=== PATIENT | male | born 1965 | race Caucasian/White ===

== ENCOUNTER 2017-02-12 10:43 | Emergency (ER) | payer OTHER ==
[2017-02-12 10:58] VITALS: BP 155/75; PULSE 86; TEMP 97.9; BMI 31.8
[2017-02-12] MEDS ORDERED: OXYCODONE/APAP 5/325MG COMBO TABLET PO ONE (11:41)
[2017-02-12] MEDS ORDERED: OXYCODONE/APAP 5/325MG COMBO TABLET ONE (11:46)
--- NOTE | 2017-02-12 11:51 | PDOC ---
History of Present Illness - General Chief Complaint: Head/Neck problem Stated Complaint: INJURY Time Seen by Provider: 02/12/17 11:15 History Source: Patient - History of Present Illness Timing/Duration: other Associated Symptoms: denies: headaches, weakness Past History - Past Medical History Allergies/Adverse Reactions: Allergies Allergy/AdvReac Type Severity Reaction Status Date / Time No Known Allergies Allergy Verified 02/12/17 10:54 Home Medications: Ambulatory Orders Hydrochlorothiazide [Hctz -] 25 mg PO DAILY 11/04/12 Ibuprofen 600 mg PO TID #21 tablet 08/04/16 Miscellaneous Medical Supply [Outpatient Order] 1 each ASDIR #1 misc Oxycodone HCl/Acetaminophen [Percocet 5-325 mg Tablet] 1 tab PO Q6H PRN #12 tablet MDD 4 tabs 08/04/16 Oxycodone HCl/Acetaminophen [Percocet 5-325 mg Tablet] 1 tab PO Q4H #15 tablet MDD 6mg 02/12/17 Anemia: No Asthma: No Cancer: Yes (Colon Cancer (s/p 6inch resection)) Cardiac Disorders: No HTN: Yes Hypercholesterolemia: Yes - Surgical History Abdominal Surgery: Yes (HERNIA REPAIR) GI Surgery: Yes (Colon CA resection) - Psycho/Social/Smoking Cessation Hx Anxiety: No Suicidal Ideation: No Smoking Status: Yes Smoking History: Current every day smoker Have you smoked in the past 12 months: Yes Number of Cigarettes Smoked Daily: 6 Information on smoking cessation initiated: No 'Breaking Loose' booklet given: 08/04/16 Hx Alcohol Use: No Drug/Substance Use Hx: No Substance Use Type: None Review of Systems - Review of Systems Constitutional: No: Chills, Fever Musculoskeletal: Yes: Neck Pain Neurological: No: Numbness, Tingling, Weakness *Physical Exam - Vital Signs Last Vital Signs Temp Pulse Resp BP Pulse Ox 97.9 F 86 19 155/75 96 02/12/17 10:55 02/12/17 10:55 02/12/17 10:55 02/12/17 10:55 02/12/17 10:55 - Physical Exam General Appearance: Yes: Appropriately Dressed. No: Apparent Distress HEENT: positive: Normal Voice Neck: positive: Supple Respiratory/Chest: negative: Respiratory Distress Integumentary: positive: Dry, Warm Neurologic: positive: Fully Oriented, Alert, Normal Mood/Affect, Motor Strength 11/21 Medical Decision Making - Medical Decision Making 02/12/17 11:47 51-year-old male history of hypertension, hyperlipidemia, colon cancer status post resection, chronic neck pain with 5 herniated disc on MRI as per patient, currently follows up with neurosurgeon and told he might need surgery in the near future, has since had to resign from his job and has since been approved for early usp as per patient, here requesting refill of his Percocet. Patient states he was getting medications from his orthopedic doctor, but that his insurance has switched to medicaid and that his orthopedist does not accept that insurance. In the process of getting another orthopedist, but currently complaining of his usual neck pain and here for pain control. No upper extremity weakness, numbness or tingling. Pt well dante and in NAD w/ unremarkable exam. I explained to pt that we will refill his meds this 1 time but that after this visit, he needs to request meds from his neurosurgeon, a new orthopedist or pain management. Pt verbalized understanding and discharged in stable condition w/ refill 02/12/17 11:52 *DC/Admit/Observation/Transfer Diagnosis at time of Disposition: Chronic neck pain - Discharge Dispostion Disposition: HOME Condition at time of disposition: Good - Prescriptions Prescriptions: Oxycodone HCl/Acetaminophen [Percocet 5-325 mg Tablet] 1 tab PO Q4H #15 tablet MDD 6mg - Patient Instructions Printed Discharge Instructions: DI for Chronic Neck Pain Additional Instructions: Take medication as prescribed and continue to follow-up with your neurosurgeon
== END 2017-02-12 11:54 | disposition home or self-care (01) ==
LOC: JERFT 10:43
DX: M54.2 Cervicalgia (principal); G89.29 Other chronic pain; Z76.0 Encounter for issue of repeat prescription; I10 Essential (primary) hypertension; E78.00 Pure hypercholesterolemia, unspecified; Z85.038 Personal history of other malignant neoplasm of large intestine
CPT/HCPCS: 99281-25

== ENCOUNTER 2017-06-29 15:32 | Inpatient (IN) | payer OTHER ==
[2017-06-29 15:37] VITALS: BMI 34.0
[2017-06-29] MEDS ORDERED: ACETAMINOPHEN 325 MG TABLET (FP) PO ONE (15:37)
--- NOTE | 2017-06-29 16:29 | PDOC ---
Rapid Medical Evaluation Chief Complaint: Cold Symptoms Time Seen by Provider: 06/29/17 16:22 Medical Evaluation: Allergies Allergy/AdvReac Type Severity Reaction Status Date / Time No Known Allergies Allergy Verified 06/29/17 15:33 Vital Signs Temp Pulse Resp BP Pulse Ox 100.5 F H 132 H 18 125/74 95 06/29/17 15:34 06/29/17 15:34 06/29/17 15:34 06/29/17 15:34 06/29/17 15:34 06/29/17 16:25 The patient presents with a chief complaint of: Sore throat 2 days, back pain. Hx of herniated discs I have performed a brief in-person evaluation of this patient; Pertinent physical exam findings Posterior pharynx erythema I have ordered the following: rapid strep The patient will proceed to the ED for further evaluation. Discharge Disposition - Discharge Dispostion Last Admission D/C Date: 04/27/06 - Referrals Referrals: Juvenal Reeder [Primary Care Provider] - - Patient Instructions - Post Discharge Activity
[2017-06-29] MEDS ORDERED: SODIUM CHLORIDE 1,000 ML IV STA ×2 (18:20→20:54)
[2017-06-29] MEDS ORDERED: ACETAMINOPHEN 1000 MG/100 ML VIAL (NON FORMULARY) IVPB ONE ×2 (18:21→20:54)
[2017-06-29] MEDS ORDERED: KETOROLAC TROMETHAMINE 30 MG/1 ML VIAL IVPUSH ONE (18:22)
--- NOTE | 2017-06-29 18:31 | PDOC ---
History of Present Illness <Jesus Mitchell - Last Filed: 06/29/17 18:31> - General History Source: Patient Exam Limitations: No Limitations - History of Present Illness Initial Comments: 06/29/17 19:03 [employer]RE [employer] The patient is a 52 year old male, with a significant past medical history of Asthma, HTN, HLD, Major Depressive Disorder who presents to the emergency department with lower back pain and fever today. Patient reports lower back pain that began yesterday, constant, sharp, 06/28 in severity, radiating down his legs. Patient was seen at [facility] ED for this similar episode with a negative workup months ago. Patient reports taking percocet yesterday with minimal relief. Patient admits to taking percocet today however denies any relief. Patient endorses diarrhea, headache and dizziness. Patient presents to the ED for further evaluation. Upon evaluation, patients vital signs are significant for 102.6 fever and 110 HR. Patient reports heavy lifting at work. Patient denied any urine/bowel incontinence. Patient denies chest pain, headache or dizziness. Patient denies abdominal pain, nausea, vomit, diarrhea or constipation. Patient denies dysuria, frequency, urgency or hematuria. Patient denies sick contacts or recent travel. Allergies: NKA Past surgical history:Hernia repair, [place] CA resection 2012 Social history: Tobacoo smoker 17 yrs, Former cocaine and EtOH use. PCP: Dr. Reeder <Delores Saucedo - Last Filed: 06/29/17 19:03> <Julissa Tsang - Last Filed: 06/29/17 19:41> <Alpa Camacho - Last Filed: 06/30/17 04:46> - General Chief Complaint: Cold Symptoms Stated Complaint: CHILLS, BACK PAIN Time Seen by Provider: 06/29/17 16:22 Past History - Past Medical History Anemia: No Asthma: No Cancer: Yes (Colon Cancer (s/p 6inch resection)) Cardiac Disorders: No CVA: Yes (mini stroke) COPD: No HTN: Yes Hypercholesterolemia: Yes Other medical history: back problems - Surgical History Abdominal Surgery: Yes (HERNIA REPAIR) GI Surgery: Yes (Colon CA resection) - Suicide/Smoking/Psychosocial Hx Smoking Status: Yes Smoking History: Current every day smoker Have you smoked in the past 12 months: Yes Number of Cigarettes Smoked Daily: 6 Information on smoking cessation initiated: Yes 'Breaking Loose' booklet given: 08/04/16 Hx Alcohol Use: No Drug/Substance Use Hx: No Substance Use Type: None <Jesus Mitchell - Last Filed: 06/29/17 18:31> <Delores Saucedo - Last Filed: 06/29/17 19:03> <TsangNelyJulissa - Last Filed: 06/29/17 19:41> <Alpa Camacho - Last Filed: 06/30/17 04:46> - Past Medical History Allergies/Adverse Reactions: Allergies Allergy/AdvReac Type Severity Reaction Status Date / Time No Known Allergies Allergy Verified 06/29/17 15:33 Home Medications: Ambulatory Orders Oxycodone HCl/Acetaminophen [Percocet 5-325 mg Tablet] 1 tab PO Q4H #15 tablet MDD 6mg 02/12/17 Aspirin [ASA -] 81 mg PO DAILY 06/29/17 Atorvastatin Ca [Lipitor] 40 mg PO HS 06/29/17 Fluoxetine HCl [Prozac] 40 mg PO DAILY 06/29/17 Review of Systems - Review of Systems Able to Perform ROS?: Yes Comments:: 06/29/17 19:04 GENERAL/CONSTITUTIONAL: + fever, chills.+Generalized weakness. HEAD, EYES, EARS, NOSE AND THROAT: No change in vision. No ear pain or discharge. No sore throat. CARDIOVASCULAR: No chest pain or shortness of breath. RESPIRATORY: No cough, wheezing, or hemoptysis. GASTROINTESTINAL: No nausea, vomiting, diarrhea or constipation. GENITOURINARY: No dysuria, frequency, or change in urination. MUSCULOSKELETAL: No joint or muscle swelling or pain. No neck pain. +Back pain. SKIN: No rash NEUROLOGIC: No headache, vertigo, loss of consciousness, or change in strength/ sensation. ENDOCRINE: No increased thirst. No abnormal weight change. HEMATOLOGIC/LYMPHATIC: No anemia, easy bleeding, or history of blood clots. ALLERGIC/IMMUNOLOGIC: No hives or skin allergy. <Delores Saucedo - Last Filed: 06/29/17 19:03> *Physical Exam - Vital Signs Last Vital Signs Temp Pulse Resp BP Pulse Ox 102.6 F H 110 H 20 111/57 97 06/29/17 18:19 06/29/17 18:19 06/29/17 18:19 06/29/17 18:19 06/29/17 18:19 <Jesus Mitchell - Last Filed: 06/29/17 18:31> - Vital Signs Last Vital Signs Temp Pulse Resp BP Pulse Ox 102.6 F H 110 H 20 111/57 97 06/29/17 18:19 06/29/17 18:19 06/29/17 18:19 06/29/17 18:19 06/29/17 18:19 - Physical Exam Comments: 06/29/17 19:04 GENERAL: Awake, alert, and fully oriented, in no acute distress HEAD: No signs of trauma EYES: PERRLA, EOMI, sclera anicteric, conjunctiva clear ENT: Auricles normal inspection, hearing grossly normal, nares patent, oropharynx clear without exudates. Moist mucosa NECK: Normal ROM, supple, no lymphadenopathy, JVD, or masses LUNGS: Breath sounds equal, clear to auscultation bilaterally. No wheezes, and no crackles HEART: Regular rate and rhythm, normal S1 and S2, no murmurs, rubs or gallops ABDOMEN: Soft, nontender, normoactive bowel sounds. No guarding, no rebound. No masses EXTREMITIES: Normal range of motion, no edema. No clubbing or cyanosis. No cords, erythema, or tenderness NEUROLOGICAL: Cranial nerves II through XII grossly intact. Normal speech, normal gait SKIN: Warm, Dry, normal turgor, no rashes or lesions noted. <Delores Saucedo - Last Filed: 06/29/17 19:03> - Vital Signs Last Vital Signs Temp Pulse Resp BP Pulse Ox 102.6 F H 110 H 20 111/57 97 06/29/17 18:19 06/29/17 18:19 06/29/17 18:19 06/29/17 18:19 06/29/17 18:19 <Julissa Tsang - Last Filed: 06/29/17 19:41> - Vital Signs Last Vital Signs Temp Pulse Resp BP Pulse Ox 102.6 F H 117 H 20 132/82 98 06/30/17 04:09 06/30/17 04:09 06/30/17 04:09 06/30/17 04:09 06/30/17 04:09 <Alpa Camacho - Last Filed: 06/30/17 04:46> Heart Score/ECG Review - ECG Intrepretation Comment:: 06/29/17 19:41 Sinus tachycardia. Otherwise normal ECG. <Nely Tsangnda - Last Filed: 06/29/17 19:41> ED Treatment Course - ADDITIONAL ORDERS Additional order review: 06/29/17 16:28 Group A Strep Rapid Antigen - Final Throat - RADIOLOGY Radiology Studies Ordered: Category Date Time Status CHEST X-RAY PORTABLE* [RAD] Stat Radiology 06/29/17 18:20 Ordered - Medications Given in the ED: ED Medications Discontinued Medications Generic Name Dose Route Start Last Admin Trade Name Freq PRN Reason Stop Dose Admin Acetaminophen 650 mg 06/29/17 15:37 06/29/17 15:38 Tylenol - PO 06/29/17 15:38 650 mg NOW ONE Administration <Jesus Mitchell - Last Filed: 06/29/17 18:31> - LABORATORY CBC & Chemistry Diagram: 06/29/17 18:55 06/29/17 18:55 - ADDITIONAL ORDERS Additional order review: 06/29/17 16:28 Group A Strep Rapid Antigen - Final Throat - Medications Given in the ED: ED Medications Discontinued Medications Generic Name Dose Route Start Last Admin Trade Name Freq PRN Reason Stop Dose Admin Acetaminophen 650 mg 06/29/17 15:37 06/29/17 15:38 Tylenol - PO 06/29/17 15:38 650 mg NOW ONE Administration <Delores Saucedo - Last Filed: 06/29/17 19:03> - LABORATORY CBC & Chemistry Diagram: 06/29/17 18:55 06/29/17 18:55 - ADDITIONAL ORDERS Additional order review: Laboratory Results 06/29/17 06/29/17 06/29/17 19:04 18:55 18:55 PT with INR 12.70 H INR 1.12 PTT (Actin FS) 35.1 H VBG pH 7.42 POC VBG pCO2 40.3 POC VBG pO2 31.4 Mixed VBG HCO3 26.2 H Urine Color Latasha Urine Appearance Slcloudy Urine pH 5.0 Ur Specific [place] 1.029 Urine Protein Negative Urine Glucose (UA) Negative Urine Ketones Trace H Urine Blood Negative Urine Nitrite Negative Urine Bilirubin Negative Urine Urobilinogen 2.0 06/29/17 18:55 Influenza Types A,B Antigen (ANN MARIE) - Preliminary Nasopharyngeal Swab - Preliminary 06/29/17 16:28 Group A Strep Rapid Antigen - Final Throat 06/29/17 18:55 RBC 5.01 MCV 87.8 MCHC 34.3 RDW 13.7 MPV 9.0 Neutrophils % 89.1 H D Lymphocytes % 6.6 L D Monocytes % 4.1 Eosinophils % 0.0 D Basophils % 0.2 - Medications Given in the ED: ED Medications Discontinued Medications Generic Name Dose Route Start Last Admin Trade Name Roz PRN Reason Stop Dose Admin Acetaminophen 650 mg 06/29/17 15:37 06/29/17 15:38 Tylenol - PO 06/29/17 15:38 650 mg NOW ONE Administration Acetaminophen 1,000 mg 06/29/17 18:21 06/29/17 19:08 Ofirmev Injection - IVPB 06/29/17 18:22 Not Given ONCE ONE Sodium Chloride 1,000 mls @ 1,000 mls/hr 06/29/17 18:20 06/29/17 19:03 Normal Saline - IV 06/29/17 19:19 1,000 mls/hr ASDIR STA Administration Ketorolac Tromethamine 30 mg 06/29/17 18:22 06/29/17 19:03 Toradol Injection - IVPUSH 06/29/17 18:23 30 mg ONCE ONE Administration <Julissa Tsang - Last Filed: 06/29/17 19:41> - LABORATORY CBC & Chemistry Diagram: 06/29/17 18:55 06/29/17 18:55 - ADDITIONAL ORDERS Additional order review: Laboratory Results 06/29/17 06/29/17 06/29/17 19:04 18:55 18:55 PT with INR INR PTT (Actin FS) VBG pH POC VBG pCO2 POC VBG pO2 Mixed VBG HCO3 Sodium Potassium Chloride Carbon Dioxide Anion Gap BUN Creatinine Creat Clearance w eGFR Random Glucose Lactic Acid 1.3 Calcium Total Bilirubin AST ALT Alkaline Phosphatase Creatine Kinase Creatine Kinase Index CK-MB (CK-2) Troponin I Total Protein Albumin Urine Color Latasha Urine Appearance Slcloudy Urine pH 5.0 Ur Specific [place] 1.029 Urine Protein Negative Urine Glucose (UA) Negative Urine Ketones Trace H Urine Blood Negative Urine Nitrite Negative Urine Bilirubin Negative Urine Urobilinogen 2.0 Ur Leukocyte Esterase Negative Blood Type O POSITIVE Antibody Screen Negative 06/29/17 06/29/17 06/29/17 18:55 18:55 18:55 PT with INR 12.70 H INR 1.12 PTT (Actin FS) 35.1 H VBG pH 7.42 POC VBG pCO2 40.3 POC VBG pO2 31.4 Mixed VBG HCO3 26.2 H Sodium 133 L Potassium 4.1 Chloride 98 Carbon Dioxide 26 Anion Gap 9 BUN 16 Creatinine 1.4 H D Creat Clearance w eGFR 52.81 Random Glucose 99 Lactic Acid Calcium 8.7 Total Bilirubin 0.5 D AST 15 ALT 36 Alkaline Phosphatase 81 Creatine Kinase 179 Creatine Kinase Index 0.5 CK-MB (CK-2) < 1.000 Troponin I < 0.02 Total Protein 7.2 Albumin 3.8 Urine Color Urine Appearance Urine pH Ur Specific [place] Urine Protein Urine Glucose (UA) Urine Ketones Urine Blood Urine Nitrite Urine Bilirubin Urine Urobilinogen Ur Leukocyte Esterase Blood Type Antibody Screen 06/29/17 18:55 Influenza Types A,B Antigen (ANN MARIE) - Final Nasopharyngeal Swab - Final 06/29/17 16:28 Group A Strep Rapid Antigen - Final Throat 06/29/17 18:55 RBC 5.01 MCV 87.8 MCHC 34.3 RDW 13.7 MPV 9.0 Neutrophils % 89.1 H D Lymphocytes % 6.6 L D Monocytes % 4.1 Eosinophils % 0.0 D Basophils % 0.2 - RADIOLOGY Radiology Studies Ordered: Category Date Time Status LUMBAR SPINE CT WITH CONTRAST [CT] Stat CT Scan 06/29/17 20:55 Taken - Medications Given in the ED: ED Medications Discontinued Medications Generic Name Dose Route Start Last Admin Trade Name Roz PRN Reason Stop Dose Admin Acetaminophen 650 mg 06/29/17 15:37 06/29/17 15:38 Tylenol - PO 06/29/17 15:38 650 mg NOW ONE Administration Acetaminophen 1,000 mg 06/29/17 18:21 06/29/17 19:08 Ofirmev Injection - IVPB 06/29/17 18:22 Not Given ONCE ONE Acetaminophen 1,000 mg 06/29/17 20:54 06/29/17 20:55 Ofirmev Injection - IVPB 06/29/17 20:55 1,000 mg ONCE ONE Administration Acetaminophen 1,000 mg 06/30/17 04:06 06/30/17 04:22 Ofirmev Injection - IVPB 06/30/17 04:07 1,000 mg ONCE ONE Administration Sodium Chloride 1,000 mls @ 1,000 mls/hr 06/29/17 18:20 06/29/17 19:03 Normal Saline - IV 06/29/17 19:19 1,000 mls/hr ASDIR STA Administration Sodium Chloride 1,000 mls @ 1,000 mls/hr 06/29/17 20:54 06/29/17 20:55 Normal Saline - IV 06/29/17 21:53 1,000 mls/hr ASDIR STA Administration Sodium Chloride 2,000 mls @ 1,000 mls/hr 06/30/17 00:15 06/30/17 00:57 Normal Saline - IV 06/30/17 02:14 1,000 mls/hr ASDIR STA Administration Ketorolac Tromethamine 30 mg 06/29/17 18:22 06/29/17 19:03 Toradol Injection - IVPUSH 06/29/17 18:23 30 mg ONCE ONE Administration <Alpa Camacho - Last Filed: 06/30/17 04:46> *DC/Admit/Observation/Transfer - Attestations Physician Attestion: 06/29/17 18:31 I, Dr. Jesus Mitchell, attest that this document has been prepared under my direction and personally reviewed by me in its entirety. I further attest, that it accurately reflects all work, treatment, procedures and medical decision -making performed by me. <Jesus Mitchell - Last Filed: 06/29/17 18:31> - Attestations Scribe Attestion: 06/29/17 19:04 Documentation prepared by Delores Saucedo, acting as medical coding manager for Jesus Mitchell DO. <Delores Saucedo - Last Filed: 06/29/17 19:03> <Julissa Tsang - Last Filed: 06/29/17 19:41> - Discharge Dispostion Admit: Yes <Alpa Camacho - Last Filed: 06/30/17 04:46> Diagnosis at time of Disposition: Fever Qualifiers: Fever type: unspecified Qualified Code(s): R50.9 - Fever, unspecified - Discharge Dispostion Condition at time of disposition: Guarded - Referrals Referrals: Juvenal Reeder [Primary Care Provider] - - Patient Instructions Printed Discharge Instructions: DI for Influenza -- Adult, DI for Fever ( Symptom) -- Adult - Post Discharge Activity
[2017-06-29] MEDS ORDERED: KETOROLAC TROMETHAMINE 30 MG/1 ML VIAL ONE (18:57)
[2017-06-29 19:05] LABS: BASOPHIL 0.2 % (0-2.0); MCH 30.1 pg (25.7-33.7); MCHC 34.3 g/dl (32.0-35.9); MEAN CELL VOLUME 87.8 fl (80-96); NEUTROPHILS 89.1 % (42.8-82.8); PLATELET COUNT 208 K/MM3 (134-434); RDW 13.7 % (11.9-15.9); WHITE BLOOD COUNT 15.2 K/mm3 (4.0-10.0)
[2017-06-29 19:06] LABS: VENOUS BLOOD GAS HCO3 26.2 meq/L (19-25); VENOUS PH 7.42 (7.32-7.42)
[2017-06-29 19:19] LABS: URINE APPEARANCE SLCLOUDY; URINE BILIRUBIN NEGATIVE (NEGATIVE); URINE BLOOD NEGATIVE (NEGATIVE); URINE COLOR AMBER; URINE GLUCOSE (UA) NEGATIVE (NEGATIVE); URINE KETONE TRACE (NEGATIVE); URINE LEUK ESTERASE NEGATIVE (NEGATIVE); URINE NITRITE NEGATIVE (NEGATIVE); URINE PROTEIN NEGATIVE (NEGATIVE)
[2017-06-29 19:23] LABS: INR 1.12 (0.82-1.09); PROTHROMBIN TIME (PATIENT) 12.7 SEC (9.98-11.88)
[2017-06-29 19:25] LABS: ACTIVATED PTT 35.1 SECONDS (26.9-34.4)
[2017-06-29 19:49] LABS: ALBUMIN 3.8 g/dl (3.4-5.0); ANION GAP 9 (8-16); BILIRUBIN,TOTAL 0.5 mg/dL (0.2-1.0); CALCIUM 8.7 mg/dL (8.5-10.1); CO2 26 mmol/L (21-32); CREATININE 1.4 mg/dL (0.7-1.3); GLUCOSE,RANDOM 99 mg/dL (74-106); SGOT/AST 15 U/L (15-37); SGPT/ALT 36 U/L (12-78); TOT PROT 7.2 g/dl (6.4-8.2)
[2017-06-29 19:51] LABS: ALK PHOS 81 U/L (45-117); CPK 179 IU/L (39-308); TROPONIN I < 0.02 ng/ml (0.00-0.05)
--- NOTE | 2017-06-29 20:18 | PDOC ---
*Physical Exam - Vital Signs Last Vital Signs Temp Pulse Resp BP Pulse Ox 102.5 F H 110 H 20 111/57 97 06/29/17 20:13 06/29/17 18:19 06/29/17 18:19 06/29/17 18:19 06/29/17 18:19 ED Treatment Course - LABORATORY CBC & Chemistry Diagram: 06/29/17 18:55 06/29/17 18:55 - ADDITIONAL ORDERS Additional order review: Laboratory Results 06/29/17 06/29/17 06/29/17 19:04 18:55 18:55 PT with INR INR PTT (Actin FS) VBG pH POC VBG pCO2 POC VBG pO2 Mixed VBG HCO3 Sodium 133 L Potassium 4.1 Chloride 98 Carbon Dioxide 26 Anion Gap 9 BUN 16 Creatinine 1.4 H D Creat Clearance w eGFR 52.81 Random Glucose 99 Lactic Acid 1.3 Calcium 8.7 Total Bilirubin 0.5 D AST 15 ALT 36 Alkaline Phosphatase 81 Creatine Kinase 179 Troponin I < 0.02 Total Protein 7.2 Albumin 3.8 Urine Color Latasha Urine Appearance Slcloudy Urine pH 5.0 Ur Specific [place] 1.029 Urine Protein Negative Urine Glucose (UA) Negative Urine Ketones Trace H Urine Blood Negative Urine Nitrite Negative Urine Bilirubin Negative Urine Urobilinogen 2.0 06/29/17 06/29/17 18:55 18:55 PT with INR 12.70 H INR 1.12 PTT (Actin FS) 35.1 H VBG pH 7.42 POC VBG pCO2 40.3 POC VBG pO2 31.4 Mixed VBG HCO3 26.2 H Sodium Potassium Chloride Carbon Dioxide Anion Gap BUN Creatinine Creat Clearance w eGFR Random Glucose Lactic Acid Calcium Total Bilirubin AST ALT Alkaline Phosphatase Creatine Kinase Troponin I Total Protein Albumin Urine Color Urine Appearance Urine pH Ur Specific [place] Urine Protein Urine Glucose (UA) Urine Ketones Urine Blood Urine Nitrite Urine Bilirubin Urine Urobilinogen 06/29/17 18:55 Influenza Types A,B Antigen (ANN MARIE) - Final Nasopharyngeal Swab - Final 06/29/17 16:28 Group A Strep Rapid Antigen - Final Throat 06/29/17 18:55 RBC 5.01 MCV 87.8 MCHC 34.3 RDW 13.7 MPV 9.0 Neutrophils % 89.1 H D Lymphocytes % 6.6 L D Monocytes % 4.1 Eosinophils % 0.0 D Basophils % 0.2 - Medications Given in the ED: ED Medications Discontinued Medications Generic Name Dose Route Start Last Admin Trade Name Roz PRN Reason Stop Dose Admin Acetaminophen 650 mg 06/29/17 15:37 06/29/17 15:38 Tylenol - PO 06/29/17 15:38 650 mg NOW ONE Administration Acetaminophen 1,000 mg 06/29/17 18:21 06/29/17 19:08 Ofirmev Injection - IVPB 06/29/17 18:22 Not Given ONCE ONE Sodium Chloride 1,000 mls @ 1,000 mls/hr 06/29/17 18:20 06/29/17 19:03 Normal Saline - IV 06/29/17 19:19 1,000 mls/hr ASDIR STA Administration Ketorolac Tromethamine 30 mg 06/29/17 18:22 06/29/17 19:03 Toradol Injection - IVPUSH 06/29/17 18:23 30 mg ONCE ONE Administration Medical Decision Making - Medical Decision Making 06/30/17 00:13 CT L-spine negative for abscess. No overlying skin changes. He has had similar back pain in the past, this is likely related. Source of fever is likely flu, as he has body aches. 06/30/17 04:33 Pt continues to be tachycardic despite 4 liters of IV fluids and fever control. Will admit to hospitalist service. *DC/Admit/Observation/Transfer Diagnosis at time of Disposition: Fever Qualifiers: Fever type: unspecified Qualified Code(s): R50.9 - Fever, unspecified - Discharge Dispostion Condition at time of disposition: Guarded Admit: Yes - Referrals Referrals: Juvenal Reeder [Primary Care Provider] - - Patient Instructions Printed Discharge Instructions: DI for Influenza -- Adult, DI for Fever ( Symptom) -- Adult - Post Discharge Activity
[2017-06-29] MEDS ORDERED: ACETAMINOPHEN INJECTION 100 ML IVPB ONE (20:50)
[2017-06-29 21:11] LABS: URINE LEUK ESTERASE NEGATIVE (NEGATIVE)
[2017-06-30] MEDS ORDERED: SODIUM CHLORIDE 2,000 ML IV STA (00:15)
[2017-06-30] MEDS ORDERED: ACETAMINOPHEN 1000 MG/100 ML VIAL (NON FORMULARY) IVPB ONE (04:06)
[2017-06-30] MEDS ORDERED: ACETAMINOPHEN INJECTION 100 ML IVPB ONE (04:12)
[2017-06-30] MEDS ORDERED: SODIUM CHLORIDE 1,000 ML IV SCH (05:00)
--- NOTE | 2017-06-30 05:02 | HP ---
CHIEF COMPLAINT: Fever/chills, low back pain PCP: Dr. Reeder HISTORY OF PRESENT ILLNESS: 52yo M with history of asthma, HTN, anxiety, HLD who presents to the ER with fever/chills and worsening back pain. Pt states his symptoms started 2 days ago when he noticed increasing back pain alongside fever/chills. He reports having chronic lower back pain with radiation down his legs, however it increased in intensity. Pt was at [facility] ED for his back pain, however the work-up was negative. HE reports having multiple episodes of watery diarrhea of normal colour since yesterday without any blood or mucous noted. He denies any sinus pressure, sore throat, ear pain, nausea/vomiting, SOB, CP/discomfort, abdominal pain recent trauma, recent instrument digitation of his spine, saddle anesthesia , motor difficulties, urinary difficulties including dysuria, polyuria, incontinence, and any unusual weight changes. Pt denies any sick contacts or eating anything unusual for him these past few days. Pt denies any antibiotic use prior to this hospital visit. ER course was notable for: (1) Fever max of 102.6 with minimal response to almost 4g of Tylenol in a 24hr period (2) Lumbar CT of the spine - No abscess or acute pathology (3) CXR - no acute findings noted (4) 4L of NS administered Recent Travel: Denies PAST MEDICAL HISTORY: Asthma Colon cancer (s/p resection) HLD HTN Anxiety PAST SURGICAL HISTORY: Colon resection (2012) Hernia Repair Social History: Smokin year smoker Alcohol: None Drugs: Previous cocaine and alcohol abuse; none currently Family History: Allergies No Known Allergies Allergy (Verified 06/29/17 15:33) HOME MEDICATIONS: Home Medications Medication Instructions Recorded Oxycodone HCl/Acetaminophen 1 tab PO Q4H #15 tablet MDD 6mg 02/12/17 [Percocet 5-325 mg Tablet] Aspirin [ASA -] 81 mg PO DAILY 06/29/17 Atorvastatin Ca [Lipitor] 40 mg PO HS 06/29/17 Fluoxetine HCl [Prozac] 40 mg PO DAILY 06/29/17 REVIEW OF SYSTEMS CONSTITUTIONAL: Present: fever, chills, malaise Absent: diaphoresis, generalized weakness, loss of appetite, weight change HEENT: Absent: rhinorrhea, nasal congestion, throat pain, throat swelling, difficulty swallowing, mouth swelling, ear pain, eye pain, visual changes CARDIOVASCULAR: Absent: chest pain, syncope, palpitations, irregular heart rate, lightheadedness , peripheral edema RESPIRATORY: Absent: cough, shortness of breath, dyspnea with exertion, orthopnea, wheezing, stridor, hemoptysis GASTROINTESTINAL: Present: Diarrhea Absent: abdominal pain, abdominal distension, nausea, vomiting, constipation, melena, hematochezia GENITOURINARY: Absent: dysuria, frequency, urgency, hesitancy, hematuria, flank pain, genital pain MUSCULOSKELETAL: Present: Body aches Absent: joint swelling, back pain, neck pain ENDOCRINE: Absent: unexplained weight gain, unexplained weight loss NEUROLOGIC: Absent: headache, focal weakness or paresthesias, dizziness, unsteady gait, seizure, bladder or bowel incontinence PSYCHIATRIC: Present: Anxiety Absent: depression PHYSICAL EXAMINATION Vital Signs - 24 hr 06/29/17 06/29/17 06/29/17 15:34 18:19 20:13 Temperature 100.5 F H 102.6 F H 102.5 F H Pulse Rate 132 H Pulse Rate [ 110 H Right Radial] Respiratory 18 20 Rate Blood Pressure 125/74 Blood Pressure 111/57 [Left Arm] O2 Sat by Pulse 95 97 Oximetry (%) 06/30/17 06/30/17 00:10 04:09 Temperature 100.5 F H 102.6 F H Pulse Rate Pulse Rate [ 120 H 117 H Right Radial] Respiratory 18 20 Rate Blood Pressure Blood Pressure 132/91 132/82 [Left Arm] O2 Sat by Pulse 97 98 Oximetry (%) GENERAL: NAD, lying in bed, awake, alert HEENT: AT/NC, No JVD present, No erythema or plaques in posterior oropharynx with normal structures of mouth, no scleral icterus LUNGS: CTA bilaterally. No wheezes, rhonchi, rales. No accessory muscle use. HEART: Tachycardic, normal S1 and S2 without murmur appreciated ABDOMEN: Soft, obese, nontender, nondistended, normoactive bowel sounds, no guarding, no rebound, no masses. No hepatomegaly. MUSCULOSKELETAL: No CVA tenderness, no tenderness on spinous processes EXTREMITIES: 2+ DP pulses, warm, no peripheral edema. NEUROLOGICAL: Nonfocal. Normal speech. Gait not observed. Strength 5/5 in lower extremities. PSYCHIATRIC: Cooperative. Good eye contact. Appropriate mood and affect. SKIN: Warm, dry, no rashes or lesions noted Laboratory Results - last 24 hr 06/29/17 06/29/17 06/29/17 18:55 18:55 18:55 WBC 15.2 H D RBC 5.01 Hgb 15.1 Hct 44.0 MCV 87.8 MCH 30.1 MCHC 34.3 RDW 13.7 Plt Count 208 MPV 9.0 Neutrophils % 89.1 H D Lymphocytes % 6.6 L D Monocytes % 4.1 Eosinophils % 0.0 D Basophils % 0.2 PT with INR 12.70 H INR 1.12 PTT (Actin FS) 35.1 H VBG pH 7.42 POC VBG pCO2 40.3 POC VBG pO2 31.4 Mixed VBG HCO3 26.2 H Sodium Potassium Chloride Carbon Dioxide Anion Gap BUN Creatinine Creat Clearance w eGFR Random Glucose Lactic Acid Calcium Total Bilirubin AST ALT Alkaline Phosphatase Creatine Kinase Creatine Kinase Index CK-MB (CK-2) Troponin I Total Protein Albumin Urine Color Urine Appearance Urine pH Ur Specific [place] Urine Protein Urine Glucose (UA) Urine Ketones Urine Blood Urine Nitrite Urine Bilirubin Urine Urobilinogen Ur Leukocyte Esterase Blood Type Antibody Screen 06/29/17 06/29/17 06/29/17 18:55 18:55 18:55 WBC RBC Hgb Hct MCV MCH MCHC RDW Plt Count MPV Neutrophils % Lymphocytes % Monocytes % Eosinophils % Basophils % PT with INR INR PTT (Actin FS) VBG pH POC VBG pCO2 POC VBG pO2 Mixed VBG HCO3 Sodium 133 L Potassium 4.1 Chloride 98 Carbon Dioxide 26 Anion Gap 9 BUN 16 Creatinine 1.4 H D Creat Clearance w eGFR 52.81 Random Glucose 99 Lactic Acid 1.3 Calcium 8.7 Total Bilirubin 0.5 D AST 15 ALT 36 Alkaline Phosphatase 81 Creatine Kinase 179 Creatine Kinase Index 0.5 CK-MB (CK-2) < 1.000 Troponin I < 0.02 Total Protein 7.2 Albumin 3.8 Urine Color Urine Appearance Urine pH Ur Specific [place] Urine Protein Urine Glucose (UA) Urine Ketones Urine Blood Urine Nitrite Urine Bilirubin Urine Urobilinogen Ur Leukocyte Esterase Blood Type O POSITIVE Antibody Screen Negative 06/29/17 19:04 WBC RBC Hgb Hct MCV MCH MCHC RDW Plt Count MPV Neutrophils % Lymphocytes % Monocytes % Eosinophils % Basophils % PT with INR INR PTT (Actin FS) VBG pH POC VBG pCO2 POC VBG pO2 Mixed VBG HCO3 Sodium Potassium Chloride Carbon Dioxide Anion Gap BUN Creatinine Creat Clearance w eGFR Random Glucose Lactic Acid Calcium Total Bilirubin AST ALT Alkaline Phosphatase Creatine Kinase Creatine Kinase Index CK-MB (CK-2) Troponin I Total Protein Albumin Urine Color Latasha Urine Appearance Slcloudy Urine pH 5.0 Ur Specific [place] 1.029 Urine Protein Negative Urine Glucose (UA) Negative Urine Ketones Trace H Urine Blood Negative Urine Nitrite Negative Urine Bilirubin Negative Urine Urobilinogen 2.0 Ur Leukocyte Esterase Negative Blood Type Antibody Screen ASSESSMENT/PLAN: 52yo M with history of asthma, HTN, anxiety, HLD who presents to the ER with fever/chills and worsening back pain found to meet SIRS 3/4 and minimally responsive fever. 1) Sepsis --Most likely 2/2 to flu not detected with rapid flu swab --Ruled out spinal abscess, UTI, PNA currently --Fever minimally responsive to tylenol; at max dose in 24h period currently --Recommend cooling blanket or ice packs if necessary --can NOT alternate with motrin due to kidney function --Can resume tylenol after 24h has passed --Lumbar CT negative for abscess --Stool cultures --Ova and parasites --C diff Ag/Toxin --Pt received 4L NS in ER --Will continue IVF with NS@125cc/hr --Tamiflu 30mg PO BID --Renally dosed due to increase in Cr 2) MARLON --Cr. 1.4 (baseline 0.9) --Avoid nephrotoxic medications --Hydration with IVF --Trend BMP --Urine electrolytes 3) Hyperlipidemia --Lipitor 40mg PO qdaily continued 4) Anxiety/Depression --Continue Prozac 40mg PO qdaily --Pt reports he's on Depakote, however unknown dosage --Will need to med rec this AM 5) HTN --Currently controlled at 132/82 --Monitor BP --Pt takes two medications daily, however unknown dose and name --Will need to med rec this AM FEN: Fluids: NS@125cc/hr Electrolyte abnormalities: Mild hyponatremia; trend, will increase with NS fluid Nutrition: Cholesterol-controlled diet PPX: DVT - Heparin 5000U SQ TID GI - Not indicated currently Dispo: Admit M/S Case discussed with Dr. Dania Bonilla, DO - IM PGY-1 Visit type - Emergency Visit Emergency Visit: Yes Care time: The patient presented to the Emergency Department on the above date and was hospitalized for further evaluation of their emergent condition. - New Patient This patient is new to me today: Yes Date on this admission: 06/30/17 - Critical Care Critical Care patient: No
--- NOTE | 2017-06-30 05:10 | PN ---
Teaching Attending Note Name of Resident: Vivek Arita ATTENDING PHYSICIAN STATEMENT I saw and evaluated the patient. I reviewed the resident's note and discussed the case with the resident. I agree with the resident's findings and plan as documented. SUBJECTIVE: 52 M with pmhx of Asthma, HTN, HLD, Asthma,Major Depressive Disorder, colon ca s/p colectomy, who presents in ED with low back pain. Also notes he was wheezing earlier. Also with associated fever and large voluminous diarrhea X1 day (non-bloody). States pain is radiating down right leg. Denies any cough, chest pain or pressure. No Nausea or vomiting. Did NOT recieve flu shot this year. OBJECTIVE: Physical: VS: Vital Signs Period Temp Pulse Resp BP Sys/Randhawa Pulse Ox Last 24 Hr 100.5 F-102.6 F 110-132 18-20 111-132/57-91 95-98 GEN: NAD, Resting in bed, AA0X3 CARD: Uriel Meraz S1, S2 RESP: CTAB ABD: BSx4, NTD to palpation , midline abdominal scar EXT: - C/C/E CBCD WBC 15.2 K/mm3 (4.0-10.0) H D 06/29/17 18:55 RBC 5.01 M/mm3 (4.00-5.60) 06/29/17 18:55 Hgb 15.1 GM/dL (11.7-16.9) 06/29/17 18:55 Hct 44.0 % (35.4-49) 06/29/17 18:55 MCV 87.8 fl (80-96) 06/29/17 18:55 MCHC 34.3 g/dl (32.0-35.9) 06/29/17 18:55 RDW 13.7 % (11.9-15.9) 06/29/17 18:55 Plt Count 208 K/MM3 (134-434) 06/29/17 18:55 MPV 9.0 fl (7.5-11.1) 06/29/17 18:55 CMP Sodium 133 mmol/L (136-145) L 06/29/17 18:55 Potassium 4.1 mmol/L (3.5-5.1) 06/29/17 18:55 Chloride 98 mmol/L (98-107) 06/29/17 18:55 Carbon Dioxide 26 mmol/L (21-32) 06/29/17 18:55 Anion Gap 9 (8-16) 06/29/17 18:55 BUN 16 mg/dL (7-18) 06/29/17 18:55 Creatinine 1.4 mg/dL (0.7-1.3) H D 06/29/17 18:55 Creat Clearance w eGFR 52.81 (>60) 06/29/17 18:55 Random Glucose 99 mg/dL (74-106) 06/29/17 18:55 Calcium 8.7 mg/dL (8.5-10.1) 06/29/17 18:55 Total Bilirubin 0.5 mg/dL (0.2-1.0) D 06/29/17 18:55 AST 15 U/L (15-37) 06/29/17 18:55 ALT 36 U/L (12-78) 06/29/17 18:55 Alkaline Phosphatase 81 U/L (45-117) 06/29/17 18:55 Total Protein 7.2 g/dl (6.4-8.2) 06/29/17 18:55 Albumin 3.8 g/dl (3.4-5.0) 06/29/17 18:55 CARDIAC ENZYMES Creatine Kinase 179 IU/L (39-308) 06/29/17 18:55 Troponin I < 0.02 ng/ml (0.00-0.05) 06/29/17 18:55 Urine Test Results Urine Color Latasha 06/29/17 19:04 Urine Appearance Slcloudy 06/29/17 19:04 Urine pH 5.0 (5.0-8.0) 06/29/17 19:04 Ur Specific [place] 1.029 (1.001-1.035) 06/29/17 19:04 Urine Protein Negative (NEGATIVE) 06/29/17 19:04 Urine Glucose (UA) Negative (NEGATIVE) 06/29/17 19:04 Urine Ketones Trace (NEGATIVE) H 06/29/17 19:04 Urine Blood Negative (NEGATIVE) 06/29/17 19:04 Urine Nitrite Negative (NEGATIVE) 06/29/17 19:04 Urine Bilirubin Negative (NEGATIVE) 06/29/17 19:04 Ur Leukocyte Esterase Negative (NEGATIVE) 12/11/17 19:04 Home Medications Medication Instructions Recorded Oxycodone HCl/Acetaminophen 1 tab PO Q4H #15 tablet MDD 6mg 02/12/17 [Percocet 5-325 mg Tablet] Aspirin [ASA -] 81 mg PO DAILY 06/29/17 Atorvastatin Ca [Lipitor] 40 mg PO HS 06/29/17 Fluoxetine HCl [Prozac] 40 mg PO DAILY 06/29/17 CXR- NO acute process FLU Rapid A/B: Negative EKG: STach CT L Spine: Reviewed Pending final read ASSESSMENT AND PLAN: 52 M with pmhx of Asthma, HTN, HLD, Asthma,Major Depressive Disorder, colon ca s/p colectomy, who presents in ED with low back pain and fever, found to be septic 1.) SIRS-Fever/Tachy - With diarrhea ro abd. colitis VS. Flu - CT Abd - C. Diff - Empiric Flagyl - Would treat for flu empirically - Abdullahi Cx - Repeat LA - IVF 2.) Asthma - Currently not in Exacerbation - Nebs prn 3.) Low Back/Leg pain - CT reviewed no acute process - Pain control 4.) HLD - C/W Statin 5.) HTN - Monitor/Controlled - Not on any home meds 6.) Major Depressive Do - C/W Prozac 7.) MARLON - U lytes - Most likely Pre-renal - IVF - Avoid Nephrotoxins 8.) DVt Ppx - Heparin [address] in Obs
[2017-06-30] MEDS: metroNIDAZOLE 250 MG TABLET PO SCH ×3 (06:51→21:53)
--- NOTE | 2017-06-30 08:03 | MSN ---
Progress Note (short form) - Note Progress Note: SUBJECTIVE CC: fever/chills, low back pain HPI: 62 y/o M with PMHx of asthma, HTN, HLD, colon ca s/p resection who was admitted to ED with fever, chills, tachycardia, leukocytosis, and worsening back pain. Pt was administered Tylenol 2650 mg total overnight to bring down his body temperature with mild relief. Pt was given another 1 g of Tylenol at 9: 00 AM. Pt was seen and examined today. Pt reports he feels "cold" and having chills. His back pain is mildly improved with 6/10 pain and he reports history of herniated discs in cervical region. He has intermittent diffuse abdominal pain described as "crampy with a squeezing feeling" and states he had cold sweats yesterday. He has had diarrhea x 10 episodes since admission to the ER. He describes his stool as "watery brown" and denies blood in stool. He states he is nauseous and has had decreased appetite for the last two days. He also reports intermittent coughing with no sputum production. He denies myalgias, trauma, SOB, exposure to sick contacts, history of similar abdominal/back pain, weight changes, dietary changes, changes in urination or emesis. OBJECTIVE Last Vital Signs Temp Pulse Resp BP Pulse Ox 99.0 F 104 H 18 134/78 96 06/30/17 06:47 06/30/17 06:47 06/30/17 06:47 06/30/17 06:47 06/30/17 06:47 General: Pt appears stated age, tremulous, lying in position on bed covered with his jacket. Head: Atraumatic. Eyes: PERRLA. EOMI. No scleroicterus noted. Throat: Moist mucous membranes. Tongue appears mildly dessicated. Neck: No cervical lymphadenopathy noted upon palpation. Chest: Tachycardic, regular rhythm, heart sounds are diminished secondary to increased breath sounds. Lungs: Inspiratory and expiratory wheezing; mild crackles noted at B/L lung bases. Abdomen: Distended, hyperactive bowel sounds. Nontender to light palpation, tender to deep palpation in all four quadrants. Tympanic to percussion in all four quadrants. Negative rebound tenderness. Extremities: 2+ radial pulse B/L. No cyanosis or edema noted. CBC, BMP 06/30/17 08:30 12/12/17 08:30 Abnormal Lab Results 06/29/17 06/29/17 06/29/17 18:55 18:55 18:55 WBC 15.2 H D Neutrophils % 89.1 H D Lymphocytes % 6.6 L D PT with INR 12.70 H PTT (Actin FS) 35.1 H Mixed VBG HCO3 26.2 H Sodium Anion Gap Creatinine Calcium Magnesium AST Total Protein Albumin Urine Ketones 06/29/17 06/29/17 06/30/17 18:55 19:04 08:30 WBC Neutrophils % 87.2 H Lymphocytes % 7.9 L PT with INR PTT (Actin FS) Mixed VBG HCO3 Sodium 133 L Anion Gap Creatinine 1.4 H D Calcium Magnesium AST Total Protein Albumin Urine Ketones Trace H 06/30/17 08:30 WBC Neutrophils % Lymphocytes % PT with INR PTT (Actin FS) Mixed VBG HCO3 Sodium Anion Gap 6 L Creatinine Calcium 7.7 L Magnesium 1.6 L AST 14 L Total Protein 6.0 L Albumin 3.0 L D Urine Ketones Active Medications Generic Name Dose Route Start Last Admin Trade Name Freq PRN Reason Stop Dose Admin Acetaminophen 650 mg 06/30/17 08:52 Tylenol - PO Q6H PRN FEVER OR PAIN Aspirin 81 mg 06/30/17 10:00 06/30/17 09:22 Asa - PO 81 mg DAILY JOSE Administration Atorvastatin Calcium 40 mg 06/30/17 22:00 Lipitor - PO HS JOSE Fluoxetine HCl 40 mg 06/30/17 10:00 06/30/17 09:22 Prozac - PO 40 mg DAILY JOSE Administration Sodium Chloride 1,000 mls @ 125 mls/hr 06/30/17 05:00 06/30/17 05:30 Normal Saline - IV 125 mls/hr ASDIR JOSE Administration Metronidazole 500 mg 06/30/17 06:00 06/30/17 06:51 Flagyl - PO 500 mg TID JOSE Administration Oseltamivir Phosphate 30 mg 06/30/17 10:00 06/30/17 09:23 Tamiflu - PO 07/05/17 09:59 30 mg BID JOSE Administration Home Medications Medication Instructions Recorded Aspirin [ASA -] 81 mg PO DAILY 06/29/17 Atorvastatin Ca [Lipitor] 40 mg PO HS 06/29/17 Fluoxetine HCl [Prozac] 40 mg PO DAILY 06/29/17 Albuterol Sulfate Inhaler - 1 puff PRN PRN 06/30/17 [Ventolin HFA Inhaler -] Amlodipine Besylate 10 mg PO DAILY 06/30/17 Divalproex Sodium [Depakote] 500 mg PO HS 06/30/17 Enalapril Maleate 2.5 mg PO DAILY 06/30/17 Gabapentin 300 mg PO TID 06/30/17 Oxycodone HCl/Acetaminophen 5 - 325 mg PO BID 06/30/17 [Percocet 5-325 mg Tablet] Risperidone 0.5 mg PO HS 06/30/17 Imaging: CXR 06/29 18:20: No acute changes. No effusion or infiltrates. CT/Abd Pelvis CT w/o contrast: Minimal R pleural effusion. Colitis involving ascending and transverse, possibly proximal portion of desc. colon. Diverticulosis coli w/o acute diverticulitis. Recommended follow up CT abdomen w / oral and IV contrast to assess for complete clearing of colitis. ASSESSMENT 62 y/o M with PMHx of asthma, HTN, HLD, colon ca s/p resection who was admitted to ED with fever, chills, tachycardia, leukocytosis, and worsening back pain. Symptoms are likely 2/2 sepsis from colitis. PLAN 1. Sepsis - likely 2/2 acute colitis - fever minimally responsive to tylenol; max dose 4 g in 1 day. - kidney fxn is improving; will add motrin PRN fever - cooling blankets, ice packs if necessary - f/u stool cultures, O&P, C diff Ag/toxin - started on Tamiflu 30mg PO BID in ER; D/C tamiflu since flu swab negative 2. Acute Back Pain - likely 2/2 referred back pain from colitis - start on home med Percocet - start on home med Gabapentin - PT - OOB; encourage ambulation 3. MARLON - likely 2/2 prerenal azotemia - Pt has severe diarrhea and poor PO intake - Cr trending down; kidney function improving with fluids - continue hydration with IVF NS @125 cc/hr - f/u urine sodium, urine Cr 4. HLD - continue home Lipitor 40 mg PO daily 5. Anxiety/Depression - continue home Prozac, Depakote - med rec done 6. HTN - monitor BP closely due to risk of septic shock - hold HTN meds since sepsis pts at risk of hypotension 7. FEN - fluids: NS@125 cc/hr; kidney fxn improving, continue fluids - electrolyte abnormalities: likely 2/2 pre-renal azotemia and hypovolemic hyponatremia from diarrhea and poor PO intake - Nutrition - NPO for bowel rest 8. PPX - DVT: Hep 5000 U SQ TID - GI PPX: Not currently indicated since pt is not in ICU or history of acid reflux 9. Dispo - Med/Surg Jazmyn Burgess, OMS-3
[2017-06-30 08:39] LABS: BASOPHIL 0.2 % (0-2.0); MCHC 33.9 g/dl (32.0-35.9); MEAN CELL VOLUME 88.4 fl (80-96); MEAN PLT VOLUME 8.5 fl (7.5-11.1); NEUTROPHILS 87.2 % (42.8-82.8); PLATELET COUNT 159 K/MM3 (134-434); RDW 14.2 % (11.9-15.9); WHITE BLOOD COUNT 9.1 K/mm3 (4.0-10.0)
[2017-06-30] MEDS ORDERED: ACETAMINOPHEN 500 MG TABLET (FP) PO ONE (08:45)
[2017-06-30] MEDS ORDERED: ACETAMINOPHEN 325 MG TABLET (FP) PO PRN (08:52)
[2017-06-30 09:04] LABS: ALK PHOS 62 U/L (45-117); ANION GAP 6 (8-16); BILIRUBIN,TOTAL 0.4 mg/dL (0.2-1.0); CALCIUM 7.7 mg/dL (8.5-10.1); CO2 25 mmol/L (21-32); CREATININE 1.1 mg/dL (0.7-1.3); GLUCOSE,RANDOM 103 mg/dL (74-106); MAGNESIUM 1.6 mg/dL (1.8-2.4); SGOT/AST 14 U/L (15-37); SGPT/ALT 28 U/L (12-78)
[2017-06-30] MEDS: ASPIRIN 81 MG CHEWABLE TABLETS PO SCH (09:22)
[2017-06-30] MEDS ORDERED: OSELTAMIVIR PHOSPHATE 30 MG CAPSULE PO SCH (10:00)
[2017-06-30] MEDS ORDERED: OSELTAMIVIR PHOSPHATE 75 MG CAPSULE PO SCH (10:00)
[2017-06-30] MEDS ORDERED: FLUoxetine HCL 20 MG CAPSULE (FP) PO SCH (10:00)
--- NOTE | 2017-06-30 14:44 | EKG ---
Test Reason : Blood Pressure : / mmHG Vent. Rate : 117 BPM Atrial Rate : 117 BPM P-R Int : 146 ms QRS Dur : 074 ms QT Int : 316 ms P-R-T Axes : 066 036 051 degrees QTc Int : 440 ms POOR DATA QUALITY, INTERPRETATION MAY BE ADVERSELY AFFECTED SINUS TACHYCARDIA OTHERWISE NORMAL ECG WHEN COMPARED WITH ECG OF 04-AUG-2016 08:26, NO SIGNIFICANT CHANGE WAS FOUND Confirmed by SUMAN SANDOVAL, NILSA ([id number]) on 06/30/2017 2:43:47 PM Referred By: Confirmed By:NILSA WILL MD
--- NOTE | 2017-06-30 15:49 | PN ---
Physical Exam: SUBJECTIVE: 52 year old male with a hx of asthma, anxiety, HLD, colon CA s/p resection presented to the ED with fevers, chills, back pain, and severe diarrhea (>10x this morning). He states that his fever lasted 3 days with back pain and diarrhea that was non-bloody in quality. In the ED, patient had a leukocytosis, fever, and tachycardia. Initially the thought was that patient might have the flu, but CT abdomen/pelvis revealed a picture of colitis. In the ED, patient has been controlling fever with tylenol. Denies chest pain, shortness of breath. Patient is nauseous but denies vomiting. OBJECTIVE: Vital Signs Period Temp Pulse Resp BP Sys/Randhawa Pulse Ox Last 24 Hr 97.6 F-102.6 F 104-120 16-20 111-138/57-91 96-98 GENERAL: The patient is awake, alert, and fully oriented, in mild distress HEAD: Normal with no signs of trauma. LUNGS: Breath sounds equal, clear to auscultation bilaterally, no wheezes, no crackles, no accessory muscle use. HEART: Regular rate and rhythm, S1, S2 without murmur, rub or gallop. ABDOMEN: obese, mildly tender to palpation, nondistended, hyperactive bowel sounds, no guarding, no rebound, no hepatosplenomegaly, no masses. NEUROLOGICAL: Cranial nerves II through XII grossly intact. Normal speech, gait not observed. Laboratory Results - last 24 hr 06/29/17 06/29/17 06/29/17 18:55 18:55 18:55 WBC 15.2 H D RBC 5.01 Hgb 15.1 Hct 44.0 MCV 87.8 MCH 30.1 MCHC 34.3 RDW 13.7 Plt Count 208 MPV 9.0 Neutrophils % 89.1 H D Lymphocytes % 6.6 L D Monocytes % 4.1 Eosinophils % 0.0 D Basophils % 0.2 PT with INR 12.70 H INR 1.12 PTT (Actin FS) 35.1 H VBG pH 7.42 POC VBG pCO2 40.3 POC VBG pO2 31.4 Mixed VBG HCO3 26.2 H Sodium Potassium Chloride Carbon Dioxide Anion Gap BUN Creatinine Creat Clearance w eGFR Random Glucose Lactic Acid Calcium Magnesium Total Bilirubin AST ALT Alkaline Phosphatase Creatine Kinase Creatine Kinase Index CK-MB (CK-2) Troponin I Total Protein Albumin Urine Color Urine Appearance Urine pH Ur Specific [place] Urine Protein Urine Glucose (UA) Urine Ketones Urine Blood Urine Nitrite Urine Bilirubin Urine Urobilinogen Ur Leukocyte Esterase Blood Type Antibody Screen 06/29/17 06/29/17 06/29/17 18:55 18:55 18:55 WBC RBC Hgb Hct MCV MCH MCHC RDW Plt Count MPV Neutrophils % Lymphocytes % Monocytes % Eosinophils % Basophils % PT with INR INR PTT (Actin FS) VBG pH POC VBG pCO2 POC VBG pO2 Mixed VBG HCO3 Sodium 133 L Potassium 4.1 Chloride 98 Carbon Dioxide 26 Anion Gap 9 BUN 16 Creatinine 1.4 H D Creat Clearance w eGFR 52.81 Random Glucose 99 Lactic Acid 1.3 Calcium 8.7 Magnesium Total Bilirubin 0.5 D AST 15 ALT 36 Alkaline Phosphatase 81 Creatine Kinase 179 Creatine Kinase Index 0.5 CK-MB (CK-2) < 1.000 Troponin I < 0.02 Total Protein 7.2 Albumin 3.8 Urine Color Urine Appearance Urine pH Ur Specific [place] Urine Protein Urine Glucose (UA) Urine Ketones Urine Blood Urine Nitrite Urine Bilirubin Urine Urobilinogen Ur Leukocyte Esterase Blood Type O POSITIVE Antibody Screen Negative 06/29/17 06/30/17 06/30/17 19:04 04:20 08:30 WBC 9.1 D RBC 4.38 Hgb 13.1 D Hct 38.7 MCV 88.4 MCH 30.0 MCHC 33.9 RDW 14.2 Plt Count 159 D MPV 8.5 Neutrophils % 87.2 H Lymphocytes % 7.9 L Monocytes % 4.7 Eosinophils % 0.0 Basophils % 0.2 PT with INR INR PTT (Actin FS) VBG pH POC VBG pCO2 POC VBG pO2 Mixed VBG HCO3 Sodium Potassium Chloride Carbon Dioxide Anion Gap BUN Creatinine Creat Clearance w eGFR Random Glucose Lactic Acid 1.1 Calcium Magnesium Total Bilirubin AST ALT Alkaline Phosphatase Creatine Kinase Creatine Kinase Index CK-MB (CK-2) Troponin I Total Protein Albumin Urine Color Latasha Urine Appearance Slcloudy Urine pH 5.0 Ur Specific [place] 1.029 Urine Protein Negative Urine Glucose (UA) Negative Urine Ketones Trace H Urine Blood Negative Urine Nitrite Negative Urine Bilirubin Negative Urine Urobilinogen 2.0 Ur Leukocyte Esterase Negative Blood Type Antibody Screen 06/30/17 08:30 WBC RBC Hgb Hct MCV MCH MCHC RDW Plt Count MPV Neutrophils % Lymphocytes % Monocytes % Eosinophils % Basophils % PT with INR INR PTT (Actin FS) VBG pH POC VBG pCO2 POC VBG pO2 Mixed VBG HCO3 Sodium 137 Potassium 3.9 Chloride 106 Carbon Dioxide 25 Anion Gap 6 L BUN 14 Creatinine 1.1 D Creat Clearance w eGFR > 60 Random Glucose 103 Lactic Acid Calcium 7.7 L Magnesium 1.6 L Total Bilirubin 0.4 AST 14 L ALT 28 D Alkaline Phosphatase 62 D Creatine Kinase Creatine Kinase Index CK-MB (CK-2) Troponin I Total Protein 6.0 L Albumin 3.0 L D Urine Color Urine Appearance Urine pH Ur Specific [place] Urine Protein Urine Glucose (UA) Urine Ketones Urine Blood Urine Nitrite Urine Bilirubin Urine Urobilinogen Ur Leukocyte Esterase Blood Type Antibody Screen Active Medications Generic Name Dose Route Start Last Admin Trade Name Joseq PRN Reason Stop Dose Admin Acetaminophen 650 mg 06/30/17 08:52 Tylenol - PO Q6H PRN FEVER OR PAIN Aspirin 81 mg 06/30/17 10:00 06/30/17 09:22 Asa - PO 81 mg DAILY JOSE Administration Atorvastatin Calcium 40 mg 06/30/17 22:00 Lipitor - PO HS JOSE Fluoxetine HCl 40 mg 06/30/17 10:00 06/30/17 09:22 Prozac - PO 40 mg DAILY JOSE Administration Sodium Chloride 1,000 mls @ 125 mls/hr 06/30/17 05:00 06/30/17 05:30 Normal Saline - IV 125 mls/hr ASDIR JOSE Administration Metronidazole 500 mg 06/30/17 06:00 06/30/17 14:20 Flagyl - PO 500 mg TID JOSE Administration ASSESSMENT/PLAN: 52 year old male with a past medical history of asthma, HTN, anxiety, HLD is admitted to the hospital for the treatment of sepsis likely 2/2 colitis. #Sepsis: likely 2/2 colitis vs influenza infection -CT Abd/pelvis showed colitis of ascending and transverse colon -patient had -Start metronidazole 500 PO TID -Start levofloxacin -Spinal abscess ruled out from CT lumbar spine -Creatinine normalized, can give motrin for fever -f/u stool cultures, ova/parasites -DC tamiflu -continue NS IV @125 for resuscitation #MARLON: resolved, likely 2/2 prerenal azotemia due to dehydration -Creatinine 1.1 #Hyperlipidemia -Continue Lipitor 40mg PO #Anxiety/Depression -Continue Prozac 40mg PO qdaily -Continue depakote #HTN: controlled -Currently controlled at 134/78 -held BP meds due to sepsis-like picture -likely restart in AM FEN: NS@125cc/hr Hyponatremia resolved Cholesterol-controlled diet Prophylaxis Heparin 5000U SQ TID Disposition Continue to monitor on med surg Visit type - Emergency Visit Emergency Visit: No - New Patient This patient is new to me today: Yes Date on this admission: 06/30/17 - Critical Care Critical Care patient: No
[2017-06-30] MEDS ORDERED: MAGNESIUM SULF 50% (8.12 MEQ/2 ML-1 GM VIAL) IVPB ONE (17:02)
--- NOTE | 2017-06-30 17:07 | PN ---
Teaching Attending Note Name of Resident: Cameron Toribio ATTENDING PHYSICIAN STATEMENT I saw and evaluated the patient. I reviewed the resident's note and discussed the case with the resident. I agree with the resident's findings and plan as documented. SUBJECTIVE:c/o chills and abdominal pain. no BM since arrival. denies CP, SOB, cough, BRBPR, melena, N/V. has need seen Gi doctor since colon cancer resection in 2012. never had colostomy bag. no Rtx or chemo OBJECTIVE: Last Vital Signs Temp Pulse Resp BP Pulse Ox 97.6 F 113 H 16 138/82 98 06/30/17 11:53 06/30/17 11:53 06/30/17 11:53 06/30/17 11:53 06/30/17 11:53 General mild distress CV S1 S2 tachy Lungs CTA B/L no wheezing/rales/rhonchi Abdomen diffuse tenderness soft ND. normoactive BS ASSESSMENT AND PLAN: 52 yo M with PMH ashtma, HTN, dyslipidemia, colon ca s/p resection presented to the Er wtih low back pain and diarrhea 1. Sepsis due to ascending and transverse colitis- Tm 102.6. will start NPO, IVF. add Levaquin 500mg daily to Flagyl 500mg Q8H. obtain stool studies. will d/ c tamiflu as influenza is negative and low suspicion for flu. Gi consult as pt has not seen GI since 2012 for his colon ca. will need colonoscopy once infection has cleared. influenza and strep negative 2. Hypomagesemia- Mg 1g 3. Renée- likley due to sepsis and dehydration. resolved. cont IVF. avoid nephrotoxic agetns 4. HTN- currently normotensive. in setting of acute sepsis will hold oral antihypertensives at this time. slowly re-start as needed 5. asthma- no signs of acute exacerbation. cont inhaler prn 6. Anxiety- resume anxylotics at this time 7. low back pain- likely exacerbating in acute setting of colitis with referred pain. CT lumbar spine negatrive for abscess or acute pathology. PT assessment. re-start pain medications 8. dyslipidemia- statin 9. DVT ppx- start lovenox
[2017-06-30] MEDS ORDERED: MAGNESIUM SULF 50% (8.12 MEQ/2 ML-1 GM VIAL) ONE (17:41)
[2017-06-30] MEDS ORDERED: LEVOFLOXACIN 500 MG IVPB 500 MG/100 ML BAG IVPB ONE (17:42)
[2017-06-30] MEDS ORDERED: IBUPROFEN 800 MG/8 ML IJ IVPB ONE (17:42)
[2017-06-30] MEDS ORDERED: ENOXAPARIN NA (PORCINE) 40 MG/0.4 ML DISP.SYRIN SQ ONE (17:42)
[2017-06-30] MEDS: LEVOFLOXACIN 500 MG IVPB 500 MG/100 ML BAG IVPB SCH (18:02)
[2017-06-30] MEDS: ENOXAPARIN NA (PORCINE) 40 MG/0.4 ML DISP.SYRIN SQ SCH (18:03)
[2017-06-30] MEDS: IBUPROFEN 800 MG/8 ML IJ IVPB PRN (18:03)
[2017-06-30] MEDS: SODIUM CHLORIDE 1,000 ML IV SCH (18:03)
[2017-06-30] MEDS ORDERED: DIVALPROEX SODIUM 500 MG TABLET E.C. PO SCH (22:00)
[2017-06-30] MEDS ORDERED: ATORVASTATIN CA 40 MG TABLET (FP) PO SCH (22:00)
[2017-06-30] MEDS ORDERED: risperiDONE 0.5 MG TABLET (FP) PO SCH (22:00)
[2017-07-01] MEDS: SODIUM CHLORIDE 1,000 ML IV SCH (03:00)
[2017-07-01] MEDS: metroNIDAZOLE 250 MG TABLET PO SCH ×3 (05:39→21:27)
[2017-07-01] MEDS: ONDANSETRON 4 MG/2 ML VIAL IVPUSH PRN ×3 (06:09→21:30)
--- NOTE | 2017-07-01 07:23 | MSN ---
Progress Note (short form) - Note Progress Note: SUBJECTIVE CC: fever/chills, low back pain HPI: Pt was seen and examined today. He reports 10 bouts of light green diarrhea this AM, nausea, intermittent dry heaving with no emesis, diffuse 6/10 abdominal pain, intermittent coughing with no sputum production, 2 bouts of chills that last for a few minutes this AM, and back pain that is improved from yesterday. He denies worsening or relieving factors for his back pain. He also denies diaphoresis, SOB, myalgias, and weight changes. OBJECTIVE Last Vital Signs Temp Pulse Resp BP Pulse Ox 99.6 F 115 H 20 139/87 98 07/01/17 06:00 07/01/17 06:00 07/01/17 06:00 07/01/17 06:00 06/30/17 21:00 General: Pt appears stated age, comfortable, lying in bed, non-diaphoretic. Head: Atraumatic. Eyes: PERRLA. EOMI. No scleroicterus noted. No APD. Throat: Moist mucus membranes. Mildly dessicated tongue. Neck: No cervical lymphadenopathy noted upon palpation. Chest: Tachycardic, irregularly irregular, diminished heart sounds. Lungs: Mild expiratory wheezing all throughout. Abdomen: Nondistended, nontender to light palpation, nontender to deep palpation in all four quadrants. Tympanic to percussion in all four quadrants. Negative rebound tenderness. Extremities: 2+ radial pulse B/L; 2+ dorsalis pedis pulse B/L. No cyanosis, clubbing, edema noted. CBC, BMP 07/01/17 08:10 07/01/17 08:10 Abnormal Lab Results 07/01/17 08:10 Random Glucose 121 H Calcium 8.0 L Laboratory Results - last 24 hr 06/30/17 06/30/17 07/01/17 16:43 16:43 06:40 WBC RBC Hgb Hct MCV MCH MCHC RDW Plt Count MPV Sodium Potassium Chloride Carbon Dioxide Anion Gap BUN Creatinine Random Glucose Calcium Ur Random Sodium 72 48 Ur Random Potassium 34.7 Ur Random Chloride 140 Urine Creatinine 132.0 07/01/17 07/01/17 08:10 08:10 WBC 4.7 D RBC 4.35 Hgb 13.0 Hct 38.6 MCV 88.8 MCH 29.9 MCHC 33.7 RDW 14.4 Plt Count 148 MPV 8.7 Sodium 138 Potassium 3.7 Chloride 105 Carbon Dioxide 24 Anion Gap 9 BUN 13 Creatinine 1.0 Random Glucose 121 H Calcium 8.0 L Ur Random Sodium Ur Random Potassium Ur Random Chloride Urine Creatinine Active Medications Generic Name Dose Route Start Last Admin Trade Name Freq PRN Reason Stop Dose Admin Acetaminophen 650 mg 06/30/17 08:52 Tylenol - PO Q6H PRN FEVER OR PAIN Aspirin 81 mg 06/30/17 10:00 06/30/17 09:22 Asa - PO 81 mg DAILY JOSE Administration Atorvastatin Calcium 40 mg 06/30/17 22:00 06/30/17 21:53 Lipitor - PO 40 mg HS JOSE Administration Divalproex Sodium 500 mg 06/30/17 22:00 06/30/17 21:53 Depakote - PO 500 mg HS JOSE Administration Enoxaparin Sodium 40 mg 06/30/17 17:15 06/30/17 18:03 Lovenox - SQ Not Given DAILY JOSE Fluoxetine HCl 40 mg 06/30/17 10:00 06/30/17 09:22 Prozac - PO 40 mg DAILY JOSE Administration Levofloxacin 500 mg in 100 mls @ 100 mls/hr 06/30/17 16:00 06/30/17 18:02 Levaquin 500 Mg Premixed Ivpb - IVPB 100 mls/hr DAILY JOSE Administration Sodium Chloride 1,000 mls @ 125 mls/hr 06/30/17 17:30 07/01/17 03:00 Normal Saline - IV 125 mls/hr ASDIR JOSE Administration Ibuprofen 600 mg 06/30/17 17:29 06/30/17 18:03 Caldolor Injection - IVPB 600 mg Q6H PRN Administration FEVER Metronidazole 500 mg 06/30/17 06:00 07/01/17 05:39 Flagyl - PO 500 mg TID JOSE Administration Ondansetron HCl 4 mg 07/01/17 05:49 07/01/17 06:09 Zofran Injection IVPUSH 4 mg Q6H PRN Administration NAUSEA AND/OR VOMITING Risperidone 0.5 mg 06/30/17 22:00 06/30/17 21:56 Risperdal - PO 0.5 mg HS JOSE Administration ASSESSMENT 62 y/o M with PMHx of asthma, HTN, HLD, colon ca s/p resection who was admitted to ED with fever, chills, tachycardia, leukocytosis, and worsening back pain. Symptoms are likely 2/2 sepsis from colitis. PLAN 1. Sepsis - likely 2/2 acute colitis - hypomagnesemia, hypocalcemia likely 2/2 diarrhea; corrected calcium is normal. Will replete Mg. - diarrhea unimproved, sodium now wnl. routine BMP ordered for tomorrow to ensure electrolytes are wnl. - continue levaquin and flagyl - f/u stool cultures, O&P, C diff Ag/toxin 2. Acute Back Pain - likely 2/2 referred back pain from colitis - Oxycodone - home dose; home med Gabapentin - PT - OOB; encourage ambulation 3. MARLON - likely 2/2 prerenal azotemia given FeNa <1%, diarrhea and poor PO intake - Cr trending down; kidney function improving with fluids - continue hydration with IVF NS @125 cc/hr 4. HLD -Pt currently taking home Lipitor 40 mg PO daily; will hold Lipitor to decrease amount of medications and bowel rest. 5. Anxiety/Depression - Pt wants to D/C home Prozac, Depakote, Risperdone. Will taper Depakote -- 250 mg today, D/C tomorrow. - Will monitor during daily rounds for signs of anxiety/depression/rj. 6. HTN - monitor BP closely due to risk of septic shock - continue to hold HTN meds since sepsis pts at risk of hypotension 7. FEN - fluids: NS@125 cc/hr; kidney fxn improving, continue fluids - electrolyte abnormalities: likely 2/2 pre-renal azotemia and hypovolemic hyponatremia from diarrhea and poor PO intake - Nutrition - NPO for bowel rest 8. PPX - DVT: Lovenox 40 mg SQ daily - GI PPX: Not currently indicated 9. Dispo - Med/Surg Jazmyn Burgess, OMS-3
[2017-07-01] MEDS ORDERED: ALBUTEROL SO4 18 GM HFA INHALER IH PRN (07:34)
[2017-07-01 08:41] LABS: MCH 29.9 pg (25.7-33.7); MCHC 33.7 g/dl (32.0-35.9); MEAN CELL VOLUME 88.8 fl (80-96); MEAN PLT VOLUME 8.7 fl (7.5-11.1); PLATELET COUNT 148 K/MM3 (134-434); RDW 14.4 % (11.9-15.9); WHITE BLOOD COUNT 4.7 K/mm3 (4.0-10.0)
[2017-07-01] MEDS: IBUPROFEN 800 MG/8 ML IJ IVPB PRN (08:51)
[2017-07-01 09:04] LABS: ANION GAP 9 (8-16); CO2 24 mmol/L (21-32); GLUCOSE,RANDOM 121 mg/dL (74-106)
--- NOTE | 2017-07-01 09:56 | CON.GI ---
Consult - History of Present Illness History of Present Illness: Chart reviewed. A 52 yom with history of "malignant polyp" resection in 2012 presents with 3 days of generalized abdominal pain, nausea, chills, diarrhea and loss of appetite. The patient reports multiple episodes of watery, green, variable volume diarrhea without any blood or mucous noted. Pt denies any sick contacts eating out, new medications, changed in diet. No history of the same. Denies dysphagia , odynophagia, dyspepsia, chronic GERD, jaundice, weight loss. No history of IBD , chronic colitis. - History Source History Provided By: Patient, Medical Record Limitations to Obtaining History: No Limitations - Alcohol/Substance Use Hx Alcohol Use: No - Smoking History Smoking history: Current every day smoker Have you smoked in the past 12 months: Yes Aproximately how many cigarettes per day: 6 Home Medications - Allergies Allergies/Adverse Reactions: Allergies Allergy/AdvReac Type Severity Reaction Status Date / Time No Known Allergies Allergy Verified 06/29/17 15:33 - Home Medications Home Medications: Ambulatory Orders Oxycodone HCl/Acetaminophen [Percocet 5-325 mg Tablet] 1 tab PO Q4H #15 tablet MDD 6mg 02/12/17 Aspirin [ASA -] 81 mg PO DAILY 06/29/17 Atorvastatin Ca [Lipitor] 40 mg PO HS 06/29/17 Fluoxetine HCl [Prozac] 40 mg PO DAILY 06/29/17 Albuterol Sulfate Inhaler - [Ventolin HFA Inhaler -] 1 puff PRN PRN 06/30/17 Amlodipine Besylate 10 mg PO DAILY 06/30/17 Divalproex Sodium [Depakote] 500 mg PO HS 06/30/17 Enalapril Maleate 2.5 mg PO DAILY 06/30/17 Gabapentin 300 mg PO TID 06/30/17 Oxycodone HCl/Acetaminophen [Percocet 5-325 mg Tablet] 5 - 325 mg PO BID Risperidone 0.5 mg PO HS 06/30/17 Family Disease History - Family Disease History Family History: Unremarkable Review of Systems Findings/Remarks: as per H&P, HPI Physical Exam-GI Vital Signs: Vital Signs Temperature 99.6 F 07/01/17 06:00 Pulse Rate 115 H 07/01/17 06:00 Respiratory Rate 20 07/01/17 06:00 Blood Pressure 139/87 07/01/17 06:00 O2 Sat by Pulse Oximetry (%) 98 06/30/17 21:00 Constitutional: Yes: Well Nourished, No Distress, Calm Eyes: Yes: Conjunctiva Clear HENT: Yes: Atraumatic Neck: Yes: Supple Cardiovascular: Yes: Regular Rate and Rhythm Respiratory: Yes: Regular Gastrointestinal Inspection: No: Ascites, Distention ...Palpate: Yes: Guarding, Soft, Tenderness. No: Firm/Rigid, Tenderness, Rebound Neurological: Yes: Alert, Oriented Labs: CBC, BMP 07/01/17 08:10 07/01/17 08:10 INR, PTT INR 1.12 (0.82-1.09) 06/29/17 18:55 Laboratory Results - last 24 hr 06/30/17 06/30/17 07/01/17 16:43 16:43 06:40 WBC RBC Hgb Hct MCV MCH MCHC RDW Plt Count MPV Sodium Potassium Chloride Carbon Dioxide Anion Gap BUN Creatinine Random Glucose Calcium Ur Random Sodium 72 48 Ur Random Potassium 34.7 Ur Random Chloride 140 Urine Creatinine 132.0 07/01/17 07/01/17 08:10 08:10 WBC 4.7 D RBC 4.35 Hgb 13.0 Hct 38.6 MCV 88.8 MCH 29.9 MCHC 33.7 RDW 14.4 Plt Count 148 MPV 8.7 Sodium 138 Potassium 3.7 Chloride 105 Carbon Dioxide 24 Anion Gap 9 BUN 13 Creatinine 1.0 Random Glucose 121 H Calcium 8.0 L Ur Random Sodium Ur Random Potassium Ur Random Chloride Urine Creatinine Imaging - Results Cat Scan: Report Reviewed (inflammation of transverse, descending, sigmoid) Problem List - Problems (1) Colitis Code(s): K52.9 - NONINFECTIVE GASTROENTERITIS AND COLITIS, UNSPECIFIED Assessment/Plan Suspect infectious colitis. Ischemic colitis, IBD are less likely. Sent stool for C. diff toxin Follow cx Agree with Abx PO/IV hydration Clear liquid diet Avoid NSAIDs colonoscopy in 4-6 weeks
[2017-07-01] MEDS ORDERED: amLODIPine BESYLATE 10 MG TABLET (FP) PO SCH (10:00)
[2017-07-01] MEDS: ENOXAPARIN NA (PORCINE) 40 MG/0.4 ML DISP.SYRIN SQ SCH (10:00)
[2017-07-01] MEDS ORDERED: ENALAPRIL MALEATE 2.5 MG TABLET (FP) PO SCH (10:00)
[2017-07-01] MEDS ORDERED: DIVALPROEX SODIUM 250 MG TABLET E.C. (FP) PO SCH (10:00)
[2017-07-01] MEDS ORDERED: ACETAMINOPHEN 325 MG TABLET (FP) PO PRN (10:03)
[2017-07-01] MEDS ORDERED: oxyCODONE HCL 5 MG TABLET PO PRN (10:03)
[2017-07-01] MEDS: LEVOFLOXACIN 500 MG IVPB 500 MG/100 ML BAG IVPB SCH (11:00)
[2017-07-01] MEDS: DEXTROSE 5%-NORMAL SALINE 1,000 ML IV SCH ×4 (13:03→21:37)
--- NOTE | 2017-07-01 13:41 | PN ---
Physical Exam: SUBJECTIVE: Patient seen and examined at bedside. Patient states that he had multiple bowel movements (>10) that were watery and green. States that he still has abdominal pain and nausea but not vomiting. Denies chest pain, SOB. OBJECTIVE: Vital Signs Period Temp Pulse Resp BP Sys/Randhawa Pulse Ox Last 24 Hr 99.2 F-101 F 103-126 18-20 139-142/74-87 98-98 GENERAL: The patient is awake, alert, and fully oriented, in mild distress HEAD: Normal with no signs of trauma. LUNGS: Breath sounds equal, clear to auscultation bilaterally, no wheezes, no crackles, no accessory muscle use. HEART: Regular rate and rhythm, S1, S2 without murmur, rub or gallop. ABDOMEN: obese, mildly tender to palpation, nondistended, hyperactive bowel sounds, no guarding, no rebound, no hepatosplenomegaly, no masses. NEUROLOGICAL: Cranial nerves II through XII grossly intact. Normal speech, gait not observed. Laboratory Results - last 24 hr 06/30/17 06/30/17 07/01/17 16:43 16:43 06:40 WBC RBC Hgb Hct MCV MCH MCHC RDW Plt Count MPV Sodium Potassium Chloride Carbon Dioxide Anion Gap BUN Creatinine Random Glucose Calcium Magnesium Ur Random Sodium 72 48 Ur Random Potassium 34.7 Ur Random Chloride 140 Urine Creatinine 132.0 07/01/17 07/01/17 08:10 08:10 WBC 4.7 D RBC 4.35 Hgb 13.0 Hct 38.6 MCV 88.8 MCH 29.9 MCHC 33.7 RDW 14.4 Plt Count 148 MPV 8.7 Sodium 138 Potassium 3.7 Chloride 105 Carbon Dioxide 24 Anion Gap 9 BUN 13 Creatinine 1.0 Random Glucose 121 H Calcium 8.0 L Magnesium 2.0 D Ur Random Sodium Ur Random Potassium Ur Random Chloride Urine Creatinine Active Medications Generic Name Dose Route Start Last Admin Trade Name Freq PRN Reason Stop Dose Admin Acetaminophen 650 mg 06/30/17 08:52 Tylenol - PO Q6H PRN FEVER OR PAIN Acetaminophen 325 mg 07/01/17 10:03 Tylenol - PO Q12H PRN PAIN Albuterol Sulfate 1 puff 07/01/17 07:34 Ventolin Hfa Inhaler - IH PRN PRN ASTHMA Amlodipine Besylate 10 mg 07/01/17 10:00 Norvasc - PO DAILY [facility] Aspirin 81 mg 06/30/17 10:00 06/30/17 09:22 Asa - PO 81 mg DAILY JOSE Administration Atorvastatin Calcium 40 mg 06/30/17 22:00 06/30/17 21:53 Lipitor - PO 40 mg HS JOSE Administration Divalproex Sodium 250 mg 07/01/17 10:00 Depakote - PO DAILY [facility] Enalapril Maleate 2.5 mg 07/01/17 10:00 Vasotec - PO DAILY [facility] Enoxaparin Sodium 40 mg 06/30/17 17:15 06/30/17 18:03 Lovenox - SQ Not Given DAILY [facility] Gabapentin 300 mg 07/01/17 07:45 Neurontin - PO TID [facility] Levofloxacin 500 mg in 100 mls @ 100 mls/hr 06/30/17 16:00 06/30/17 18:02 Levaquin 500 Mg Premixed Ivpb - IVPB 100 mls/hr DAILY JOSE Administration Dextrose/Sodium Chloride 1,000 mls @ 1,000 mls/hr 07/01/17 08:53 07/01/17 13: 03 D5-Ns - IV 1,000 mls/hr ASDIR JOSE Administration Dextrose/Sodium Chloride 1,000 mls @ 125 mls/hr 07/01/17 13:45 D5-Ns - IV ASDIR JOSE Ibuprofen 600 mg 06/30/17 17:29 07/01/17 08:51 Caldolor Injection - IVPB 600 mg Q6H PRN Administration FEVER Metronidazole 500 mg 06/30/17 06:00 07/01/17 05:39 Flagyl - PO 500 mg TID JOSE Administration Ondansetron HCl 4 mg 07/01/17 05:49 07/01/17 13:07 Zofran Injection IVPUSH 4 mg Q6H PRN Administration NAUSEA AND/OR VOMITING Oxycodone HCl 5 mg 07/01/17 10:03 Roxicodone - PO Q12H PRN PAIN Risperidone 0.5 mg 06/30/17 22:00 06/30/17 21:56 Risperdal - PO 0.5 mg HS JOSE Administration IMAGING: -CT Abd/pelvis showed colitis of ascending and transverse colon -CT lumbar spine: no spinal abscess ASSESSMENT/PLAN: 52 year old male with a past medical history of asthma, HTN, anxiety, HLD is admitted to the hospital for the treatment of sepsis likely 2/2 colitis. #Sepsis 2/2 Colitis: likely 2/2 colitis vs influenza infection, -patient had >10 bowel movements since yesterday -continue metronidazole 500 PO TID day 2 -continue levofloxacin day 2 -motrin PO for fever -f/u stool cultures, ova/parasites -continue D5NS IV @125 for resuscitation, bolus first 1L -hold statin -trial of CLD -appreciate GI recommendations, Dr. Sanabria #MARLON: resolved, likely 2/2 prerenal azotemia due to dehydration -Creatinine 1.1 #Hyperlipidemia -Continue Lipitor 40mg PO #Anxiety/Depression -Continue Prozac 40mg PO qdaily -depakote 250 #HTN: controlled -held BP meds due to sepsis-like picture -monitor BP, restart if hypertensive FEN: D5NS@125cc/hr Hyponatremia resolved Can start CLD and monitor Prophylaxis Heparin 5000U SQ TID Disposition Continue to monitor on med surg Visit type - Emergency Visit Emergency Visit: No - New Patient This patient is new to me today: No - Critical Care Critical Care patient: No
[2017-07-01] MEDS ORDERED: IBUPROFEN 600 MG TABLET (FP) PO PRN (13:47)
--- NOTE | 2017-07-01 13:51 | PN ---
Teaching Attending Note Name of Resident: Cameron Toribio ATTENDING PHYSICIAN STATEMENT I saw and evaluated the patient. I reviewed the resident's note and discussed the case with the resident. I agree with the resident's findings and plan as documented. SUBJECTIVE:continuest ohave 10 episodes of loose stool since yesterday assoc with abdominal pain but improved since yesterday. back pain mostly resolved. no more episodes of chills. denies CP, SOB, N/V/C/D OBJECTIVE: Last Vital Signs Temp Pulse Resp BP Pulse Ox 99.6 F 115 H 20 139/87 98 07/01/17 06:00 07/01/17 06:00 07/01/17 06:00 07/01/17 06:00 06/30/17 21:00 General NAD CV S1 S2 tachy Lungs CTA B/L no wheezing/rales/rhonchi Abdomen epigastric tenderness, soft ND. normoactive BS ASSESSMENT AND PLAN: 52 yo M with PMH ashtma, HTN, dyslipidemia, colon ca s/p resection presented to the Er wtih low back pain and diarrhea 1. Sepsis due to ascending and transverse colitis- Tm 101. overall improved. will cont NPO, IVF, Levaquin and Flasyl day 2. cdiff negative. stool cx pending. GI consulted. if continues to improve will consider advance to clear liquid diet. will need colonoscopy once infection has cleared. influenza and strep negative 2. Hypomagesemia- resolved 3. Renée- likley due to sepsis and dehydration. resolved. cont IVF. avoid nephrotoxic agetns 4. HTN- currently normotensive. will slowly re-start home medications as needed. hold ccb and acei 5. asthma- no signs of acute exacerbation. cont inhaler prn 6. Bipolar-states he stopped all his mediations a week ago because they were making him nauseated. did not speak with psychiatrist doing this. will cont to hold at this time as its been a week. encouraged to speak with psychiatrist as soon as discharge. 7. low back pain- likely exacerbating in acute setting of colitis with referred pain. controlled with pain medications 8. dyslipidemia- statin 9. DVT ppx- lovenox
[2017-07-01] MEDS: GABAPENTIN 300 MG CAPSULE (FP) PO SCH ×2 (14:00→21:27)
[2017-07-01] MEDS: ASPIRIN 81 MG CHEWABLE TABLETS PO SCH (17:47)
[2017-07-02] MEDS: DEXTROSE 5%-NORMAL SALINE 1,000 ML IV SCH ×2 (04:08→13:56)
[2017-07-02] MEDS: GABAPENTIN 300 MG CAPSULE (FP) PO SCH ×3 (06:21→13:57)
[2017-07-02] MEDS: metroNIDAZOLE 250 MG TABLET PO SCH ×2 (06:21→13:57)
--- NOTE | 2017-07-02 08:08 | MSN ---
Progress Note (short form) - Note Progress Note: SUBJECTIVE CC: fever/chills, low back pain HPI: Pt was seen and examined today. No overnight events. Pt cannot tolerate large amounts of clear liquid diet - states he ate 2 jellos and bowl of soup and had severe abdominal discomfort, "squeezing, stomach will blow up", and severe diffuse abdominal distension with diarrhea. Diarrhea and distension resolved by AM. He reports no changes in appetite and tolerated small bites of breakfast without abdominal discomfort. He had 2 bouts watery light green diarrhea this AM, 4/10 nausea that is improved from yesterday, mild intermittent sharp abdominal pain, intermittent back pain that radiates mostly down L leg that is tolerable and controlled with pain meds. Pt denies fever, emesis, headache, fatigue. OBJECTIVE Last Vital Signs Temp Pulse Resp BP Pulse Ox 98.7 F 100 H 18 124/77 98 07/02/17 06:26 07/02/17 06:26 07/02/17 06:26 07/02/17 06:26 07/01/17 20:10 General: Pt appears stated age, comfortable, lying in bed, non-diaphoretic. Head: Atraumatic. Eyes: PERRLA. EOMI. No scleroicterus noted. No APD. No conjunctival pallor. Throat: Moist mucus membranes. Moist tongue. Neck: No cervical lymphadenopathy noted upon palpation. Chest: Tachycardic, regular rhythm. No murmurs noted. S1/S2. Lungs: CTA B/L. No rhonchi, wheezing, rales. Abdomen: Nondistended, nontender to light palpation, mildly tender to deep palpation in all four quadrants. Tympanic to percussion in all four quadrants. Extremities: 2+ radial pulse B/L; 2+ dorsalis pedis pulse B/L. No cyanosis, clubbing, edema noted. Normal capillary refill <2s. CBC, BMP 07/02/17 07:15 07/02/17 07:15 Abnormal Lab Results 07/02/17 07:15 Random Glucose 109 H Phosphorus 1.6 L AST 56 H D Total Protein 6.3 L Albumin 2.9 L Active Medications Generic Name Dose Route Start Last Admin Trade Name Freq PRN Reason Stop Dose Admin Acetaminophen 650 mg 06/30/17 08:52 Tylenol - PO Q6H PRN FEVER OR PAIN Acetaminophen 325 mg 07/01/17 10:03 Tylenol - PO Q12H PRN PAIN Albuterol Sulfate 1 puff 07/01/17 07:34 Ventolin Hfa Inhaler - IH PRN PRN ASTHMA Amlodipine Besylate 10 mg 07/01/17 10:00 Norvasc - PO DAILY [facility] Aspirin 81 mg 06/30/17 10:00 07/01/17 17:47 Asa - PO 81 mg DAILY JOSE Administration Atorvastatin Calcium 40 mg 06/30/17 22:00 06/30/17 21:53 Lipitor - PO 40 mg HS JOSE Administration Enalapril Maleate 2.5 mg 07/01/17 10:00 Vasotec - PO DAILY JOSE Enoxaparin Sodium 40 mg 06/30/17 17:15 07/01/17 10:00 Lovenox - SQ Not Given DAILY [facility] Gabapentin 300 mg 07/01/17 07:45 07/02/17 07:40 Neurontin - PO Not Given TID JOSE Levofloxacin 500 mg in 100 mls @ 100 mls/hr 06/30/17 16:00 07/01/17 11:00 Levaquin 500 Mg Premixed Ivpb - IVPB 100 mls/hr DAILY JOSE Administration Dextrose/Sodium Chloride 1,000 mls @ 1,000 mls/hr 07/01/17 08:53 07/02/17 04: 08 D5-Ns - IV 1,000 mls/hr ASDIR JOSE Administration Dextrose/Sodium Chloride 1,000 mls @ 125 mls/hr 07/01/17 13:45 07/01/17 21:37 D5-Ns - IV 125 mls/hr ASDIR JOSE Administration Ibuprofen 600 mg 07/01/17 13:47 Motrin - PO Q6H PRN FEVER Metronidazole 500 mg 06/30/17 06:00 07/02/17 06:21 Flagyl - PO 500 mg TID JOSE Administration Ondansetron HCl 4 mg 07/01/17 05:49 07/01/17 21:30 Zofran Injection IVPUSH 4 mg Q6H PRN Administration NAUSEA AND/OR VOMITING C Diff Toxin & Ag Negative ASSESSMENT 62 y/o M with PMHx of asthma, HTN, HLD, colon ca s/p resection who was admitted to ED with fever, chills, tachycardia, leukocytosis, and worsening back pain. Symptoms are likely 2/2 sepsis from colitis. PLAN 1. Sepsis - likely 2/2 acute colitis - Electrolytes wnl; diarrhea improved. PO loperamide, lactobacillus for continued diarrhea. - Pt came in with leukocytosis; WBC now improved, wnl. - levaquin and flagyl day 3; switch all IV meds to PO. Will need to continue outpt abx for a total of 7 days. - f/u stool cultures, O&P 2. Acute Back Pain - likely 2/2 referred back pain from colitis - Oxycodone - home dose; home med Gabapentin - PT - OOB; encourage ambulation 3. MARLON - likely 2/2 prerenal azotemia given FeNa <1%, diarrhea and poor PO intake - Cr trending down; kidney function improving with fluids - continue hydration with IVF NS @125 cc/hr 4. HLD -Pt currently taking home Lipitor 40 mg PO daily 5. Anxiety/Depression 2/2 bipolar disorder - As per pt, D/C home Prozac, Depakote, Risperdone; he sees SHANT Arriola at [facility]. Pt states he has enough home meds to last him until f/u appointment. 6. HTN - BP is stable - continue to hold HTN meds; can resume as outpt with PCP. 7. FEN - fluids: D/C all fluids; kidney fxn wnl. Pt is now eating. - electrolyte abnormalities: resolved with improving diarrhea - Nutrition - Advance from clear liquids --> regular diet. Advised patient to eat slowly and small portions as tolerated. 8. PPX - DVT: Lovenox 40 mg SQ daily - GI PPX: Not currently indicated 9. Dispo - Med/Surg - D/C today if patient handles regular diet, PO abx/meds well. No need to wait for stool, O&P cultures because it will no change management consultant. Pt will need to follow up with GI - colonoscopy in 4-6 weeks, psych appointment with SHANT Yuen, PCP and continue abx tx for total 7 days. Jazmyn Burgess, OMS-3
[2017-07-02 08:20] LABS: MCH 29.7 pg (25.7-33.7); MCHC 33.2 g/dl (32.0-35.9); MEAN CELL VOLUME 89.4 fl (80-96); MEAN PLT VOLUME 8.7 fl (7.5-11.1); PLATELET COUNT 158 K/MM3 (134-434); RDW 14.3 % (11.9-15.9); WHITE BLOOD COUNT 4.4 K/mm3 (4.0-10.0)
[2017-07-02] MEDS: ASPIRIN 81 MG CHEWABLE TABLETS PO SCH (09:08)
[2017-07-02] MEDS: ENOXAPARIN NA (PORCINE) 40 MG/0.4 ML DISP.SYRIN SQ SCH (09:08)
[2017-07-02] MEDS: LEVOFLOXACIN 500 MG IVPB 500 MG/100 ML BAG IVPB SCH (09:08)
[2017-07-02 09:15] LABS: ALBUMIN 2.9 g/dl (3.4-5.0); ALK PHOS 55 U/L (45-117); ANION GAP 9 (8-16); BILIRUBIN,TOTAL 0.4 mg/dL (0.2-1.0); CALCIUM 8.5 mg/dL (8.5-10.1); CO2 27 mmol/L (21-32); GLUCOSE,RANDOM 109 mg/dL (74-106); MAGNESIUM 2.1 mg/dL (1.8-2.4); PHOSPHOROUS 1.6 mg/dL (2.5-4.9); SGOT/AST 56 U/L (15-37); SGPT/ALT 46 U/L (12-78); TOT PROT 6.3 g/dl (6.4-8.2)
--- NOTE | 2017-07-02 12:31 | PN ---
Progress Note, Physician History of Present Illness: Chart reviewed. ambulating, clinically better, states can tolerate liquids - Current Medication List Current Medications: Active Medications Acetaminophen (Tylenol -) 650 mg PO Q6H PRN PRN Reason: FEVER OR PAIN Acetaminophen (Tylenol -) 325 mg PO Q12H PRN PRN Reason: PAIN Albuterol Sulfate (Ventolin Hfa Inhaler -) 1 puff IH PRN PRN PRN Reason: ASTHMA Amlodipine Besylate (Norvasc -) 10 mg PO DAILY [facility] Aspirin (Asa -) 81 mg PO DAILY [facility] Last Admin: 07/02/17 09:08 Dose: 81 mg Atorvastatin Calcium (Lipitor -) 40 mg PO HS [facility] Last Admin: 06/30/17 21:53 Dose: 40 mg Enalapril Maleate (Vasotec -) 2.5 mg PO DAILY [facility] Enoxaparin Sodium (Lovenox -) 40 mg SQ DAILY [facility] Last Admin: 07/02/17 09:08 Dose: 40 mg Gabapentin (Neurontin -) 300 mg PO TID [facility] Last Admin: 07/02/17 07:40 Dose: Not Given Levofloxacin (Levaquin 500 Mg Premixed Ivpb -) 500 mg in 100 mls @ 100 mls/hr IVPB DAILY [facility] Last Admin: 07/02/17 09:08 Dose: 100 mls/hr Dextrose/Sodium Chloride (D5-Ns -) 1,000 mls @ 1,000 mls/hr IV ASDIR [facility] Last Admin: 07/02/17 04:08 Dose: 1,000 mls/hr Dextrose/Sodium Chloride (D5-Ns -) 1,000 mls @ 125 mls/hr IV ASDIR [facility] Last Admin: 07/01/17 21:37 Dose: 125 mls/hr Ibuprofen (Motrin -) 600 mg PO Q6H PRN PRN Reason: FEVER Metronidazole (Flagyl -) 500 mg PO TID [facility] Last Admin: 07/02/17 06:21 Dose: 500 mg Ondansetron HCl (Zofran Injection) 4 mg IVPUSH Q6H PRN PRN Reason: NAUSEA AND/OR VOMITING Last Admin: 07/01/17 21:30 Dose: 4 mg - Objective Vital Signs: Vital Signs Temperature 98.1 F 07/02/17 08:49 Pulse Rate 89 07/02/17 08:49 Respiratory Rate 18 07/02/17 09:00 Blood Pressure 117/74 07/02/17 08:49 O2 Sat by Pulse Oximetry (%) 98 07/02/17 09:00 Constitutional: Yes: No Distress, Calm Eyes: Yes: Conjunctiva Clear HENT: Yes: Atraumatic Neck: Yes: Supple Cardiovascular: Yes: Regular Rate and Rhythm Respiratory: Yes: Regular Gastrointestinal: Yes: Tenderness. No: Melena, Vomiting Neurological: Yes: Alert, Oriented Labs: CBC, BMP 07/02/17 07:15 07/02/17 07:15 INR, PTT INR 1.12 (0.82-1.09) 06/29/17 18:55 Laboratory Results - last 24 hr 07/02/17 07/02/17 07:15 07:15 WBC 4.4 RBC 4.47 Hgb 13.3 Hct 40.0 MCV 89.4 MCH 29.7 MCHC 33.2 RDW 14.3 Plt Count 158 MPV 8.7 Sodium 142 Potassium 3.8 Chloride 106 Carbon Dioxide 27 Anion Gap 9 BUN 8 D Creatinine 1.0 Creat Clearance w eGFR > 60 Random Glucose 109 H Calcium 8.5 Phosphorus 1.6 L Magnesium 2.1 Total Bilirubin 0.4 AST 56 H D ALT 46 D Alkaline Phosphatase 55 Total Protein 6.3 L Albumin 2.9 L Problem List - Problems (1) Colitis Code(s): K52.9 - NONINFECTIVE GASTROENTERITIS AND COLITIS, UNSPECIFIED Assessment/Plan Suspect infectious colitis. Ischemic colitis, IBD are less likely. Avoid NSAIDs soft, lactose-free, low fat, fiber diet Follow with GI in 2-3 weeks, or sooner if needed. colonoscopy in 4-6 weeks
[2017-07-02] MEDS ORDERED: LOPERAMIDE HCL 2 MG CAPSULE PO PRN (13:30)
[2017-07-02] MEDS ORDERED: NAPH,MB-DB/K PH,MBDB POWDER PACKET PO ONE (13:45)
[2017-07-02] MEDS ORDERED: LACTOBACILLUS ACIDOPHILUS 1 EACH TAB (FP) PO ONE (13:45)
[2017-07-02 14:03] VITALS: BP 112/54; PULSE 90; TEMP 97.7
--- NOTE | 2017-07-02 14:16 | PN ---
Teaching Attending Note Name of Resident: Cameron Toribio ATTENDING PHYSICIAN STATEMENT I saw and evaluated the patient. I reviewed the resident's note and discussed the case with the resident. I agree with the resident's findings and plan as documented. SUBJECTIVE:pain improved. tolerating liquid diet and requesting regular food. 2 loose BM since yesterday. denies CP, SOB, fever, chills, N/V/C OBJECTIVE: Last Vital Signs Temp Pulse Resp BP Pulse Ox 97.7 F 90 20 112/54 98 07/02/17 14:00 07/02/17 14:00 07/02/17 14:00 07/02/17 14:00 07/02/17 09:00 General NAD Abdomen epigastric tenderness, soft ND. normoactive BS ASSESSMENT AND PLAN: 52 yo M with PMH ashtma, HTN, dyslipidemia, colon ca s/p resection presented to the Er wtih low back pain and diarrhea 1. Sepsis due to ascending and transverse colitis- afebrile. tolerating liquid diets. advance to regular diet, low fat. cont Levaquin and Flagyl day 3. will need to complete 7 day course. start loperamide as cdiff is negative. bacid while on abx. Stool Cx with pending organism. will not management accountant. will need colonoscopy once infection has cleared. influenza and strep negative 2. Hypophosphatemia- neutraphos 3. Renée- likley due to sepsis and dehydration. resolved. d/c IVF. avoid nephrotoxic agetns 4. HTN- currently normotensive. cont to hold antihypertensives. follow up with PMD as outpatient to re-start if needed 5. asthma- no signs of acute exacerbation. cont inhaler prn 6. Bipolar-medical student spoke with psychatrist. is aware and has appt with him on thursday. encouraged to continue to hold medication and to keep appt. 7. low back pain- likely exacerbating in acute setting of colitis with referred pain. controlled with pain medications 8. dyslipidemia- statin 9. DVT ppx- lovenox 10. can d/c home if tolerates diet.
[2017-07-02] MEDS ORDERED: RANITIDINE HCL 150 MG TABLET (FP) PO ONE (15:38)
--- NOTE | 2017-07-02 17:33 | DS ---
Physical Exam: SUBJECTIVE: Patient seen and examined OBJECTIVE: Vital Signs Period Temp Pulse Resp BP Sys/Randhawa Pulse Ox Last 24 Hr 97.7 F-99.6 F 89-104 18-20 112-146/54-77 98-98 PHYSICAL EXAM GENERAL: The patient is awake, alert, and fully oriented, in no acute distress. HEAD: Normal with no signs of trauma. EYES: PERRL, extraocular movements intact, sclera anicteric, conjunctiva clear. ENT: Ears normal, nares patent, oropharynx clear without exudates, moist mucous membranes. NECK: Trachea midline, full range of motion, supple. LUNGS: Breath sounds equal, clear to auscultation bilaterally, no wheezes, no crackles, no accessory muscle use. HEART: Regular rate and rhythm, S1, S2 without murmur, rub or gallop. ABDOMEN: Soft, nontender, nondistended, normoactive bowel sounds, no guarding, no rebound, no hepatosplenomegaly, no masses. EXTREMITIES: 2+ pulses, warm, well-perfused, no edema. NEUROLOGICAL: Cranial nerves II through XII grossly intact. Normal speech, gait not observed. PSYCH: Normal mood, normal affect. SKIN: Warm, dry, normal turgor, no rashes or lesions noted. LABS Laboratory Results - last 24 hr 07/02/17 07/02/17 07:15 07:15 WBC 4.4 RBC 4.47 Hgb 13.3 Hct 40.0 MCV 89.4 MCH 29.7 MCHC 33.2 RDW 14.3 Plt Count 158 MPV 8.7 Sodium 142 Potassium 3.8 Chloride 106 Carbon Dioxide 27 Anion Gap 9 BUN 8 D Creatinine 1.0 Creat Clearance w eGFR > 60 Random Glucose 109 H Calcium 8.5 Phosphorus 1.6 L Magnesium 2.1 Total Bilirubin 0.4 AST 56 H D ALT 46 D Alkaline Phosphatase 55 Total Protein 6.3 L Albumin 2.9 L HOSPITAL COURSE: Date of Admission:06/30/17 52 year old male with a past medical history of asthma, HTN, anxiety, HLD is initially presented to the hospital for abdominal pain, fever, chills, and diarrhea and chronic low back pain. Patient had 10 episodes of non-bloody diarrhea 1 day before he came into the hospital. Patient tested negative for influenza and stool ova/parasites returned negative. Patient's stool culture was drawn. Patient was given IV fluids and given tylenol and motrin was held due to mild MARLON. Tylenol was switched to motrin when MARLON resolved after fluid resuscitation. Patient was treated with flagyl/levoquin for a total of 3 days. After 2 days, patient showed improvement in his symptoms and tolerated clear liquid diet. He was transitioned to full diet and discharged home with instructions to continue antibiotics for 4 more days for a total of 7 days and to follow with the mill beam fitter for colonoscopy within 5 weeks of discharge. Date of Discharge: 07/02/17 Minutes to complete discharge: 35 Discharge Summary Reason For Visit: FEVER Condition: Stable - Instructions Diet, Activity, Other Instructions: You were treated in the hospital for acute colitis. This means that you had an inflammatory process of your large intestine which caused you to have abdominal pain and diarrhea. There are a number of causes of this process, one of which is infection. We have treated you with 3 days of antibiotics in the hospital, you need to complete another 4 days of antibiotics at home. Medical Recommendations: -Take Metronidazole (flagyl) 500mg three times a day by mouth for 4 days at home. This is one of the antibiotics you already received in the hospital. You are prescribed 12 tablets. -Take levofloxacin (levaquin) 500mg once a day by mouth for 4 days at home. This is one of the antibiotics you already received in the hospital. You are prescribed 4 tablets. -Take Lactobacillus 1 tab at home to help prevent further infection. -Make sure to eat a soft, low fiber and low fat diet until your symptoms completely resolve. Make sure to eat slowly to give your intestines a chance to recover. For your blood pressure: -Your blood pressure medications were held in the hospital because your pressures were normal. continue to hold your blood pressure medication until you see your primary care doctor -Please follow up with your primary care physician to discuss any changes you need to make for your blood pressure For your psychiatric medications: We held your psychiatric medications in the hospital based on the recommendations of your psychiatrist. Please follow up with your psychiatrist as an outpatient to discuss management of these medications Referrals: Please follow up with Dr. Sanabria, the mill beam fitter, within 2-3 weeks of discharge for colonoscopy appointment Please make an appointment with your primary care physician within 1 week of discharge to discuss your hospital stay and further medication management Referrals: Myron Sanabria MD [Staff Physician] - Juvenal Reeder [Primary Care Provider] - Disposition: HOME - Home Medications Comprehensive Discharge Medication List: Ambulatory Orders Aspirin [ASA -] 81 mg PO DAILY 06/29/17 Atorvastatin Ca [Lipitor] 40 mg PO HS 06/29/17 Albuterol Sulfate Inhaler - [Ventolin HFA Inhaler -] 1 puff PRN PRN 06/30/17 Gabapentin 300 mg PO TID 06/30/17 Oxycodone HCl/Acetaminophen [Percocet 5-325 mg Tablet] 5 - 325 mg PO BID Lactobacillus Acidophilus [Bacid -] 1 each PO DAILY #7 capsule 07/02/17 Levofloxacin [Levaquin -] 500 mg PO DAILY #4 tablet 07/02/17 Metronidazole 500 mg PO TID #12 tablet 07/02/17 This patient is new to me today: No Emergency Visit: No Critical Care patient: No - Discharge Referral Referred to [facility] No
[2017-07-03] MEDS ORDERED: LEVOFLOXACIN 500 MG TABLET (FP) PO SCH (06:00)
== END 2017-07-02 17:14 | disposition home or self-care (01) | DRG 720 ==
LOC: JER 15:32 → JERBED 06-30 04:46 → OBSVTOIN 06-30 04:54 → UNDOADMOB 06-30 05:44 → JERBED 06-30 05:44 → J6S 06-30 20:54
PROVIDERS: ADMIT Internal Medicine; ATTEND Internal Medicine
DX: A41.89 Other specified sepsis (principal); N17.9 Acute kidney failure, unspecified; E83.39 Other disorders of phosphorus metabolism; J45.909 Unspecified asthma, uncomplicated; E83.42 Hypomagnesemia; I10 Essential (primary) hypertension; E78.5 Hyperlipidemia, unspecified; M54.5 Low back pain; R00.0 Tachycardia, unspecified; F41.8 Other specified anxiety disorders; E87.1 Hypo-osmolality and hyponatremia; D72.828 Other elevated white blood cell count; K52.89 Other specified noninfective gastroenteritis and colitis; E86.1 Hypovolemia; E86.0 Dehydration; F31.89 Other bipolar disorder; Z86.73 Personal history of transient ischemic attack (TIA), and cerebral infarction without residual deficits; Z87.891 Personal history of nicotine dependence; Z85.038 Personal history of other malignant neoplasm of large intestine
CPT/HCPCS: 36415; 71010-TC; 72132-TC; 74176-TC; 80048; 80053; 81003; 82436; 82550; 82553; 82570; 82803; 83605; 83735; 84100; 84133; 84300; 84484; 85025; 85027; 85610; 85730; 86850; 86900; 86901; 87040; 87045; 87046; 87070; 87086; 87177; 87186; 87209; 87324; 87430; 87449; 87804; 93005; 93010; 99285-25; G0378

== ENCOUNTER 2017-11-17 06:06 | Day surgery (SDC) | payer OTHER ==
[2017-11-02 10:23] VITALS: BMI 33.3
[~2017-11-17 06:06] MED LIST: BETAMET ACET/BETAMET NA PH 30 MG/5 ML VIAL IJ ONE; BUPIVACAINE HCL/PF 0.25% (2.5MG/ML) 10 ML VIAL IJ ONE; IOHEXOL 180 MG/1 ML ML IJ ONE; LIDOCAINE HCL 1%, 10 MG/ML (20ML VIAL) INF ONE
[2017-11-17] MEDS ORDERED: LIDOCAINE HCL 1%, 10 MG/ML (20ML VIAL) ONE (07:37)
[2017-11-17] MEDS ORDERED: BETAMET ACET/BETAMET NA PH 30 MG/5 ML VIAL ONE (07:38)
[2017-11-17] MEDS ORDERED: BUPIVACAINE HCL/PF 0.25% (2.5MG/ML) 10 ML VIAL ONE ×2 (07:38→07:41)
[2017-11-17] MEDS ORDERED: BUPIVACAINE HCL/PF 0.5% (5MG/ML) 10 ML VIAL ONE (07:39)
[2017-11-17] MEDS ORDERED: ePHEDrine SULFATE 50 MG/1 ML AMPULE ONE (07:39)
[2017-11-17] MEDS ORDERED: PROPOFOL 20 ML ONE ×11 (07:40→11:28)
[2017-11-17] MEDS ORDERED: SUCCINYLCHOLINE CHLORIDE 200 MG/10 ML VIAL ONE (07:40)
[2017-11-17] MEDS ORDERED: IOHEXOL 180 MG/1 ML ML IJ ONE (08:44)
[2017-11-17] MEDS ORDERED: LIDOCAINE HCL 1%, 10 MG/ML (20ML VIAL) INF ONE (08:44)
[2017-11-17] MEDS ORDERED: BETAMET ACET/BETAMET NA PH 30 MG/5 ML VIAL IJ ONE ×2 (08:45)
[2017-11-17] MEDS ORDERED: BUPIVACAINE HCL/PF 0.25% (2.5MG/ML) 10 ML VIAL IJ ONE ×3 (08:46)
[2017-11-17] MEDS ORDERED: oxyCODONE HCL 5 MG TABLET PO PRN (09:12)
[2017-11-17] MEDS ORDERED: ONDANSETRON 4 MG/2 ML VIAL IVPUSH PRN (09:12)
[2017-11-17] MEDS ORDERED: ACETAMINOPHEN 325 MG TABLET (FP) PO PRN (09:12)
[2017-11-17] MEDS ORDERED: LACTATED RINGERS SOLUTION 1,000 ML IV SCH (09:15)
[2017-11-17 09:34] VITALS: BP 147/67; PULSE 83
[2017-11-17 10:11] VITALS: TEMP 98.1
--- NOTE | 2017-11-30 10:28 | PROC ---
Procedure Note Procedure: Date of service: 11/17/2017 Preoperative Diagnosis: Low back pain and lumbar radiculopathy on Left Postoperative Diagnosis: Same Procedure Performed: Lumbar Epidural Steroid Injection (LESI) on Left L4-5 with dye under Fluoroscopy Anesthesia: Local / MAC Anesthesiologist: Procedure: I discussed with the patient in detail about the risks, benefits, and alternatives to treatment not only limited to infection, headache, numbness , weakness, and injury to nerves, blood vessels and muscles. The patient understood, agreed and signed the written consent. The patient was placed in the prone position with the head, abdomen and legs supported with the pillows. The lumbosacral area was prepped and draped with Betadine times three in a sterile fashion. Lumbar vertebrae were identified under the C-arm. At L4-5 level on the Left side, 3 ml of 1 % Lidocaine was infiltrated into the skin and subcutaneous tissue. A 3 inch, #20 gauge Tuohy needle was advanced to the epidural space with loss of resistance technique under fluoroscopic guidance. Aspiration was negative for cerebrospinal fluid and blood. 2ml of Omnipaque ( radio-opaque dye) was injected to confirm the tip of the needle into epidural space and spread of dye. There was no CSF or vascular spread. The spread of dye was noted cranially and caudally on epidurogram. Aspiration was done again which was negative. A solution of 2.5 ml of Celestone, 2.5 ml of 0.25% Marcaine and a total of 5 ml was injected slowly. While Tuohy needle was withdrawn 2.0 ml of 1 % Lidocaine was infiltrated. Bleeding was checked. Betadine was wiped off. A sterile bandage was placed. The patient tolerated the procedure well. There were no immediate complications. The patient was transferred to the recovery room. The patient was observed for some time and discharged as per ASU criteria. The patient was told to apply ice at the injection site. Follow up appointment was given and also call my office at [phone]. If there is any problem, call my office or report to Emergency Room. Michael Hollins M.D.
== END 2017-11-17 11:23 | disposition home or self-care (01) ==
LOC: JASU-SURG 06:06
PROVIDERS: ATTEND Physical Medicine & Rehabilitation
PROC: 3E0R33Z Introduction of Anti-inflammatory into Spinal Canal, Percutaneous Approach (ICD-10-PCS; 2017-11-17)
PROC: B01BYZZ Fluoroscopy of Spinal Cord using Other Contrast (ICD-10-PCS; 2017-11-17)
PROC: 3E0R3BZ Introduction of Anesthetic Agent into Spinal Canal, Percutaneous Approach (ICD-10-PCS; principal; 2017-11-17 08:00)
DX: M54.16 Radiculopathy, lumbar region (principal); M54.5 Low back pain; I10 Essential (primary) hypertension
CPT/HCPCS: 76000-TC-FY

== ENCOUNTER 2018-12-16 00:34 | Observation (INO) | payer OTHER ==
--- NOTE | 2018-12-16 01:26 | PDOC ---
Attending Attestation - Resident Resident Name: Gian Mckeon - ED Attending Attestation I have performed the following: I have examined & evaluated the patient, The case was reviewed & discussed with the resident, I agree w/resident's findings & plan - HPI HPI: 12/16/18 02:38 53-year-old male with chest pain that began while smoking a cigarette. Patient has substantial family history of early onset coronary artery disease involving early of his mother in her 40s as well as early MIs in 2 siblings in their 40s as well. Patient did have a stress test 2 years ago that was normal. He denies active chest pain at this time. - Physicial Exam PE: 12/16/18 02:43 agree with residents exam - Medical Decision Making 12/16/18 02:45 53-year-old male with significant risk factors and chest pain at rest which is non-reproducible Chest x-ray, troponin, EKG Will admit for serial enzymes and further evaluation
[2018-12-16 01:38] VITALS: BMI 32.8
[2018-12-16 02:02] LABS: BASO % 0.6 % (0-2.0); EOS % 2.6 % (0-4.5); HEMATOCRIT 39.8 % (35.4-49); HEMOGLOBIN 13.3 GM/dL (11.7-16.9); LYMPH % 22.1 % (8-40); MCH 30.1 pg (25.7-33.7); MCHC 33.5 g/dl (32.0-35.9); MEAN CELL VOLUME 89.7 fl (80-96); MEAN PLT VOLUME 8.6 fl (7.5-11.1); MONO % 10.5 % (3.8-10.2); NEUT % 64.2 % (42.8-82.8); PLATELET COUNT 221 K/MM3 (134-434); RBC 4.44 M/mm3 (4.00-5.60); RDW 14.5 % (11.9-15.9); WHITE BLOOD COUNT 8.4 K/mm3 (4.0-10.0)
[2018-12-16 02:32] LABS: ALBUMIN 3.5 g/dl (3.4-5.0); ALK PHOS 84 U/L (45-117); ANION GAP 7 MMOL/L (8-16); BILIRUBIN,TOTAL 0.2 mg/dL (0.2-1); BLOOD UREA NITROGEN 20 mg/dL (7-18); CALCIUM 9.1 mg/dL (8.5-10.1); CHLORIDE 105 mmol/L (98-107); CO2 27 mmol/L (21-32); CREATININE 0.9 mg/dL (0.55-1.3); GLUCOSE,RANDOM 105 mg/dL (74-106); POTASSIUM 3.8 mmol/L (3.5-5.1); SGOT/AST 13 U/L (15-37); SGPT/ALT 24 U/L (13-61); SODIUM 139 mmol/L (136-145); TOT PROT 6.5 g/dl (6.4-8.2)
--- NOTE | 2018-12-16 02:54 | PDOC ---
History of Present Illness - General Chief Complaint: Chest Pain Stated Complaint: CHEST PAIN,HYPERTENSION Time Seen by Provider: 12/16/18 01:23 History Source: Patient, Old Records Exam Limitations: No Limitations - History of Present Illness Initial Comments: HPI: 53 y/o male BIBEMS to [facility] ER complaining of substernal non-radiating, non- reproducible chest pain. Pain described as sharp in nature. Started while smoking a cigarette and eating a piece of cheese. Associated with sense of weakness. Lasted approx. 30 min. Resolved after receiving SL nitro by EMS. Also received 4x chewable ASA enroute. Pt reports no symptoms at this time. Endorses h/o of similar pain approx. 1 month ago. Was evaluated at [facility]. Believes everything was normal. Did not f/u with PCP or rehabilitation clerk. Reports normal cardiac echo approx. 2-3 years ago. Family Hx: - Mother from heart attack at age 42 - Brother s/p heart attack in his 30s - Brother s/p heart attack in his 40s PCP: Dr. Aguilera Social Hx: - Tobacco: Daily smoker - EtoH: Denies - Street Drugs: Denies Medical Hx: - HTN - Colon CA s/p resection (2013) by Dr. Moody Review of Systems: In addition to that documented in the HPI above, the additional ROS was obtained : Constitutional: Denies fevers or chills Head: Denies vision changes ENMT: Denies sore throat CV: Per HPI Resp: Denies SOB GI: Denies vomiting or diarrhea : Denies painful urination MSK: Denies recent trauma Skin: Denies new rashes Neuro: Denies new numbness or tingling or weakness Endocrine: Denies polyuria Heme: Denies bleeding or bruising Physical Examination: Constitutional: Well-developed, well-nourished adult male in no acute distress or obvious discomfort. Found semi-fowlers on hospital bed. Alert and oriented x4. Answered all questions appropriately and completely. Speech was non-labored , non-pressured. Head: Normocephalic. No obvious external signs of trauma. Neck: Supple, trachea is midline. Cardiovascular / Chest: Regular rate and regular rhythm. No murmur, rubs, clicks , or gallops. Peripheral pulses: radial pulses full. No pretibial edema. Respiratory: Breathing unlabored. Equal chest rise and fall. Clear to auscultation bilaterally. No stridor, no wheezing, no rhonchi. Gastrointestinal: abdomen is soft, non-tender, non-distended. Post surgical scar present in midline. Neuro: Alert and oriented. Moving all four extremities spontaneously. Skin: Warm, dry, and intact. Psych: Affect: appropriate. Mood: normal. MDM: *Reviewed vital signs, nursing notes, and prior visit documentation (if available). HEART Score for Major Cardiac Events RESULT SUMMARY: 4 points Moderate Score (4-6 points) Risk of MACE of 12-16.6%. INPUTS: History > 1 = Moderately suspicious EKG > 0 = Normal Age > 1 = 45-64 Risk factors > 2 = ?3 risk factors or history of atherosclerotic disease Initial troponin > 0 = ?normal limit 53 y/o male presenting for episode of substernal non-radiating, non- reproducible chest pain that was relieved by SL nitro. Cardiac risk factors include tobacco use, HTN, and multiple first degree relatives s/p DE earlier than age 65. Afebrile. Vitals unremarkable. Physical exam as described above. Ordered cardiac workup. Already received ASA prior to arrival. CBC unremarkable for leukocytosis or anemia. Initial EKG unremarkable for ischemic changes. No Wellens sign. Initial troponin not elevated, but this is well within the first three hours since the symptoms. Will ordered 3 hour troponin and repeat EKG. No acute cardiopulmonary findings on CXR per ED wet read. Radiology report pending. Will admit pt for observation given Heart Score of 4. In person consultation with resident Dr. Virk. Verbally appraised of the pts HPI, ED course, and current plan of management. Gian Mckeon M.D., PGY1 Emergency Medicine Resident Past History - Past Medical History Allergies/Adverse Reactions: Allergies Allergy/AdvReac Type Severity Reaction Status Date / Time No Known Allergies Allergy Verified 12/16/18 01:11 Home Medications: Ambulatory Orders Aspirin [ASA -] 81 mg PO DAILY 06/29/17 Atorvastatin Ca [Lipitor] 40 mg PO HS 06/29/17 Albuterol Sulfate Inhaler - [Ventolin HFA Inhaler -] 1 puff PRN PRN 06/30/17 Gabapentin 300 mg PO TID 06/30/17 Oxycodone HCl/Acetaminophen [Percocet 5-325 mg Tablet] 5 - 325 mg PO BID Lactobacillus Acidophilus [Bacid -] 1 each PO DAILY #7 capsule 07/02/17 Albuterol 0.083% Nebulizer Zulema [Ventolin 0.083%] 1 neb NEB QID PRN 11/02/17 Anemia: No Asthma: Yes Cancer: Yes (Colon Cancer (s/p 6inch resection)) Cardiac Disorders: No CVA: Yes (mini stroke) COPD: No CHF: No Dementia: No Diabetes: No GI Disorders: No Disorders: No HTN: Yes Hypercholesterolemia: Yes Liver Disease: No Seizures: No Thyroid Disease: No - Surgical History Abdominal Surgery: Yes (HERNIA REPAIR X2) GI Surgery: Yes (Colon CA resection) Orthopedic Surgery: Yes (JAW SURGERY) - Suicide/Smoking/Psychosocial Hx Smoking Status: Yes Smoking History: Never smoked Have you smoked in the past 12 months: No Number of Cigarettes Smoked Daily: 3 Information on smoking cessation initiated: No 'Breaking Loose' booklet given: 03/15/18 Hx Alcohol Use: No Drug/Substance Use Hx: No Substance Use Type: None Hx Substance Use Treatment: No *Physical Exam - Vital Signs Last Vital Signs Temp Pulse Resp BP Pulse Ox 97.9 F 71 12 131/79 96 12/16/18 00:34 12/16/18 01:15 12/16/18 01:15 12/16/18 01:15 12/16/18 01:15 ED Treatment Course - LABORATORY CBC & Chemistry Diagram: 12/16/18 01:39 12/16/18 01:39 - ADDITIONAL ORDERS Additional order review: Laboratory Results 12/16/18 01:39 Sodium 139 Potassium 3.8 Chloride 105 Carbon Dioxide 27 Anion Gap 7 L BUN 20 H Creatinine 0.9 Est GFR (CKD-EPI)AfAm 111.05 Est GFR (CKD-EPI)NonAf 95.81 Random Glucose 105 Calcium 9.1 Total Bilirubin 0.2 AST 13 L ALT 24 Alkaline Phosphatase 84 Creatine Kinase 125 Troponin I < 0.02 Total Protein 6.5 Albumin 3.5 12/16/18 01:39 RBC 4.44 MCV 89.7 MCHC 33.5 RDW 14.5 MPV 8.6 Neutrophils % 64.2 D Lymphocytes % 22.1 D Monocytes % 10.5 H D Eosinophils % 2.6 D Basophils % 0.6 - RADIOLOGY Radiology Studies Ordered: Category Date Time Status CHEST PA & LAT [RAD] Stat Radiology 12/16/18 01:24 Taken - Medications Given in the ED: ED Medications Discontinued Medications Generic Name Dose Route Start Last Admin Trade Name Roz PRN Reason Stop Dose Admin Oxycodone/Acetaminophen 1 combo 12/16/18 02:06 12/16/18 02:16 Percocet 5/325 - PO 12/16/18 02:07 1 combo ONCE ONE Administration *DC/Admit/Observation/Transfer Diagnosis at time of Disposition: Chest pain at rest - Discharge Dispostion Condition at time of disposition: Fair Decision to Admit order: Yes - Referrals Referrals: Sheldon Aguilera [Primary Care Provider] - - Patient Instructions - Post Discharge Activity
--- NOTE | 2018-12-16 04:03 | HP ---
CHIEF COMPLAINT: chest pain PCP: HISTORY OF PRESENT ILLNESS: Patient is a 53 y/o male with a history of HTN and colon cancer s/p resection who presents with chest pain. Patient was sitting on his couch around 11 pm when he started to feel chest pain and pressure. He states it was in the middle of his chest. It didn't start to feel better until he received the nitro paste in the EMS. Patient has had one previous episode of pain this month. he went to [facility] was told everything was normal and it was likely an anxiety attack. Patient was supposed to follow up with Cardiology, but didnt. Per patient he takes all his medications but does not know the name. He has been smoking since he was a teenager about a pack a day. His mother young of heart attack. Patients pain has resolved. He also described his heart sometimes feeling funny and he would then feel dizzy afterword. ER course was notable for: (1) (2) (3) Recent Travel: denies PAST MEDICAL HISTORY: HTN and colon cancer s/p resection PAST SURGICAL HISTORY: colon resection Social History: Smokin pack a day since he was a teenager, in the last few years he cut down to four a day Alcohol: denies Drugs: denies Family History: Allergies No Known Allergies Allergy (Verified 12/16/18 01:11) HOME MEDICATIONS: Home Medications Medication Instructions Recorded Aspirin [ASA -] 81 mg PO DAILY 06/29/17 Atorvastatin Ca [Lipitor] 40 mg PO HS 06/29/17 Albuterol Sulfate Inhaler - 1 puff PRN PRN 06/30/17 [Ventolin HFA Inhaler -] Gabapentin 300 mg PO TID 06/30/17 Oxycodone HCl/Acetaminophen 5 - 325 mg PO BID 06/30/17 [Percocet 5-325 mg Tablet] Lactobacillus Acidophilus [Bacid -] 1 each PO DAILY #7 capsule 07/02/17 Albuterol 0.083% Nebulizer Zulema 1 neb NEB QID PRN 11/02/17 [Ventolin 0.083%] REVIEW OF SYSTEMS positive: previous chest pain/ pressure, dizziness denies: nausea, vomiting, diarrhea, headache, shortness of breath, diarrhea, diaphoresis, change in vision PHYSICAL EXAMINATION Vital Signs - 24 hr 12/16/18 12/16/18 12/16/18 00:34 01:15 03:01 Temperature 97.9 F Pulse Rate 77 Pulse Rate [ 71 Apical] Respiratory 18 12 Rate Blood Pressure 142/70 Blood Pressure 131/79 [Right Arm] O2 Sat by Pulse 98 96 96 Oximetry (%) GENERAL: Awake, alert, and fully oriented, in no acute distress. obese EYES: Pupils equal, round and reactive to light, extraocular movements intact EARS, NOSE, THROAT: Moist mucous membranes. NECK: Normal range of motion, supple without lymphadenopathy, JVD, or masses. LUNGS: Breath sounds equal, clear to auscultation bilaterally. No wheezes, and no crackles. No accessory muscle use. HEART: Regular rate and rhythm, normal S1 and S2 without murmur, rub or gallop. ABDOMEN: Soft, nontender, not distended, normoactive bowel sounds, no guarding, no rebound, no masses. LOWER EXTREMITIES: 2+ pulses, warm, well-perfused. No calf tenderness. No peripheral edema. PSYCHIATRIC: Cooperative. Good eye contact. Appropriate mood and affect. SKIN: Warm, dry, normal turgor, no rashes or lesions noted, normal capillary refill. CBCD WBC 8.4 K/mm3 (4.0-10.0) 12/16/18 01:39 RBC 4.44 M/mm3 (4.00-5.60) 12/16/18 01:39 Hgb 13.3 GM/dL (11.7-16.9) 12/16/18 01:39 Hct 39.8 % (35.4-49) 12/16/18 01:39 MCV 89.7 fl (80-96) 12/16/18 01:39 MCHC 33.5 g/dl (32.0-35.9) 12/16/18 01:39 RDW 14.5 % (11.9-15.9) 12/16/18 01:39 Plt Count 221 K/MM3 (134-434) D 12/16/18 01:39 MPV 8.6 fl (7.5-11.1) 12/16/18 01:39 CMP Sodium 139 mmol/L (136-145) 12/16/18 01:39 Potassium 3.8 mmol/L (3.5-5.1) 12/16/18 01:39 Chloride 105 mmol/L (98-107) 12/16/18 01:39 Carbon Dioxide 27 mmol/L (21-32) 12/16/18 01:39 Anion Gap 7 MMOL/L (8-16) L 12/16/18 01:39 BUN 20 mg/dL (7-18) H 12/16/18 01:39 Creatinine 0.9 mg/dL (0.55-1.3) 12/16/18 01:39 Calcium 9.1 mg/dL (8.5-10.1) 12/16/18 01:39 Total Bilirubin 0.2 mg/dL (0.2-1) 12/16/18 01:39 AST 13 U/L (15-37) L 12/16/18 01:39 ALT 24 U/L (13-61) 12/16/18 01:39 Alkaline Phosphatase 84 U/L (45-117) 12/16/18 01:39 Total Protein 6.5 g/dl (6.4-8.2) 12/16/18 01:39 Albumin 3.5 g/dl (3.4-5.0) 12/16/18 01:39 ASSESSMENT/PLAN: Patient is a 53 y/o male with a history of HTN and colon cancer s/p resection who is admitted for r/o RI. #chest pain - must r/o RI, relieved with nitro paste in EMS, given 4 aspiring - first trop negative, f/u second - EKG without any changes - f/u cardiology consult - echo in am - patient with high risk for heart disease - aspirin 81 mg daily #HTN - must call and reconcile medications - BP controlled #asthma - albuterol as needed # chornic back pain - continue percocet, and neurontin #DVT ppx - early ambulation FEN - low sodium diet Dispo: monitor on tele - pharmacy not open, please reconcile medications with pharmacy Visit type - Emergency Visit Emergency Visit: Yes ED Registration Date: 12/16/18 Care time: The patient presented to the Emergency Department on the above date and was hospitalized for further evaluation of their emergent condition. - New Patient This patient is new to me today: Yes Date on this admission: 12/16/18 - Critical Care Critical Care patient: No
--- NOTE | 2018-12-16 04:41 | PN ---
Teaching Attending Note Name of Resident: Sahara Virk ATTENDING PHYSICIAN STATEMENT I saw and evaluated the patient. I reviewed the resident's note and discussed the case with the resident. I agree with the resident's findings and plan as documented. SUBJECTIVE: This is a 53 year old man with a history of HTN, hyperlipidemia, asthma, anxiety, chronic back pain, colon cancer who comes to the ED complaining of chest pain. He says he developed pressure in the middle of his chest while sitting, watching tv, and smoking. He says his heart "felt funny" and he felt dizzy. He denies SOB, diaphoresis. He has a family history of early CAD and he reports having a normal stress test about 2 years ago. He had a similar episode about 1 month ago for which he went to the ED at [facility] where he was told he had an anxiety attack. He was advised to follow up with a stitch welder but he did not. OBJECTIVE: Vital Signs Period Temp Pulse Resp BP Sys/Randhawa Pulse Ox Last 24 Hr 97.9 F 71-77 12-18 131-145/70-84 96-98 HEART: S1S2, RRR LUNGS: Clear ABDOMEN: Obese, soft, non-tender, non-distended, normal BS EXTREMITIES: No edema Laboratory Results - last 24 hr 12/16/18 12/16/18 01:39 01:39 WBC 8.4 RBC 4.44 Hgb 13.3 Hct 39.8 MCV 89.7 MCH 30.1 MCHC 33.5 RDW 14.5 Plt Count 221 D MPV 8.6 Absolute Neuts (auto) 5.4 Neutrophils % 64.2 D Lymphocytes % 22.1 D Monocytes % 10.5 H D Eosinophils % 2.6 D Basophils % 0.6 Nucleated RBC % 0 Sodium 139 Potassium 3.8 Chloride 105 Carbon Dioxide 27 Anion Gap 7 L BUN 20 H Creatinine 0.9 Est GFR (CKD-EPI)AfAm 111.05 Est GFR (CKD-EPI)NonAf 95.81 Random Glucose 105 Calcium 9.1 Total Bilirubin 0.2 AST 13 L ALT 24 Alkaline Phosphatase 84 Creatine Kinase 125 Troponin I < 0.02 Total Protein 6.5 Albumin 3.5 Home Medications Medication Instructions Recorded Aspirin [ASA -] 81 mg PO DAILY 06/29/17 Atorvastatin Ca [Lipitor] 40 mg PO HS 06/29/17 Albuterol Sulfate Inhaler - 1 puff PRN PRN 06/30/17 [Ventolin HFA Inhaler -] Gabapentin 300 mg PO TID 06/30/17 Oxycodone HCl/Acetaminophen 5 - 325 mg PO BID 06/30/17 [Percocet 5-325 mg Tablet] Lactobacillus Acidophilus [Bacid -] 1 each PO DAILY #7 capsule 07/02/17 Albuterol 0.083% Nebulizer Zulema 1 neb NEB QID PRN 11/02/17 [Ventolin 0.083%] ASSESSMENT AND PLAN: This is a 53 year old man with a history of HTN, hyperlipidemia, asthma, anxiety , chronic back pain, colon cancer who presented to the ED with mid chest pressure while watching tv and smoking. 1. Chest pain - Monitor on telemetry - Serial troponins - Echocardiogram - Continue aspirin, Lipitor - Smoking cessation 2. HTN - On no meds at home - Monitor BP and start medication as appropriate 3. Hyperlipidemia - Continue Lipitor 4. Anxiety 5. Chronic back pain - Continue Neurontin, Percocet 6. Asthma - Stable - Continue albuterol as needed 7. Obesity with BMI 32.9 8. Nicotine dependence - Counselled about smoking cessation
[2018-12-16] MEDS ORDERED: RANITIDINE HCL 150 MG TABLET (FP) PO ONE (05:16)
[2018-12-16] MEDS ORDERED: RANITIDINE HCL 150 MG TABLET (FP) ONE (05:40)
[2018-12-16 05:46] LABS: BASO % 0.7 % (0-2.0); EOS % 3.4 % (0-4.5); HEMATOCRIT 39.9 % (35.4-49); HEMOGLOBIN 13.6 GM/dL (11.7-16.9); LYMPH % 26.8 % (8-40); MCH 30.3 pg (25.7-33.7); MCHC 34.2 g/dl (32.0-35.9); MEAN CELL VOLUME 88.5 fl (80-96); MEAN PLT VOLUME 8.2 fl (7.5-11.1); MONO % 9.7 % (3.8-10.2); NEUT % 59.4 % (42.8-82.8); PLATELET COUNT 226 K/MM3 (134-434); RDW 14.5 % (11.9-15.9); WHITE BLOOD COUNT 7.3 K/mm3 (4.0-10.0)
[2018-12-16 06:18] LABS: ALBUMIN 3.6 g/dl (3.4-5.0); BILIRUBIN,TOTAL 0.2 mg/dL (0.2-1); CALCIUM 9.1 mg/dL (8.5-10.1); CREATININE 0.9 mg/dL (0.55-1.3); MAGNESIUM 2.2 mg/dL (1.8-2.4); PHOSPHOROUS 4.2 mg/dL (2.5-4.9); POTASSIUM 4.1 mmol/L (3.5-5.1); TOT PROT 6.6 g/dl (6.4-8.2)
[2018-12-16] MEDS ORDERED: ALBUTEROL SO4 0.083% IH SOL 2.5 MG/3 ML VIAL.NEB. NEB PRN (06:28)
[2018-12-16 07:44] VITALS: BP 139/93; PULSE 66; TEMP 98.2
[2018-12-16] MEDS ORDERED: ASPIRIN 81 MG CHEWABLE TABLETS ONE (09:06)
[2018-12-16] MEDS ORDERED: ASPIRIN 81 MG CHEWABLE TABLETS PO SCH (10:00)
--- NOTE | 2018-12-16 11:07 | DS ---
Physical Exam: SUBJECTIVE: Patient seen and examined. Pt. denies any chest pain currently OBJECTIVE: Vital Signs Period Temp Pulse Resp BP Sys/Randhawa Pulse Ox Last 24 Hr 97.9 F-98.2 F 66-77 12-18 131-145/70-93 96-98 PHYSICAL EXAM GENERAL: The patient is awake, alert, and fully oriented, in no acute distress. HEAD: Normal with no signs of trauma. EYES: PERRL, extraocular movements intact, sclera anicteric, conjunctiva clear. ENT: Ears normal, nares patent, oropharynx clear without exudates, moist mucous membranes. NECK: Trachea midline, full range of motion, supple. LUNGS: Breath sounds equal, clear to auscultation bilaterally, no wheezes, no crackles, no accessory muscle use. HEART: Regular rate and rhythm, S1, S2 without murmur, rub or gallop. ABDOMEN: Soft, nontender, nondistended, normoactive bowel sounds, no guarding, no rebound, no hepatosplenomegaly, no masses. EXTREMITIES: 2+ pulses, warm, well-perfused, no edema. NEUROLOGICAL: Cranial nerves II through XII grossly intact. Normal speech, gait not observed. PSYCH: Normal mood, normal affect. SKIN: Warm, dry, normal turgor, no rashes or lesions noted. LABS Laboratory Results - last 24 hr 12/16/18 12/16/18 12/16/18 01:39 01:39 04:45 WBC 8.4 RBC 4.44 Hgb 13.3 Hct 39.8 MCV 89.7 MCH 30.1 MCHC 33.5 RDW 14.5 Plt Count 221 D MPV 8.6 Absolute Neuts (auto) 5.4 Neutrophils % 64.2 D Lymphocytes % 22.1 D Monocytes % 10.5 H D Eosinophils % 2.6 D Basophils % 0.6 Nucleated RBC % 0 Sodium 139 Potassium 3.8 Chloride 105 Carbon Dioxide 27 Anion Gap 7 L BUN 20 H Creatinine 0.9 Est GFR (CKD-EPI)AfAm 111.05 Est GFR (CKD-EPI)NonAf 95.81 Random Glucose 105 Hemoglobin A1c % Calcium 9.1 Phosphorus Magnesium Total Bilirubin 0.2 AST 13 L ALT 24 Alkaline Phosphatase 84 Creatine Kinase 125 Troponin I < 0.02 < 0.02 Total Protein 6.5 Albumin 3.5 TSH 12/16/18 12/16/1819 05:35 05:35 05:35 WBC 7.3 RBC 4.50 Hgb 13.6 Hct 39.9 MCV 88.5 MCH 30.3 MCHC 34.2 RDW 14.5 Plt Count 226 MPV 8.2 Absolute Neuts (auto) 4.3 Neutrophils % 59.4 Lymphocytes % 26.8 D Monocytes % 9.7 Eosinophils % 3.4 Basophils % 0.7 Nucleated RBC % 0 Sodium 139 Potassium 4.1 Chloride 107 Carbon Dioxide 28 Anion Gap 5 L BUN 22 H Creatinine 0.9 Est GFR (CKD-EPI)AfAm 111.05 Est GFR (CKD-EPI)NonAf 95.81 Random Glucose 91 Hemoglobin A1c % 5.8 Calcium 9.1 Phosphorus 4.2 Magnesium 2.2 Total Bilirubin 0.2 AST 12 L ALT 24 Alkaline Phosphatase 89 Creatine Kinase Troponin I Total Protein 6.6 Albumin 3.6 TSH 1.25 HOSPITAL COURSE: Date of Admission:12/16/18 Date of Discharge: 12/16/18 Patient is a 53 y.o. M admitted to the hospital for chest pain. Trops and echo negative. Discussed need for stress test and to follow with cardio. Later patient told nurse he did not want to stay. Patient eloped. Minutes to complete discharge: 30 Discharge Summary Reason For Visit: CHEST PAIN AT REST Condition: Improved - Instructions Diet, Activity, Other Instructions: You came in for chest pain. We imaged your heart found nothing immediately wrong. Please STOP smoking. Please follow up with your Primary Care Physician within 1 week, if you d not have one we have provided Dr. Cook Please follow up with your Sales Account Leader within 1 week, if you do not have one we have provided Dr. Rosales. Please discuss having a stress test as soon as possible. Please resume your medications as they were prescribed Please return to the ED if you are having worsening chest pain, shortness of breath, or any concerning symptoms. Referrals: Nitin Cook MD [Staff Physician] - 1 Week Balbir Rosales MD [Staff Physician] - 1 Week Disposition: AGAINST MEDICAL ADVICE - Home Medications Comprehensive Discharge Medication List: Ambulatory Orders Aspirin [ASA -] 81 mg PO DAILY 06/29/17 Atorvastatin Ca [Lipitor] 40 mg PO HS 06/29/17 Albuterol Sulfate Inhaler - [Ventolin HFA Inhaler -] 1 puff PRN PRN 06/30/17 Gabapentin 300 mg PO TID 06/30/17 Oxycodone HCl/Acetaminophen [Percocet 5-325 mg Tablet] 5 - 325 mg PO BID Lactobacillus Acidophilus [Bacid -] 1 each PO DAILY #7 capsule 07/02/17 Albuterol 0.083% Nebulizer Zulema [Ventolin 0.083% Nebulizer Soln -] 1 neb NEB QID PRN 11/02/17 Amlodipine Besylate 2.5 mg PO DAILY 12/16/18 Lisinopril [Prinivil] 10 mg PO DAILY 12/16/18 This patient is new to me today: Yes Date on this admission: 12/16/18 Emergency Visit: Yes ED Registration Date: 12/16/18 Care time: The patient presented to the Emergency Department on the above date and was hospitalized for further evaluation of their emergent condition. Critical Care patient: No - Discharge Referral Referred to [facility] Med P.C.: No
--- NOTE | 2018-12-16 12:54 | EKG ---
Test Reason : Blood Pressure : / mmHG Vent. Rate : 075 BPM Atrial Rate : 075 BPM P-R Int : 164 ms QRS Dur : 082 ms QT Int : 372 ms P-R-T Axes : 070 031 043 degrees QTc Int : 415 ms NORMAL SINUS RHYTHM NORMAL ECG WHEN COMPARED WITH ECG OF 29-JUN-2017 19:19, VENT. RATE HAS DECREASED BY 42 BPM Confirmed by BECCA VAUGHAN MD ([id number]) on 12/16/2018 12:54:21 PM Referred By: Confirmed By:BECCA VAUGHAN MD
--- NOTE | 2018-12-16 12:54 | EKG ---
Test Reason : Blood Pressure : / mmHG Vent. Rate : 066 BPM Atrial Rate : 066 BPM P-R Int : 172 ms QRS Dur : 088 ms QT Int : 412 ms P-R-T Axes : 070 036 047 degrees QTc Int : 431 ms NORMAL SINUS RHYTHM NORMAL ECG WHEN COMPARED WITH ECG OF 16-DEC-2018 02:11, NO SIGNIFICANT CHANGE WAS FOUND Confirmed by BECCA VAUGHAN MD ([id number]) on 12/16/2018 12:54:15 PM Referred By: Confirmed By:BECCA VAUGHAN MD
--- NOTE | 2018-12-16 12:55 | EKG ---
Test Reason : Blood Pressure : / mmHG Vent. Rate : 067 BPM Atrial Rate : 067 BPM P-R Int : 170 ms QRS Dur : 084 ms QT Int : 402 ms P-R-T Axes : 069 054 058 degrees QTc Int : 424 ms NORMAL SINUS RHYTHM NORMAL ECG WHEN COMPARED WITH ECG OF 16-DEC-2018 01:24, NO SIGNIFICANT CHANGE WAS FOUND Confirmed by BECCA VAUGHAN MD ([id number]) on 12/16/2018 12:54:27 PM Referred By: Dominique WHEAT Confirmed By:BECCA VAUGHAN MD
--- NOTE | 2018-12-16 13:10 | ECHO ---
Name: PIERRE SELLERS Exam:Adult Echocardiogram Study Date: 12/16/2018 08:04 AM Age: 53 yrs Reason For Study: R/O ACS Height: 69 in Weight: 210 lb BSA: 2.1 m2 MMode/2D Measurements & Calculations IVSd: 0.79 cm Ao root diam: 3.0 cm LVIDd: 4.5 cm LA dimension: 3.5 cm LVIDs: 3.3 cm LVPWd: 0.95 cm EDV(Teich): 91.8 ml LVOT diam: 2.0 cm ESV(Teich): 43.0 ml TAPSE: 1.8 cm RV S Duke: 11.6 cm/sec Doppler Measurements & Calculations MV E max duke: 80.7 cm/sec Ao V2 max: 142.5 cm/sec MV A max duke: 89.8 cm/sec Ao max P.1 mmHg MV E/A: 0.90 MV dec time: 0.22 sec JOSI(V,D): 2.1 cm2 LV V1 max P.3 mmHg TR max duke: 262.0 cm/sec LV V1 max: 90.3 cm/sec TR max P.5 mmHg Med Peak E' Duke: 7.9 cm/sec Med E/e': 10.2 Lat Peak E' Duke: 7.9 cm/sec Lat E/e': 10.2 Procedure A complete two-dimensional transthoracic echocardiogram was performed (2D, M-mode, Doppler and color flow Doppler). Left Ventricle The left ventricular size, thickness and function are normal. The left ventricular ejection fraction is normal. Ejection Fraction = 55-60%. The left ventricular wall motion is normal. Right Ventricle The right ventricle is normal in size and function. Atria Normal left and right atrial size and function. Mitral Valve There is no mitral regurgitation noted. Tricuspid Valve There is trace tricuspid regurgitation. There was insufficient TR detected to calculate RV systolic p ressure. Aortic Valve The aortic valve is trileaflet. No hemodynamically significant valvular aortic stenosis. No aortic regurgitation is present. Pulmonic Valve There is no pulmonic valvular regurgitation. Great Vessels The aortic root is normal size. Pericardium/Pleura There is no pericardial effusion. Interpretation Summary The left ventricular size, thickness and function are normal The right ventricle is normal in size and function. There is trace tricuspid regurgitation. MD Joshua Escalona 12/16/2018 01:09 PM
[2018-12-16] MEDS ORDERED: GABAPENTIN 300 MG CAPSULE (FP) PO SCH (14:00)
--- NOTE | 2018-12-16 14:04 | PN ---
Teaching Attending Note Name of Resident: Gallo Landry ATTENDING PHYSICIAN STATEMENT I saw and evaluated the patient. I reviewed the resident's note and discussed the case with the resident. I agree with the resident's findings and plan as documented. SUBJECTIVE:asymptomatic. pain resolved after receiving NTG. had episode last month but describes that more of palpitations than pain which he had last night. had negative exercise stress test 2 years ago. states he is leaving and not waiting for further workup or cardiology eval OBJECTIVE: Last Vital Signs Temp Pulse Resp BP Pulse Ox 98.2 F 66 16 139/93 97 12/16/18 07:43 12/16/18 07:43 12/16/18 07:43 12/16/18 07:43 12/16/18 07:43 General NAD CV S1 S2 RRR no murmur/rub/gallop Lungs CTA B/L no wheezing/rales/rhonchi ASSESSMENT AND PLAN: 53yo M with PMH HTN, dyslipidemia, asthma, colon ca presented to the Er wtih CP that resolved with NTG 1. CP- cardiac enzymes neg x2. nothing seen on ekg. refuses to wear tele monitor. pt wants to go home and state he has appt with PCP on Thursday. explained concern for symptoms and multiple risk factors. verbalized understanding but does not want to be here. is able to explain and accepts risks associated with leaving. encouraged to return to Er if symptoms return or if he changes his mind. signed out AMA
== END 2018-12-16 10:19 | disposition left against medical advice (07) ==
LOC: JER 00:34 → JERBED 02:55
PROVIDERS: ADMIT Internal Medicine; ATTEND Internal Medicine
DX: R07.9 Chest pain, unspecified (principal); I10 Essential (primary) hypertension; F17.210 Nicotine dependence, cigarettes, uncomplicated; F41.9 Anxiety disorder, unspecified; J45.909 Unspecified asthma, uncomplicated; M54.9 Dorsalgia, unspecified; G89.29 Other chronic pain; E78.5 Hyperlipidemia, unspecified; E66.9 Obesity, unspecified; Z68.32 Body mass index [BMI] 32.0-32.9, adult; Z85.038 Personal history of other malignant neoplasm of large intestine; Z79.84 Long term (current) use of oral hypoglycemic drugs; Z82.49 Family history of ischemic heart disease and other diseases of the circulatory system
CPT/HCPCS: 36415; 71046-TC-FY; 80053; 82550; 83036; 83735; 84100; 84443; 84484; 85025; 93005; 93010; 93306-TC; 99285-25; G0378

== ENCOUNTER 2018-12-16 23:14 | Observation (INO) | payer OTHER ==
[2018-12-16 23:26] VITALS: BP 137/85; PULSE 74; TEMP 97.8; BMI 32.8
[2018-12-16] MEDS ORDERED: ASPIRIN 81 MG CHEWABLE TABLETS PO ONE (23:43)
--- NOTE | 2018-12-17 00:06 | PDOC ---
History of Present Illness - General Chief Complaint: Chest Pain Stated Complaint: CHEST PAIN Time Seen by Provider: 12/16/18 23:34 History Source: Patient, Old Records Exam Limitations: No Limitations - History of Present Illness Initial Comments: HPI: 53 y/o male presenting to [facility] ER complaining of substernal, nonradiating, reproducible chest pain lasting approx. 6 seconds. Endorses an associated sensation of presyncope and shortness of breath. All symptoms started and stopped spontaneously and in synchrony. Was sitting in a chair watching television. Did not take any ASA or nitro this evening. Denies burning sensation in the throat or metallic taste in mouth. Pt was evaluated at this department yesterday by this provider for similar symptoms. He was admitted for a cardiac evaluation but the pt left AMA before completing the workup. He states he is willing to stay for further evaluation this time because, I need to know what is wrong with my heart. Echo was performed this morning and was remarkable only for trace tricuspid regurgitation. Family Hx: - Mother from heart attack at age 42 - Brother s/p heart attack in his 30s - Brother s/p heart attack in his 40s PCP: Dr. Aguilera Social Hx: - Tobacco: Daily smoker - EtoH: Denies - Street Drugs: Denies Medical Hx: - HTN - Colon CA s/p resection (2013) by Dr. Moody Review of Systems: In addition to that documented in the HPI above, the additional ROS was obtained : Constitutional: Denies fevers or chills Head: Denies vision changes ENMT: Denies sore throat CV: Per HPI Resp: Denies SOB GI: Denies vomiting or diarrhea : Denies painful urination MSK: Denies recent trauma Skin: Denies new rashes Neuro: Denies new numbness or tingling or weakness Endocrine: Denies polyuria Heme: Denies bleeding or bruising Physical Examination: Constitutional: Well-developed, well-nourished adult male in no acute distress or obvious discomfort. Found semi-fowlers on hospital bed. Alert and oriented x4. Answered all questions appropriately and completely. Speech was non-labored , non-pressured. Head: Normocephalic. No obvious external signs of trauma. Neck: Supple, trachea is midline. Cardiovascular / Chest: Regular rate and regular rhythm. No murmur, rubs, clicks , or gallops. Peripheral pulses: radial pulses full. No pretibial edema. Respiratory: Breathing unlabored. Equal chest rise and fall. Clear to auscultation bilaterally. No stridor, no wheezing, no rhonchi. Gastrointestinal: abdomen is soft, non-tender, non-distended. Post surgical scar present in midline. Neuro: Alert and oriented. Moving all four extremities spontaneously. Skin: Warm, dry, and intact. Psych: Affect: appropriate. Mood: normal. MDM: *Reviewed vital signs, nursing notes, and prior visit documentation (if available). HEART Score for Major Cardiac Events RESULT SUMMARY: 4 points Moderate Score (4-6 points) Risk of MACE of 12-16.6%. INPUTS: History > 1 = Moderately suspicious EKG > 0 = Normal Age > 1 = 45-64 Risk factors > 2 = ?3 risk factors or history of atherosclerotic disease Initial troponin > 0 = ?normal limit 53 y/o male returning for second day in a row complaining of substernal, nonradiating, reproducible chest. Tonights episode was shorter in duration. Unable to identify exciting events for either episode. Afebrile. Vitals unremarkable for hypotension or tachycardia. Physical exam as described above. Low suspicion for cardiac etiology, however pts personal and family medical history are significant. Three first degree relatives are s/p RI under the age of 45. Ordered cardiac workup. Did not repeat CXR as last was performed within 24hrs and no reported trauma. Ordered ASA. No nitro as pain resolved prior to arrival. EKG unremarkable for ischemic findings. No changes when compared to previous EKG from yesterday. Troponin not elevated. Will admit to telemetry on observation for further cardiac evaluation given risk factors. In person consultation with resident Dr. Virk. Verbally appraised of the pts HPI, ED course, and current plan of management. Will admit the pt for attending Dr. Carter. Gian Mckeon M.D., PGY1 Emergency Medicine Resident Past History - Past Medical History Allergies/Adverse Reactions: Allergies Allergy/AdvReac Type Severity Reaction Status Date / Time No Known Allergies Allergy Verified 12/16/18 01:11 Home Medications: Ambulatory Orders Aspirin [ASA -] 81 mg PO DAILY 06/29/17 Atorvastatin Ca [Lipitor] 40 mg PO HS 06/29/17 Albuterol Sulfate Inhaler - [Ventolin HFA Inhaler -] 1 puff PRN PRN 06/30/17 Gabapentin 300 mg PO TID 06/30/17 Oxycodone HCl/Acetaminophen [Percocet 5-325 mg Tablet] 5 - 325 mg PO BID Lactobacillus Acidophilus [Bacid -] 1 each PO DAILY #7 capsule 07/02/17 Albuterol 0.083% Nebulizer Zulema [Ventolin 0.083% Nebulizer Soln -] 1 neb NEB QID PRN 11/02/17 Amlodipine Besylate 2.5 mg PO DAILY 12/16/18 Lisinopril [Prinivil] 10 mg PO DAILY 12/16/18 Anemia: No Asthma: Yes Cancer: Yes (Colon Cancer (s/p 6inch resection)) Cardiac Disorders: No CVA: Yes (mini stroke) COPD: No CHF: No Dementia: No Diabetes: No GI Disorders: No Disorders: No HTN: Yes Hypercholesterolemia: Yes Liver Disease: No Seizures: No Thyroid Disease: No - Surgical History Abdominal Surgery: Yes (HERNIA REPAIR X2) GI Surgery: Yes (Colon CA resection) Orthopedic Surgery: Yes (JAW SURGERY) - Suicide/Smoking/Psychosocial Hx Smoking Status: Yes Smoking History: Current every day smoker Have you smoked in the past 12 months: Yes Number of Cigarettes Smoked Daily: 20 Information on smoking cessation initiated: No 'Breaking Loose' booklet given: 03/15/18 Hx Alcohol Use: No Drug/Substance Use Hx: No Substance Use Type: None Hx Substance Use Treatment: No *Physical Exam - Vital Signs Last Vital Signs Temp Pulse Resp BP Pulse Ox 97.8 F 74 18 137/85 100 12/16/18 23:21 12/16/18 23:21 12/16/18 23:21 12/16/18 23:21 12/16/18 23:21 ED Treatment Course - LABORATORY CBC & Chemistry Diagram: 12/17/18 00:01 12/17/18 00:01 *DC/Admit/Observation/Transfer Diagnosis at time of Disposition: Chest pain at rest - Discharge Dispostion Condition at time of disposition: Stable Decision to Admit order: Yes - Referrals - Patient Instructions - Post Discharge Activity
--- NOTE | 2018-12-17 00:35 | PDOC ---
Documentation entered by Donn Rodriguez SCRIBE, acting as scribe for Azucena Thomson DO. Azucena Thomson DO: This documentation has been prepared by the Michael garcias Nirvannie, SCRIBE, under my direction and personally reviewed by me in its entirety. I confirm that the documentation accurately reflects all work, treatment, procedures, and medical decision making performed by me. Attending Attestation - Resident Resident Name: Gian Mckeon - ED Attending Attestation I have performed the following: I have examined & evaluated the patient, The case was reviewed & discussed with the resident, I agree w/resident's findings & plan - HPI HPI: 12/17/18 00:40 The patient is a 53 year old male, with a significant past medical history of HTN and colon cancer (s/p resection), who presents to the emergency department s /p 6 second episode of nonradiating, substernal chest pain with associated shortness of breath while watching TV. Patient notes similar episodes over the course of the past month and was evaluated in the ER yesterday for similar symptoms at which time he was admitted and signed out AMA prior to the remainder of his cardiac evaluation. He denies any recent fevers, chills, headache or dizziness. He denies any recent nausea, vomit, diarrhea or constipation. He denies any recent dysuria, frequency, urgency or hematuria. Allergies: NKA Past surgical history: Colon cancer resection. Social History: Smoker. Denies recreational drug use. Primary Care Physician: Dr. Aguilear - Physicial Exam PE: 12/17/18 00:40 Constitutional: Awake, alert, oriented. No acute distress. Head: Normocephalic. Atraumatic Eyes: PERRL. EOMI. Conjunctivae are not pale. ENT: Mucous membranes are moist and intact. Posterior pharynx without exudates or erythema. Uvula midline. Neck: Supple. Full ROM. No lymphadenopathy. Cardiovascular: Regular rate. Regular rhythm. S1, S2 regular. Distal pulses are 2+ and symmetric. Pulmonary/Chest: No evidence of respiratory distress. Clear to auscultation bilaterally No wheezing, rales or rhonchi. Abdominal: Soft and non-distended. There is no tenderness. No rebound, guarding or rigidity. No organomegaly. No palpable masses. Good bowel sounds. Back: No CVA tenderness. Musculoskeletal: No edema. No cyanosis. No clubbing. Full range of motion in all extremities. No calf tenderness. Radial/pedal pulses are intact and 2+ bilaterally Skin: Skin is warm and dry. No petechiae. No purpura. Neurological: Alert and oriented to person, place, and time. Cranial nerves II -XII are grossly intact. Normal speech. Strength is grossly symmetric. No sensory deficits. Psychiatric: Good eye contact. Normal interaction, affect and behavior. - Medical Decision Making 12/17/18 00:30 I, Dr. Azucena Thomson, DO, attest that this document has been prepared under my direction and personally reviewed by me in its entirety. I further attest, that it accurately reflects all work, treatment, procedures and medical decision -making performed by me. 12/17/18 00:30 a/p: 53yo male with intermittent episodes of cp -cp assoc with sob, no nausea, no radiation -pain occurs at rest and after smoking cigarettes -strong fam hx of early cardiac -will send trop, ekg -cxr obtained yesterday did not show acute findings 12/17/18 00:34 echo performed yesterday did not show acute findings ECHO Summary: The ventricular size, thickness, and function are normal. The right ventricle is normal in size and function. There is trace tricuspid regurgitation. EF: 55-60% Reported by: Dr. Joshua Escalona 12/17/18 01:14 trop neg microblog sent to [facility] for obs placement 12/17/18 01:37 resident discussed the case with [facility] who accepts pt to obs Heart Score/ECG Review - ECG Intrepretation Comment:: 12/17/18 00:34 sinus at 71, nl axis, nl interval, no acute st/t wave findings
[2018-12-17 00:40] LABS: BASO % 0.8 % (0-2.0); EOS % 3.3 % (0-4.5); HEMATOCRIT 40.9 % (35.4-49); HEMOGLOBIN 13.7 GM/dL (11.7-16.9); LYMPH % 30.7 % (8-40); MCH 30.2 pg (25.7-33.7); MCHC 33.5 g/dl (32.0-35.9); MEAN CELL VOLUME 90.2 fl (80-96); MEAN PLT VOLUME 8.8 fl (7.5-11.1); MONO % 9.9 % (3.8-10.2); NEUT % 55.3 % (42.8-82.8); PLATELET COUNT 216 K/MM3 (134-434); RBC 4.54 M/mm3 (4.00-5.60); RDW 14.7 % (11.9-15.9); WHITE BLOOD COUNT 6.7 K/mm3 (4.0-10.0)
[2018-12-17] MEDS ORDERED: ASPIRIN 81 MG CHEWABLE TABLETS ONE (00:41)
[2018-12-17 01:02] LABS: ANION GAP 5 MMOL/L (8-16); BLOOD UREA NITROGEN 17 mg/dL (7-18); CALCIUM 9.2 mg/dL (8.5-10.1); CHLORIDE 106 mmol/L (98-107); CO2 27 mmol/L (21-32); CREATININE 0.8 mg/dL (0.55-1.3); GLUCOSE,RANDOM 88 mg/dL (74-106); SODIUM 138 mmol/L (136-145)
--- NOTE | 2018-12-17 01:29 | PN ---
Teaching Attending Note Name of Resident: Sahara Virk ATTENDING PHYSICIAN STATEMENT I saw and evaluated the patient. I reviewed the resident's note and discussed the case with the resident. I agree with the resident's findings and plan as documented. SUBJECTIVE: Patient is a 53 year old man with a PMH of HTN, Asthma, Major Depressive Disorder, chronic back pain, tobacco use and colon cancer (s/p resection), who presents to the ER for the second day in a row with chest pain. Says pain developed while he was watching TV, lasted about 6 seconds, is nonradiating, substernal, and associated with shortness of breath Patient notes similar episodes over the course of the past month and was evaluated in the ER yesterday for similar symptoms at which time he was admitted and signed out AMA prior to the remainder of his cardiac evaluation. He cannot identify any aggravating or relieving factors. He went to [facility] one month ago for similar chest pain and was told he had an anxiety attack, but should followup with a fruit pitter. His EKG as well as CXR yesterday didnot show any abnormality. He had an ECHO yesterday that showed normal LV function with EF of 55-60% and mild tricuspid regurgitation. He has a strong family history of premature CAD and denies use of any illicit drugs. He denies any recent fevers, chills, headache, dizziness, nausea, vomiting, diarrhea, constipation, dysuria, frequency, urgency or hematuria. OBJECTIVE: Alert Vital Signs Period Temp Pulse Resp BP Sys/Randhawa Pulse Ox Last 24 Hr 97.8 F 74 18 137/85 100 HEENT: No Jaundice, eye redness or discharge, PERRLA, EOMI. Normocephalic, atraumatic. External ears are normal and hearing is grossly intact. No nasal discharge. Neck: Supple, nontender. No palpable adenopathy or thyromegaly. No JVD Chest: Good effort. Clear to auscultation and percussion. Heart: Regular. No S3, rub or murmur Abdomen: Not distended, soft, nontender and no HSM. No rebound or guarding. Normal bowel sounds. Ext: Peripheral pulses intact. No leg edema. Skin: Warm and dry. No petechiae, rash or ecchymosis. Neuro: Alert. Oriented x3. CN 2-12 grossly intact. Sensation grossly intact in all four extremities and DTR are symmetric. Psych: Appropriate mood and affect. Good insight. Home Medications Medication Instructions Recorded Aspirin [ASA -] 81 mg PO DAILY 06/29/17 Atorvastatin Ca [Lipitor] 40 mg PO HS 06/29/17 Albuterol Sulfate Inhaler - 1 puff PRN PRN 06/30/17 [Ventolin HFA Inhaler -] Gabapentin 300 mg PO TID 06/30/17 Oxycodone HCl/Acetaminophen 5 - 325 mg PO BID 06/30/17 [Percocet 5-325 mg Tablet] Lactobacillus Acidophilus [Bacid -] 1 each PO DAILY #7 capsule 07/02/17 Albuterol 0.083% Nebulizer Zulema 1 neb NEB QID PRN 11/02/17 [Ventolin 0.083% Nebulizer Soln -] Amlodipine Besylate 2.5 mg PO DAILY 12/16/18 Lisinopril [Prinivil] 10 mg PO DAILY 12/16/18 Abnormal Lab Results 12/17/18 00:01 Anion Gap 5 L ASSESSMENT AND PLAN: 1. Chest pain - Has risk factors for CAD though his pain is atypical. EKG is NSR with no significant ST-T wave changes and initial troponin is negative. Will admit to telemetry to rule out ACS, get urine toxicology, fasting lipids and consult cardiology. Will likely need a stress test. 2. Tobacco Use Counseled on risks associated with tobacco use. We will provide patient all the necessary assistance to facilitate smoking cessation and prescribe Nicotine patch. 3. Obesity Counseled on the risks associated with obesity. Will provide patient all the necessary assistance, counseling and positive reinforcement to facilitate weight loss. Consult superintendent power. 4. Hypertension - Restart outpatient antihypertensive drugs and revise regimen to ensure smooth [id number] good BP control. Nonpharmacologic measures to control hypertension like weight loss, salt restriction and exercise discussed. 5. DVT prophylaxis - Lovenox 40 mg SQ q 24 hours. 6. Advance directives - Full code
[2018-12-17] MEDS ORDERED: oxyCODONE HCL 5 MG TABLET PO ONE (02:09)
[2018-12-17] MEDS ORDERED: ACETAMINOPHEN 325 MG TABLET (FP) PO ONE (02:10)
[2018-12-17] MEDS ORDERED: ALBUTEROL SO4 0.083% IH SOL 2.5 MG/3 ML VIAL.NEB. NEB PRN (02:14)
--- NOTE | 2018-12-17 02:15 | HP ---
CHIEF COMPLAINT: chest pain PCP: HISTORY OF PRESENT ILLNESS: Patient is a 53 y/o male with a history of HTN and colon cancer s/p resection who presents with chest pain. Patient was recently admitted yesterday to the hospital for the same thing but left AMA after a normal echo. Patient was sitting on his couch around 11 pm when he started to feel chest pain and pressure. He states it was in the middle of his chest. It didn't start to feel better until he was in the cab on the way to the ED. Patient has had one previous episode of pain this month. he went to [facility] was told everything was normal and it was likely an anxiety attack. Per records he may have been at an outpatient [facility] clinic rather then the hospital. Patient was supposed to follow up with Cardiology, but didnt. Per patient he takes all his medications but does not know the name. He has been smoking since he was a teenager about a pack a day. His mother young of heart attack. Patients pain has resolved. He describes his heart sometimes feeling funny and he would then feel dizzy and short of breath afterword. ER course was notable for: (1) (2) (3) Recent Travel: denies PAST MEDICAL HISTORY: HTN and colon cancer s/p resection PAST SURGICAL HISTORY: colon resection Social History: Smokin pack a day since he was a teenager, in the last six months he cut down to 6 a day, today he had 3 cigarettes Alcohol: denies Drugs: denies Family History: Allergies No Known Allergies Allergy (Verified 12/16/18 01:11) HOME MEDICATIONS: Home Medications Medication Instructions Recorded Aspirin [ASA -] 81 mg PO DAILY 06/29/17 Atorvastatin Ca [Lipitor] 40 mg PO HS 06/29/17 Albuterol Sulfate Inhaler - 1 puff PRN PRN 06/30/17 [Ventolin HFA Inhaler -] Gabapentin 300 mg PO TID 06/30/17 Oxycodone HCl/Acetaminophen 5 - 325 mg PO BID 06/30/17 [Percocet 5-325 mg Tablet] Lactobacillus Acidophilus [Bacid -] 1 each PO DAILY #7 capsule 07/02/17 Albuterol 0.083% Nebulizer Zulema 1 neb NEB QID PRN 11/02/17 [Ventolin 0.083% Nebulizer Soln -] Amlodipine Besylate 2.5 mg PO DAILY 12/16/18 Lisinopril [Prinivil] 10 mg PO DAILY 12/16/18 REVIEW OF SYSTEMS positive: previous chest pain/ pressure, dizziness denies: nausea, vomiting, diarrhea, headache, shortness of breath, diarrhea, diaphoresis, change in vision PHYSICAL EXAMINATION Vital Signs - 24 hr 12/16/18 23:21 Temperature 97.8 F Pulse Rate 74 Respiratory 18 Rate Blood Pressure 137/85 O2 Sat by Pulse 100 Oximetry (%) GENERAL: Awake, alert, and fully oriented, in no acute distress. obese EYES: Pupils equal, round and reactive to light, extraocular movements intact EARS, NOSE, THROAT: Moist mucous membranes. NECK: Normal range of motion, supple without lymphadenopathy, JVD, or masses. LUNGS: Breath sounds equal, clear to auscultation bilaterally. No wheezes, and no crackles. No accessory muscle use. HEART: Regular rate and rhythm, normal S1 and S2 without murmur, rub or gallop. ABDOMEN: Soft, nontender, not distended, normoactive bowel sounds, no guarding, no rebound, no masses. LOWER EXTREMITIES: 2+ pulses, warm, well-perfused. No calf tenderness. No peripheral edema. PSYCHIATRIC: Cooperative. Good eye contact. Appropriate mood and affect. SKIN: Warm, dry, normal turgor, no rashes or lesions noted, normal capillary refill. . CBCD WBC 6.7 K/mm3 (4.0-10.0) 12/17/18 00:01 RBC 4.54 M/mm3 (4.00-5.60) 12/17/18 00:01 Hgb 13.7 GM/dL (11.7-16.9) 12/17/18 00:01 Hct 40.9 % (35.4-49) 12/17/18 00:01 MCV 90.2 fl (80-96) 12/17/18 00:01 MCHC 33.5 g/dl (32.0-35.9) 12/17/18 00:01 RDW 14.7 % (11.9-15.9) 12/17/18 00:01 Plt Count 216 K/MM3 (134-434) 12/17/18 00:01 MPV 8.8 fl (7.5-11.1) 12/17/18 00:01 CMP Sodium 138 mmol/L (136-145) 12/17/18 00:01 Potassium 4.0 mmol/L (3.5-5.1) 12/17/18 00:01 Chloride 106 mmol/L (98-107) 12/17/18 00:01 Carbon Dioxide 27 mmol/L (21-32) 12/17/18 00:01 Anion Gap 5 MMOL/L (8-16) L 12/17/18 00:01 BUN 17 mg/dL (7-18) 12/17/18 00:01 Creatinine 0.8 mg/dL (0.55-1.3) 12/17/18 00:01 Calcium 9.2 mg/dL (8.5-10.1) 12/17/18 00:01 ASSESSMENT/PLAN: Patient is a 53 y/o male with a history of HTN and colon cancer s/p resection who is admitted for r/o [place]. #chest pain - cannot r/o [place], possibly 2/2 to anxiety - first trop negative, f/u second, two trops from yesterday negative - EKG without any changes - f/u cardiology consult - echo from yesterday: normal LV fxn, normal RV fxn, trace mitral regurg - patient with high risk for heart disease - aspirin 81 mg daily - stress test ordered, pt unlikely o f/u as an outpatient #HTN - BP controlled - continue lisinopril and amlodipine - continue atorvastatin #asthma - albuterol as needed # chornic back pain - continue percocet, and neurontin #DVT ppx -Lovenox 40 sq FEN - low sodium diet Dispo: monitor on tele - pharmacy not open, please reconcile medications with pharmacy Visit type - Emergency Visit Emergency Visit: Yes ED Registration Date: 12/17/18 Care time: The patient presented to the Emergency Department on the above date and was hospitalized for further evaluation of their emergent condition. - New Patient This patient is new to me today: No - Critical Care Critical Care patient: No
[2018-12-17] MEDS ORDERED: oxyCODONE HCL 5 MG TABLET ONE (02:42)
[2018-12-17] MEDS ORDERED: ACETAMINOPHEN 325 MG TABLET (FP) ONE (02:42)
--- NOTE | 2018-12-17 04:42 | DS ---
Physical Exam: OBJECTIVE: Vital Signs Period Temp Pulse Resp BP Sys/Randhawa Pulse Ox Last 24 Hr 97.8 F 74 18 137/85 100 PHYSICAL EXAM GENERAL: Awake, alert, and fully oriented, in no acute distress. obese EYES: Pupils equal, round and reactive to light, extraocular movements intact EARS, NOSE, THROAT: Moist mucous membranes. NECK: Normal range of motion, supple without lymphadenopathy, JVD, or masses. LUNGS: Breath sounds equal, clear to auscultation bilaterally. No wheezes, and no crackles. No accessory muscle use. HEART: Regular rate and rhythm, normal S1 and S2 without murmur, rub or gallop. ABDOMEN: Soft, nontender, not distended, normoactive bowel sounds, no guarding, no rebound, no masses. LOWER EXTREMITIES: 2+ pulses, warm, well-perfused. No calf tenderness. No peripheral edema. PSYCHIATRIC: Cooperative. Good eye contact. Appropriate mood and affect. SKIN: Warm, dry, normal turgor, no rashes or lesions noted, normal capillary refill. . LABS Laboratory Results - last 24 hr 12/17/18 12/17/18 00:01 00:01 WBC 6.7 RBC 4.54 Hgb 13.7 Hct 40.9 MCV 90.2 MCH 30.2 MCHC 33.5 RDW 14.7 Plt Count 216 MPV 8.8 Absolute Neuts (auto) 3.7 Neutrophils % 55.3 Lymphocytes % 30.7 Monocytes % 9.9 Eosinophils % 3.3 Basophils % 0.8 Nucleated RBC % 0 Sodium 138 Potassium 4.0 Chloride 106 Carbon Dioxide 27 Anion Gap 5 L BUN 17 Creatinine 0.8 Est GFR (CKD-EPI)AfAm 116.56 Est GFR (CKD-EPI)NonAf 100.57 Random Glucose 88 Calcium 9.2 Creatine Kinase 141 Troponin I < 0.02 HOSPITAL COURSE: Date of Admission:12/17/18 Patient returned to the hospital for chest pain. Previous trops and echo negative from admission yesterday. Trop this admission negative. Discussed need for stress test and to follow with cardio. Later patient told nurse he did not want to stay. Patient eloped. Date of Discharge: 12/17/18 Minutes to complete discharge: 35 Discharge Summary Reason For Visit: CHEST PAIN AT REST Current Active Problems Chest pain at rest (Acute) Condition: Stable - Instructions - Home Medications Comprehensive Discharge Medication List: Ambulatory Orders Aspirin [ASA -] 81 mg PO DAILY 06/29/17 Atorvastatin Ca [Lipitor] 40 mg PO HS 06/29/17 Albuterol Sulfate Inhaler - [Ventolin HFA Inhaler -] 1 puff PRN PRN 06/30/17 Gabapentin 300 mg PO TID 06/30/17 Oxycodone HCl/Acetaminophen [Percocet 5-325 mg Tablet] 5 - 325 mg PO BID Lactobacillus Acidophilus [Bacid -] 1 each PO DAILY #7 capsule 07/02/17 Albuterol 0.083% Nebulizer Zulema [Ventolin 0.083% Nebulizer Soln -] 1 neb NEB QID PRN 11/02/17 Amlodipine Besylate 2.5 mg PO DAILY 12/16/18 Lisinopril [Prinivil] 10 mg PO DAILY 12/16/18 This patient is new to me today: No Emergency Visit: Yes ED Registration Date: 12/17/18 Care time: The patient presented to the Emergency Department on the above date and was hospitalized for further evaluation of their emergent condition. Critical Care patient: No - Discharge Referral Referred to [facility] No
[2018-12-17] MEDS ORDERED: GABAPENTIN 300 MG CAPSULE (FP) PO SCH (06:00)
[2018-12-17] MEDS ORDERED: LISINOPRIL 10 MG TABLET (FP) PO SCH (10:00)
[2018-12-17] MEDS ORDERED: amLODIPine BESYLATE 2.5 MG TABLET (FP) PO SCH (10:00)
[2018-12-17] MEDS ORDERED: LACTOBACILLUS ACIDOPHILUS 1 TABLET PO SCH (10:00)
[2018-12-17] MEDS ORDERED: ASPIRIN 81 MG CHEWABLE TABLETS PO SCH (10:00)
[2018-12-17] MEDS ORDERED: ENOXAPARIN NA (PORCINE) 40 MG/0.4 ML DISP.SYRIN SQ SCH (10:00)
--- NOTE | 2018-12-17 15:11 | EKG ---
Test Reason : Blood Pressure : / mmHG Vent. Rate : 071 BPM Atrial Rate : 071 BPM P-R Int : 162 ms QRS Dur : 080 ms QT Int : 394 ms P-R-T Axes : 066 043 047 degrees QTc Int : 428 ms NORMAL SINUS RHYTHM NORMAL ECG WHEN COMPARED WITH ECG OF 16-DEC-2018 03:52, NO SIGNIFICANT CHANGE WAS FOUND Confirmed by KARINA JACOBSON MD ([id number]) on 12/17/2018 3:10:55 PM Referred By: Confirmed By:KARINA JACOBSON MD
[2018-12-17] MEDS ORDERED: ATORVASTATIN CA 40 MG TABLET (FP) PO SCH (22:00)
== END 2018-12-17 04:07 | disposition left against medical advice (07) ==
LOC: JER 23:14 → SUPCPDRO 23:14 → JERBED 12-17 01:38
PROVIDERS: ADMIT Internal Medicine; ATTEND Internal Medicine
DX: R07.9 Chest pain, unspecified (principal); I10 Essential (primary) hypertension; F17.210 Nicotine dependence, cigarettes, uncomplicated; J45.909 Unspecified asthma, uncomplicated; F32.9 Major depressive disorder, single episode, unspecified; M54.9 Dorsalgia, unspecified; G89.29 Other chronic pain; E66.9 Obesity, unspecified; Z68.32 Body mass index [BMI] 32.0-32.9, adult; Z85.038 Personal history of other malignant neoplasm of large intestine; Z79.82 Long term (current) use of aspirin
CPT/HCPCS: 36415; 80048; 82550; 84484; 85025; 93005; 93010; 99284-25; G0378

== ENCOUNTER 2018-12-20 15:07 | Observation (INO) | payer OTHER ==
--- NOTE | 2018-12-20 15:56 | PDOC ---
History of Present Illness - General Chief Complaint: CVA/TIA Stated Complaint: NOT FEELING RIGHT Time Seen by Provider: 12/20/18 15:37 History Source: Patient - History of Present Illness Initial Comments: 12/20/18 16:02 The patient is a 53 year old male with a PMH of CVA (s/p R sided facial weakness ), Colon CA (s/p resection), OA, HTN who presents to our ED c/o 2 day h/o of focal neurological deficits. Yesterday morning, patient states his entire R side of his body "went " for 15 seconds. Post episode he felt lightheaded and off balance. Symptoms then resolved. This morning patient states he felt LLE weakness and numbness that has persisted prompting his visit to the ED. Patient also c/o palpitations alternating with slow heartbeat. No associated shortness of breath, diaphoresis, nausea. The patient denies fever, chills, vomiting, diarrhea/constipation, dysuria/ hematuria, sore throat, cough, numbness/tingling. NKDA Surgical: Colon CA resection, Hernia repair x2, Jaw surgery PMD: Dr. Ale Casillas Past History - Past Medical History Allergies/Adverse Reactions: Allergies Allergy/AdvReac Type Severity Reaction Status Date / Time No Known Allergies Allergy Verified 12/20/18 15:47 Home Medications: Ambulatory Orders Aspirin [ASA -] 81 mg PO DAILY 06/29/17 Atorvastatin Ca [Lipitor] 40 mg PO HS 06/29/17 Albuterol Sulfate Inhaler - [Ventolin HFA Inhaler -] 1 puff PRN PRN 06/30/17 Gabapentin 300 mg PO TID 06/30/17 Oxycodone HCl/Acetaminophen [Percocet 5-325 mg Tablet] 5 - 325 mg PO BID Lactobacillus Acidophilus [Bacid -] 1 each PO DAILY #7 capsule 07/02/17 Albuterol 0.083% Nebulizer Zulema [Ventolin 0.083% Nebulizer Soln -] 1 neb NEB QID PRN 11/02/17 Amlodipine Besylate 2.5 mg PO DAILY 12/16/18 Lisinopril [Prinivil] 10 mg PO DAILY 12/16/18 Anemia: No Asthma: Yes Cancer: Yes (Colon Cancer (s/p 6inch resection)) Cardiac Disorders: No CVA: Yes (mini stroke) COPD: No CHF: No Dementia: No Diabetes: No GI Disorders: No Disorders: No HTN: Yes Hypercholesterolemia: Yes Liver Disease: No Seizures: No Thyroid Disease: No - Surgical History Abdominal Surgery: Yes (HERNIA REPAIR X2) GI Surgery: Yes (Colon CA resection) Orthopedic Surgery: Yes (JAW SURGERY) - Immunization History Immunization Up to Date: No - Suicide/Smoking/Psychosocial Hx Smoking Status: Yes Smoking History: Current every day smoker Have you smoked in the past 12 months: Yes Number of Cigarettes Smoked Daily: 5 Information on smoking cessation initiated: No 'Breaking Loose' booklet given: 03/15/18 Hx Alcohol Use: No Drug/Substance Use Hx: No Substance Use Type: None Hx Substance Use Treatment: No *Physical Exam - Vital Signs Last Vital Signs Temp Pulse Resp BP Pulse Ox 98 F 80 16 136/68 97 12/20/18 15:28 12/20/18 15:28 12/20/18 15:28 12/20/18 15:28 12/20/18 15:28 Heart Score/ECG Review - ECG Impressions Comment:: 12/20/18 23:19 HR 79, normal intervals, no deviation, no GILSON/STD/TWI; non-ischemic EKG ED Treatment Course - LABORATORY CBC & Chemistry Diagram: 12/20/18 16:04 12/20/18 16:04 Medical Decision Making - Medical Decision Making 12/20/18 16:08 53 year old male w/multiple episodes of intermittent focal neurologic deficits; h/o CVA (s/p TPA with focal neurologic deficit) presents with intermittent RUE/ RLE weakness yesterday and persistent LLE weakness/numbness today. VS unremarkable NIHSS 2 (decreased sensation of LLE, possible new R sided weak nasolabial fold) Will obtain Head CT to r/o repeat CVA; patient outside of TPA window as initial symptomatic presentation yesterday Will also obtain Troponin, EKG, CXR as patient c/o palpitations, ? numbness as anginal equivalent. ASA Reassess. EKG non-ischemic as documented in EKG section of EMR 12/20/18 17:[address] negative Troponin (-) x1 Case d/w Dr. Cheng. Will admit patient for further evaluation including neurology consult (patient likely requires MRI for further evaluation) as well as cardiac evaluation including echo Clinical Impression: ? TIA *DC/Admit/Observation/Transfer Diagnosis at time of Disposition: Weakness - Discharge Dispostion Condition at time of disposition: Stable Decision to Admit order: Yes - Referrals - Patient Instructions - Post Discharge Activity
[2018-12-20] MEDS ORDERED: ASPIRIN 325 MG TABLET PO ONE (16:01)
--- NOTE | 2018-12-20 16:01 | PDOC ---
NIH Stroke Scale - Last Known Well Date/Time & Onset Date Last Known Well: 12/19/18 Time Last Known Well: 10:00 - Initial Evaluation Level of consciousness: Alert Ask patient the month and their age: Answers both correctly Ask patient to open & close eyes; make fist and let go: Obeys both correctly Best gaze (horizontal eye movement): Normal Visual field testing: No visual field loss Facial paresis (Show teeth/raise eyebrows/close eyes tight): Minor paralysis ( flattened nasolabial fold, asymmetry on smiling) Motor Function: Left Arm: Normal Motor Function: Right Arm: Normal (extends arm 90 (or 45) degrees for 10 seconds without drift Motor Function: Left Leg: Normal (extends leg 30 degrees for 5 seconds without drift) Motor Function: Right Leg: Normal (extends leg 30 degrees for 5 seconds without drift) Limb Ataxia: No ataxia Sensory(Use pinprick test arms,legs,trunk,face/side to side): Mild to moderate decrease in sensation Best language (Describe picture, name items, read sentences): No Aphasia Dysarthria (read several words): Normal articulation Extinction and Inattention: No abnormality - Total Score NIH Stroke Scale Score: 2
[2018-12-20] MEDS ORDERED: ASPIRIN 81 MG CHEWABLE TABLETS ONE (16:06)
[2018-12-20 16:19] LABS: BASO % 0.7 % (0-2.0); EOS % 2.3 % (0-4.5); HEMATOCRIT 40.8 % (35.4-49); HEMOGLOBIN 13.7 GM/dL (11.7-16.9); LYMPH % 26.8 % (8-40); MCHC 33.5 g/dl (32.0-35.9); MEAN CELL VOLUME 89.7 fl (80-96); MEAN PLT VOLUME 8.4 fl (7.5-11.1); MONO % 7.9 % (3.8-10.2); NEUT % 62.3 % (42.8-82.8); PLATELET COUNT 240 K/MM3 (134-434); RBC 4.55 M/mm3 (4.00-5.60); RDW 14.7 % (11.9-15.9); WHITE BLOOD COUNT 7.3 K/mm3 (4.0-10.0)
--- NOTE | 2018-12-20 16:31 | PDOC ---
Documentation entered by Karol Delgado SCRIBE, acting as scribe for Stuart Gomez MD. Stuart Gomez MD: This documentation has been prepared by the Sandy garcias Adrianna, SCRIBE, under my direction and personally reviewed by me in its entirety. I confirm that the documentation accurately reflects all work, treatment, procedures, and medical decision making performed by me. Attending Attestation - Resident Resident Name: Watson Perryica - ED Attending Attestation I have performed the following: I have examined & evaluated the patient, The case was reviewed & discussed with the resident, I agree w/resident's findings & plan, Exceptions are as noted - HPI HPI: The patient is a 53 year old male, with a significant past medical history of mini CVA (1 year ago), OA, HTN and colon cancer (s/p resection), who presents to the emergency department today complaining of weakness, lightheadedness, and palpitations for 2 days. Patient notes he was at the store talking to his friends yesterday when he felt his right side (both upper and lower extremities ) give out and go for approximately 15 seconds. He reports feeling lightheaded and off-balance after the episode, like he was going to pass out, so he went to the bathroom and applied some water to his face. He endorses left- sided weakness and lightheadedness upon waking up this morning, which has yet to resolve. He additionally reports feeling short of breath for 5 seconds this morning, and endorses palpitations, which he describes as transitioning from fast heartbeats to slow. Patient admits to having a mini-stroke last year, where symptoms were localized to the right-side of the face. He endorses some neck pain at this time, but notes this is secondary to OA present in the c- spine. The patient denies chest pain, headache, or changes in vision. Denies fever, chills, nausea, vomit, diarrhea and constipation. Denies dysuria, frequency, urgency and hematuria. Denies blood in stool or black stool. Allergies: NKA Past surgical history: Colon cancer resection, abdominal hernia repair x2, jaw surgery Social History: Smoker. Denies recreational drug use. PCP: Dr. Sheldon Aguilera 12/20/18 16:08 - Physicial Exam PE: 12/20/18 15:59 GENERAL: The patient is awake, alert, and fully oriented, Nontoxic - in no acute distress. HEAD: Normocephalic, atraumatic. EYES: extraocular movements intact, sclera anicteric, conjunctiva clearm, visual tariq intact and symmetric b/l ENT: Normal voice, Moist mucous membranes. NECK: Normal range of motion, supple LUNGS: Breath sounds equal, clear to auscultation bilaterally. No wheezes, no rhonchi, no rales. HEART: Regular rate and rhythm, normal S1 and S2 without murmur, rub or gallop. ABDOMEN: Soft, nontender, normoactive bowel sounds. No guarding, no rebound. . No CVA tenderness EXTREMITIES: Normal range of motion, no edema. No clubbing or cyanosis. No cords, erythema, or tenderness. NEUROLOGICAL: very slight flattening nasal labial fold on R, 5-/5 strength on LLE, 5/5 strenth elsewhere, finger to nose symmetric b/l, normal and symmetric rapid alternating mvoements, normal gait. PSYCH: Normal mood, normal affect. SKIN: Warm, Dry, normal turgor, - Medical Decision Making 12/20/18 16:03 53y M hx of ?cva sp TPA (2018), htn, colon ca (remote past) presents with intermittent palpitations, lightheadedness, feeling off balance, R sided weakness lastinga pprox 15 min yetserday and woke up today with LLE weakness. Currently pt has some weakness of his LLE and a slightly weak nasolabial fold on R will obtain ct head cva workup - labs, ekg, monitoring, r/o occult infection not TPA candidate as symptoms started yesterday 12/20/18 17:50 TYPE/EXAM: RESULT: [id number] CT/HEAD CT WITHOUT CONTRAST Cranial CT without contrast Clinical information: evaluate for CVA Impression: No CT evidence of acute intracranial pathology. Follow-up imaging as clinically indicated. Paranasal sinus disease. Reported By: Norman Esquivel MD 12/20/18 17:44 Heart Score/ECG Review - ECG Impressions Comment:: 12/20/18 16:07 Twelve-lead EKG was performed and reviewed by me. There is normal sinus rhythm with a normal rate. Rate of 74 The axis is normal. The intervals are normal. There is normal R wave progression There are no ST or T wave abnormalities. Impression: Normal twelve-lead EKG
[2018-12-20 16:51] LABS: ALBUMIN 3.6 g/dl (3.4-5.0); ALK PHOS 84 U/L (45-117); ANION GAP 4 MMOL/L (8-16); BILIRUBIN,TOTAL 0.2 mg/dL (0.2-1); BLOOD UREA NITROGEN 9 mg/dL (7-18); CALCIUM 8.9 mg/dL (8.5-10.1); CHLORIDE 105 mmol/L (98-107); CO2 29 mmol/L (21-32); CREATININE 0.9 mg/dL (0.55-1.3); GLUCOSE,RANDOM 91 mg/dL (74-106); SGOT/AST 24 U/L (15-37); SGPT/ALT 28 U/L (13-61); SODIUM 138 mmol/L (136-145)
--- NOTE | 2018-12-20 19:09 | CON.NEURO ---
Consult Consult Specialty:: Shmuel Referred by:: ER - History of Present Illness History of Present Illness: 53-year-old right-handed man with history of prior CVA presents to the hospital with a chief complaint of my old right side was for 15 seconds. Patient was evaluated in the emergency room stroke protocol was initiated patient was stabilized patient was back to his baseline CAT scan of the head was reported as negative no recent travel no chest pain or palpitation no cardiac arrhythmia. - History Source History Provided By: Patient Limitations to Obtaining History: No Limitations - Alcohol/Substance Use Hx Alcohol Use: No - Smoking History Smoking history: Current every day smoker Have you smoked in the past 12 months: Yes Aproximately how many cigarettes per day: 5 Home Medications - Allergies Allergies/Adverse Reactions: Allergies Allergy/AdvReac Type Severity Reaction Status Date / Time No Known Allergies Allergy Verified 12/20/18 15:47 - Home Medications Home Medications: Ambulatory Orders Aspirin [ASA -] 81 mg PO DAILY 06/29/17 Atorvastatin Ca [Lipitor] 40 mg PO HS 06/29/17 Albuterol Sulfate Inhaler - [Ventolin HFA Inhaler -] 1 puff PRN PRN 06/30/17 Gabapentin 300 mg PO TID 06/30/17 Oxycodone HCl/Acetaminophen [Percocet 5-325 mg Tablet] 5 - 325 mg PO BID Lactobacillus Acidophilus [Bacid -] 1 each PO DAILY #7 capsule 07/02/17 Albuterol 0.083% Nebulizer Zulema [Ventolin 0.083% Nebulizer Soln -] 1 neb NEB QID PRN 11/02/17 Amlodipine Besylate 2.5 mg PO DAILY 12/16/18 Lisinopril [Prinivil] 10 mg PO DAILY 12/16/18 Family Disease History - Family Disease History Family History: Denies (stroke) Review of Systems - Review of Systems Constitutional: reports: No Symptoms Eyes: reports: No Symptoms Neurological: reports: Headache, Incoordination Physical Exam-Neuro Vital Signs: Vital Signs Temperature 98 F 12/20/18 15:28 Pulse Rate 76 12/20/18 17:45 Respiratory Rate 18 12/20/18 17:45 Blood Pressure 137/72 12/20/18 17:45 O2 Sat by Pulse Oximetry (%) 97 12/20/18 17:45 Constitutional: Yes: Well Nourished Neck: Yes: WNL Cardiovascular: Yes: WNL Labs: CBC, BMP 12/20/18 16:04 12/20/18 16:04 - Neuro Exam Level Of Consciousness: Yes: Oriented to Person, Oriented to Place, Oriented to Time Eyes: Yes: PERRLA Dominant Hand: Right Cranial Nerves II-XII Intact: Yes Gag: Present DTR's: 1+ Left Bicep, 1+ Right Bicep, 1+ Right Tricep, 1+ Left Brachioradialis, 1+ Right Brachioradialis Babinski: Absent Response to light touch: Normal Response to pain prick: Normal Response to temperature: Normal Response to vibration: Normal Motor Strength: 3/5: Left Arm, Right Arm, Left Leg, Right Leg Gait: Deferred Imaging - Results Cat Scan: Image Reviewed Problem List - Problems (1) Transient ischemic attack Assessment/Plan: prior history of CVA in a 48-year-old man with history of prior stroke risk factors 1. Urine toxicology. 2. MRI of the brain with no contrast. 3. Physical therapy. 4. Fall precautions. 5. full aspirin. 6. Echocardiogram carotid Doppler Holter monitor. Code(s): G45.9 - TRANSIENT CEREBRAL ISCHEMIC ATTACK, UNSPECIFIED
--- NOTE | 2018-12-20 19:19 | HP ---
Admitting History and Physical - Primary Care Physician PCP: Sully Cheng - Admission History of Present Illness: 53 year old male, with a significant past medical history of mini CVA (1 year ago), OA, HTN and colon cancer (s/p resection), who presents to the emergency department today complaining of weakness, lightheadedness, and palpitations for 2 days. Patient notes he was at the store talking to his friends yesterday when he felt his right side (both upper and lower extremities) give out and go for approximately 15 seconds. He reports feeling lightheaded and off-balance after the episode, like he was going to pass out, so he went to the bathroom and applied some water to his face. He endorses left-sided weakness and lightheadedness upon waking up this morning, which has yet to resolve. He additionally reports feeling short of breath for 5 seconds this morning, and endorses palpitations, which he describes as transitioning from fast heartbeats to slow. Patient admits to having a mini-stroke last year, where symptoms were localized to the right-side of the face. He endorses some neck pain at this time , but notes this is secondary to OA present in the c-spine. - Smoking History Smoking history: Current every day smoker Have you smoked in the past 12 months: Yes Aproximately how many cigarettes per day: 5 - Alcohol/Substance Use Hx Alcohol Use: No Home Medications - Allergies Allergies/Adverse Reactions: Allergies Allergy/AdvReac Type Severity Reaction Status Date / Time No Known Allergies Allergy Verified 12/20/18 15:47 - Home Medications Home Medications: Ambulatory Orders Aspirin [ASA -] 81 mg PO DAILY 06/29/17 Atorvastatin Ca [Lipitor] 40 mg PO HS 06/29/17 Albuterol Sulfate Inhaler - [Ventolin HFA Inhaler -] 1 puff PRN PRN 06/30/17 Gabapentin 300 mg PO TID 06/30/17 Oxycodone HCl/Acetaminophen [Percocet 5-325 mg Tablet] 5 - 325 mg PO BID Lactobacillus Acidophilus [Bacid -] 1 each PO DAILY #7 capsule 07/02/17 Albuterol 0.083% Nebulizer Zulema [Ventolin 0.083% Nebulizer Soln -] 1 neb NEB QID PRN 11/02/17 Amlodipine Besylate 2.5 mg PO DAILY 12/16/18 Lisinopril [Prinivil] 10 mg PO DAILY 12/16/18 Physical Examination Vital Signs: Vital Signs Temperature 98 F 12/20/18 15:28 Pulse Rate 76 12/20/18 17:45 Respiratory Rate 18 12/20/18 17:45 Blood Pressure 137/72 12/20/18 17:45 O2 Sat by Pulse Oximetry (%) 97 12/20/18 17:45 Constitutional: Yes: No Distress HENT: Yes: Atraumatic Neck: Yes: Supple Cardiovascular: Yes: Regular Rate and Rhythm Respiratory: Yes: CTA Bilaterally Gastrointestinal: Yes: Normal Bowel Sounds Extremities: Yes: WNL Neurological: Yes: Alert, Oriented Labs: CBC, BMP 12/20/18 16:04 12/20/18 16:04 Problem List - Problems (1) Transient ischemic attack Assessment/Plan: neuro checks neuro consult stable Code(s): G45.9 - TRANSIENT CEREBRAL ISCHEMIC ATTACK, UNSPECIFIED (2) Chest pain at rest Assessment/Plan: tele monitoring fu cardiac enzymes cardiology consult Code(s): R07.9 - CHEST PAIN, UNSPECIFIED Assessment/Plan Laboratory Tests 12/20/18 12/20/18 16:04 16:04 WBC 7.3 RBC 4.55 Hgb 13.7 Hct 40.8 MCV 89.7 MCH 30.0 MCHC 33.5 RDW 14.7 Plt Count 240 MPV 8.4 Absolute Neuts (auto) 4.6 Neutrophils % 62.3 Lymphocytes % 26.8 Monocytes % 7.9 Eosinophils % 2.3 Basophils % 0.7 Nucleated RBC % 0 Sodium 138 Potassium 5.0 Chloride 105 Carbon Dioxide 29 Anion Gap 4 L BUN 9 Creatinine 0.9 Est GFR (CKD-EPI)AfAm 111.05 Est GFR (CKD-EPI)NonAf 95.81 Random Glucose 91 Calcium 8.9 Total Bilirubin 0.2 AST 24 ALT 28 Alkaline Phosphatase 84 Creatine Kinase 187 Creatine Kinase Index 0.8 CK-MB (CK-2) 1.5 Troponin I < 0.02 Total Protein 7.0 Albumin 3.6 Active Medications Generic Name Dose Route Start Last Admin Trade Name Freq PRN Reason Stop Dose Admin Aspirin 81 mg 12/21/18 10:00 Asa - PO DAILY [facility]
[2018-12-20] MEDS ORDERED: ATORVASTATIN CA 40 MG TABLET (FP) PO SCH (22:00)
--- NOTE | 2018-12-20 23:22 | PDOC ---
tPA Exclusion Checklist 0-3hr - Time Elapsed Date last known well: 12/19/18 Time last known well: 10:00 Elaspsed time: 1 Day(s) and 13 Hour(s) and 22 Minutes - Thrombolytic Therapy Candidate Is the patient eligible for Thrombolytic Therapy?: No - Ineligibility reason(s) Reasons No tPA given: Outside of window - delayed arrival
[2018-12-20] MEDS: GABAPENTIN 300 MG CAPSULE (FP) PO SCH (23:23)
[2018-12-20] MEDS: oxyCODONE HCL 5 MG TABLET PO PRN (23:23)
[2018-12-21 01:58] VITALS: BMI 31.4
[2018-12-21] MEDS: GABAPENTIN 300 MG CAPSULE (FP) PO SCH ×2 (05:27→14:59)
[2018-12-21] MEDS: oxyCODONE HCL 5 MG TABLET PO PRN (05:27)
[2018-12-21] MEDS ORDERED: ACETAMINOPHEN 325 MG TABLET (FP) PO PRN (10:00)
[2018-12-21] MEDS ORDERED: ASPIRIN 81 MG CHEWABLE TABLETS PO SCH ×2 (10:00)
[2018-12-21] MEDS ORDERED: amLODIPine BESYLATE 2.5 MG TABLET (FP) PO SCH (10:00)
[2018-12-21] MEDS ORDERED: LISINOPRIL 10 MG TABLET (FP) PO SCH (10:00)
[2018-12-21] MEDS ORDERED: oxyCODONE HCL 5 MG TABLET PO ONE (10:00)
--- NOTE | 2018-12-21 10:02 | EKG ---
Test Reason : Blood Pressure : / mmHG Vent. Rate : 074 BPM Atrial Rate : 074 BPM P-R Int : 170 ms QRS Dur : 084 ms QT Int : 386 ms P-R-T Axes : 071 052 057 degrees QTc Int : 428 ms NORMAL SINUS RHYTHM NORMAL ECG WHEN COMPARED WITH ECG OF 16-DEC-2018 23:18, NO SIGNIFICANT CHANGE WAS FOUND Confirmed by MD SERGIO, GHADA ([id number]) on 12/21/2018 10:01:48 AM Referred By: Confirmed By:GHADA HILL MD
[2018-12-21 10:39] VITALS: BP 133/74; PULSE 93; TEMP 98.2
--- NOTE | 2018-12-21 11:00 | CON.CARD ---
Consult Consult Specialty:: Cardiology Referred by:: Dr. Cheng Reason for Consultation:: Cardiac evaluation - History of Present Illness Chief Complaint: Weakness (right sided), shortness of breath, palpitations History of Present Illness: Patient is a 53 year old male with history of CVA, HTN, hypercholesterolemia and colon CA s/p resection who presented to ED with weakness, dizziness and palpitations. He complained of complete giving out of the right side of his body. He also reported dizziness and being off balance and felt like passing out. Both his ability to use right side of the body got restored but then felt numbness to the left lower extremity. He denies chest pain. He complained of brief shortness of breath and also palpitations. He denied paroxysmal nocturnal dyspnea or orthopnea. He denied fever or chills. Currently, all of the above symptoms are not present. He denies nausea, vomiting, diarrhea or abdominal pain. He denies headache at this time. 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: CVA Cardio/Vascular: Yes: HTN, Hyperlipdemia - Past Surgical History Past Surgical History: Yes: Colectomy, Hernia Repair - Alcohol/Substance Use Hx Alcohol Use: No - Smoking History Smoking history: Current every day smoker Have you smoked in the past 12 months: Yes Aproximately how many cigarettes per day: 5 Home Medications - Allergies Allergies/Adverse Reactions: Allergies Allergy/AdvReac Type Severity Reaction Status Date / Time No Known Allergies Allergy Verified 12/20/18 15:47 - Home Medications Home Medications: Ambulatory Orders Aspirin [ASA -] 81 mg PO DAILY 06/29/17 Atorvastatin Ca [Lipitor] 40 mg PO HS 06/29/17 Albuterol Sulfate Inhaler - [Ventolin HFA Inhaler -] 1 puff PRN PRN 06/30/17 Gabapentin 300 mg PO TID 06/30/17 Oxycodone HCl/Acetaminophen [Percocet 5-325 mg Tablet] 5 - 325 mg PO BID Lactobacillus Acidophilus [Bacid -] 1 each PO DAILY #7 capsule 07/02/17 Albuterol 0.083% Nebulizer Zulema [Ventolin 0.083% Nebulizer Soln -] 1 neb NEB QID PRN 11/02/17 Amlodipine Besylate 2.5 mg PO DAILY 12/16/18 Lisinopril [Prinivil] 10 mg PO DAILY 12/16/18 Review of Systems - Review of Systems Constitutional: denies: Chills, Fever Cardiovascular: reports: Palpitations, Shortness of Breath. denies: Chest Pain Respiratory: reports: SOB. denies: Cough, Hemoptysis, Orthopnea, PND, SOB on Exertion, Wheezing Gastrointestinal: denies: Abdominal Pain, Constipation, Diarrhea, Melena, Nausea , Rectal Bleeding, Vomiting Genitourinary: denies: Dysuria, Hematuria Musculoskeletal: denies: Back Pain, Joint Pain Neurological: reports: Numbness, Parasthesia, Weakness. denies: Dizziness, Headache, Seizure, Syncope Vital Signs: Vital Signs Temperature 98.2 F 12/21/18 09:00 Pulse Rate 93 H 12/21/18 09:00 Respiratory Rate 20 12/21/18 09:00 Blood Pressure 133/74 12/21/18 09:00 O2 Sat by Pulse Oximetry (%) 97 12/20/18 23:00 Eyes: Yes: PERRL HENT: Yes: Atraumatic Neck: Yes: Supple Respiratory: Yes: CTA Bilaterally Gastrointestinal: Yes: Normal Bowel Sounds, Soft. No: Tenderness Cardiovascular: Yes: Regular Rate and Rhythm JVD: No PMI: Non-Displaced Heart Sounds: Yes: S1, S2 Edema: No - Other Data Labs, Other Data: CBC, BMP 12/20/18 16:04 12/20/18 16:04 Troponin, BNP 12/20/18 12/20/18 16:04 19:55 Troponin I < 0.02 < 0.02 NSR, normal ECG Imaging - Results Chest X-ray: Report Reviewed (Unremarkable) Cat Scan: Report Reviewed (Head CT unremarkable) MRI: Report Reviewed (Brain MRI mild to moderate volume loss) EKG: Report Reviewed Problem List - Problems (1) HTN (hypertension) Code(s): I10 - ESSENTIAL (PRIMARY) HYPERTENSION (2) Hypercholesterolemia Code(s): E78.00 - PURE HYPERCHOLESTEROLEMIA, UNSPECIFIED (3) CVA (cerebral vascular accident) Code(s): I63.9 - CEREBRAL INFARCTION, UNSPECIFIED (4) Palpitations Code(s): R00.2 - PALPITATIONS (5) Transient ischemic attack Code(s): G45.9 - TRANSIENT CEREBRAL ISCHEMIC ATTACK, UNSPECIFIED (6) Weakness Code(s): R53.1 - WEAKNESS (7) Chest pain at rest Code(s): R07.9 - CHEST PAIN, UNSPECIFIED Assessment/Plan 1. CVA/TIA 2. HTN 3. Hypercholesterolemia 4. Palpitations PLAN: 1. Continue Prinivil and Amlodipine 2. ASA 3. Atorvastatin 4. Neurology input noted 5. Echocardiography to assess LV/RV and valvular function 6. Telemetry monitoring and may also need extended monitoring outpatient to rule out AF Further plans are to follow Shar Nava MD
--- NOTE | 2018-12-22 19:01 | DS ---
Physical Examination Vital Signs: Vital Signs Temperature 98.2 F 12/21/18 09:00 Pulse Rate 93 H 12/21/18 09:00 Respiratory Rate 20 12/21/18 11:26 Blood Pressure 133/74 12/21/18 09:00 O2 Sat by Pulse Oximetry (%) 97 12/21/18 11:26 Labs: CBC, BMP 12/20/18 16:04 12/20/18 16:04 Discharge Summary Reason For Visit: CHEST PAIN AT REST Condition: Stable - Instructions Disposition: AGAINST MEDICAL ADVICE - Home Medications Comprehensive Discharge Medication List: Ambulatory Orders Aspirin [ASA -] 81 mg PO DAILY 06/29/17 Atorvastatin Ca [Lipitor] 40 mg PO HS 06/29/17 Albuterol Sulfate Inhaler - [Ventolin HFA Inhaler -] 1 puff PRN PRN 06/30/17 Gabapentin 300 mg PO TID 06/30/17 Oxycodone HCl/Acetaminophen [Percocet 5-325 mg Tablet] 5 - 325 mg PO BID Lactobacillus Acidophilus [Bacid -] 1 each PO DAILY #7 capsule 07/02/17 Albuterol 0.083% Nebulizer Zulema [Ventolin 0.083% Nebulizer Soln -] 1 neb NEB QID PRN 11/02/17 Amlodipine Besylate 2.5 mg PO DAILY 12/16/18 Lisinopril [Prinivil] 10 mg PO DAILY 12/16/18 ama
== END 2018-12-21 14:08 | disposition left against medical advice (07) ==
LOC: JER 15:07 → JERBED 18:18 → J4W 22:22
PROVIDERS: ADMIT Internal Medicine; ATTEND Internal Medicine
DX: G45.9 Transient cerebral ischemic attack, unspecified (principal); R53.1 Weakness; R00.2 Palpitations; R07.9 Chest pain, unspecified; I10 Essential (primary) hypertension; E78.5 Hyperlipidemia, unspecified; M19.90 Unspecified osteoarthritis, unspecified site; I69.392 Facial weakness following cerebral infarction; Z85.038 Personal history of other malignant neoplasm of large intestine; Z90.49 Acquired absence of other specified parts of digestive tract; Z79.82 Long term (current) use of aspirin
CPT/HCPCS: 36415; 70450-TC; 70551-TC; 71045-TC-FY; 80053; 82550; 82553; 84484; 85025; 85651; 86593; 93005; 93010; 93306-TC; 97116-GP; 97161-GP; 99285-25; G0378

== ENCOUNTER 2019-06-26 11:18 | Emergency (ER) | payer OTHER ==
[2019-06-26 11:40] VITALS: TEMP 98; BMI 33.9
--- NOTE | 2019-06-26 11:42 | PDOC ---
History of Present Illness - General Chief Complaint: Chest Pain Stated Complaint: CHEST PAIN Time Seen by Provider: 06/26/19 11:42 History Source: Patient Exam Limitations: No Limitations - History of Present Illness Initial Comments: Pt is a 54 yo M, with PMH of CVA, HTN, HLD, colon CA (s/p resection) and asthma , who is presenting with palpitations ("feeling like my heart is racing"), and feeling like "I might pass out". Pt has been seen for similar presentations multiple times in the past, but has left AMA or eloped. Pt has not followed up with cardiology, but has had a recent negative Echo and stress test done. Pt states the symptoms start "usually when I take a drag of a cigarette" and is not associated with exertion. Pt denies any fevers/chills, headache, vision changes, syncope, chest pain, SOB, nausea/vomiting, abdominal pain, urinary symptoms, diarrhea/constipation, or leg swelling. Allergies: NKDA PCP: Dr. Aguilera Cards: Dr. Nava Social: Pt smokes 1/2 ppd. Pt denies any alcohol or drug use. Pt denies any recent travel or sick contacts. Surgical: s/p colon resection Family: Mother and brother with MIs in 30s-40s; brother recently of leukemia 06/26/19 13:41 Past History - Travel Traveled outside of the country in the last 30 days: No Close contact w/someone who was outside of country & ill: No - Past Medical History Allergies/Adverse Reactions: Allergies Allergy/AdvReac Type Severity Reaction Status Date / Time No Known Allergies Allergy Verified 12/20/18 15:47 Home Medications: Ambulatory Orders Aspirin [ASA -] 81 mg PO DAILY 06/29/17 Atorvastatin Ca [Lipitor] 40 mg PO HS 06/29/17 Albuterol Sulfate Inhaler - [Ventolin HFA Inhaler -] 1 puff PRN PRN 06/30/17 Gabapentin 300 mg PO TID 06/30/17 Oxycodone HCl/Acetaminophen [Percocet 5-325 mg Tablet] 5 - 325 mg PO BID Lactobacillus Acidophilus [Bacid -] 1 each PO DAILY #7 capsule 07/02/17 Albuterol 0.083% Nebulizer Zulema [Ventolin 0.083% Nebulizer Soln -] 1 neb NEB QID PRN 11/02/17 Amlodipine Besylate 2.5 mg PO DAILY 12/16/18 Lisinopril [Prinivil] 10 mg PO DAILY 12/16/18 Anemia: No Asthma: Yes Cancer: Yes (Colon Cancer (s/p 6inch resection)) Cardiac Disorders: No CVA: Yes (TIA) COPD: No CHF: No Dementia: No Diabetes: No GI Disorders: No Disorders: No HTN: Yes Hypercholesterolemia: Yes Liver Disease: No Seizures: No Thyroid Disease: No - Surgical History Abdominal Surgery: Yes (HERNIA REPAIR X2) GI Surgery: Yes (Colon CA resection) Orthopedic Surgery: Yes (JAW SURGERY) - Immunization History Immunization Up to Date: No - Psycho Social/Smoking Cessation Hx Smoking Status: Yes Smoking History: Never smoked Have you smoked in the past 12 months: Yes Number of Cigarettes Smoked Daily: 5 'Breaking Loose' booklet given: 03/15/18 Hx Alcohol Use: No Drug/Substance Use Hx: No Substance Use Type: None Hx Substance Use Treatment: No Cardiac Specific PMH - Complaint Specific PMHX Abdominal Aortic Aneurysm: No Angina: No Cardiac Arrhythmia: No Cardiac Stent: No GERD: No Myocardial Infarction: No Pacemaker: No Pulmonary Embolus: No Valvular Heart Disease: No Peripheral Vascular Disease: No Review of Systems - Review of Systems Able to Perform ROS?: Yes Is the patient limited Upper Sorbian proficient: No Constitutional: Yes: Weight Stable. No: Chills, Diaphoresis, Fever, Loss of Appetite, Malaise, Weakness HEENTM: No: Recent change in vision, Nose Congestion, Throat Pain, Throat Swelling, Difficulty Swallowing Respiratory: No: Cough, Orthopnea, Shortness of Breath Cardiac (ROS): Yes: See HPI, Irregular Heart Rate, Lightheadedness, Palpitations. No: Chest Pain, Edema, Syncope, Chest Tightness ABD/GI: No: Constipated, Diarrhea, Nausea, Poor Appetite, Poor Fluid Intake, Vomiting : No: Burning, Dysuria, Frequency, Flank Pain, Hematuria, Pain, Urgency Musculoskeletal: No: Back Pain, Joint Pain, Muscle Pain, Muscle Weakness Integumentary: No: Rash Neurological: No: Headache, Numbness, Paresthesia, Seizure, Unsteady Gait, Ataxia, Dizziness Psychiatric: No: Sleep Pattern Change, Change in Appetite Endocrine: No: Increased Urine, Change in Weight Hematologic/Lymphatic: No: Anemia, Blood Clots, Easy Bleeding, Easy Bruising All Other Systems: Reviewed and Negative *Physical Exam - Vital Signs Last Vital Signs Temp Pulse Resp BP Pulse Ox 98 F 81 18 146/80 97 06/26/19 11:31 06/26/19 11:31 06/26/19 11:31 06/26/19 11:31 06/26/19 11:31 - Physical Exam Vitals stable, pt afebrile. Pt in NAD, overweight body habitus. Pt alert and oriented x3. reservations sales agent generally intact, muscular strength and sensation intact. No midline spinal tenderness, step-offs, or crepitus. Head normocephalic, atraumatic. Eyes PERRLA, EOMI. Oropharynx without erythema or exudates, no LAD b/l. No nasal congestion. Hearing intact. Clear heart sounds, S1/S2, no JVD, b/l pedal edema, or heart murmur. Good air movement with scattered end-expiratory wheezing. No intercostal/ accessory muscle use or diminished breath sounds. No abdominal or CVA tenderness to palpation, no rebound, no guarding. Abdomen soft, non-distended, and with normoactive bowel sounds. Skin without jaundice or rash. 06/26/19 13:47 06/26/19 13:53 ED Treatment Course - LABORATORY CBC & Chemistry Diagram: 06/26/19 11:57 06/26/19 11:57 - ADDITIONAL ORDERS Additional order review: Laboratory Results 06/26/19 06/26/19 06/26/19 12:13 11:57 11:57 PT with INR 10.80 INR 0.92 PTT (Actin FS) 37.2 H Sodium 140 Potassium 4.2 Chloride 102 Carbon Dioxide 32 Anion Gap 6 L BUN 9.6 Creatinine 1.0 Est GFR (CKD-EPI)AfAm 97.08 Est GFR (CKD-EPI)NonAf 83.76 POC Glucometer 136 Random Glucose 106 Calcium 9.6 Total Bilirubin 0.2 AST 11 L ALT 28 Alkaline Phosphatase 89 Creatine Kinase 90 Troponin I < 0.02 Total Protein 7.2 Albumin 3.9 TSH 1.10 D 06/26/19 06/26/19 12:13 11:57 RBC 4.94 MCV 90.2 MCHC 34.1 RDW 14.3 MPV 8.3 Neutrophils % 72.2 Lymphocytes % 18.8 D Monocytes % 6.9 Eosinophils % 1.4 Basophils % 0.7 POC Glucometer 136 - RADIOLOGY Radiology Studies Ordered: Category Date Time Status CHEST PA & LAT [RAD] Stat Radiology 06/26/19 11:43 Taken - Medications Given in the ED: ED Medications Discontinued Medications Generic Name Dose Route Start Last Admin Trade Name Freq PRN Reason Stop Dose Admin Oxycodone/Acetaminophen 2 combo 06/26/19 12:30 06/26/19 12:57 Percocet 5/325 - PO 06/26/19 12:31 2 combo ONCE ONE Administration Medical Decision Making - Medical Decision Making Pt was seen at bedside, also will be seen by attending Dr. Mcintyre. Pt presenting with complaints of pre-syncope and palpitations, consistent with previous visits. Considering ACS, arrhythmia, electrolyte abnormalities, anemia , infection, thyroid dysfunction. Bedside BGM 130s Provided home dose percocet and food for improvement of pain and light- headedness. Will continue to reassess pt and monitor for symptomatic improvement. ECG: NSR, intervals WNL (HR 78, MI 164, QRS 80, QTc 410). No TWIs or significant ST segment changes. No significant changes from prior ECG. 06/26/19 13:54 CBC, CMP, trop, TSH all WNL Pt states he is feeling better after eating. Pt ambulatory on his own without assistance or instability. Pt safe for d/c to home with Cardiology and PCP f/u. Strict return precautions provided with pt understanding. 06/26/19 13:56 Discharge - Discharge Information Problems reviewed: Yes Clinical Impression/Diagnosis: Palpitations with regular cardiac rhythm, Pre-syncope Condition: Improved Disposition: HOME - Admission No - Follow up/Referral Referrals: Sheldon Aguilera [Primary Care Provider] - Shar Nava MD [Staff Physician] - - Patient Discharge Instructions Patient Printed Discharge Instructions: DI for Palpitations Additional Instructions: You were seen in the ER today for palpitations and feeling like you may pass out , which you have been seen for in the past. The results of your labs and imaging today were normal. Please follow-up with your primary care doctor and Cardiology (Dr Nava) within 1-2 days to discuss your visit and make sure your symptoms have improved. Please return to the ER if you have any worsening pain, loss of consciousness, development of fevers or chills, loss of consciousness, inability to tolerate food or fluids, or any other concerns. - Post Discharge Activity
--- NOTE | 2019-06-26 11:47 | PDOC ---
Attending Attestation - Resident Resident Name: Pearl Reid - HPI HPI: 06/26/19 16:37 pt presents to the ED complaining of palpitations and chest discomfort that began two days ago and worsened today. Denies shortness of breath. Multiple visits to the ED for the same complaint. Currently asymptomatic. Symptoms are non exertional and not accompanied by shortness of breath. Also complains of mild lightheadness. Denie diaphoresis or syncope. - Physicial Exam PE: 06/26/19 16:59 Agree with resident exam. Patient is alert and oriented x 3 and in no acute distress. CV: rrr no m/r/g Pulm: CTA b/l abdomen: soft, non tender, non distended without guarding or rebound. - Medical Decision Making 06/26/19 17:00 pt presents to the ED complaining of palpitations and chest discomfort that have now resolved. EKG and troponin are within normal limits. PAtient has had recent negative work up including xray and stress test. Will discharge home with instructions to follow up with cardiology.
[2019-06-26 12:09] LABS: BASO % 0.7 % (0-2.0); EOS % 1.4 % (0-4.5); HEMATOCRIT 44.5 % (35.4-49); HEMOGLOBIN 15.2 GM/dL (11.7-16.9); LYMPH % 18.8 % (8-40); MCH 30.7 pg (25.7-33.7); MCHC 34.1 g/dl (32.0-35.9); MEAN CELL VOLUME 90.2 fl (80-96); MEAN PLT VOLUME 8.3 fl (7.5-11.1); MONO % 6.9 % (3.8-10.2); NEUT % 72.2 % (42.8-82.8); PLATELET COUNT 251 K/MM3 (134-434); RBC 4.94 M/mm3 (4.00-5.60); RDW 14.3 % (11.9-15.9); WHITE BLOOD COUNT 7.8 K/mm3 (4.0-10.0)
[2019-06-26 12:25] LABS: INR 0.92 (0.83-1.09); PROTHROMBIN TIME (PATIENT) 10.8 SEC (9.7-13.0)
[2019-06-26 12:27] LABS: ACTIVATED PTT 37.2 SECONDS (25.2-36.5)
[2019-06-26 12:48] LABS: ALBUMIN 3.9 g/dl (3.4-5.0); ALK PHOS 89 U/L (45-117); ANION GAP 6 MMOL/L (8-16); BILIRUBIN,TOTAL 0.2 mg/dL (0.2-1); BLOOD UREA NITROGEN 9.6 mg/dL (7-18); CALCIUM 9.6 mg/dL (8.5-10.1); CHLORIDE 102 mmol/L (98-107); CO2 32 mmol/L (21-32); GLUCOSE,RANDOM 106 mg/dL (74-106); POTASSIUM 4.2 mmol/L (3.5-5.1); SGOT/AST 11 U/L (15-37); SGPT/ALT 28 U/L (13-61); SODIUM 140 mmol/L (136-145); TOT PROT 7.2 g/dl (6.4-8.2)
[2019-06-26 14:07] VITALS: BP 113/71; PULSE 78
--- NOTE | 2019-06-27 00:54 | EKG ---
Test Reason : Blood Pressure : / mmHG Vent. Rate : 078 BPM Atrial Rate : 078 BPM P-R Int : 164 ms QRS Dur : 080 ms QT Int : 360 ms P-R-T Axes : 072 056 057 degrees QTc Int : 410 ms NORMAL SINUS RHYTHM NORMAL ECG WHEN COMPARED WITH ECG OF 20-DEC-2018 15:54, NO SIGNIFICANT CHANGE WAS FOUND Confirmed by KRANTHI GREENE MD ([id number]) on 06/27/2019 12:53:24 AM Referred By: Confirmed By:KRANTHI GREENE MD
== END 2019-06-26 13:50 | disposition home or self-care (01) ==
LOC: JER 11:18
DX: R00.2 Palpitations (principal); R55 Syncope and collapse; Z86.73 Personal history of transient ischemic attack (TIA), and cerebral infarction without residual deficits; I10 Essential (primary) hypertension; E78.5 Hyperlipidemia, unspecified; Z85.038 Personal history of other malignant neoplasm of large intestine; J45.909 Unspecified asthma, uncomplicated
CPT/HCPCS: 36415; 71046-TC-FY; 80053; 82550; 82962; 84443; 84484; 85025; 85610; 85730; 93005; 93010; 99284-25

== ENCOUNTER 2019-08-12 10:06 | Emergency (ER) | payer BC, OTHER ==
[2019-08-12 10:13] VITALS: BP 148/85; PULSE 85; TEMP 97.6; BMI 31.0
--- NOTE | 2019-08-12 10:42 | PDOC ---
History of Present Illness - General Chief Complaint: Pain, Acute Stated Complaint: LT. FINGER INJURY Time Seen by Provider: 08/12/19 10:20 History Source: Patient Exam Limitations: No Limitations Past History - Travel Traveled outside of the country in the last 30 days: No Close contact w/someone who was outside of country & ill: No - Past Medical History Allergies/Adverse Reactions: Allergies Allergy/AdvReac Type Severity Reaction Status Date / Time No Known Allergies Allergy Verified 08/12/19 10:51 Home Medications: Ambulatory Orders Aspirin [ASA -] 81 mg PO DAILY 06/29/17 Atorvastatin Ca [Lipitor] 40 mg PO HS 06/29/17 Albuterol Sulfate Inhaler - [Ventolin HFA Inhaler -] 1 puff PRN PRN 06/30/17 Gabapentin 300 mg PO TID 06/30/17 Oxycodone HCl/Acetaminophen [Percocet 5-325 mg Tablet] 5 - 325 mg PO BID Lactobacillus Acidophilus [Bacid -] 1 each PO DAILY #7 capsule 07/02/17 Albuterol 0.083% Nebulizer Zulema [Ventolin 0.083% Nebulizer Soln -] 1 neb NEB QID PRN 11/02/17 Amlodipine Besylate 2.5 mg PO DAILY 12/16/18 Lisinopril [Prinivil] 10 mg PO DAILY 12/16/18 Amox-Tr/K Cl [Augmentin - 875Mg Tablet] 1 tab PO BID #20 tablet 08/12/19 Nystatin Cream [Mycostatin Cream -] 1 applic TP BID #1 tube 08/12/19 Anemia: No Asthma: Yes Cancer: Yes (Colon Cancer (s/p 6inch resection)) Cardiac Disorders: No CVA: Yes (TIA) COPD: No CHF: No Dementia: No Diabetes: No GI Disorders: No Disorders: No HTN: Yes Hypercholesterolemia: Yes Liver Disease: No Seizures: No Thyroid Disease: No - Surgical History Abdominal Surgery: Yes (HERNIA REPAIR X2) GI Surgery: Yes (Colon CA resection) Orthopedic Surgery: Yes (JAW SURGERY) - Immunization History Immunization Up to Date: No - Psycho Social/Smoking Cessation Hx Smoking Status: Yes Smoking History: Current every day smoker Have you smoked in the past 12 months: Yes Number of Cigarettes Smoked Daily: 5 Information on smoking cessation initiated: No 'Breaking Loose' booklet given: 03/15/18 Hx Alcohol Use: No Drug/Substance Use Hx: No Substance Use Type: None Hx Substance Use Treatment: No Review of Systems - Review of Systems Able to Perform ROS?: Yes Comments:: 08/12/19 14:57 CONSTITUTIONAL: Absent: fever, chills, diaphoresis, generalized weakness, malaise, loss of appetite MUSCULOSKELETAL: Absent: myalgia, arthralgia, joint swelling SKIN: Present: L 2nd finger pain Absent: rash, itching, pallor NEUROLOGIC: Absent: headache, focal weakness or paresthesias, dizziness, unsteady gait, seizure, mental status changes, bladder or bowel incontinence PSYCHIATRIC: Absent: anxiety, depression, suicidal or homicidal ideation, hallucinations. Is the patient limited Yoruba proficient: No *Physical Exam - Vital Signs Last Vital Signs Temp Pulse Resp BP Pulse Ox 97.6 F 85 18 148/85 100 08/12/19 10:10 08/12/19 10:10 08/12/19 10:10 08/12/19 10:10 08/12/19 10:10 - Physical Exam 08/12/19 14:58 GENERAL: The patient is awake, alert, and fully oriented, in no acute distress. HEAD: Normal with no signs of trauma. EYES: Pupils equal, round and reactive to light, extraocular movements intact, sclera anicteric, conjunctiva clear. EXTREMITIES: Normal range of motion, no edema. NEUROLOGICAL: Normal speech, normal gait. PSYCH: Normal mood, normal affect. SKIN: Under the left second fingernail appears to be a overgrowth of tissue and is tender to touch. No obvious cellulitis or fluctuance. Warm, Dry, normal turgor, no rashes or lesions noted. Medical Decision Making - Medical Decision Making 08/12/19 14:59 The patient is a 54-year-old male who presents to the ER today with left second digit pain. He states that he was helping doing some gardening when he got a cut. He states that that has not healed and now there is some extra tissue near his fingernail. He is asking for Percocet for his pain. He states he usually takes Percocet however he ran out of his medication. A/P: Left second digit pain On exam patient with overgrowth of tissue between the fingernail and the normal finger pad. Possible granuloma versus infection? X-ray shows no fractures No foreign bodies noted. We will treat with Augmentin in case this is a reaction from gardening. We will also refer to dermatology for further follow-up for possible granuloma. Cannot refill patient's Percocet as patient should have have medication from his recent refill. Patient understands I cannot refill his Percocet Discharge home I discussed the physical exam findings, ancillary test results and final diagnoses with the patient. I answered all of the patient's questions. The patient was satisfied with the care received and felt comfortable with the discharge plan and treatment plan. The Patient agrees to follow up with the primary care physician/specialist within 24-72 hours. Return precautions were given. Discharge - Discharge Information Problems reviewed: Yes Clinical Impression/Diagnosis: Finger pain, left Condition: Stable Disposition: HOME - Admission No - Additional Discharge Information Prescriptions: Amox-Tr/K Cl [Augmentin - 875Mg Tablet] 1 tab PO BID #20 tablet Nystatin Cream [Mycostatin Cream -] 1 applic TP BID #1 tube Prescription Drug Monitoring Program (I-STOP) results: I-STOP reviewed and issues identified (Reference #: [id number] Pt was requesting a emergency rx for his percocet. Pt filled rx on 07/19 for a 30 day supply. Cannot refill at this time.) - Follow up/Referral Referrals: Sheldon Aguilera [Primary Care Provider] - Li Kemp MD [Staff Physician] - - Patient Discharge Instructions Additional Instructions: You were evaluated for your finger pain today. Your x-ray was normal. It did not show any signs of osteomyelitis. Please take the antibiotic as directed to help prevent infection. Please try the antifungal cream under the nail. If your symptoms do not improve within a week, please follow-up with a puddler pile driving. A referral has been provided to you. Return to the ER for fever, worsening pain or if you have any changes in her symptoms. - Post Discharge Activity Work/Back to School Note: Back to Work
== END 2019-08-12 12:01 | disposition home or self-care (01) ==
LOC: JERFT 10:06
DX: M79.645 Pain in left finger(s) (principal); F17.210 Nicotine dependence, cigarettes, uncomplicated; I10 Essential (primary) hypertension; E78.00 Pure hypercholesterolemia, unspecified; Z86.73 Personal history of transient ischemic attack (TIA), and cerebral infarction without residual deficits; Z85.038 Personal history of other malignant neoplasm of large intestine
CPT/HCPCS: 73140-TC-LT-FY; 99281-25

== ENCOUNTER 2019-09-30 10:06 | Emergency (ER) | payer BC, OTHER ==
[2019-09-30 10:15] VITALS: BP 147/78; PULSE 94; TEMP 98.2; BMI 31.0
--- NOTE | 2019-09-30 11:15 | PDOC ---
History of Present Illness - General Chief Complaint: Back Pain Stated Complaint: BACK PAIN Time Seen by Provider: 09/30/19 10:39 History Source: Patient Exam Limitations: No Limitations - History of Present Illness Initial Comments: 09/30/19 11:09 Patient is a 54-year-old male with history of hypertension and chronic low back pain who presents to the ED with exacerbation of his back pain over the last 4 days. He states he was cleaning his friends rooms on his car when he bent down and felt the pain in his low back. He states he has been on 10/325 mg of Percocet for many years but ran out. He states he last saw his pain management doctor 3 weeks ago and he is no longer seeing a pain management doctor. He has an appointment with a new pain management doctor in 2 weeks. The patient states his pain management doctor stopped prescribing him Percocet because something came up on his drug screen. The patient states he does not do any drugs or drink alcohol. He denies any urinary or fecal incontinence or retention. He denies any saddle anesthesia. He states the pain feels like his typical chronic low back pain. Past History - Past Medical History Allergies/Adverse Reactions: Allergies Allergy/AdvReac Type Severity Reaction Status Date / Time No Known Allergies Allergy Verified 09/30/19 10:12 Home Medications: Ambulatory Orders Aspirin [ASA -] 81 mg PO DAILY 06/29/17 Atorvastatin Ca [Lipitor] 40 mg PO HS 06/29/17 Albuterol Sulfate Inhaler - [Ventolin HFA Inhaler -] 1 puff PRN PRN 06/30/17 Gabapentin 300 mg PO TID 06/30/17 Oxycodone HCl/Acetaminophen [Percocet 5-325 mg Tablet] 5 - 325 mg PO BID 06/30/17 Lactobacillus Acidophilus [Bacid -] 1 each PO DAILY #7 capsule 07/02/17 Albuterol 0.083% Nebulizer Zulema [Ventolin 0.083% Nebulizer Soln -] 1 neb NEB QID PRN 11/02/17 Amlodipine Besylate 2.5 mg PO DAILY 12/16/18 Lisinopril [Prinivil] 10 mg PO DAILY 12/16/18 Amox-Tr/K Cl [Augmentin - 875Mg Tablet] 1 tab PO BID #20 tablet 08/12/19 Nystatin Cream [Mycostatin Cream -] 1 applic TP BID #1 tube 08/12/19 Cyclobenzaprine HCl [Flexeril 10 mg] 10 mg PO BID PRN #14 tablet 09/30/19 Anemia: No Asthma: Yes Cancer: Yes (Colon Cancer (s/p 6inch resection)) Cardiac Disorders: No CVA: Yes (TIA) COPD: No CHF: No Dementia: No Diabetes: No GI Disorders: No Disorders: No HTN: Yes Hypercholesterolemia: Yes Liver Disease: No Seizures: No Thyroid Disease: No - Surgical History Abdominal Surgery: Yes (HERNIA REPAIR X2) GI Surgery: Yes (Colon CA resection) Orthopedic Surgery: Yes (JAW SURGERY) - Immunization History Immunization Up to Date: No - Psycho Social/Smoking Cessation Hx Smoking Status: Yes Smoking History: Former smoker Have you smoked in the past 12 months: No Number of Cigarettes Smoked Daily: 5 Information on smoking cessation initiated: Yes 'Breaking Loose' booklet given: 03/15/18 Hx Alcohol Use: No Drug/Substance Use Hx: No Substance Use Type: None Hx Substance Use Treatment: No Review of Systems - Review of Systems Comments:: 09/30/19 11:12 - Review of Systems Able to Perform ROS?: Yes Constitutional: No: Fever, Chills, Loss of Appetite, Night Sweats, Weakness HEENTM: No: Eye Pain, Vision changes, Ear Pain, Throat Pain, Throat Swelling, Mouth Pain, Difficulty Swallowing Respiratory: No: Cough, Shortness of Breath, Wheezing, Sputum Production Cardiac (ROS): No: Chest Pain, Chest Tightness, Palpitations, Irregular Heart Beat, Edema ABD/GI: No: Nausea, Vomiting, Abdominal Pain, Diarrhea : No Dysuria, No Hematuria, No Frequency, No Urgency Musculoskeletal: No: Muscle Pain, Joint Pain, Muscle Weakness, Neck Pain; positive: Exacerbation of chronic low back pain Integumentary: No: Lesions, Rash Neurological: No: Headache, Numbness, Tingling, Weakness, Speech Difficulties *Physical Exam - Vital Signs Last Vital Signs Temp Pulse Resp BP Pulse Ox 98.2 F 94 H 14 147/78 99 09/30/19 10:13 09/30/19 10:13 09/30/19 10:13 09/30/19 10:13 09/30/19 10:13 - Physical Exam 09/30/19 11:12 - Physical Exam General Appearance: Nourished, Appropriately Dressed, No Distress Neck: Supple, No Lymphadenopathy (R), No Lymphadenopathy (L), No Rigidity, No Decreased range of motion Respiratory/Chest: Lungs Clear, Normal Breath Sounds. No Respiratory Distress, No Accessory Muscle Use Cardiovascular: Regular Rhythm, Regular Rate, S1, S2 Gastrointestinal/Abdominal: Normal Bowel Sounds, Soft. Non-tender, No Guarding, No Rebound, No Rigidity Musculoskeletal: Normal Inspection. No Decreased Range of Motion; no reproducible lumbar tenderness to palpation. No tenderness in the midline lumbar spine. Strength 5/5 bilateral lower extremities. Sensation intact to light touch bilaterally to the lower extremities, no gait imbalance or ataxia. Normal gait. Extremity: Normal Capillary Refill, Normal Inspection Integumentary: Normal Color, Dry. No Rash Neurologic: driftman II-XII NML intact, Fully Oriented, Alert, Normal Mood/Affect, Normal Response Medical Decision Making - Medical Decision Making 09/30/19 11:13 Assessment: Patient is a 54-year-old male with complaint of an exacerbation of his chronic low back pain. Plan: Percocet given in the ED The patient has been made aware that since he was in a pain management program and also follows up with a pain management doctor in another 2 weeks. He has been made aware that he can take Tylenol or ibuprofen for his pain. We will send muscle relaxers to his pharmacy. He understands and agrees with this treatment plan and he is stable for discharge. Discharge - Discharge Information Problems reviewed: Yes Clinical Impression/Diagnosis: Acute exacerbation of chronic low back pain Condition: Stable Disposition: HOME - Additional Discharge Information Prescriptions: Cyclobenzaprine HCl [Flexeril 10 mg] 10 mg PO BID PRN #14 tablet PRN Reason: Muscle Spasms - Follow up/Referral - Patient Discharge Instructions Patient Printed Discharge Instructions: DI for Low Back Pain, Managing Chronic Low Back Pain Additional Instructions: Be sure to follow-up with your pain management doctor soon as possible. Take Tylenol or ibuprofen for pain. Muscle relaxers were sent to your pharmacy and you can take those as needed. The muscle relaxers cause drowsiness so do not drive or operate heavy machinery while taking. Get plenty of rest and drink plenty fluids. - Post Discharge Activity
== END 2019-09-30 11:19 | disposition home or self-care (01) ==
LOC: JERFT 10:06
DX: M54.5 Low back pain (principal); G89.29 Other chronic pain
CPT/HCPCS: 99283-25

== ENCOUNTER 2022-05-23 07:04 | Inpatient (IN) | payer SELFPAY ==
[2022-05-23] MEDS ORDERED: SODIUM CHLORIDE 1,000 ML IV SCH (07:15)
[2022-05-23 07:45] VITALS: BMI 32.5
[2022-05-23 08:29] LABS: BASO % 0.5 % (0-2.0); EOS % 4.1 % (0-4.5); HEMATOCRIT 41.4 % (35.4-49); HEMOGLOBIN 14.1 GM/dL (11.7-16.9); LYMPH % 22.5 % (8-40); MCH 30.7 pg (25.7-33.7); MCHC 34.2 g/dl (32.0-35.9); MEAN CELL VOLUME 89.7 fl (80-96); MEAN PLT VOLUME 8.7 fl (7.5-11.1); MONO % 8.3 % (3.8-10.2); NEUT % 64.6 % (42.8-82.8); PLATELET COUNT 220 10^3/uL (134-434); RBC 4.61 M/mm3 (4.00-5.60); RDW 14.9 % (11.9-15.9); WHITE BLOOD COUNT 6.6 K/mm3 (4.0-10.0)
[2022-05-23 08:31] LABS: PROTHROMBIN TIME (PATIENT) 11.5 SEC (9.7-13.0)
[2022-05-23 08:33] LABS: ACTIVATED PTT 36.9 SECONDS (25.2-36.5)
[2022-05-23 08:36] LABS: CALCIUM 8.9 mg/dL (8.5-10.1)
[2022-05-23 08:37] LABS: ALBUMIN 3.3 g/dl (3.4-5.0); BLOOD UREA NITROGEN 12.9 mg/dL (7-18)
[2022-05-23 08:40] LABS: CREATININE 0.9 mg/dL (0.55-1.3)
[2022-05-23 08:41] LABS: TOT PROT 6.7 g/dl (6.4-8.2)
[2022-05-23 08:42] LABS: BILIRUBIN,TOTAL 0.6 mg/dL (0.2-1)
[2022-05-23] MEDS ORDERED: ASPIRIN 325 MG TABLET PO ONE (10:01)
[2022-05-23] MEDS ORDERED: ALBUTEROL SO4 HFA INHALER IH PRN (10:13)
[2022-05-23] MEDS ORDERED: ASPIRIN 325 MG TABLET ONE (11:31)
[2022-05-23] MEDS: SODIUM CHLORIDE 1,000 ML IV SCH (11:36)
[2022-05-23] MEDS: ENOXAPARIN NA (PORCINE) 40 MG/0.4 ML DISP.SYRIN SQ SCH (18:14)
[2022-05-23] MEDS ORDERED: ATORVASTATIN CA 40 MG TABLET (FP) PO SCH (22:00)
[2022-05-23] MEDS ORDERED: risperiDONE 0.5 MG TABLET PO SCH (22:00)
[2022-05-23] MEDS ORDERED: CYCLOBENZAPRINE HCL 10 MG TABLET (FP) PO SCH (22:00)
[2022-05-24 00:56] VITALS: RESP 20
[2022-05-24 08:07] LABS: BASO % 0.4 % (0-2.0); EOS % 3.5 % (0-4.5); HEMATOCRIT 40.8 % (35.4-49); HEMOGLOBIN 13.6 GM/dL (11.7-16.9); LYMPH % 28.1 % (8-40); MCH 29.8 pg (25.7-33.7); MCHC 33.3 g/dl (32.0-35.9); MEAN CELL VOLUME 89.4 fl (80-96); MEAN PLT VOLUME 8.6 fl (7.5-11.1); MONO % 9.6 % (3.8-10.2); NEUT % 58.4 % (42.8-82.8); PLATELET COUNT 229 10^3/uL (134-434); RBC 4.57 M/mm3 (4.00-5.60); RDW 14.9 % (11.9-15.9); WHITE BLOOD COUNT 6.9 K/mm3 (4.0-10.0)
[2022-05-24 08:19] LABS: ALBUMIN 3.1 g/dl (3.4-5.0); BLOOD UREA NITROGEN 14.7 mg/dL (7-18); CALCIUM 8.8 mg/dL (8.5-10.1); MAGNESIUM 2.2 mg/dL (1.8-2.4)
[2022-05-24 08:23] LABS: CREATININE 0.8 mg/dL (0.55-1.3)
[2022-05-24 08:24] LABS: BILIRUBIN,TOTAL 0.3 mg/dL (0.2-1); TOT PROT 6.1 g/dl (6.4-8.2)
[2022-05-24] MEDS: ENOXAPARIN NA (PORCINE) 40 MG/0.4 ML DISP.SYRIN SQ SCH (09:30)
[2022-05-24] MEDS: SODIUM CHLORIDE 1,000 ML IV SCH (09:35)
[2022-05-24] MEDS ORDERED: FLUoxetine HCL 20 MG CAPSULE PO SCH (10:00)
[2022-05-24] MEDS ORDERED: ASPIRIN COATED 81 MG TABLET.EC PO SCH (10:00)
[2022-05-24] MEDS ORDERED: DIVALPROEX NA *ER* EXTEND REL 500 MG TABLET.SA (FP) PO SCH (10:00)
[2022-05-24 13:13] VITALS: BP 134/57; PULSE 79; TEMP 98
== END 2022-05-24 13:36 | disposition left against medical advice (07) | DRG 47 ==
LOC: JER 07:04 → JERBED 10:02 → J4W 15:03
PROVIDERS: ADMIT Internal Medicine; ATTEND Internal Medicine
DX: G45.9 Transient cerebral ischemic attack, unspecified (principal); F32.A Depression, unspecified; I10 Essential (primary) hypertension; E78.5 Hyperlipidemia, unspecified; M54.16 Radiculopathy, lumbar region; R20.0 Anesthesia of skin; Z86.73 Personal history of transient ischemic attack (TIA), and cerebral infarction without residual deficits; Z85.038 Personal history of other malignant neoplasm of large intestine
CPT/HCPCS: 36415; 70450-TC; 70496-TC; 70498-TC; 70551-TC; 71045-TC-FY; 80053; 80061; 82550; 82553; 82962; 83735; 84443; 84484; 85025; 85610; 85730; 86850; 86900; 86901; 93005; 93010; 93306-TC; 93880-TC; 99285-25; C9803-CS; Q9967; U0003; U0005

== ENCOUNTER 2022-06-26 21:49 | Observation (INO) | payer OTHER ==
[2022-06-26] MEDS ORDERED: SODIUM CHLORIDE 1,000 ML IV SCH (22:00)
[2022-06-26 22:42] VITALS: RESP 18; BMI 28.8
[2022-06-26 22:43] LABS: BASO % 0.7 % (0-2.0); EOS % 3.1 % (0-4.5); HEMATOCRIT 42.8 % (35.4-49); HEMOGLOBIN 14.4 GM/dL (11.7-16.9); LYMPH % 25.3 % (8-40); MCH 29.9 pg (25.7-33.7); MCHC 33.6 g/dl (32.0-35.9); MEAN CELL VOLUME 89.2 fl (80-96); MEAN PLT VOLUME 8.4 fl (7.5-11.1); MONO % 8.8 % (3.8-10.2); NEUT % 62.1 % (42.8-82.8); PLATELET COUNT 207 10^3/uL (134-434); RDW 14.3 % (11.9-15.9); WHITE BLOOD COUNT 8.2 K/mm3 (4.0-10.0)
[2022-06-26] MEDS ORDERED: CLOPIDOGREL BISULFATE 75 MG TABLET (FP) PO ONE (22:52)
[2022-06-26 22:55] LABS: ACTIVATED PTT 38.8 SECONDS (25.2-36.5); INR 1.01 (0.83-1.09); PROTHROMBIN TIME (PATIENT) 11.6 SEC (9.7-13.0)
[2022-06-26] MEDS ORDERED: CLOPIDOGREL BISULFATE 75 MG TABLET (FP) ONE (22:58)
[2022-06-26 23:05] LABS: ALBUMIN 3.6 g/dl (3.4-5.0); BLOOD UREA NITROGEN 12.9 mg/dL (7-18); CALCIUM 9.4 mg/dL (8.5-10.1)
[2022-06-26 23:09] LABS: BILIRUBIN,TOTAL 0.2 mg/dL (0.2-1); CREATININE 0.9 mg/dL (0.55-1.3); TOT PROT 7.1 g/dl (6.4-8.2)
[2022-06-27] MEDS ORDERED: DIVALPROEX SODIUM 500 MG TABLET E.C. PO SCH
[2022-06-27] MEDS ORDERED: SODIUM CHLORIDE 1,000 ML IV SCH (00:15)
[2022-06-27 08:06] VITALS: BP 122/64; PULSE 63
[2022-06-27 08:39] LABS: ALBUMIN 3.3 g/dl (3.4-5.0); BLOOD UREA NITROGEN 12.8 mg/dL (7-18); MAGNESIUM 2.2 mg/dL (1.8-2.4)
[2022-06-27 08:42] LABS: CREATININE 0.8 mg/dL (0.55-1.3); PHOSPHOROUS 3.9 mg/dL (2.5-4.9)
[2022-06-27 08:43] LABS: BILIRUBIN,TOTAL 0.3 mg/dL (0.2-1); TOT PROT 6.4 g/dl (6.4-8.2)
[2022-06-27 08:59] VITALS: TEMP 97.9
[2022-06-27] MEDS ORDERED: amLODIPine BESYLATE 5 MG TABLET (FP) PO SCH (10:00)
[2022-06-27] MEDS ORDERED: ENALAPRIL MALEATE 10 MG TABLET PO SCH (10:00)
[2022-06-27] MEDS ORDERED: TICAGRELOR 90 MG TABLET PO SCH (10:00)
[2022-06-27] MEDS ORDERED: FLUoxetine HCL 20 MG CAPSULE PO SCH (10:00)
[2022-06-27] MEDS ORDERED: ASPIRIN COATED 81 MG TABLET.EC PO SCH (10:00)
[2022-06-27] MEDS ORDERED: ENOXAPARIN NA (PORCINE) 40 MG/0.4 ML DISP.SYRIN SQ SCH (10:00)
[2022-06-27] MEDS ORDERED: risperiDONE 0.5 MG TABLET PO SCH (22:00)
[2022-06-27] MEDS ORDERED: ATORVASTATIN CA 80 MG TABLET (FP) PO SCH (22:00)
== END 2022-06-27 11:15 | disposition left against medical advice (07) ==
LOC: JER 21:49 → JERBED 22:46
PROVIDERS: ADMIT Internal Medicine
PROC: 3E0337Z Introduction of Electrolytic and Water Balance Substance into Peripheral Vein, Percutaneous Approach (ICD-10-PCS; principal; 2022-06-26)
DX: G45.9 Transient cerebral ischemic attack, unspecified (principal); I10 Essential (primary) hypertension; F32.A Depression, unspecified; R20.0 Anesthesia of skin; E78.5 Hyperlipidemia, unspecified; R56.9 Unspecified convulsions; Z85.038 Personal history of other malignant neoplasm of large intestine; F17.210 Nicotine dependence, cigarettes, uncomplicated
CPT/HCPCS: 0241U-QW; 36415; 70450-TC; 70496-TC; 70498-TC; 71045-TC-FY; 80053; 80061; 83036; 83605; 83735; 84100; 84484; 85025; 85610; 85730; 86850; 86900; 86901; 93005; 93010; 96360; 99285-25; G0378; Q9967

== ENCOUNTER 2022-07-13 13:58 | Observation (INO) | payer OTHER ==
[2022-07-13 14:01] VITALS: BMI 36.9
[2022-07-13] MEDS ORDERED: SODIUM CHLORIDE 1,000 ML IV SCH (14:15)
[2022-07-13 15:04] LABS: BASO % 0.6 % (0-2.0); HEMATOCRIT 43.4 % (35.4-49); HEMOGLOBIN 14.2 GM/dL (11.7-16.9); LYMPH % 18.6 % (8-40); MCH 28.9 pg (25.7-33.7); MCHC 32.7 g/dl (32.0-35.9); MEAN CELL VOLUME 88.6 fl (80-96); MEAN PLT VOLUME 8.3 fl (7.5-11.1); MONO % 7.6 % (3.8-10.2); NEUT % 71.2 % (42.8-82.8); PLATELET COUNT 205 10^3/uL (134-434); RDW 14.5 % (11.9-15.9); WHITE BLOOD COUNT 6.7 K/mm3 (4.0-10.0)
[2022-07-13 15:14] LABS: INR 1.12 (0.83-1.09); PROTHROMBIN TIME (PATIENT) 12.9 SEC (9.7-13.0)
[2022-07-13 15:17] LABS: ACTIVATED PTT 39.5 SECONDS (25.2-36.5)
[2022-07-13 15:30] LABS: BLOOD UREA NITROGEN 9.9 mg/dL (7-18); CALCIUM 9.1 mg/dL (8.5-10.1)
[2022-07-13 15:31] LABS: ALBUMIN 3.6 g/dl (3.4-5.0)
[2022-07-13 15:35] LABS: BILIRUBIN,TOTAL 0.4 mg/dL (0.2-1); TOT PROT 7.1 g/dl (6.4-8.2)
[2022-07-13 15:36] LABS: CREATININE 0.9 mg/dL (0.55-1.3)
[2022-07-13] MEDS ORDERED: ALBUTEROL SO4 HFA INHALER IH PRN (15:58)
[2022-07-13] MEDS ORDERED: ACETAMINOPHEN 325 MG TABLET (FP) PO PRN (16:03)
[2022-07-13 16:37] VITALS: RESP 19
[2022-07-13] MEDS ORDERED: oxyCODONE HCL 5 MG TABLET PO PRN (19:09)
[2022-07-13 19:38] VITALS: BP 125/64; PULSE 65; TEMP 98.1
[2022-07-13] MEDS ORDERED: oxyCODONE HCL 5 MG TABLET ONE (19:45)
[2022-07-13] MEDS ORDERED: ACETAMINOPHEN 325 MG TABLET (FP) ONE (19:53)
[2022-07-13] MEDS ORDERED: ALPRAZolam 2 MG TABLET PO SCH (22:00)
[2022-07-13] MEDS ORDERED: risperiDONE 0.5 MG TABLET PO SCH (22:00)
[2022-07-13] MEDS ORDERED: BUDESONIDE/FORMETEROL FUMARATE 160/4.5 mcg INHALER IH SCH (22:00)
[2022-07-13] MEDS ORDERED: TICAGRELOR 90 MG TABLET PO SCH (22:00)
[2022-07-13] MEDS ORDERED: ATORVASTATIN CA 80 MG TABLET (FP) PO SCH (22:00)
[2022-07-13] MEDS ORDERED: DIVALPROEX SODIUM 500 MG TABLET E.C. PO SCH (22:00)
[2022-07-14] MEDS ORDERED: amLODIPine BESYLATE 5 MG TABLET (FP) PO SCH (10:00)
[2022-07-14] MEDS ORDERED: ASPIRIN COATED 81 MG TABLET.EC PO SCH (10:00)
[2022-07-14] MEDS ORDERED: FLUoxetine HCL 20 MG CAPSULE PO SCH (10:00)
[2022-07-14] MEDS ORDERED: amLODIPine BESYLATE 10 MG TABLET (FP) PO SCH (10:00)
[2022-07-14] MEDS ORDERED: ENALAPRIL MALEATE 10 MG TABLET PO SCH (10:00)
== END 2022-07-13 22:06 | disposition left against medical advice (07) ==
LOC: JER 13:58 → JERBED 14:45
PROVIDERS: ADMIT Internal Medicine; ATTEND Internal Medicine
DX: R20.0 Anesthesia of skin (principal); I25.10 Atherosclerotic heart disease of native coronary artery without angina pectoris; I11.9 Hypertensive heart disease without heart failure; Z95.5 Presence of coronary angioplasty implant and graft; F32.A Depression, unspecified; Z86.73 Personal history of transient ischemic attack (TIA), and cerebral infarction without residual deficits; F17.210 Nicotine dependence, cigarettes, uncomplicated; Z85.038 Personal history of other malignant neoplasm of large intestine
CPT/HCPCS: 0241U-QW; 36415; 70450-TC; 71045-TC-FY; 80053; 80061; 82962; 83036; 84484; 85025; 85610; 85730; 86850; 86900; 86901; 93005; 93010; 99285-25; G0378

== ENCOUNTER 2022-08-18 03:24 | Inpatient (IN) | payer OTHER ==
[2022-08-18 03:30] VITALS: TEMP 98.8; BMI 34.0
[2022-08-18 04:20] LABS: INR 1.09 (0.83-1.09); PROTHROMBIN TIME (PATIENT) 12.5 SEC (9.7-13.0)
[2022-08-18 04:23] LABS: ACTIVATED PTT 37.8 SECONDS (25.2-36.5)
[2022-08-18 04:28] LABS: ALBUMIN 3.7 g/dl (3.4-5.0); CALCIUM 9.3 mg/dL (8.5-10.1)
[2022-08-18 04:29] LABS: BLOOD UREA NITROGEN 10.7 mg/dL (7-18)
[2022-08-18 04:32] LABS: CREATININE 0.8 mg/dL (0.55-1.3)
[2022-08-18 04:33] LABS: BASO % 0.7 % (0-2.0); EOS % 5.1 % (0-4.5); HEMATOCRIT 41.6 % (35.4-49); HEMOGLOBIN 13.8 GM/dL (11.7-16.9); LYMPH % 25.1 % (8-40); MCH 29.7 pg (25.7-33.7); MCHC 33.2 g/dl (32.0-35.9); MEAN CELL VOLUME 89.5 fl (80-96); MEAN PLT VOLUME 8.9 fl (7.5-11.1); MONO % 9.2 % (3.8-10.2); NEUT % 59.9 % (42.8-82.8); PLATELET COUNT 218 10^3/uL (134-434); RBC 4.64 M/mm3 (4.00-5.60); RDW 14.9 % (11.9-15.9); WHITE BLOOD COUNT 7.2 K/mm3 (4.0-10.0)
[2022-08-18 04:34] LABS: BILIRUBIN,TOTAL 0.4 mg/dL (0.2-1)
[2022-08-18] MEDS ORDERED: ATORVASTATIN CA 80 MG TABLET (FP) PO ONE (06:09)
[2022-08-18] MEDS ORDERED: ATORVASTATIN CA 80 MG TABLET (FP) ONE (06:19)
[2022-08-18 06:26] VITALS: BP 127/63; PULSE 60; RESP 18
[2022-08-18] MEDS ORDERED: ASPIRIN COATED 81 MG TABLET.EC PO SCH (10:00)
[2022-08-18] MEDS ORDERED: TICAGRELOR 90 MG TABLET PO SCH (10:00)
[2022-08-18] MEDS ORDERED: ATORVASTATIN CA 80 MG TABLET (FP) PO SCH (22:00)
[2022-08-19] MEDS ORDERED: ASPIRIN COATED 81 MG TABLET.EC PO SCH (10:00)
== END 2022-08-18 19:31 | disposition home or self-care (01) | DRG 204 ==
LOC: JER 03:24 → JERBED 05:36
PROVIDERS: ADMIT Internal Medicine; ATTEND Internal Medicine
DX: R55 Syncope and collapse (principal); U07.1 COVID-19; I25.10 Atherosclerotic heart disease of native coronary artery without angina pectoris; I10 Essential (primary) hypertension; E78.5 Hyperlipidemia, unspecified; I65.21 Occlusion and stenosis of right carotid artery; F32.A Depression, unspecified; M54.2 Cervicalgia; Z86.73 Personal history of transient ischemic attack (TIA), and cerebral infarction without residual deficits
CPT/HCPCS: 0241U-QW; 36415; 70450-TC; 71045-TC-FY; 80053; 80061; 82550; 82553; 83036; 84484; 85025; 85610; 85730; 86850; 86900; 86901; 93005; 93010; 93880-TC; 99285-25

== ENCOUNTER 2022-09-17 12:10 | Observation (INO) | payer OTHER ==
[2022-09-17 12:30] VITALS: BMI 29.5
[2022-09-17 14:40] LABS: BASO % 0.3 % (0-2.0); EOS % 0.6 % (0-4.5); HEMATOCRIT 40.9 % (35.4-49); HEMOGLOBIN 13.5 GM/dL (11.7-16.9); LYMPH % 19.6 % (8-40); MCH 29.7 pg (25.7-33.7); MEAN CELL VOLUME 90.1 fl (80-96); MONO % 7.4 % (3.8-10.2); NEUT % 72.1 % (42.8-82.8); PLATELET COUNT 263 10^3/uL (134-434); RBC 4.54 M/mm3 (4.00-5.60); RDW 15.4 % (11.9-15.9); WHITE BLOOD COUNT 14.2 K/mm3 (4.0-10.0)
[2022-09-17 14:47] LABS: INR 1.11 (0.83-1.09); PROTHROMBIN TIME (PATIENT) 12.9 SEC (9.7-13.0)
[2022-09-17 14:50] LABS: ACTIVATED PTT 31.9 SECONDS (25.2-36.5)
[2022-09-17 15:03] LABS: CALCIUM 9.8 mg/dL (8.5-10.1)
[2022-09-17 15:04] LABS: ALBUMIN 3.8 g/dl (3.4-5.0); BLOOD UREA NITROGEN 12.4 mg/dL (7-18)
[2022-09-17 15:07] LABS: CREATININE 0.9 mg/dL (0.55-1.3)
[2022-09-17 15:09] LABS: BILIRUBIN,TOTAL 0.3 mg/dL (0.2-1)
[2022-09-17] MEDS ORDERED: ACETAMINOPHEN INJECTION 100 ML IVPB ONE (15:33)
[2022-09-17] MEDS ORDERED: ACETAMINOPHEN 1000 MG/100 ML BAG IVPB ONE (15:33)
[2022-09-17] MEDS ORDERED: ALPRAZolam 1 MG TABLET PO PRN (16:57)
[2022-09-17] MEDS ORDERED: ALBUTEROL SO4 HFA INHALER IH PRN (16:57)
[2022-09-17] MEDS ORDERED: MECLIZINE HCL 12.5 MG TABLET PO PRN (17:02)
[2022-09-17] MEDS ORDERED: MECLIZINE HCL 25 MG TABLET (FP) PO ONE (17:02)
[2022-09-17] MEDS ORDERED: ACETAMINOPHEN 325 MG TABLET (FP) PO PRN (17:12)
[2022-09-17] MEDS: oxyCODONE HCL 5 MG TABLET PO PRN (18:04)
[2022-09-17 19:40] LABS: PH,URINE 5.5 (5.0-8.0); URINE APPEARANCE CLEAR; URINE BILIRUBIN NEGATIVE (NEGATIVE); URINE COLOR YELLOW; URINE GLUCOSE (UA) NEGATIVE (NEGATIVE); URINE KETONE NEGATIVE (NEGATIVE); URINE LEUK ESTERASE NEGATIVE (NEGATIVE); URINE NITRITE NEGATIVE (NEGATIVE); URINE PROTEIN NEGATIVE (NEGATIVE); URINE UROBILINOGEN 0.2 mg/dL (0.2-1.0)
[2022-09-17] MEDS: DIVALPROEX SODIUM 500 MG TABLET E.C. PO SCH (21:34)
[2022-09-17] MEDS: TICAGRELOR 90 MG TABLET PO SCH (21:34)
[2022-09-17] MEDS: BUDESONIDE/FORMETEROL FUMARATE 160/4.5 mcg INHALER IH SCH (21:34)
[2022-09-17] MEDS ORDERED: ATORVASTATIN CA 80 MG TABLET (FP) PO SCH (22:00)
[2022-09-18 07:37] LABS: CALCIUM 8.8 mg/dL (8.5-10.1)
[2022-09-18 07:38] LABS: BLOOD UREA NITROGEN 17.8 mg/dL (7-18)
[2022-09-18 07:41] LABS: CREATININE 0.9 mg/dL (0.55-1.3)
[2022-09-18 08:23] LABS: BASO % 0.5 % (0-2.0); EOS % 2.6 % (0-4.5); HEMATOCRIT 38.5 % (35.4-49); HEMOGLOBIN 12.9 GM/dL (11.7-16.9); LYMPH % 27.7 % (8-40); MCHC 33.6 g/dl (32.0-35.9); MEAN CELL VOLUME 89.3 fl (80-96); MONO % 6.4 % (3.8-10.2); NEUT % 62.8 % (42.8-82.8); PLATELET COUNT 229 10^3/uL (134-434); RBC 4.31 M/mm3 (4.00-5.60); RDW 15.5 % (11.9-15.9); WHITE BLOOD COUNT 10.7 K/mm3 (4.0-10.0)
[2022-09-18 09:10] VITALS: BP 131/57; PULSE 68; RESP 18; TEMP 98
[2022-09-18] MEDS: TICAGRELOR 90 MG TABLET PO SCH (09:21)
[2022-09-18] MEDS: oxyCODONE HCL 5 MG TABLET PO PRN (09:22)
[2022-09-18] MEDS: BUDESONIDE/FORMETEROL FUMARATE 160/4.5 mcg INHALER IH SCH (09:23)
[2022-09-18] MEDS: DIVALPROEX SODIUM 500 MG TABLET E.C. PO SCH (09:26)
[2022-09-18] MEDS ORDERED: amLODIPine BESYLATE 10 MG TABLET (FP) PO SCH (10:00)
[2022-09-18] MEDS ORDERED: ENALAPRIL MALEATE 10 MG TABLET PO SCH (10:00)
[2022-09-18] MEDS ORDERED: FLUoxetine HCL 20 MG CAPSULE PO SCH (10:00)
[2022-09-18] MEDS ORDERED: ONDANSETRON 4 MG TABLET PO PRN (10:00)
[2022-09-18] MEDS ORDERED: ASPIRIN COATED 81 MG TABLET.EC PO SCH (10:00)
== END 2022-09-18 12:19 | disposition home or self-care (01) ==
LOC: JER 12:10 → UNDOADMOB 16:07 → J4W 16:07 → JERBED 16:07
PROVIDERS: ADMIT Internal Medicine; ATTEND Internal Medicine
PROC: 3E0F7SF Introduction of Other Gas into Respiratory Tract, Via Natural or Artificial Opening (ICD-10-PCS; principal; 2022-09-17)
DX: R55 Syncope and collapse (principal); I10 Essential (primary) hypertension; E78.5 Hyperlipidemia, unspecified; I25.10 Atherosclerotic heart disease of native coronary artery without angina pectoris; F17.210 Nicotine dependence, cigarettes, uncomplicated; R63.4 Abnormal weight loss; I65.29 Occlusion and stenosis of unspecified carotid artery; D72.829 Elevated white blood cell count, unspecified; M54.2 Cervicalgia; G89.29 Other chronic pain; F39 Unspecified mood [affective] disorder; Z85.038 Personal history of other malignant neoplasm of large intestine; Z95.5 Presence of coronary angioplasty implant and graft; Z86.73 Personal history of transient ischemic attack (TIA), and cerebral infarction without residual deficits
CPT/HCPCS: 0241U-QW; 36415; 70450-TC; 71046-TC-FY; 71260-TC; 74177-TC; 80048; 80053; 81003; 82550; 82553; 84484; 85025; 85610; 85730; 87086; 93005; 93010; 93880-TC; 94640; 97116-GP; 97161-GP; 99285-25; G0378; Q9967

== ENCOUNTER 2022-10-11 22:28 | Inpatient (IN) | payer OTHER ==
[2022-10-11] MEDS ORDERED: ACETAMINOPHEN 1000 MG/100 ML BAG IVPB ONE (22:43)
[2022-10-11] MEDS ORDERED: PIPERACILLIN/TAZOB 4.5 GM 4.5 GM in DEXTROSE 5%-WATER 100 ML IVPB ONE (22:45)
[2022-10-11] MEDS ORDERED: ACETAMINOPHEN INJECTION 100 ML IVPB ONE (22:47)
[2022-10-11 22:56] LABS: BASO % 0.2 % (0-2.0); EOS % 0.6 % (0-4.5); HEMATOCRIT 39.9 % (35.4-49); HEMOGLOBIN 13.7 GM/dL (11.7-16.9); MCH 30.7 pg (25.7-33.7); MCHC 34.3 g/dl (32.0-35.9); MEAN CELL VOLUME 89.6 fl (80-96); MEAN PLT VOLUME 7.7 fl (7.5-11.1); MONO % 2.6 % (3.8-10.2); NEUT % 88.6 % (42.8-82.8); PLATELET COUNT 234 10^3/uL (134-434); RBC 4.45 M/mm3 (4.00-5.60); RDW 15.6 % (11.9-15.9); VENOUS BASE EXCESS 1.9 mmol/L (-2-2); VENOUS PCO2 62.5 mmHg (38-52); VENOUS PH 7.301 (7.310-7.410)
[2022-10-11] MEDS ORDERED: ALBUTEROL SO4 2.5/IPRATROPIUM 0.5 INH SOL 3 ML VIAL.NEB. NEB ONE (22:57)
[2022-10-11] MEDS: ALBUTEROL SO4 2.5/IPRATROPIUM 0.5 INH SOL 3 ML VIAL.NEB. NEB SCH ×4 (23:01→23:15)
[2022-10-11 23:05] LABS: INR 1.16 (0.83-1.09); PROTHROMBIN TIME (PATIENT) 13.4 SEC (9.7-13.0)
[2022-10-11 23:19] LABS: ALBUMIN 3.5 g/dl (3.4-5.0); BLOOD UREA NITROGEN 9.5 mg/dL (7-18); CALCIUM 9.1 mg/dL (8.5-10.1)
[2022-10-11] MEDS ORDERED: DEXAMETHASONE SOD PHOSPHATE 10 MG/1 ML VIAL IVPUSH ONE (23:19)
[2022-10-11 23:21] LABS: MAGNESIUM 1.8 mg/dL (1.8-2.4)
[2022-10-11] MEDS ORDERED: AZITHROMYCIN IVPB 500 MG in DEXTROSE 5%-WATER - 250 ML IVPB ONE (23:21)
[2022-10-11] MEDS ORDERED: CEFEPIME HCL/D5W 1 GM/50 ML BAG IVPB ONE (23:21)
[2022-10-11 23:22] LABS: CREATININE 0.9 mg/dL (0.55-1.3)
[2022-10-11] MEDS ORDERED: SODIUM CHLORIDE 0.9% 500 ML INFUS.BAG IV ONE (23:22)
[2022-10-11 23:23] LABS: BILIRUBIN,TOTAL 0.4 mg/dL (0.2-1); TOT PROT 6.9 g/dl (6.4-8.2)
[2022-10-11] MEDS ORDERED: DEXAMETHASONE SOD PHOSPHATE 10 MG/1 ML VIAL ONE (23:23)
[2022-10-11 23:27] LABS: N-TERMINAL BNP 56.2 pg/ml (5-125)
[2022-10-11] MEDS ORDERED: CEFEPIME 1 GM in DEXTROSE 5%-WATER - 50 ML IVPB ONE (23:31)
[2022-10-11 23:38] LABS: LACTIC ACID 2.5 mmol/L (0.4-2.0)
[2022-10-12] MEDS ORDERED: AZITHROMYCIN IVPB 500 MG/250 ML BAG IVPB ONE (00:14)
[2022-10-12 01:30] LABS: LACTIC ACID 2.6 mmol/L (0.4-2.0)
[2022-10-12] MEDS ORDERED: SODIUM CHLORIDE 0.9% 500 ML INFUS.BAG IV ONE (01:38)
[2022-10-12] MEDS: SODIUM CHLORIDE 1,000 ML IV SCH ×2 (05:20→19:04)
[2022-10-12] MEDS ORDERED: MECLIZINE HCL 25 MG TABLET (FP) PO PRN (06:45)
[2022-10-12] MEDS: PIPERACILLIN/TAZOB 4.5 GM 4.5 GM in DEXTROSE 5%-WATER 100 ML IVPB SCH ×3 (07:52→22:06)
[2022-10-12 09:02] VITALS: BMI 31.8
[2022-10-12] MEDS: ENALAPRIL MALEATE 10 MG TABLET PO SCH (09:36)
[2022-10-12] MEDS: ENOXAPARIN NA (PORCINE) 40 MG/0.4 ML DISP.SYRIN SQ SCH (09:36)
[2022-10-12] MEDS: ALPRAZolam 1 MG TABLET PO SCH ×3 (09:36→23:29)
[2022-10-12] MEDS: ASPIRIN COATED 81 MG TABLET.EC PO SCH (09:36)
[2022-10-12] MEDS: DIVALPROEX SODIUM 500 MG TABLET E.C. PO SCH ×3 (09:36→23:28)
[2022-10-12] MEDS: amLODIPine BESYLATE 10 MG TABLET (FP) PO SCH (09:36)
[2022-10-12] MEDS: FLUoxetine HCL 20 MG CAPSULE PO SCH (09:36)
[2022-10-12] MEDS: NICOTINE 14 MG/24 HOURS TOPICAL PATCH TD SCH ×2 (09:37→10:22)
[2022-10-12] MEDS: AZITHROMYCIN IVPB 500 MG/250 ML BAG IVPB SCH (09:38)
[2022-10-12] MEDS: BUDESONIDE/FORMETEROL FUMARATE 160/4.5 mcg INHALER IH SCH ×2 (09:49→23:29)
[2022-10-12] MEDS: TICAGRELOR 90 MG TABLET PO SCH ×2 (09:49→23:28)
[2022-10-12 10:04] LABS: HEMATOCRIT 37.1 % (35.4-49); HEMOGLOBIN 12.7 GM/dL (11.7-16.9); MCH 30.7 pg (25.7-33.7); MCHC 34.3 g/dl (32.0-35.9); MEAN CELL VOLUME 89.5 fl (80-96); MEAN PLT VOLUME 8.1 fl (7.5-11.1); PLATELET COUNT 229 10^3/uL (134-434); RBC 4.14 M/mm3 (4.00-5.60); RDW 15.6 % (11.9-15.9); WHITE BLOOD COUNT 15.6 K/mm3 (4.0-10.0)
[2022-10-12 10:12] LABS: BLOOD UREA NITROGEN 10.7 mg/dL (7-18); CALCIUM 9.1 mg/dL (8.5-10.1)
[2022-10-12 10:15] LABS: PHOSPHOROUS 2.9 mg/dL (2.5-4.9)
[2022-10-12 10:16] LABS: CREATININE 0.9 mg/dL (0.55-1.3)
[2022-10-12] MEDS: ACETAMINOPHEN 1000 MG/100 ML BAG IVPB PRN (15:50)
[2022-10-12] MEDS: ATORVASTATIN CA 80 MG TABLET (FP) PO SCH (23:29)
[2022-10-13] MEDS: ACETAMINOPHEN 1000 MG/100 ML BAG IVPB PRN (01:38)
[2022-10-13] MEDS: PIPERACILLIN/TAZOB 4.5 GM 4.5 GM in DEXTROSE 5%-WATER 100 ML IVPB SCH ×3 (03:23→13:43)
[2022-10-13] MEDS: SODIUM CHLORIDE 1,000 ML IV SCH (08:41)
[2022-10-13] MEDS: FLUoxetine HCL 20 MG CAPSULE PO SCH (10:34)
[2022-10-13] MEDS: DIVALPROEX SODIUM 500 MG TABLET E.C. PO SCH ×2 (10:34→22:04)
[2022-10-13] MEDS: amLODIPine BESYLATE 10 MG TABLET (FP) PO SCH (10:34)
[2022-10-13] MEDS: ENALAPRIL MALEATE 10 MG TABLET PO SCH (10:34)
[2022-10-13] MEDS: ASPIRIN COATED 81 MG TABLET.EC PO SCH (10:34)
[2022-10-13] MEDS: TICAGRELOR 90 MG TABLET PO SCH ×2 (10:34→22:03)
[2022-10-13] MEDS: ENOXAPARIN NA (PORCINE) 40 MG/0.4 ML DISP.SYRIN SQ SCH (10:34)
[2022-10-13] MEDS: AZITHROMYCIN IVPB 500 MG/250 ML BAG IVPB SCH (10:35)
[2022-10-13] MEDS: BUDESONIDE/FORMETEROL FUMARATE 160/4.5 mcg INHALER IH SCH ×2 (10:35→22:05)
[2022-10-13] MEDS: NICOTINE 14 MG/24 HOURS TOPICAL PATCH TD SCH (10:35)
[2022-10-13] MEDS: ALPRAZolam 1 MG TABLET PO SCH ×2 (10:44→22:05)
[2022-10-13] MEDS: methylPREDNISolone NA SUCC 40 MG/1 ML VIAL IVPUSH SCH ×2 (14:28→17:18)
[2022-10-13] MEDS: CEFTRIAXONE 2 GM in DEXTROSE 5%-WATER 100 ML IVPB SCH (14:29)
[2022-10-13] MEDS: ALBUTEROL SO4 2.5/IPRATROPIUM 0.5 INH SOL 3 ML VIAL.NEB. NEB SCH ×2 (14:45→20:05)
[2022-10-13] MEDS: oxyCODONE HCL 5 MG TABLET PO PRN (16:38)
[2022-10-13] MEDS: ATORVASTATIN CA 80 MG TABLET (FP) PO SCH (22:04)
[2022-10-14] MEDS: methylPREDNISolone NA SUCC 40 MG/1 ML VIAL IVPUSH SCH ×3 (01:35→17:08)
[2022-10-14] MEDS: ALBUTEROL SO4 2.5/IPRATROPIUM 0.5 INH SOL 3 ML VIAL.NEB. NEB SCH ×3 (09:13→21:04)
[2022-10-14] MEDS: NICOTINE 14 MG/24 HOURS TOPICAL PATCH TD SCH ×2 (10:10→10:30)
[2022-10-14] MEDS: ALPRAZolam 1 MG TABLET PO SCH ×2 (10:31→21:34)
[2022-10-14] MEDS: DIVALPROEX SODIUM 500 MG TABLET E.C. PO SCH ×2 (10:31→21:33)
[2022-10-14] MEDS: ENOXAPARIN NA (PORCINE) 40 MG/0.4 ML DISP.SYRIN SQ SCH (10:31)
[2022-10-14] MEDS: amLODIPine BESYLATE 10 MG TABLET (FP) PO SCH (10:31)
[2022-10-14] MEDS: CEFTRIAXONE 2 GM in DEXTROSE 5%-WATER 100 ML IVPB SCH (10:32)
[2022-10-14] MEDS: FLUoxetine HCL 20 MG CAPSULE PO SCH (10:33)
[2022-10-14] MEDS: ENALAPRIL MALEATE 10 MG TABLET PO SCH (10:33)
[2022-10-14] MEDS: ASPIRIN COATED 81 MG TABLET.EC PO SCH (10:33)
[2022-10-14] MEDS: TICAGRELOR 90 MG TABLET PO SCH ×2 (10:34→21:32)
[2022-10-14] MEDS: BUDESONIDE/FORMETEROL FUMARATE 160/4.5 mcg INHALER IH SCH ×2 (10:42→21:36)
[2022-10-14] MEDS: AZITHROMYCIN IVPB 500 MG/250 ML BAG IVPB SCH (10:43)
[2022-10-14] MEDS: oxyCODONE HCL 5 MG TABLET PO PRN ×2 (13:41→22:41)
[2022-10-14] MEDS: ATORVASTATIN CA 80 MG TABLET (FP) PO SCH (21:33)
[2022-10-15] MEDS: methylPREDNISolone NA SUCC 40 MG/1 ML VIAL IVPUSH SCH ×3 (01:31→17:11)
[2022-10-15] MEDS: ALBUTEROL SO4 2.5/IPRATROPIUM 0.5 INH SOL 3 ML VIAL.NEB. NEB SCH ×3 (08:40→20:30)
[2022-10-15] MEDS: CEFTRIAXONE 2 GM in DEXTROSE 5%-WATER 100 ML IVPB SCH (11:18)
[2022-10-15] MEDS: ENOXAPARIN NA (PORCINE) 40 MG/0.4 ML DISP.SYRIN SQ SCH (11:18)
[2022-10-15] MEDS: ALPRAZolam 1 MG TABLET PO SCH ×2 (11:19→22:27)
[2022-10-15] MEDS: ENALAPRIL MALEATE 10 MG TABLET PO SCH (11:19)
[2022-10-15] MEDS: ASPIRIN COATED 81 MG TABLET.EC PO SCH (11:19)
[2022-10-15] MEDS: amLODIPine BESYLATE 10 MG TABLET (FP) PO SCH (11:20)
[2022-10-15] MEDS: FLUoxetine HCL 20 MG CAPSULE PO SCH (11:20)
[2022-10-15] MEDS: DIVALPROEX SODIUM 500 MG TABLET E.C. PO SCH ×2 (11:20→22:26)
[2022-10-15] MEDS: TICAGRELOR 90 MG TABLET PO SCH ×2 (11:22→22:26)
[2022-10-15] MEDS: NICOTINE 14 MG/24 HOURS TOPICAL PATCH TD SCH (11:50)
[2022-10-15] MEDS: oxyCODONE HCL 5 MG TABLET PO PRN (11:59)
[2022-10-15] MEDS: BUDESONIDE/FORMETEROL FUMARATE 160/4.5 mcg INHALER IH SCH ×2 (12:23→22:28)
[2022-10-15] MEDS: AZITHROMYCIN IVPB 500 MG/250 ML BAG IVPB SCH (12:27)
[2022-10-15 22:03] VITALS: RESP 20
[2022-10-15] MEDS: ATORVASTATIN CA 80 MG TABLET (FP) PO SCH (22:26)
[2022-10-15] MEDS ORDERED: PANTOPRAZOLE 40 MG TABLET PO ONE (22:28)
[2022-10-16] MEDS: methylPREDNISolone NA SUCC 40 MG/1 ML VIAL IVPUSH SCH ×3 (01:26→17:30)
[2022-10-16] MEDS: ALBUTEROL SO4 2.5/IPRATROPIUM 0.5 INH SOL 3 ML VIAL.NEB. NEB SCH ×2 (07:50→13:49)
[2022-10-16] MEDS: TICAGRELOR 90 MG TABLET PO SCH (09:34)
[2022-10-16] MEDS: CEFTRIAXONE 2 GM in DEXTROSE 5%-WATER 100 ML IVPB SCH (09:34)
[2022-10-16] MEDS: amLODIPine BESYLATE 10 MG TABLET (FP) PO SCH (09:35)
[2022-10-16] MEDS: ASPIRIN COATED 81 MG TABLET.EC PO SCH (09:35)
[2022-10-16] MEDS: ENALAPRIL MALEATE 10 MG TABLET PO SCH (09:35)
[2022-10-16] MEDS: DIVALPROEX SODIUM 500 MG TABLET E.C. PO SCH (09:36)
[2022-10-16] MEDS: FLUoxetine HCL 20 MG CAPSULE PO SCH (09:37)
[2022-10-16] MEDS: ALPRAZolam 1 MG TABLET PO SCH (09:37)
[2022-10-16] MEDS: ENOXAPARIN NA (PORCINE) 40 MG/0.4 ML DISP.SYRIN SQ SCH (09:38)
[2022-10-16] MEDS: NICOTINE 14 MG/24 HOURS TOPICAL PATCH TD SCH (09:39)
[2022-10-16] MEDS: BUDESONIDE/FORMETEROL FUMARATE 160/4.5 mcg INHALER IH SCH (09:39)
[2022-10-16] MEDS: AZITHROMYCIN IVPB 500 MG/250 ML BAG IVPB SCH (11:44)
[2022-10-16 15:14] VITALS: BP 140/66; PULSE 78; TEMP 97.6
[2022-10-16] MEDS: oxyCODONE HCL 5 MG TABLET PO PRN (17:28)
[2022-10-16] MEDS ORDERED: ALPRAZolam 1 MG TABLET PO ONE (19:31)
== END 2022-10-16 20:38 | disposition left against medical advice (07) | DRG 190 ==
LOC: JER 22:28 → JERBED 22:32 → J8W 10-12 06:51
PROVIDERS: ADMIT Internal Medicine; ATTEND Family Medicine
DX: J44.0 Chronic obstructive pulmonary disease with (acute) lower respiratory infection (principal); J18.9 Pneumonia, unspecified organism; J44.1 Chronic obstructive pulmonary disease with (acute) exacerbation; I25.10 Atherosclerotic heart disease of native coronary artery without angina pectoris; R09.02 Hypoxemia; E78.5 Hyperlipidemia, unspecified; I10 Essential (primary) hypertension; E66.8 Other obesity; Z68.31 Body mass index [BMI] 31.0-31.9, adult; M54.59 Other low back pain; F32.9 Major depressive disorder, single episode, unspecified; F17.210 Nicotine dependence, cigarettes, uncomplicated; Z95.5 Presence of coronary angioplasty implant and graft; Z85.038 Personal history of other malignant neoplasm of large intestine; Z86.73 Personal history of transient ischemic attack (TIA), and cerebral infarction without residual deficits
CPT/HCPCS: 0241U-QW; 36415; 71045-TC-FY; 71275-TC; 80048; 80053; 82550; 82803; 83605; 83735; 83880; 84100; 84484; 85025; 85027; 85610; 85730; 87040; 87070; 87077; 87186; 87205; 87899; 93005; 93010; 94640; 94761; 97116-GP; 97161-GP; 99285-25; C9803-CS; J1100; Q9967; U0003; U0005

== ENCOUNTER 2022-10-21 12:24 | Observation (INO) | payer OTHER ==
[2022-10-21 12:39] VITALS: BMI 32.1
[2022-10-21] MEDS ORDERED: INSULIN (NOVOLOG MIX 70/30) 100 UNITS/ML MDV SQ ONE (13:19)
[2022-10-21] MEDS ORDERED: ALBUTEROL SO4 2.5/IPRATROPIUM 0.5 INH SOL 3 ML VIAL.NEB. NEB ONE ×2 (14:45→17:02)
[2022-10-21 15:55] LABS: BASO % 0.1 % (0-2.0); EOS % 0.8 % (0-4.5); HEMATOCRIT 38.7 % (35.4-49); HEMOGLOBIN 13.1 GM/dL (11.7-16.9); LYMPH % 23.8 % (8-40); MCH 30.5 pg (25.7-33.7); MCHC 33.9 g/dl (32.0-35.9); MEAN CELL VOLUME 89.9 fl (80-96); MEAN PLT VOLUME 8.4 fl (7.5-11.1); MONO % 6.9 % (3.8-10.2); NEUT % 68.4 % (42.8-82.8); PLATELET COUNT 264 10^3/uL (134-434); RBC 4.31 M/mm3 (4.00-5.60); RDW 15.3 % (11.9-15.9); WHITE BLOOD COUNT 10.5 K/mm3 (4.0-10.0)
[2022-10-21 16:12] LABS: CALCIUM 9.5 mg/dL (8.5-10.1)
[2022-10-21 16:13] LABS: BLOOD UREA NITROGEN 14.6 mg/dL (7-18); MAGNESIUM 2.2 mg/dL (1.8-2.4)
[2022-10-21 16:16] LABS: CREATININE 0.8 mg/dL (0.55-1.3)
[2022-10-21 16:17] LABS: BILIRUBIN,TOTAL 0.3 mg/dL (0.2-1)
[2022-10-21 16:20] LABS: N-TERMINAL BNP 61.3 pg/ml (5-125)
[2022-10-21 16:41] LABS: PROTHROMBIN TIME (PATIENT) 11.3 SEC (9.7-13.0)
[2022-10-21 16:42] LABS: ACTIVATED PTT 31.3 SECONDS (25.2-36.5); INR 0.97 (0.83-1.09)
[2022-10-21] MEDS: methylPREDNISolone NA SUCC 40 MG/1 ML VIAL IVPUSH SCH (18:42)
[2022-10-21] MEDS ORDERED: methylPREDNISolone NA SUCC 40 MG/1 ML VIAL ONE (18:42)
[2022-10-21] MEDS ORDERED: ALBUTEROL SO4 2.5/IPRATROPIUM 0.5 INH SOL 3 ML VIAL.NEB. NEB PRN (20:00)
[2022-10-21] MEDS: TICAGRELOR 90 MG TABLET PO SCH (21:30)
[2022-10-21] MEDS: BUDESONIDE/FORMETEROL FUMARATE 160/4.5 mcg INHALER IH SCH (21:30)
[2022-10-21] MEDS: DIVALPROEX SODIUM 500 MG TABLET E.C. PO SCH (21:30)
[2022-10-21] MEDS ORDERED: TICAGRELOR 90 MG TABLET PO ONE (21:31)
[2022-10-21] MEDS ORDERED: DIVALPROEX SODIUM 500 MG TABLET E.C. ONE (21:31)
[2022-10-21] MEDS ORDERED: ATORVASTATIN CA 80 MG TABLET (FP) ONE (21:31)
[2022-10-21] MEDS ORDERED: ATORVASTATIN CA 80 MG TABLET (FP) PO SCH (22:00)
[2022-10-22] MEDS ORDERED: ACETAMINOPHEN 1000 MG/100 ML BAG IVPB PRN (00:29)
[2022-10-22 06:22] VITALS: RESP 20
[2022-10-22 08:39] LABS: HEMATOCRIT 40.8 % (35.4-49); HEMOGLOBIN 13.8 GM/dL (11.7-16.9); MCH 30.4 pg (25.7-33.7); MCHC 33.9 g/dl (32.0-35.9); MEAN CELL VOLUME 89.7 fl (80-96); MEAN PLT VOLUME 8.3 fl (7.5-11.1); PLATELET COUNT 299 10^3/uL (134-434); RBC 4.55 M/mm3 (4.00-5.60); WHITE BLOOD COUNT 14.7 K/mm3 (4.0-10.0)
[2022-10-22 08:47] LABS: ALBUMIN 3.2 g/dl (3.4-5.0); BLOOD UREA NITROGEN 20.6 mg/dL (7-18); CALCIUM 9.2 mg/dL (8.5-10.1)
[2022-10-22 08:50] LABS: CREATININE 0.9 mg/dL (0.55-1.3)
[2022-10-22 08:52] LABS: BILIRUBIN,TOTAL 0.4 mg/dL (0.2-1); TOT PROT 6.6 g/dl (6.4-8.2)
[2022-10-22] MEDS: DIVALPROEX SODIUM 500 MG TABLET E.C. PO SCH (09:38)
[2022-10-22] MEDS: NICOTINE 14 MG/24 HOURS TOPICAL PATCH TD SCH ×2 (09:39→09:43)
[2022-10-22] MEDS: methylPREDNISolone NA SUCC 40 MG/1 ML VIAL IVPUSH SCH ×2 (09:39)
[2022-10-22] MEDS ORDERED: ASPIRIN COATED 81 MG TABLET.EC PO SCH (10:00)
[2022-10-22] MEDS ORDERED: ENOXAPARIN NA (PORCINE) 40 MG/0.4 ML DISP.SYRIN SQ SCH (10:00)
[2022-10-22] MEDS ORDERED: ENALAPRIL MALEATE 5 MG TABLET PO SCH (10:00)
[2022-10-22] MEDS ORDERED: amLODIPine BESYLATE 10 MG TABLET (FP) PO SCH (10:00)
[2022-10-22] MEDS ORDERED: FLUoxetine HCL 20 MG CAPSULE PO SCH (10:00)
[2022-10-22] MEDS ORDERED: ENALAPRIL MALEATE 10 MG TABLET PO SCH (10:45)
[2022-10-22] MEDS: BUDESONIDE/FORMETEROL FUMARATE 160/4.5 mcg INHALER IH SCH (11:45)
[2022-10-22] MEDS: TICAGRELOR 90 MG TABLET PO SCH (11:46)
[2022-10-22] MEDS ORDERED: ALPRAZolam 1 MG TABLET PO PRN (12:02)
[2022-10-22] MEDS ORDERED: oxyCODONE HCL 5 MG TABLET PO ONE (12:02)
[2022-10-22 12:05] VITALS: BP 137/70; PULSE 78; TEMP 97.9
[2022-10-22 12:39] LABS: ANISOCYTOSIS 0; MACROCYTOSIS 0; OVALOCYTE 2+
== END 2022-10-22 12:51 | disposition home or self-care (01) ==
LOC: JER 12:24 → JERBED 15:55 → J5S 10-22 09:12
PROVIDERS: ADMIT Family Medicine; ATTEND Family Medicine
PROC: 3E0F7GC Introduction of Other Therapeutic Substance into Respiratory Tract, Via Natural or Artificial Opening (ICD-10-PCS; principal; 2022-10-21)
DX: I25.10 Atherosclerotic heart disease of native coronary artery without angina pectoris (principal); J44.9 Chronic obstructive pulmonary disease, unspecified; Z86.73 Personal history of transient ischemic attack (TIA), and cerebral infarction without residual deficits; I10 Essential (primary) hypertension; M54.2 Cervicalgia; F31.9 Bipolar disorder, unspecified; R09.02 Hypoxemia; E78.5 Hyperlipidemia, unspecified; R06.02 Shortness of breath; Z85.038 Personal history of other malignant neoplasm of large intestine; Z95.5 Presence of coronary angioplasty implant and graft; Z72.0 Tobacco use; E66.8 Other obesity; Z68.32 Body mass index [BMI] 32.0-32.9, adult
CPT/HCPCS: 0241U-QW; 36415; 71045-TC-FY; 80053; 83735; 83880; 84443; 85025; 85610; 85730; 93005; 93010; 94640; 96374; 99285-25; G0378

== ENCOUNTER 2023-05-20 07:02 | Observation (INO) | payer OTHER ==
[2023-05-20] MEDS ORDERED: ALBUTEROL SO4 2.5/IPRATROPIUM 0.5 INH SOL 3 ML VIAL.NEB. NEB ONE ×5 (07:44→19:43)
[2023-05-20] MEDS ORDERED: methylPREDNISolone NA SUCC 125 MG/2 ML VIAL IVPB ONE (07:44)
[2023-05-20 08:29] LABS: BASO % 0.3 % (0-2.0); HEMATOCRIT 39.5 % (35.4-49); HEMOGLOBIN 13.1 GM/dL (11.7-16.9); LYMPH % 12.6 % (8-40); MCH 28.9 pg (25.7-33.7); MCHC 33.1 g/dl (32.0-35.9); MEAN CELL VOLUME 87.1 fl (80-96); MEAN PLT VOLUME 8.2 fl (7.5-11.1); MONO % 8.5 % (3.8-10.2); NEUT % 76.6 % (42.8-82.8); PLATELET COUNT 256 10^3/uL (134-434); RBC 4.53 M/mm3 (4.00-5.60); RDW 15.3 % (11.9-15.9); WHITE BLOOD COUNT 12.2 K/mm3 (4.0-10.0)
[2023-05-20] MEDS ORDERED: methylPREDNISolone NA SUCC 125 MG/2 ML VIAL ONE (08:30)
[2023-05-20 08:43] LABS: INR 1.05 (0.83-1.09); PROTHROMBIN TIME (PATIENT) 12.2 SEC (9.7-13.0)
[2023-05-20 08:46] LABS: ACTIVATED PTT 36.4 SECONDS (25.2-36.5)
[2023-05-20 09:00] LABS: POTASSIUM 3.9 mmol/L (3.5-5.1)
[2023-05-20 09:01] LABS: ALBUMIN 3.5 g/dl (3.4-5.0); BLOOD UREA NITROGEN 10.2 mg/dL (7-18); CALCIUM 9.2 mg/dL (8.5-10.1); MAGNESIUM 1.9 mg/dL (1.8-2.4)
[2023-05-20 09:05] LABS: CREATININE 0.8 mg/dL (0.55-1.3)
[2023-05-20 09:07] LABS: BILIRUBIN,TOTAL 0.4 mg/dL (0.2-1); TOT PROT 7.1 g/dl (6.4-8.2)
[2023-05-20] MEDS ORDERED: ALBUTEROL SO4 0.083% IH SOL 2.5 MG/3 ML VIAL.NEB. NEB ONE ×2 (09:57→10:10)
[2023-05-20] MEDS ORDERED: AZITHROMYCIN IVPB 500 MG in DEXTROSE 5%-WATER - 250 ML IVPB ONE (09:57)
[2023-05-20] MEDS ORDERED: AZITHROMYCIN IVPB 500 MG/250 ML BAG IVPB ONE (10:10)
[2023-05-20 11:42] LABS: VENOUS BASE EXCESS 0.1 mmol/L (-2-2); VENOUS O2 SATURATION 97.6 % (70-80); VENOUS PCO2 40.2 mmHg (38-52); VENOUS PH 7.407 (7.310-7.410)
[2023-05-20 12:53] VITALS: RESP 18
[2023-05-20] MEDS ORDERED: ALPRAZolam 1 MG TABLET PO PRN (14:52)
[2023-05-20] MEDS ORDERED: CEFTRIAXONE 1 GM/50 ML BAG ONE (17:14)
[2023-05-20] MEDS ORDERED: methylPREDNISolone NA SUCC 40 MG/1 ML VIAL ONE ×2 (17:14→20:49)
[2023-05-20] MEDS: CEFTRIAXONE 1 GM in DEXTROSE 5%-WATER - 50 ML IVPB SCH (17:22)
[2023-05-20] MEDS: methylPREDNISolone NA SUCC 40 MG/1 ML VIAL IVPUSH SCH ×2 (17:23→20:59)
[2023-05-20] MEDS: ALBUTEROL SO4 2.5/IPRATROPIUM 0.5 INH SOL 3 ML VIAL.NEB. NEB SCH (19:48)
[2023-05-20] MEDS ORDERED: DIVALPROEX SODIUM 500 MG TABLET E.C. ONE (20:49)
[2023-05-20] MEDS ORDERED: ATORVASTATIN CA 80 MG TABLET (FP) ONE (20:49)
[2023-05-20] MEDS ORDERED: TICAGRELOR 90 MG TABLET PO ONE (20:49)
[2023-05-20] MEDS: ATORVASTATIN CA 80 MG TABLET (FP) PO SCH (21:00)
[2023-05-20] MEDS: BUDESONIDE/FORMETEROL FUMARATE 160/4.5 mcg INHALER IH SCH (21:00)
[2023-05-20] MEDS: TICAGRELOR 90 MG TABLET PO SCH (21:00)
[2023-05-20] MEDS: DIVALPROEX SODIUM 500 MG TABLET E.C. PO SCH (21:00)
[2023-05-20] MEDS ORDERED: ACETAMINOPHEN 1000 MG/100 ML BAG IVPB ONE (23:40)
[2023-05-20] MEDS ORDERED: MAG HYDROX/AL HYDROX/SIMETH 30 ML UNIT-DOSE CUP PO PRN (23:41)
[2023-05-21 01:20] VITALS: BMI 36.8
[2023-05-21] MEDS: methylPREDNISolone NA SUCC 40 MG/1 ML VIAL IVPUSH SCH ×3 (02:18→17:31)
[2023-05-21] MEDS: ALBUTEROL SO4 2.5/IPRATROPIUM 0.5 INH SOL 3 ML VIAL.NEB. NEB SCH ×4 (08:10→15:20)
[2023-05-21 09:17] LABS: HEMATOCRIT 41.1 % (35.4-49); HEMOGLOBIN 13.4 GM/dL (11.7-16.9); MCH 28.4 pg (25.7-33.7); MCHC 32.5 g/dl (32.0-35.9); MEAN CELL VOLUME 87.5 fl (80-96); MEAN PLT VOLUME 8.2 fl (7.5-11.1); PLATELET COUNT 308 10^3/uL (134-434); RDW 15.3 % (11.9-15.9); WHITE BLOOD COUNT 19.4 K/mm3 (4.0-10.0)
[2023-05-21] MEDS: DIVALPROEX SODIUM 500 MG TABLET E.C. PO SCH ×2 (09:35→22:35)
[2023-05-21] MEDS: BUDESONIDE/FORMETEROL FUMARATE 160/4.5 mcg INHALER IH SCH ×2 (09:37→22:40)
[2023-05-21 09:50] LABS: POTASSIUM 4.9 mmol/L (3.5-5.1)
[2023-05-21] MEDS: CEFTRIAXONE 1 GM in DEXTROSE 5%-WATER - 50 ML IVPB SCH (09:53)
[2023-05-21 09:54] LABS: CALCIUM 9.6 mg/dL (8.5-10.1)
[2023-05-21 09:55] LABS: ALBUMIN 3.7 g/dl (3.4-5.0); BLOOD UREA NITROGEN 21.1 mg/dL (7-18); MAGNESIUM 2.3 mg/dL (1.8-2.4)
[2023-05-21 09:58] LABS: BILIRUBIN,TOTAL 0.8 mg/dL (0.2-1); TOT PROT 7.6 g/dl (6.4-8.2)
[2023-05-21] MEDS ORDERED: ASPIRIN COATED 81 MG TABLET.EC PO SCH (10:00)
[2023-05-21] MEDS ORDERED: ENALAPRIL MALEATE 5 MG TABLET PO SCH (10:00)
[2023-05-21] MEDS ORDERED: FLUoxetine HCL 20 MG CAPSULE PO SCH (10:00)
[2023-05-21] MEDS ORDERED: NICOTINE 14 MG/24 HOURS TOPICAL PATCH TD SCH (10:00)
[2023-05-21] MEDS ORDERED: amLODIPine BESYLATE 10 MG TABLET (FP) PO SCH (10:00)
[2023-05-21] MEDS ORDERED: PANTOPRAZOLE 40 MG TABLET PO SCH (10:00)
[2023-05-21] MEDS ORDERED: ENALAPRIL MALEATE 10 MG TABLET PO SCH (10:40)
[2023-05-21] MEDS: TICAGRELOR 90 MG TABLET PO SCH ×2 (11:28→22:37)
[2023-05-21 11:44] LABS: ANISOCYTOSIS 1+; MACROCYTOSIS 0
[2023-05-21] MEDS: ATORVASTATIN CA 80 MG TABLET (FP) PO SCH (22:35)
[2023-05-22] MEDS ORDERED: ALBUTEROL SO4 2.5/IPRATROPIUM 0.5 INH SOL 3 ML VIAL.NEB. NEB ONE (00:45)
[2023-05-22] MEDS: methylPREDNISolone NA SUCC 40 MG/1 ML VIAL IVPUSH SCH (02:23)
[2023-05-22] MEDS: ALBUTEROL SO4 2.5/IPRATROPIUM 0.5 INH SOL 3 ML VIAL.NEB. NEB SCH (07:40)
[2023-05-22 09:40] VITALS: BP 155/78; PULSE 93; TEMP 97.5
== END 2023-05-22 09:40 | disposition home or self-care (01) ==
LOC: JER 07:02 → JERBED 10:02 → INTOOBSV 10:02 → UNDOADMOB 10:02 → JERBED 23:25 → J5S 23:25 → JERBED 05-21 11:00
PROVIDERS: ADMIT Family Medicine; ATTEND Family Medicine
PROC: 3E033NZ Introduction of Analgesics, Hypnotics, Sedatives into Peripheral Vein, Percutaneous Approach (ICD-10-PCS; principal; 2023-05-21)
PROC: 3E0F7GC Introduction of Other Therapeutic Substance into Respiratory Tract, Via Natural or Artificial Opening (ICD-10-PCS; 2023-05-21)
PROC: 3E03329 Introduction of Other Anti-infective into Peripheral Vein, Percutaneous Approach (ICD-10-PCS; 2023-05-21)
DX: J44.1 Chronic obstructive pulmonary disease with (acute) exacerbation (principal); R09.02 Hypoxemia; R06.00 Dyspnea, unspecified; Z95.1 Presence of aortocoronary bypass graft; I11.0 Hypertensive heart disease with heart failure; E78.5 Hyperlipidemia, unspecified; Z85.038 Personal history of other malignant neoplasm of large intestine; F31.9 Bipolar disorder, unspecified; I25.10 Atherosclerotic heart disease of native coronary artery without angina pectoris; Z86.73 Personal history of transient ischemic attack (TIA), and cerebral infarction without residual deficits
CPT/HCPCS: 0241U-QW; 36415; 71045-TC-FY; 80053; 82803; 82962; 83605; 83735; 83880; 84443; 84484; 85025; 85610; 85730; 87040; 93005; 93010; 94640; 96365; 96367; 96374; 96375; 96376; 99285-25; G0378

== ENCOUNTER 2023-05-26 19:52 | Inpatient (IN) | payer OTHER ==
[2023-05-26 19:58] VITALS: BMI 35.4
[2023-05-26] MEDS ORDERED: methylPREDNISolone NA SUCC 125 MG/2 ML VIAL IVPUSH ONE (20:16)
[2023-05-26] MEDS ORDERED: ALBUTEROL SO4 2.5/IPRATROPIUM 0.5 INH SOL 3 ML VIAL.NEB. NEB ONE ×2 (20:18→20:43)
[2023-05-26] MEDS: ALBUTEROL SO4 2.5/IPRATROPIUM 0.5 INH SOL 3 ML VIAL.NEB. NEB SCH ×4 (20:21→21:06)
[2023-05-26] MEDS ORDERED: methylPREDNISolone NA SUCC 125 MG/2 ML VIAL ONE (20:41)
[2023-05-26 20:52] LABS: VENOUS BASE EXCESS 5.4 mmol/L (-2-2); VENOUS O2 SATURATION 81.7 % (70-80); VENOUS PCO2 49.5 mmHg (38-52); VENOUS PH 7.415 (7.310-7.410)
[2023-05-26 20:53] LABS: BASO % 0.3 % (0-2.0); EOS % 2.2 % (0-4.5); HEMATOCRIT 39.1 % (35.4-49); HEMOGLOBIN 12.9 GM/dL (11.7-16.9); LYMPH % 12.6 % (8-40); MCH 28.3 pg (25.7-33.7); MEAN CELL VOLUME 85.7 fl (80-96); MONO % 6.8 % (3.8-10.2); NEUT % 78.1 % (42.8-82.8); PLATELET COUNT 264 10^3/uL (134-434); RBC 4.57 M/mm3 (4.00-5.60); RDW 14.9 % (11.9-15.9); WHITE BLOOD COUNT 14.7 K/mm3 (4.0-10.0)
[2023-05-26 20:58] LABS: INR 1.09 (0.83-1.09); PROTHROMBIN TIME (PATIENT) 12.6 SEC (9.7-13.0)
[2023-05-26 21:01] LABS: ACTIVATED PTT 32.5 SECONDS (25.2-36.5)
[2023-05-26 21:19] LABS: POTASSIUM 3.7 mmol/L (3.5-5.1)
[2023-05-26 21:21] LABS: BLOOD UREA NITROGEN 9.4 mg/dL (7-18); CALCIUM 8.2 mg/dL (8.5-10.1)
[2023-05-26 21:25] LABS: CREATININE 0.9 mg/dL (0.55-1.3)
[2023-05-26 21:26] LABS: BILIRUBIN,TOTAL 0.5 mg/dL (0.2-1); TOT PROT 6.1 g/dl (6.4-8.2)
[2023-05-26 21:29] LABS: N-TERMINAL BNP 34.6 pg/ml (5-125)
[2023-05-26 21:43] LABS: ALBUMIN 2.9 g/dl (3.4-5.0)
[2023-05-27] MEDS ORDERED: PIPERACILLIN/TAZOB 4.5 GM 4.5 GM in DEXTROSE 5%-WATER 100 ML IVPB ONE (01:21)
[2023-05-27] MEDS ORDERED: VANCOMYCIN 1,000 MG in DEXTROSE 5%-WATER - 250 ML IVPB ONE (01:21)
[2023-05-27] MEDS ORDERED: PIPERACILLIN/TAZOB 4.5 GM 4.5 GM/100 ML BAG IVPB ONE ×2 (01:36→09:55)
[2023-05-27] MEDS ORDERED: VANCOMYCIN 1 GRAM (PRE-DOCKED) 1,000 MG/250 ML BAG IVPB ONE (01:36)
[2023-05-27] MEDS ORDERED: FUROSEMIDE 40 MG/4 ML INJECTABLE VIAL IVPUSH ONE (05:12)
[2023-05-27] MEDS ORDERED: methylPREDNISolone NA SUCC 40 MG/1 ML VIAL IVPUSH SCH (05:30)
[2023-05-27 07:45] LABS: HEMOGLOBIN 13.5 GM/dL (11.7-16.9); MCH 28.3 pg (25.7-33.7); MEAN CELL VOLUME 88.3 fl (80-96); MEAN PLT VOLUME 8.2 fl (7.5-11.1); PLATELET COUNT 300 10^3/uL (134-434); RBC 4.76 M/mm3 (4.00-5.60); RDW 14.8 % (11.9-15.9); WHITE BLOOD COUNT 15.5 K/mm3 (4.0-10.0)
[2023-05-27 07:58] LABS: POTASSIUM 4.3 mmol/L (3.5-5.1)
[2023-05-27 08:01] LABS: BLOOD UREA NITROGEN 11.3 mg/dL (7-18); CALCIUM 8.5 mg/dL (8.5-10.1); MAGNESIUM 2.3 mg/dL (1.8-2.4)
[2023-05-27 08:04] LABS: CREATININE 1.1 mg/dL (0.55-1.3); PHOSPHOROUS 3.1 mg/dL (2.5-4.9)
[2023-05-27 08:06] LABS: BILIRUBIN,TOTAL 0.8 mg/dL (0.2-1); TOT PROT 6.9 g/dl (6.4-8.2)
[2023-05-27] MEDS ORDERED: BUDESONIDE/FORMETEROL FUMARATE 80/4.5 mcg INHALER IH ONE (09:30)
[2023-05-27] MEDS ORDERED: PANTOPRAZOLE 40 MG TABLET PO ONE (09:54)
[2023-05-27] MEDS ORDERED: ASPIRIN COATED 81 MG TABLET.EC ONE (09:54)
[2023-05-27] MEDS ORDERED: DIVALPROEX SODIUM 500 MG TABLET E.C. ONE (09:54)
[2023-05-27] MEDS ORDERED: TICAGRELOR 90 MG TABLET PO ONE (09:54)
[2023-05-27] MEDS ORDERED: methylPREDNISolone NA SUCC 40 MG/1 ML VIAL ONE (09:55)
[2023-05-27] MEDS ORDERED: ENOXAPARIN NA (PORCINE) 40 MG/0.4 ML DISP.SYRIN SQ ONE (09:55)
[2023-05-27] MEDS ORDERED: ALPRAZolam 1 MG TABLET PO PRN (10:00)
[2023-05-27] MEDS ORDERED: PIPERACILLIN/TAZOB 4.5 GM 4.5 GM in DEXTROSE 5%-WATER 100 ML IVPB SCH (10:00)
[2023-05-27] MEDS: ENOXAPARIN NA (PORCINE) 40 MG/0.4 ML DISP.SYRIN SQ SCH (10:14)
[2023-05-27] MEDS: PANTOPRAZOLE 40 MG TABLET PO SCH (10:14)
[2023-05-27] MEDS: ASPIRIN COATED 81 MG TABLET.EC PO SCH (10:14)
[2023-05-27] MEDS: TICAGRELOR 90 MG TABLET PO SCH ×2 (10:14→22:54)
[2023-05-27] MEDS: methylPREDNISolone NA SUCC 40 MG/1 ML VIAL IVPUSH SCH ×2 (10:14→17:31)
[2023-05-27] MEDS: DIVALPROEX SODIUM 500 MG TABLET E.C. PO SCH ×3 (10:14→22:59)
[2023-05-27 10:45] LABS: PH,URINE 5.5 (5.0-8.0); URINE APPEARANCE CLEAR; URINE BILIRUBIN NEGATIVE (NEGATIVE); URINE COLOR YELLOW; URINE GLUCOSE (UA) NEGATIVE (NEGATIVE); URINE KETONE NEGATIVE (NEGATIVE); URINE LEUK ESTERASE NEGATIVE (NEGATIVE); URINE NITRITE NEGATIVE (NEGATIVE); URINE PROTEIN NEGATIVE (NEGATIVE); URINE UROBILINOGEN 0.2 mg/dL (0.2-1.0)
[2023-05-27] MEDS: FLUoxetine HCL 20 MG CAPSULE PO SCH (11:33)
[2023-05-27] MEDS: INSULIN SLIDING SCALE (NOVOLOG) 1 VIAL SQ SCH ×3 (12:35→22:55)
[2023-05-27] MEDS ORDERED: VANCOMYCIN PREMIX 1.5 GM 1,500 MG/300 ML BAG IVPB SCH (14:00)
[2023-05-27] MEDS: LEVALBUTEROL HCL 0.31 MG/3 ML VIAL.NEB IH PRN ×2 (14:11→20:13)
[2023-05-27] MEDS: AZITHROMYCIN IVPB 500 MG/250 ML BAG IVPB SCH (17:30)
[2023-05-27] MEDS ORDERED: ATORVASTATIN CA 80 MG TABLET (FP) PO SCH (22:00)
[2023-05-27] MEDS ORDERED: risperiDONE 0.5 MG TABLET PO SCH (22:00)
[2023-05-28] MEDS: methylPREDNISolone NA SUCC 40 MG/1 ML VIAL IVPUSH SCH ×2 (02:48→09:00)
[2023-05-28] MEDS: INSULIN SLIDING SCALE (NOVOLOG) 1 VIAL SQ SCH ×2 (06:54→11:19)
[2023-05-28 07:16] VITALS: RESP 18
[2023-05-28 08:46] VITALS: BP 150/84; PULSE 74; TEMP 97.8
[2023-05-28] MEDS: AZITHROMYCIN IVPB 500 MG/250 ML BAG IVPB SCH (09:00)
[2023-05-28] MEDS: ENOXAPARIN NA (PORCINE) 40 MG/0.4 ML DISP.SYRIN SQ SCH (09:01)
[2023-05-28] MEDS: PANTOPRAZOLE 40 MG TABLET PO SCH (09:01)
[2023-05-28] MEDS: ASPIRIN COATED 81 MG TABLET.EC PO SCH (09:01)
[2023-05-28] MEDS: DIVALPROEX SODIUM 500 MG TABLET E.C. PO SCH (09:02)
[2023-05-28] MEDS: FLUoxetine HCL 20 MG CAPSULE PO SCH (09:02)
[2023-05-28] MEDS ORDERED: INSULIN (NOVOLOG) ASPART 100 UNITS/ML 10ML VIAL ONE (10:43)
[2023-05-28] MEDS: TICAGRELOR 90 MG TABLET PO SCH (11:55)
[2023-05-28] MEDS ORDERED: VANCOMYCIN PREMIX 1.5 GM 1,500 MG/300 ML BAG IVPB SCH (14:00)
[2023-05-29 16:08] LABS: MYCOPLASMA PNEUMONIAE,IG G AB 335 U/mL (0-99); MYCOPLASMA PNEUMONIAE,IGM AB <770 U/mL (0-769)
== END 2023-05-28 12:56 | disposition left against medical advice (07) | DRG 196 ==
LOC: JER 19:52 → JERBED 20:16 → J8W 05-27 10:29 → J7W 05-27 12:45
PROVIDERS: ADMIT Family Medicine; ATTEND Family Medicine
DX: J67.9 Hypersensitivity pneumonitis due to unspecified organic dust (principal); J96.01 Acute respiratory failure with hypoxia; J44.1 Chronic obstructive pulmonary disease with (acute) exacerbation; J44.0 Chronic obstructive pulmonary disease with (acute) lower respiratory infection; J45.909 Unspecified asthma, uncomplicated; F31.9 Bipolar disorder, unspecified; I11.0 Hypertensive heart disease with heart failure; I25.10 Atherosclerotic heart disease of native coronary artery without angina pectoris; E78.5 Hyperlipidemia, unspecified; F17.210 Nicotine dependence, cigarettes, uncomplicated; E66.9 Obesity, unspecified; Z68.36 Body mass index [BMI] 36.0-36.9, adult; I50.9 Heart failure, unspecified
CPT/HCPCS: 0241U-QW; 36415; 71045-TC-FY; 71275-TC; 80053; 80061; 81003; 82550; 82803; 82962; 83615; 83735; 83880; 84100; 84443; 84484; 85025; 85027; 85610; 85651; 85730; 86140; 86738; 87086; 87633; 87635; 87899; 93005; 93010; 99291; 99292; Q9967

== ENCOUNTER 2023-06-01 17:36 | Inpatient (IN) | payer OTHER ==
[2023-06-01 17:57] VITALS: BMI 35.4
[2023-06-01] MEDS ORDERED: SODIUM CHLORIDE 3,266 ML IV ONE (18:35)
[2023-06-01] MEDS ORDERED: methylPREDNISolone NA SUCC 125 MG/2 ML VIAL IVPB ONE (18:37)
[2023-06-01] MEDS ORDERED: ACETAMINOPHEN 1000 MG/100 ML BAG IVPB ONE (18:39)
[2023-06-01] MEDS ORDERED: ACETAMINOPHEN INJECTION 100 ML IVPB ONE (19:32)
[2023-06-01] MEDS ORDERED: ALBUTEROL SO4 2.5/IPRATROPIUM 0.5 INH SOL 3 ML VIAL.NEB. NEB ONE (19:32)
[2023-06-01] MEDS ORDERED: methylPREDNISolone NA SUCC 125 MG/2 ML VIAL ONE (19:33)
[2023-06-01 19:36] LABS: BASO % 0.2 % (0-2.0); HEMATOCRIT 37.5 % (35.4-49); HEMOGLOBIN 12.6 GM/dL (11.7-16.9); LYMPH % 10.7 % (8-40); MCH 28.5 pg (25.7-33.7); MCHC 33.5 g/dl (32.0-35.9); MEAN PLT VOLUME 7.9 fl (7.5-11.1); MONO % 5.5 % (3.8-10.2); NEUT % 82.6 % (42.8-82.8); PLATELET COUNT 308 10^3/uL (134-434); RBC 4.41 M/mm3 (4.00-5.60); RDW 14.9 % (11.9-15.9); WHITE BLOOD COUNT 17.4 K/mm3 (4.0-10.0)
[2023-06-01 19:45] LABS: ADD RBC MORPHOLOGY YES
[2023-06-01] MEDS ORDERED: VANCOMYCIN 1 GM PREMIX - 1 GM/200 ML BAG IVPB ONE (19:50)
[2023-06-01] MEDS ORDERED: PIPERACILLIN/TAZOB 3.375 GM 3.375 GM in DEXTROSE 5%-WATER - 50 ML IVPB ONE (19:51)
[2023-06-01 19:54] LABS: POTASSIUM 3.9 mmol/L (3.5-5.1)
[2023-06-01 19:57] LABS: BLOOD UREA NITROGEN 12.5 mg/dL (7-18); CALCIUM 8.2 mg/dL (8.5-10.1)
[2023-06-01] MEDS: ALBUTEROL SO4 2.5/IPRATROPIUM 0.5 INH SOL 3 ML VIAL.NEB. NEB SCH ×3 (19:59→20:55)
[2023-06-01 20:00] LABS: CREATININE 0.9 mg/dL (0.55-1.3)
[2023-06-01 20:02] LABS: BILIRUBIN,TOTAL 0.5 mg/dL (0.2-1); TOT PROT 5.7 g/dl (6.4-8.2)
[2023-06-01 20:05] LABS: N-TERMINAL BNP 61.1 pg/ml (5-125)
[2023-06-01 20:09] LABS: ALBUMIN 2.4 g/dl (3.4-5.0)
[2023-06-01 20:23] LABS: ACTIVATED PTT 24.3 SECONDS (25.2-36.5); INR 1.17 (0.83-1.09); PROTHROMBIN TIME (PATIENT) 13.6 SEC (9.7-13.0)
[2023-06-01 20:51] LABS: VENOUS BASE EXCESS 3.7 mmol/L (-2-2); VENOUS O2 SATURATION 92.1 % (70-80); VENOUS PH 7.397 (7.310-7.410)
[2023-06-01 20:56] LABS: ANISOCYTOSIS 1+; MACROCYTOSIS 0; PLATELET ESTIMATE NORMAL
[2023-06-01] MEDS ORDERED: VANCOMYCIN 1 GRAM (PRE-DOCKED) 1,000 MG/250 ML BAG IVPB ONE (20:57)
[2023-06-01] MEDS ORDERED: PIPERACILLIN/TAZOB 3.375 GM 3.375 GM/50 ML BAG IVPB ONE (20:58)
[2023-06-01] MEDS ORDERED: DOCUSATE SODIUM 100 MG CAPSULE (FP) PO PRN (22:08)
[2023-06-01 22:14] LABS: URINE APPEARANCE CLEAR; URINE BILIRUBIN NEGATIVE (NEGATIVE); URINE COLOR YELLOW; URINE GLUCOSE (UA) NEGATIVE (NEGATIVE); URINE KETONE NEGATIVE (NEGATIVE); URINE LEUK ESTERASE NEGATIVE (NEGATIVE); URINE NITRITE NEGATIVE (NEGATIVE); URINE PROTEIN NEGATIVE (NEGATIVE); URINE UROBILINOGEN 0.2 mg/dL (0.2-1.0)
[2023-06-01] MEDS ORDERED: ALBUTEROL SO4 2.5/IPRATROPIUM 0.5 INH SOL 3 ML VIAL.NEB. NEB PRN (22:25)
[2023-06-02] MEDS ORDERED: ACETAMINOPHEN 1000 MG/100 ML BAG IVPB PRN (02:00)
[2023-06-02] MEDS: methylPREDNISolone NA SUCC 40 MG/1 ML VIAL IVPUSH SCH ×3 (03:07→17:32)
[2023-06-02] MEDS: PIPERACILLIN/TAZOB 3.375 GM 3.375 GM in DEXTROSE 5%-WATER - 50 ML IVPB SCH ×4 (03:07→20:06)
[2023-06-02] MEDS: INSULIN SLIDING SCALE (NOVOLOG) 1 VIAL SQ SCH ×4 (06:15→21:33)
[2023-06-02] MEDS ORDERED: INSULIN (NOVOLOG) ASPART 100 UNITS/ML 10ML VIAL ONE (06:54)
[2023-06-02] MEDS ORDERED: MECLIZINE HCL 25 MG TABLET (FP) PO SCH (08:30)
[2023-06-02] MEDS ORDERED: VANCOMYCIN HCL 1,500 MG in DEXTROSE 5%-WATER - 250 ML IVPB SCH (10:00)
[2023-06-02] MEDS ORDERED: VANCOMYCIN PREMIX 1.5 GM 1,500 MG/300 ML BAG IVPB SCH (10:00)
[2023-06-02] MEDS ORDERED: ALPRAZolam 2 MG TABLET PO SCH (10:00)
[2023-06-02] MEDS: FLUoxetine HCL 20 MG CAPSULE PO SCH (10:35)
[2023-06-02] MEDS: ASPIRIN COATED 81 MG TABLET.EC PO SCH (10:35)
[2023-06-02 10:44] LABS: HEMATOCRIT 35.4 % (35.4-49); HEMOGLOBIN 11.8 GM/dL (11.7-16.9); MCH 28.5 pg (25.7-33.7); MCHC 33.3 g/dl (32.0-35.9); MEAN CELL VOLUME 85.6 fl (80-96); MEAN PLT VOLUME 8.1 fl (7.5-11.1); PLATELET COUNT 306 10^3/uL (134-434); RBC 4.14 M/mm3 (4.00-5.60); RDW 15.1 % (11.9-15.9); WHITE BLOOD COUNT 13.5 K/mm3 (4.0-10.0)
[2023-06-02] MEDS: ENALAPRIL MALEATE 5 MG TABLET PO SCH (10:55)
[2023-06-02] MEDS: DIVALPROEX SODIUM 250 MG TABLET E.C. PO SCH ×2 (10:55→21:25)
[2023-06-02] MEDS: PANTOPRAZOLE 40 MG TABLET PO SCH (10:55)
[2023-06-02 11:02] LABS: POTASSIUM 4.5 mmol/L (3.5-5.1)
[2023-06-02 11:10] LABS: CALCIUM 8.8 mg/dL (8.5-10.1)
[2023-06-02 11:11] LABS: MAGNESIUM 2.4 mg/dL (1.8-2.4)
[2023-06-02 11:14] LABS: CREATININE 0.8 mg/dL (0.55-1.3); PHOSPHOROUS 3.1 mg/dL (2.5-4.9)
[2023-06-02 11:28] LABS: ANISOCYTOSIS 2+; MACROCYTOSIS 0; OVALOCYTE 1+
[2023-06-02] MEDS: BUDESONIDE/FORMETEROL FUMARATE 160/4.5 mcg INHALER IH SCH ×2 (11:28→21:33)
[2023-06-02] MEDS: TICAGRELOR 90 MG TABLET PO SCH ×2 (11:29→21:25)
[2023-06-02] MEDS ORDERED: ALBUTEROL SO4 0.083% IH SOL 2.5 MG/3 ML VIAL.NEB. NEB PRN (12:18)
[2023-06-02] MEDS: ALBUTEROL SO4 2.5/IPRATROPIUM 0.5 INH SOL 3 ML VIAL.NEB. NEB SCH ×3 (12:25→20:54)
[2023-06-02] MEDS ORDERED: PIPERACILLIN/TAZOBACTAM 3.375 GM VIAL IVPB ONE (15:13)
[2023-06-02] MEDS: CEFTRIAXONE 2 GM in DEXTROSE 5%-WATER 100 ML IVPB SCH (15:58)
[2023-06-02] MEDS: AZITHROMYCIN IVPB 500 MG/250 ML BAG IVPB SCH (16:37)
[2023-06-02] MEDS: ATORVASTATIN CA 80 MG TABLET (FP) PO SCH (21:25)
[2023-06-02] MEDS: ALPRAZolam 1 MG TABLET PO SCH (21:33)
[2023-06-03] MEDS: methylPREDNISolone NA SUCC 40 MG/1 ML VIAL IVPUSH SCH ×3 (01:12→17:29)
[2023-06-03] MEDS ORDERED: ACETAMINOPHEN 325 MG TABLET (FP) PO PRN (02:00)
[2023-06-03] MEDS: INSULIN SLIDING SCALE (NOVOLOG) 1 VIAL SQ SCH ×4 (06:45→21:40)
[2023-06-03] MEDS: ALBUTEROL SO4 2.5/IPRATROPIUM 0.5 INH SOL 3 ML VIAL.NEB. NEB SCH ×5 (07:48→20:44)
[2023-06-03] MEDS: DIVALPROEX SODIUM 250 MG TABLET E.C. PO SCH ×3 (10:07→21:46)
[2023-06-03] MEDS: FLUoxetine HCL 20 MG CAPSULE PO SCH (10:07)
[2023-06-03] MEDS: ENALAPRIL MALEATE 5 MG TABLET PO SCH (10:09)
[2023-06-03] MEDS: PANTOPRAZOLE 40 MG TABLET PO SCH (10:10)
[2023-06-03] MEDS: ASPIRIN COATED 81 MG TABLET.EC PO SCH (10:11)
[2023-06-03] MEDS: ALPRAZolam 1 MG TABLET PO SCH ×3 (10:12→21:48)
[2023-06-03] MEDS: AZITHROMYCIN IVPB 500 MG/250 ML BAG IVPB SCH (10:26)
[2023-06-03] MEDS: TICAGRELOR 90 MG TABLET PO SCH ×2 (10:45→21:38)
[2023-06-03] MEDS: BUDESONIDE/FORMETEROL FUMARATE 160/4.5 mcg INHALER IH SCH ×2 (10:47→21:38)
[2023-06-03] MEDS: CEFTRIAXONE 2 GM in DEXTROSE 5%-WATER 100 ML IVPB SCH (12:31)
[2023-06-03] MEDS: ATORVASTATIN CA 80 MG TABLET (FP) PO SCH (21:37)
[2023-06-04] MEDS: methylPREDNISolone NA SUCC 40 MG/1 ML VIAL IVPUSH SCH ×3 (02:03→21:27)
[2023-06-04] MEDS: INSULIN SLIDING SCALE (NOVOLOG) 1 VIAL SQ SCH ×4 (07:03→22:09)
[2023-06-04] MEDS: ALBUTEROL SO4 2.5/IPRATROPIUM 0.5 INH SOL 3 ML VIAL.NEB. NEB SCH ×4 (07:15→20:42)
[2023-06-04] MEDS: INSULIN (LEVEMIR) 100 UNITS/ML UNITS SQ SCH ×2 (08:48→22:10)
[2023-06-04] MEDS: CEFTRIAXONE 2 GM in DEXTROSE 5%-WATER 100 ML IVPB SCH (09:25)
[2023-06-04] MEDS: TICAGRELOR 90 MG TABLET PO SCH ×2 (09:31→21:28)
[2023-06-04] MEDS: ALPRAZolam 1 MG TABLET PO SCH ×2 (09:34→21:27)
[2023-06-04] MEDS: ASPIRIN COATED 81 MG TABLET.EC PO SCH (09:34)
[2023-06-04] MEDS: DIVALPROEX SODIUM 250 MG TABLET E.C. PO SCH ×2 (09:35→21:27)
[2023-06-04] MEDS: FLUoxetine HCL 20 MG CAPSULE PO SCH (09:36)
[2023-06-04] MEDS: PANTOPRAZOLE 40 MG TABLET PO SCH (09:36)
[2023-06-04] MEDS: ENALAPRIL MALEATE 5 MG TABLET PO SCH (09:38)
[2023-06-04] MEDS: BUDESONIDE/FORMETEROL FUMARATE 160/4.5 mcg INHALER IH SCH ×2 (09:47→21:29)
[2023-06-04] MEDS: AZITHROMYCIN IVPB 500 MG/250 ML BAG IVPB SCH (10:33)
[2023-06-04] MEDS: ATORVASTATIN CA 80 MG TABLET (FP) PO SCH (21:27)
[2023-06-04] MEDS ORDERED: INSULIN (NOVOLOG) ASPART 100 UNITS/ML 10ML VIAL ONE (22:07)
[2023-06-05] MEDS: INSULIN SLIDING SCALE (NOVOLOG) 1 VIAL SQ SCH ×2 (06:47→10:51)
[2023-06-05] MEDS: INSULIN (LEVEMIR) 100 UNITS/ML UNITS SQ SCH (06:47)
[2023-06-05] MEDS: ALBUTEROL SO4 2.5/IPRATROPIUM 0.5 INH SOL 3 ML VIAL.NEB. NEB SCH ×2 (08:26→11:29)
[2023-06-05 08:59] VITALS: BP 140/66; PULSE 79; RESP 20; TEMP 97.8
[2023-06-05] MEDS: FLUoxetine HCL 20 MG CAPSULE PO SCH (09:25)
[2023-06-05] MEDS: DIVALPROEX SODIUM 250 MG TABLET E.C. PO SCH (09:25)
[2023-06-05] MEDS: ENALAPRIL MALEATE 5 MG TABLET PO SCH (09:25)
[2023-06-05] MEDS: ALPRAZolam 1 MG TABLET PO SCH (09:25)
[2023-06-05] MEDS: PANTOPRAZOLE 40 MG TABLET PO SCH (09:25)
[2023-06-05] MEDS: ASPIRIN COATED 81 MG TABLET.EC PO SCH (09:25)
[2023-06-05] MEDS: CEFTRIAXONE 2 GM in DEXTROSE 5%-WATER 100 ML IVPB SCH (09:53)
[2023-06-05] MEDS: TICAGRELOR 90 MG TABLET PO SCH (09:53)
[2023-06-05] MEDS: methylPREDNISolone NA SUCC 40 MG/1 ML VIAL IVPUSH SCH (09:55)
[2023-06-05] MEDS: BUDESONIDE/FORMETEROL FUMARATE 160/4.5 mcg INHALER IH SCH (09:56)
[2023-06-05] MEDS: AZITHROMYCIN IVPB 500 MG/250 ML BAG IVPB SCH (10:53)
== END 2023-06-05 12:34 | disposition home or self-care (01) | DRG 871 ==
LOC: JER 17:36 → JERBED 20:21 → J6S 06-02 02:25
PROVIDERS: ADMIT Internal Medicine; ATTEND Family Medicine
DX: A41.9 Sepsis, unspecified organism (principal); J18.9 Pneumonia, unspecified organism; J96.01 Acute respiratory failure with hypoxia; J44.0 Chronic obstructive pulmonary disease with (acute) lower respiratory infection; J44.1 Chronic obstructive pulmonary disease with (acute) exacerbation; F31.9 Bipolar disorder, unspecified; I25.10 Atherosclerotic heart disease of native coronary artery without angina pectoris; E78.5 Hyperlipidemia, unspecified; I10 Essential (primary) hypertension
CPT/HCPCS: 0241U-QW; 36415; 71045-TC-FY; 80048; 80053; 81003; 82550; 82553; 82803; 82962; 83605; 83735; 83880; 84100; 84484; 85025; 85610; 85730; 86850; 86900; 86901; 87040; 87086; 87633; 87899; 93005; 93010; 94640; 99285-25

== ENCOUNTER 2023-07-11 11:11 | Emergency (ER) | payer OTHER ==
[2023-07-11 11:18] VITALS: BP 136/62; PULSE 99; RESP 18; TEMP 98.1; BMI 34.0
[2023-07-11] MEDS ORDERED: AMOX TR/POT CLAV 875MG/125MG TABLETS (FP) ONE (12:25)
[2023-07-11] MEDS ORDERED: AMOX TR/POT CLAV 875MG/125MG TABLETS (FP) PO ONE (12:25)
== END 2023-07-11 13:15 | disposition short-term general hospital (02) ==
LOC: JERFT 11:11 → JER 11:11 → JERFT 13:15
DX: R22.0 Localized swelling, mass and lump, head (principal); K08.89 Other specified disorders of teeth and supporting structures; K04.7 Periapical abscess without sinus; I10 Essential (primary) hypertension
CPT/HCPCS: 99283-25

== ENCOUNTER 2023-08-29 15:11 | Inpatient (IN) | payer OTHER ==
[2023-08-29] MEDS ORDERED: ACETAMINOPHEN INJECTION 100 ML IVPB ONE (16:01)
[2023-08-29 16:07] LABS: VENOUS BASE EXCESS -1.1 mmol/L (-2-2); VENOUS O2 SATURATION 56.4 % (70-80); VENOUS PCO2 48.8 mmHg (38-52); VENOUS PH 7.333 (7.310-7.410)
[2023-08-29] MEDS: SODIUM CHLORIDE 0.9% 500 ML INFUS.BAG IV ONE (16:08)
[2023-08-29] MEDS: ACETAMINOPHEN 1000 MG/100 ML BAG IVPB ONE (16:09)
[2023-08-29 16:11] LABS: BASO % 0.2 % (0-2.0); EOS % 0.7 % (0-4.5); HEMATOCRIT 40.9 % (35.4-49); HEMOGLOBIN 13.6 GM/dL (11.7-16.9); LYMPH % 9.9 % (8-40); MCH 28.6 pg (25.7-33.7); MCHC 33.3 g/dl (32.0-35.9); MEAN CELL VOLUME 85.9 fl (80-96); MEAN PLT VOLUME 8.4 fl (7.5-11.1); MONO % 6.1 % (3.8-10.2); NEUT % 83.1 % (42.8-82.8); PLATELET COUNT 251 10^3/uL (134-434); RBC 4.77 M/mm3 (4.00-5.60); WHITE BLOOD COUNT 14.1 K/mm3 (4.0-10.0)
[2023-08-29 16:16] LABS: INR 1.07 (0.83-1.09); PROTHROMBIN TIME (PATIENT) 12.4 SEC (9.7-13.0)
[2023-08-29 16:19] LABS: ACTIVATED PTT 36.1 SECONDS (25.2-36.5)
[2023-08-29 16:26] LABS: URINE APPEARANCE CLEAR; URINE BILIRUBIN NEGATIVE (NEGATIVE); URINE COLOR YELLOW; URINE GLUCOSE (UA) NEGATIVE (NEGATIVE); URINE KETONE NEGATIVE (NEGATIVE); URINE LEUK ESTERASE NEGATIVE (NEGATIVE); URINE NITRITE NEGATIVE (NEGATIVE); URINE PROTEIN NEGATIVE (NEGATIVE); URINE UROBILINOGEN 0.2 mg/dL (0.2-1.0)
[2023-08-29 16:27] LABS: POTASSIUM 3.8 mmol/L (3.5-5.1)
[2023-08-29 16:29] LABS: ALBUMIN 3.8 g/dl (3.4-5.0); CALCIUM 9.4 mg/dL (8.5-10.1)
[2023-08-29 16:30] LABS: BLOOD UREA NITROGEN 14.7 mg/dL (7-18)
[2023-08-29 16:34] LABS: BILIRUBIN,TOTAL 0.4 mg/dL (0.2-1); TOT PROT 7.4 g/dl (6.4-8.2)
[2023-08-29 16:41] LABS: LACTIC ACID 2.9 mmol/L (0.4-2.0)
[2023-08-29] MEDS ORDERED: CEFTRIAXONE 1 GM/50 ML BAG ONE (17:03)
[2023-08-29 17:33] LABS: N-TERMINAL BNP 31.9 pg/ml (5-125)
[2023-08-29 17:53] VITALS: RESP 18
[2023-08-29] MEDS ORDERED: AZITHROMYCIN IVPB 500 MG/250 ML BAG IVPB ONE (18:48)
[2023-08-29] MEDS: AZITHROMYCIN IVPB 500 MG in DEXTROSE 5%-WATER - 250 ML IVPB ONE (18:56)
[2023-08-29] MEDS ORDERED: ALBUTEROL SO4 0.083% IH SOL 2.5 MG/3 ML VIAL.NEB. NEB PRN (22:53)
[2023-08-29] MEDS: TICAGRELOR 90 MG TABLET PO SCH (23:36)
[2023-08-29] MEDS: DIVALPROEX SODIUM 125 MG TABLET E.C. PO SCH (23:36)
[2023-08-29] MEDS: BUDESONIDE/FORMETEROL FUMARATE 160/4.5 mcg INHALER IH SCH (23:36)
[2023-08-29] MEDS ORDERED: DIVALPROEX SODIUM 500 MG TABLET E.C. ONE (23:39)
[2023-08-30 01:44] VITALS: TEMP 98.7; BMI 36.9
[2023-08-30] MEDS: ACETAMINOPHEN 325 MG TABLET (FP) PO PRN (03:58)
[2023-08-30 07:14] VITALS: BP 144/76; PULSE 71
[2023-08-30 09:31] LABS: BASO % 0.4 % (0-2.0); EOS % 1.3 % (0-4.5); HEMATOCRIT 38.6 % (35.4-49); HEMOGLOBIN 12.5 GM/dL (11.7-16.9); LYMPH % 15.5 % (8-40); MCH 28.4 pg (25.7-33.7); MCHC 32.4 g/dl (32.0-35.9); MEAN CELL VOLUME 87.8 fl (80-96); MEAN PLT VOLUME 8.9 fl (7.5-11.1); MONO % 6.9 % (3.8-10.2); NEUT % 75.9 % (42.8-82.8); PLATELET COUNT 221 10^3/uL (134-434); RDW 15.2 % (11.9-15.9); WHITE BLOOD COUNT 14.2 K/mm3 (4.0-10.0)
[2023-08-30 09:44] LABS: POTASSIUM 4.3 mmol/L (3.5-5.1)
[2023-08-30 09:46] LABS: CALCIUM 8.7 mg/dL (8.5-10.1)
[2023-08-30 09:47] LABS: ALBUMIN 3.2 g/dl (3.4-5.0); BLOOD UREA NITROGEN 14.6 mg/dL (7-18)
[2023-08-30] MEDS: PIPERACILLIN/TAZOB 4.5 GM 4.5 GM in DEXTROSE 5%-WATER 100 ML IVPB SCH ×2 (09:48→11:35)
[2023-08-30 09:50] LABS: CREATININE 0.8 mg/dL (0.55-1.3)
[2023-08-30 09:51] LABS: BILIRUBIN,TOTAL 0.6 mg/dL (0.2-1)
[2023-08-30 09:52] LABS: TOT PROT 6.6 g/dl (6.4-8.2)
[2023-08-30] MEDS: risperiDONE 0.5 MG TABLET PO SCH (10:06)
[2023-08-30] MEDS: ASPIRIN COATED 81 MG TABLET.EC PO SCH (10:06)
[2023-08-30] MEDS: DIVALPROEX SODIUM 500 MG TABLET E.C. PO SCH (10:06)
[2023-08-30] MEDS: PANTOPRAZOLE 40 MG TABLET PO SCH (10:06)
[2023-08-30] MEDS: VANCOMYCIN PREMIX 1.5 GM 1,500 MG/300 ML BAG IVPB SCH (10:07)
[2023-08-30] MEDS: NICOTINE 14 MG/24 HOURS TOPICAL PATCH TD SCH (10:09)
[2023-08-30] MEDS: VANCOMYCIN HCL 1,500 MG in DEXTROSE 5%-WATER - 250 ML IVPB SCH (11:34)
[2023-08-30] MEDS: ENALAPRIL MALEATE 5 MG TABLET PO SCH (11:45)
[2023-08-30] MEDS: FLUoxetine HCL 20 MG CAPSULE PO SCH (11:48)
[2023-08-30] MEDS: CEFTRIAXONE 1 GM in DEXTROSE 5%-WATER - 50 ML IVPB SCH (13:14)
[2023-08-30] MEDS ORDERED: DOXYCYCLINE HYCLATE 100 MG CAPSULE PO SCH (18:00)
[2023-08-30] MEDS ORDERED: ATORVASTATIN CA 80 MG TABLET (FP) PO SCH (22:00)
== END 2023-08-30 13:21 | disposition left against medical advice (07) | DRG 871 ==
LOC: JER 15:11 → JERBED 18:16 → J5S 08-30 00:50
PROVIDERS: ADMIT Internal Medicine; ATTEND Internal Medicine
DX: A41.9 Sepsis, unspecified organism (principal); J18.9 Pneumonia, unspecified organism; J96.01 Acute respiratory failure with hypoxia; J44.0 Chronic obstructive pulmonary disease with (acute) lower respiratory infection; J44.1 Chronic obstructive pulmonary disease with (acute) exacerbation; E87.20 Acidosis, unspecified; I25.10 Atherosclerotic heart disease of native coronary artery without angina pectoris; E78.5 Hyperlipidemia, unspecified; Z86.73 Personal history of transient ischemic attack (TIA), and cerebral infarction without residual deficits; F31.9 Bipolar disorder, unspecified; I10 Essential (primary) hypertension
CPT/HCPCS: 0241U-QW; 36415; 71045-TC-FY; 71250-TC; 76604; 80053; 81003; 82803; 83605; 83880; 84484; 85025; 85610; 85730; 86850; 86900; 86901; 87040; 87086; 93005; 93010; 93308; 99285-25; J0131

== ENCOUNTER 2023-11-24 03:56 | Inpatient (IN) | payer OTHER ==
[2023-11-24] MEDS ORDERED: ALBUTEROL SO4 2.5/IPRATROPIUM 0.5 INH SOL 3 ML VIAL.NEB. NEB ONE (04:11)
[2023-11-24] MEDS: ALBUTEROL SO4 2.5/IPRATROPIUM 0.5 INH SOL 3 ML VIAL.NEB. NEB SCH ×2 (04:21→14:04)
[2023-11-24] MEDS ORDERED: VANCOMYCIN 1 GRAM (PRE-DOCKED) 1,000 MG/250 ML BAG IVPB ONE (04:34)
[2023-11-24] MEDS ORDERED: PIPERACILLIN/TAZOB 4.5 GM 4.5 GM/100 ML BAG IVPB ONE (04:34)
[2023-11-24] MEDS ORDERED: ACETAMINOPHEN INJECTION 100 ML IVPB ONE (04:34)
[2023-11-24 04:40] LABS: VENOUS BASE EXCESS 0.6 mmol/L (-2-2); VENOUS O2 SATURATION 32.5 % (70-80); VENOUS PCO2 65.9 mmHg (38-52); VENOUS PH 7.271 (7.310-7.410)
[2023-11-24 04:42] LABS: BASO % 0.1 % (0-2.0); EOS % 4.8 % (0-4.5); HEMATOCRIT 42.8 % (35.4-49); HEMOGLOBIN 14.2 GM/dL (11.7-16.9); LYMPH % 15.2 % (8-40); MCH 28.4 pg (25.7-33.7); MEAN CELL VOLUME 85.9 fl (80-96); MEAN PLT VOLUME 8.3 fl (7.5-11.1); NEUT % 71.9 % (42.8-82.8); PLATELET COUNT 291 10^3/uL (134-434); RBC 4.99 M/mm3 (4.00-5.60); RDW 15.9 % (11.9-15.9)
[2023-11-24] MEDS: ACETAMINOPHEN 1000 MG/100 ML BAG IVPB ONE (04:48)
[2023-11-24 04:49] LABS: INR 1.24 (0.83-1.09); PROTHROMBIN TIME (PATIENT) 13.9 SEC (9.7-13.0)
[2023-11-24] MEDS: PIPERACILLIN/TAZOB 4.5 GM 4.5 GM in DEXTROSE 5%-WATER 100 ML IVPB ONE (04:49)
[2023-11-24 04:52] LABS: ACTIVATED PTT 35.5 SECONDS (25.2-36.5)
[2023-11-24 05:00] LABS: POTASSIUM 4.5 mmol/L (3.5-5.1)
[2023-11-24 05:02] LABS: CALCIUM 9.3 mg/dL (8.5-10.1)
[2023-11-24 05:03] LABS: BLOOD UREA NITROGEN 9.5 mg/dL (7-18)
[2023-11-24 05:05] LABS: CREATININE 0.9 mg/dL (0.55-1.3)
[2023-11-24] MEDS: VANCOMYCIN 1,000 MG in DEXTROSE 5%-WATER - 250 ML IVPB ONE (05:06)
[2023-11-24 05:07] LABS: BILIRUBIN,TOTAL 0.5 mg/dL (0.2-1); TOT PROT 6.9 g/dl (6.4-8.2)
[2023-11-24 06:11] LABS: N-TERMINAL BNP 32.8 pg/ml (5-125)
[2023-11-24] MEDS ORDERED: morphine SULFATE 4 MG/ML VIAL IVPUSH ONE (07:18)
[2023-11-24] MEDS ORDERED: KETOROLAC TROMETHAMINE 15 MG/ML VIAL ONE (07:24)
[2023-11-24] MEDS: KETOROLAC TROMETHAMINE 15 MG/ML VIAL IVPUSH ONE (07:34)
[2023-11-24] MEDS ORDERED: ALPRAZolam 2 MG TABLET PO PRN (11:43)
[2023-11-24 12:17] VITALS: BMI 34.7
[2023-11-24] MEDS: methylPREDNISolone NA SUCC 40 MG/1 ML VIAL IVPUSH SCH (12:47)
[2023-11-24] MEDS: oxyCODONE HCL 5 MG TABLET PO PRN (12:47)
[2023-11-24] MEDS ORDERED: AZITHROMYCIN IVPB 500 MG in DEXTROSE 5%-WATER - 250 ML IVPB SCH (17:00)
[2023-11-24] MEDS: CEFTRIAXONE 1 GM in DEXTROSE 5%-WATER - 50 ML IVPB SCH (17:31)
[2023-11-24] MEDS: AZITHROMYCIN IVPB 500 MG/250 ML BAG IVPB SCH (17:31)
[2023-11-24] MEDS: MAG HYDROX/AL HYDROX/SIMETH 30 ML UNIT-DOSE CUP PO ONE (20:31)
[2023-11-24] MEDS: TICAGRELOR 90 MG TABLET PO SCH (22:23)
[2023-11-24] MEDS: DIVALPROEX SODIUM 500 MG TABLET E.C. PO SCH (22:23)
[2023-11-24] MEDS: ATORVASTATIN CA 80 MG TABLET (FP) PO SCH (22:23)
[2023-11-25] MEDS: ALPRAZolam 1 MG TABLET PO PRN (00:24)
[2023-11-25 06:37] LABS: HEMOGLOBIN 13.8 GM/dL (11.7-16.9); MCHC 33.7 g/dl (32.0-35.9); MEAN CELL VOLUME 86.1 fl (80-96); PLATELET COUNT 328 10^3/uL (134-434); RBC 4.76 M/mm3 (4.00-5.60); WHITE BLOOD COUNT 13.4 K/mm3 (4.0-10.0)
[2023-11-25] MEDS: FLUoxetine HCL 20 MG CAPSULE PO SCH (09:45)
[2023-11-25] MEDS: PANTOPRAZOLE 40 MG TABLET PO SCH (09:46)
[2023-11-25] MEDS: ASPIRIN COATED 81 MG TABLET.EC PO SCH (09:46)
[2023-11-25] MEDS: NICOTINE 14 MG/24 HOURS TOPICAL PATCH TD SCH (09:46)
[2023-11-25] MEDS: risperiDONE 0.5 MG TABLET PO SCH (09:46)
[2023-11-25] MEDS: ENALAPRIL MALEATE 5 MG TABLET PO SCH (09:46)
[2023-11-25 12:54] LABS: POTASSIUM 4.7 mmol/L (3.5-5.1)
[2023-11-25 12:56] LABS: ALBUMIN 2.9 g/dl (3.4-5.0); CALCIUM 9.5 mg/dL (8.5-10.1)
[2023-11-25 12:57] LABS: BLOOD UREA NITROGEN 15.1 mg/dL (7-18)
[2023-11-25 12:59] LABS: CREATININE 0.9 mg/dL (0.55-1.3)
[2023-11-25 13:01] LABS: BILIRUBIN,TOTAL 0.2 mg/dL (0.2-1); TOT PROT 6.9 g/dl (6.4-8.2)
[2023-11-25] MEDS: ACETAMINOPHEN 325 MG TABLET (FP) PO PRN (22:13)
[2023-11-27] MEDS: AZITHROMYCIN 250 MG TABLET PO SCH (10:12)
[2023-11-27 10:25] VITALS: BP 142/68; PULSE 95; RESP 19; TEMP 97.6
== END 2023-11-27 10:27 | disposition home or self-care (01) | DRG 193 ==
LOC: JER 03:56 → JERBED 05:44 → J4S 10:58
PROVIDERS: ADMIT Family Medicine; ATTEND Family Medicine
DX: J18.9 Pneumonia, unspecified organism (principal); J96.01 Acute respiratory failure with hypoxia; J44.1 Chronic obstructive pulmonary disease with (acute) exacerbation; J44.0 Chronic obstructive pulmonary disease with (acute) lower respiratory infection; I25.10 Atherosclerotic heart disease of native coronary artery without angina pectoris; I10 Essential (primary) hypertension; E78.5 Hyperlipidemia, unspecified; F17.210 Nicotine dependence, cigarettes, uncomplicated; R07.89 Other chest pain; I65.29 Occlusion and stenosis of unspecified carotid artery; F31.9 Bipolar disorder, unspecified; B97.89 Other viral agents as the cause of diseases classified elsewhere; Z95.5 Presence of coronary angioplasty implant and graft; Z85.038 Personal history of other malignant neoplasm of large intestine
CPT/HCPCS: 0241U-QW; 36415; 71045-TC-FY; 71260-TC; 80053; 82803; 83036; 83735; 83880; 84443; 84484; 85025; 85610; 85730; 87040; 87633; 93005; 93010; 94640; 99285-25; J0131; Q9967

== ENCOUNTER 2023-12-11 23:23 | Observation (INO) | payer OTHER ==
[2023-12-11] MEDS ORDERED: ALBUTEROL SO4 2.5/IPRATROPIUM 0.5 INH SOL 3 ML VIAL.NEB. NEB ONE (23:51)
[2023-12-12] MEDS ORDERED: MAGNESIUM SULFATE IN WATER 2 GM/50 ML IVPB IVPB ONE (00:12)
[2023-12-12] MEDS: MAGNESIUM SULF 50% (8.12 MEQ/2 ML-1 GM VIAL) IVPB ONE (00:15)
[2023-12-12] MEDS ORDERED: DEXAMETHASONE SOD PHOSPHATE 10 MG/1 ML VIAL ONE (00:18)
[2023-12-12 00:24] LABS: BASO % 0.2 % (0-2.0); HEMATOCRIT 38.5 % (35.4-49); HEMOGLOBIN 12.7 GM/dL (11.7-16.9); LYMPH % 7.8 % (8-40); MCH 28.6 pg (25.7-33.7); MCHC 33.1 g/dl (32.0-35.9); MEAN CELL VOLUME 86.4 fl (80-96); MEAN PLT VOLUME 7.8 fl (7.5-11.1); MONO % 6.9 % (3.8-10.2); NEUT % 85.1 % (42.8-82.8); PLATELET COUNT 251 10^3/uL (134-434); RBC 4.46 M/mm3 (4.00-5.60); RDW 16.1 % (11.9-15.9); WHITE BLOOD COUNT 11.7 K/mm3 (4.0-10.0)
[2023-12-12] MEDS: ALBUTEROL SO4 2.5/IPRATROPIUM 0.5 INH SOL 3 ML VIAL.NEB. NEB SCH ×3 (00:27→14:50)
[2023-12-12] MEDS: DEXAMETHASONE SOD PHOSPHATE 10 MG/1 ML VIAL IVPUSH ONE (00:27)
[2023-12-12 00:33] LABS: VENOUS BASE EXCESS 0.9 mmol/L (-2-2); VENOUS O2 SATURATION 63.6 % (70-80); VENOUS PH 7.24 (7.310-7.410)
[2023-12-12 00:34] LABS: INR 1.04 (0.83-1.09); PROTHROMBIN TIME (PATIENT) 11.7 SEC (9.7-13.0)
[2023-12-12 00:37] LABS: ACTIVATED PTT 35.1 SECONDS (25.2-36.5)
[2023-12-12 00:44] LABS: POTASSIUM 4.3 mmol/L (3.5-5.1)
[2023-12-12 00:47] LABS: ALBUMIN 3.2 g/dl (3.4-5.0); BLOOD UREA NITROGEN 16.4 mg/dL (7-18); CALCIUM 9.2 mg/dL (8.5-10.1)
[2023-12-12 00:50] LABS: CREATININE 1.1 mg/dL (0.55-1.3)
[2023-12-12 00:51] LABS: BILIRUBIN,TOTAL 0.1 mg/dL (0.2-1)
[2023-12-12 00:52] LABS: TOT PROT 6.8 g/dl (6.4-8.2)
[2023-12-12 00:55] LABS: N-TERMINAL BNP 196.2 pg/ml (5-125)
[2023-12-12] MEDS ORDERED: ALBUTEROL SO4 0.083% IH SOL 2.5 MG/3 ML VIAL.NEB. NEB ONE (01:14)
[2023-12-12] MEDS: ALBUTEROL SO4 0.083% IH SOL 2.5 MG/3 ML VIAL.NEB. NEB ONE (01:18)
[2023-12-12 02:12] LABS: VENOUS BASE EXCESS 1.9 mmol/L (-2-2); VENOUS PCO2 49.3 mmHg (38-52); VENOUS PH 7.372 (7.310-7.410)
[2023-12-12] MEDS ORDERED: ACETAMINOPHEN 325 MG TABLET (FP) PO PRN (03:12)
[2023-12-12 06:21] VITALS: BMI 34.4
[2023-12-12 07:26] LABS: BASO % 0.2 % (0-2.0); HEMATOCRIT 38.2 % (35.4-49); HEMOGLOBIN 12.8 GM/dL (11.7-16.9); LYMPH % 3.8 % (8-40); MCH 28.7 pg (25.7-33.7); MCHC 33.5 g/dl (32.0-35.9); MEAN CELL VOLUME 85.7 fl (80-96); MEAN PLT VOLUME 7.6 fl (7.5-11.1); PLATELET COUNT 234 10^3/uL (134-434); RBC 4.46 M/mm3 (4.00-5.60); WHITE BLOOD COUNT 9.7 K/mm3 (4.0-10.0)
[2023-12-12 07:51] LABS: POTASSIUM 4.3 mmol/L (3.5-5.1)
[2023-12-12 07:55] LABS: BLOOD UREA NITROGEN 19.6 mg/dL (7-18); MAGNESIUM 2.1 mg/dL (1.8-2.4)
[2023-12-12 07:58] LABS: CREATININE 1.1 mg/dL (0.55-1.3)
[2023-12-12] MEDS ORDERED: ALBUTEROL SO4 HFA INHALER IH PRN (10:10)
[2023-12-12] MEDS ORDERED: ALBUTEROL SO4 0.083% IH SOL 2.5 MG/3 ML VIAL.NEB. NEB PRN (10:10)
[2023-12-12 10:38] LABS: ANISOCYTOSIS 0; HELMET CELLS 0; HOWELL-JOLLY BODIES 0; MACROCYTOSIS 0; OVALOCYTE 0; ROULEAU 0; SICKELED CELLS 0; TARGET CELLS 0; TEAR DROP CELLS 0; TOXIC GRANULATION 0
[2023-12-12] MEDS: risperiDONE 0.5 MG TABLET PO SCH (10:47)
[2023-12-12] MEDS: FLUoxetine HCL 20 MG CAPSULE PO SCH (10:47)
[2023-12-12] MEDS: TICAGRELOR 90 MG TABLET PO SCH (10:47)
[2023-12-12] MEDS: ASPIRIN COATED 81 MG TABLET.EC PO SCH (10:47)
[2023-12-12] MEDS: PANTOPRAZOLE 40 MG TABLET PO SCH (10:47)
[2023-12-12] MEDS: NICOTINE 14 MG/24 HOURS TOPICAL PATCH TD SCH (10:51)
[2023-12-12] MEDS: methylPREDNISolone NA SUCC 40 MG/1 ML VIAL IVPUSH SCH (13:51)
[2023-12-12] MEDS: ATORVASTATIN CA 80 MG TABLET (FP) PO SCH (21:51)
[2023-12-12] MEDS: DIVALPROEX SODIUM 500 MG TABLET E.C. PO SCH (21:52)
[2023-12-12] MEDS: BUDESONIDE/FORMETEROL FUMARATE 160/4.5 mcg INHALER IH SCH (21:52)
[2023-12-13 07:03] LABS: BASO % 0.3 % (0-2.0); HEMATOCRIT 37.7 % (35.4-49); HEMOGLOBIN 12.4 GM/dL (11.7-16.9); LYMPH % 4.4 % (8-40); MCH 28.2 pg (25.7-33.7); MCHC 32.8 g/dl (32.0-35.9); MEAN CELL VOLUME 85.8 fl (80-96); MEAN PLT VOLUME 8.5 fl (7.5-11.1); MONO % 3.2 % (3.8-10.2); NEUT % 92.1 % (42.8-82.8); PLATELET COUNT 226 10^3/uL (134-434); RBC 4.39 M/mm3 (4.00-5.60); RDW 15.9 % (11.9-15.9); WHITE BLOOD COUNT 12.1 K/mm3 (4.0-10.0)
[2023-12-13 07:08] LABS: POTASSIUM 4.7 mmol/L (3.5-5.1)
[2023-12-13 07:11] LABS: ALBUMIN 2.8 g/dl (3.4-5.0); BLOOD UREA NITROGEN 19.5 mg/dL (7-18)
[2023-12-13 07:14] LABS: CREATININE 0.9 mg/dL (0.55-1.3)
[2023-12-13 07:15] LABS: BILIRUBIN,TOTAL 0.2 mg/dL (0.2-1)
[2023-12-13] MEDS: ENALAPRIL MALEATE 5 MG TABLET PO SCH (09:09)
[2023-12-13 09:37] LABS: ANISOCYTOSIS 0; HELMET CELLS 0; HOWELL-JOLLY BODIES 0; MACROCYTOSIS 0; OVALOCYTE 0; ROULEAU 0; SICKELED CELLS 0; TARGET CELLS 0; TEAR DROP CELLS 0; TOXIC GRANULATION 0
[2023-12-14 07:11] LABS: BASO % 0.2 % (0-2.0); HEMOGLOBIN 12.3 GM/dL (11.7-16.9); MCH 28.3 pg (25.7-33.7); MCHC 33.2 g/dl (32.0-35.9); MEAN CELL VOLUME 85.3 fl (80-96); MEAN PLT VOLUME 8.6 fl (7.5-11.1); MONO % 4.2 % (3.8-10.2); NEUT % 88.6 % (42.8-82.8); PLATELET COUNT 219 10^3/uL (134-434); RBC 4.34 M/mm3 (4.00-5.60); RDW 15.8 % (11.9-15.9); WHITE BLOOD COUNT 14.1 K/mm3 (4.0-10.0)
[2023-12-14 07:43] LABS: POTASSIUM 4.7 mmol/L (3.5-5.1)
[2023-12-14 08:03] LABS: ALBUMIN 2.7 g/dl (3.4-5.0); CALCIUM 9.1 mg/dL (8.5-10.1)
[2023-12-14 08:04] LABS: BLOOD UREA NITROGEN 23.1 mg/dL (7-18)
[2023-12-14 08:06] LABS: CREATININE 0.8 mg/dL (0.55-1.3)
[2023-12-14 08:08] LABS: BILIRUBIN,TOTAL 0.2 mg/dL (0.2-1); TOT PROT 5.9 g/dl (6.4-8.2)
[2023-12-15 05:50] VITALS: TEMP 98.1
[2023-12-15 08:22] VITALS: BP 148/74; RESP 14
[2023-12-15 12:03] VITALS: PULSE 104
== END 2023-12-15 14:01 | disposition home or self-care (01) ==
LOC: JER 23:23 → JERBED 12-12 01:25 → INTOOBSV 12-12 01:25 → UNDOADMOB 12-12 01:25 → J4W 12-12 06:10 → JERBED 12-12 06:10 → J4W 12-13 12:16 → JERBED 12-13 12:16
PROVIDERS: ADMIT Family Medicine; ATTEND Family Medicine
PROC: 3E033NZ Introduction of Analgesics, Hypnotics, Sedatives into Peripheral Vein, Percutaneous Approach (ICD-10-PCS; principal; 2023-12-13)
PROC: 3E033GC Introduction of Other Therapeutic Substance into Peripheral Vein, Percutaneous Approach (ICD-10-PCS; 2023-12-13)
PROC: 3E0F7SF Introduction of Other Gas into Respiratory Tract, Via Natural or Artificial Opening (ICD-10-PCS; 2023-12-13)
DX: J44.1 Chronic obstructive pulmonary disease with (acute) exacerbation (principal); J96.01 Acute respiratory failure with hypoxia; R91.8 Other nonspecific abnormal finding of lung field; I10 Essential (primary) hypertension; I25.10 Atherosclerotic heart disease of native coronary artery without angina pectoris; E78.5 Hyperlipidemia, unspecified; Z85.038 Personal history of other malignant neoplasm of large intestine; Z86.13 Personal history of malaria; Z95.5 Presence of coronary angioplasty implant and graft; Z91.198 Patient's noncompliance with other medical treatment and regimen for other reason; F31.9 Bipolar disorder, unspecified; R00.0 Tachycardia, unspecified
CPT/HCPCS: 0241U-QW; 36415; 71045-TC-FY; 71250-TC; 80048; 80053; 82803; 83036; 83735; 83880; 84484; 85025; 85610; 85730; 93005; 93010; 94640; 94660; 94761; 96374; 96375; 99285-25; G0378; J1100

== ENCOUNTER 2024-01-12 00:13 | Inpatient (IN) | payer OTHER ==
[2024-01-12 00:17] VITALS: BMI 32.5
[2024-01-12] MEDS ORDERED: methylPREDNISolone NA SUCC 125 MG/2 ML VIAL ONE (00:36)
[2024-01-12] MEDS ORDERED: ALBUTEROL SO4 2.5/IPRATROPIUM 0.5 INH SOL 3 ML VIAL.NEB. NEB ONE (00:36)
[2024-01-12] MEDS: methylPREDNISolone NA SUCC 125 MG/2 ML VIAL IVPUSH ONE (00:54)
[2024-01-12] MEDS: ALBUTEROL SO4 2.5/IPRATROPIUM 0.5 INH SOL 3 ML VIAL.NEB. NEB ONE (00:54)
[2024-01-12 00:57] LABS: BASO % 0.7 % (0-2.0); EOS % 1.8 % (0-4.5); HEMATOCRIT 38.7 % (35.4-49); HEMOGLOBIN 12.9 GM/dL (11.7-16.9); LYMPH % 15.3 % (8-40); MCH 28.6 pg (25.7-33.7); MCHC 33.2 g/dl (32.0-35.9); MEAN CELL VOLUME 86.2 fl (80-96); MEAN PLT VOLUME 7.7 fl (7.5-11.1); MONO % 5.8 % (3.8-10.2); NEUT % 76.4 % (42.8-82.8); PLATELET COUNT 266 10^3/uL (134-434); RBC 4.49 M/mm3 (4.00-5.60); RDW 16.3 % (11.9-15.9); WHITE BLOOD COUNT 10.7 K/mm3 (4.0-10.0)
[2024-01-12 01:07] LABS: INR 1.07 (0.83-1.09); PROTHROMBIN TIME (PATIENT) 12.1 SEC (9.7-13.0)
[2024-01-12 01:09] LABS: ACTIVATED PTT 36.1 SECONDS (25.2-36.5); VENOUS BASE EXCESS 1.2 mmol/L (-2-2); VENOUS O2 SATURATION 22.2 % (70-80); VENOUS PCO2 58.4 mmHg (38-52); VENOUS PH 7.317 (7.310-7.410)
[2024-01-12 01:15] LABS: POTASSIUM 3.3 mmol/L (3.5-5.1)
[2024-01-12 01:17] LABS: CALCIUM 8.7 mg/dL (8.5-10.1)
[2024-01-12 01:18] LABS: ALBUMIN 3.4 g/dl (3.4-5.0); BLOOD UREA NITROGEN 8.4 mg/dL (7-18); MAGNESIUM 1.9 mg/dL (1.8-2.4)
[2024-01-12 01:21] LABS: CREATININE 0.8 mg/dL (0.55-1.3)
[2024-01-12 01:22] LABS: BILIRUBIN,TOTAL 0.4 mg/dL (0.2-1)
[2024-01-12 01:23] LABS: TOT PROT 6.6 g/dl (6.4-8.2)
[2024-01-12 01:26] LABS: N-TERMINAL BNP 58.9 pg/ml (5-125)
[2024-01-12] MEDS ORDERED: CEFTRIAXONE 1 GM/50 ML BAG ONE (01:59)
[2024-01-12] MEDS: CEFTRIAXONE 1,000 MG in DEXTROSE 5%-WATER - 50 ML IVPB ONE (02:07)
[2024-01-12] MEDS: ALBUTEROL SO4 2.5/IPRATROPIUM 0.5 INH SOL 3 ML VIAL.NEB. NEB SCH ×2 (02:07→10:09)
[2024-01-12] MEDS ORDERED: KETOROLAC TROMETHAMINE 15 MG/ML VIAL ONE (02:37)
[2024-01-12] MEDS: KETOROLAC TROMETHAMINE 15 MG/ML VIAL IVPUSH ONE (03:12)
[2024-01-12] MEDS ORDERED: DOCUSATE SODIUM 100 MG CAPSULE (FP) PO PRN (03:38)
[2024-01-12] MEDS ORDERED: ACETAMINOPHEN 1000 MG/100 ML BAG IVPB PRN (04:28)
[2024-01-12] MEDS ORDERED: ALBUTEROL SO4 0.083% IH SOL 2.5 MG/3 ML VIAL.NEB. NEB PRN (04:29)
[2024-01-12] MEDS: PANTOPRAZOLE 40 MG TABLET PO SCH (08:00)
[2024-01-12 09:31] VITALS: TEMP 98.6
[2024-01-12] MEDS: DIVALPROEX SODIUM 500 MG TABLET E.C. PO SCH (10:09)
[2024-01-12] MEDS: TICAGRELOR 90 MG TABLET PO SCH (10:09)
[2024-01-12] MEDS: risperiDONE 0.5 MG TABLET PO SCH (10:10)
[2024-01-12] MEDS: FLUoxetine HCL 20 MG CAPSULE PO SCH (10:10)
[2024-01-12] MEDS: BUDESONIDE/FORMETEROL FUMARATE 160/4.5 mcg INHALER IH SCH (10:10)
[2024-01-12] MEDS: ASPIRIN COATED 81 MG TABLET.EC PO SCH (10:10)
[2024-01-12] MEDS: ENALAPRIL MALEATE 5 MG TABLET PO SCH (10:10)
[2024-01-12] MEDS: methylPREDNISolone NA SUCC 40 MG/1 ML VIAL IVPUSH SCH (10:10)
[2024-01-12 10:15] VITALS: BP 118/62; PULSE 88; RESP 20
[2024-01-12] MEDS ORDERED: ALBUTEROL SO4 2.5/IPRATROPIUM 0.5 INH SOL 3 ML VIAL.NEB. NEB SCH (12:00)
[2024-01-12] MEDS ORDERED: ATORVASTATIN CA 80 MG TABLET (FP) PO SCH (22:00)
== END 2024-01-12 11:30 | disposition left against medical advice (07) | DRG 192 ==
LOC: JER 00:13 → JERBED 01:52 → OBSVTOIN 03:38
PROVIDERS: ADMIT Internal Medicine; ATTEND Internal Medicine
DX: J44.1 Chronic obstructive pulmonary disease with (acute) exacerbation (principal); I10 Essential (primary) hypertension; E78.5 Hyperlipidemia, unspecified; I25.10 Atherosclerotic heart disease of native coronary artery without angina pectoris; J44.9 Chronic obstructive pulmonary disease, unspecified; I69.392 Facial weakness following cerebral infarction; F31.9 Bipolar disorder, unspecified; E87.6 Hypokalemia
CPT/HCPCS: 0241U-QW; 36415; 71045-TC-FY; 80053; 82803; 83735; 83880; 84484; 85025; 85610; 85730; 93005; 93010; 94660; 99285-25; G0378

== ENCOUNTER 2024-02-19 09:32 | Emergency (ER) | payer OTHER ==
[2024-02-19 09:41] VITALS: BMI 34.0
[2024-02-19] MEDS ORDERED: ALBUTEROL SO4 2.5/IPRATROPIUM 0.5 INH SOL 3 ML VIAL.NEB. NEB ONE (11:20)
[2024-02-19] MEDS ORDERED: methylPREDNISolone NA SUCC 125 MG/2 ML VIAL ONE (11:20)
[2024-02-19 11:24] LABS: VENOUS BASE EXCESS 3.2 mmol/L (-2-2); VENOUS O2 SATURATION 63.9 % (70-80); VENOUS PCO2 45.3 mmHg (38-52); VENOUS PH 7.415 (7.310-7.410)
[2024-02-19] MEDS: ALBUTEROL SO4 2.5/IPRATROPIUM 0.5 INH SOL 3 ML VIAL.NEB. NEB SCH (11:25)
[2024-02-19] MEDS: methylPREDNISolone NA SUCC 125 MG/2 ML VIAL IVPB ONE (11:26)
[2024-02-19 11:29] LABS: HEMATOCRIT 40.7 % (35.4-49); HEMOGLOBIN 13.9 GM/dL (11.7-16.9); MCH 28.9 pg (25.7-33.7); MCHC 34.1 g/dl (32.0-35.9); MEAN CELL VOLUME 84.8 fl (80-96); MEAN PLT VOLUME 8.1 fl (7.5-11.1); PLATELET COUNT 245 10^3/uL (134-434); RDW 16.8 % (11.9-15.9); WHITE BLOOD COUNT 9.1 K/mm3 (4.0-10.0)
[2024-02-19 11:32] LABS: INR 1.07 (0.83-1.09); PROTHROMBIN TIME (PATIENT) 12.1 SEC (9.7-13.0)
[2024-02-19 11:53] LABS: POTASSIUM 4.9 mmol/L (3.5-5.1)
[2024-02-19 11:54] LABS: CALCIUM 9.8 mg/dL (8.5-10.1)
[2024-02-19 11:55] LABS: ALBUMIN 3.4 g/dl (3.4-5.0); BLOOD UREA NITROGEN 17.8 mg/dL (7-18)
[2024-02-19 12:00] LABS: BILIRUBIN,TOTAL 0.6 mg/dL (0.2-1); TOT PROT 7.1 g/dl (6.4-8.2)
[2024-02-19 12:18] LABS: ANISOCYTOSIS 0; HELMET CELLS 0; HOWELL-JOLLY BODIES 0; MACROCYTOSIS 0; OVALOCYTE 0; ROULEAU 0; SICKELED CELLS 0; TARGET CELLS 0; TEAR DROP CELLS 0; TOXIC GRANULATION 0
[2024-02-19 13:40] VITALS: BP 141/71; PULSE 86; RESP 19; TEMP 98.6
== END 2024-02-19 13:40 | disposition home or self-care (01) ==
LOC: JER 09:32
PROC: 3E033GC Introduction of Other Therapeutic Substance into Peripheral Vein, Percutaneous Approach (ICD-10-PCS; principal; 2024-02-19)
PROC: 3E0F7GC Introduction of Other Therapeutic Substance into Respiratory Tract, Via Natural or Artificial Opening (ICD-10-PCS; 2024-02-19)
DX: R06.02 Shortness of breath (principal); R07.89 Other chest pain; R09.81 Nasal congestion; R05.3 Chronic cough; R00.2 Palpitations; Z20.822 Contact with and (suspected) exposure to COVID-19
CPT/HCPCS: 0241U-QW; 36415; 71046-TC-FY; 80053; 82803; 84484; 85025; 85610; 85730; 93005; 93010; 94640; 96374; 99285-25

== ENCOUNTER 2024-03-03 08:12 | Emergency (ER) | payer OTHER ==
[2024-03-03 08:21] VITALS: BP 151/76; PULSE 85; RESP 16; TEMP 98.2; BMI 35.2
[2024-03-03 09:41] LABS: BASO % 0.1 % (0-2.0); EOS % 2.6 % (0-4.5); HEMATOCRIT 35.4 % (35.4-49); HEMOGLOBIN 11.8 GM/dL (11.7-16.9); LYMPH % 12.7 % (8-40); MCH 28.7 pg (25.7-33.7); MCHC 33.4 g/dl (32.0-35.9); MEAN PLT VOLUME 7.7 fl (7.5-11.1); MONO % 4.9 % (3.8-10.2); NEUT % 79.7 % (42.8-82.8); PLATELET COUNT 236 10^3/uL (134-434); RBC 4.12 M/mm3 (4.00-5.60); RDW 17.2 % (11.9-15.9); WHITE BLOOD COUNT 9.7 K/mm3 (4.0-10.0)
[2024-03-03 09:47] LABS: INR 0.96 (0.83-1.09)
[2024-03-03 09:50] LABS: ACTIVATED PTT 31.4 SECONDS (25.2-36.5)
[2024-03-03 10:09] LABS: POTASSIUM 3.8 mmol/L (3.5-5.1)
[2024-03-03 10:10] LABS: CALCIUM 8.6 mg/dL (8.5-10.1)
[2024-03-03 10:12] LABS: BLOOD UREA NITROGEN 13.7 mg/dL (7-18)
[2024-03-03] MEDS: SODIUM CHLORIDE 1,000 ML IV SCH (10:12)
[2024-03-03 10:14] LABS: CREATININE 0.8 mg/dL (0.55-1.3)
[2024-03-03 10:16] LABS: TOT PROT 5.6 g/dl (6.4-8.2)
[2024-03-03 10:17] LABS: BILIRUBIN,TOTAL 0.2 mg/dL (0.2-1)
== END 2024-03-03 12:04 | disposition left against medical advice (07) ==
LOC: JER 08:12
DX: R20.0 Anesthesia of skin (principal); R20.1 Hypoesthesia of skin; R42 Dizziness and giddiness
CPT/HCPCS: 36415; 70450-TC; 70496-TC; 70498-TC; 71045-TC-FY; 80053; 80061; 82550; 82553; 82962; 83036; 84484; 85025; 85610; 85730; 86850; 86900; 86901; 93005; 93010; 99285-25

== ENCOUNTER 2024-03-03 15:01 | Observation (INO) | payer OTHER ==
[2024-03-03 15:31] VITALS: BMI 34.0
[2024-03-03] MEDS: HEPARIN NA (PORCINE) 5,000 UNITS/ML 1ML VIAL SQ SCH (21:59)
[2024-03-03] MEDS: ATORVASTATIN CA 80 MG TABLET (FP) PO SCH (21:59)
[2024-03-04] MEDS: LORazepam 1 MG TABLET PO ONE (01:11)
[2024-03-04 02:01] VITALS: BP 140/73; PULSE 80; RESP 18; TEMP 98.2
[2024-03-04] MEDS: methaDONE HCL 10 MG TABLET PO ONE (03:48)
[2024-03-04] MEDS ORDERED: ENALAPRIL MALEATE 5 MG TABLET PO SCH (10:00)
[2024-03-04] MEDS ORDERED: ASPIRIN COATED 81 MG TABLET.EC PO SCH (10:00)
[2024-03-04] MEDS ORDERED: risperiDONE 0.5 MG TABLET PO SCH (10:00)
== END 2024-03-04 06:00 | disposition left against medical advice (07) ==
LOC: JER 15:01 → JERBED 16:05 → J6S 20:16 → J4W 20:27
PROVIDERS: ADMIT Internal Medicine; ATTEND Internal Medicine
PROC: 3E023GC Introduction of Other Therapeutic Substance into Muscle, Percutaneous Approach (ICD-10-PCS; principal; 2024-03-03)
DX: I25.10 Atherosclerotic heart disease of native coronary artery without angina pectoris (principal); R07.9 Chest pain, unspecified; F31.9 Bipolar disorder, unspecified; J44.9 Chronic obstructive pulmonary disease, unspecified; E78.5 Hyperlipidemia, unspecified; I11.9 Hypertensive heart disease without heart failure; F17.200 Nicotine dependence, unspecified, uncomplicated
CPT/HCPCS: 36415; 70450-TC; 70496-TC; 70498-TC; 71045-TC-FY; 80053; 80061; 82550; 82553; 82962; 83036; 84484; 85025; 85610; 85730; 86850; 86900; 86901; 93005; 93010; 96372; 99285-25; G0378; J1644

== ENCOUNTER 2024-03-18 09:38 | Emergency (ER) | payer OTHER ==
[2024-03-18 09:44] VITALS: BMI 34.0
[2024-03-18] MEDS: ALBUTEROL SO4 2.5/IPRATROPIUM 0.5 INH SOL 3 ML VIAL.NEB. NEB ONE (10:41)
[2024-03-18] MEDS ORDERED: ALBUTEROL SO4 2.5/IPRATROPIUM 0.5 INH SOL 3 ML VIAL.NEB. NEB ONE (10:42)
[2024-03-18 11:02] LABS: EOS % 0.9 % (0-4.5); HEMATOCRIT 38.3 % (35.4-49); HEMOGLOBIN 13.1 GM/dL (11.7-16.9); LYMPH % 17.7 % (8-40); MCH 29.9 pg (25.7-33.7); MCHC 34.3 g/dl (32.0-35.9); MEAN CELL VOLUME 87.4 fl (80-96); MEAN PLT VOLUME 7.4 fl (7.5-11.1); MONO % 6.4 % (3.8-10.2); PLATELET COUNT 199 10^3/uL (134-434); RBC 4.39 M/mm3 (4.00-5.60); RDW 17.2 % (11.9-15.9); WHITE BLOOD COUNT 9.6 K/mm3 (4.0-10.0)
[2024-03-18 11:25] LABS: POTASSIUM 3.6 mmol/L (3.5-5.1)
[2024-03-18 11:28] LABS: ALBUMIN 3.1 g/dl (3.4-5.0); BLOOD UREA NITROGEN 16.7 mg/dL (7-18); CALCIUM 8.6 mg/dL (8.5-10.1)
[2024-03-18 11:31] LABS: CREATININE 0.9 mg/dL (0.55-1.3)
[2024-03-18 11:33] LABS: BILIRUBIN,TOTAL 0.5 mg/dL (0.2-1); TOT PROT 5.8 g/dl (6.4-8.2)
[2024-03-18 12:07] VITALS: BP 145/75; PULSE 86; RESP 16; TEMP 98
== END 2024-03-18 12:07 | disposition home or self-care (01) ==
LOC: JER 09:38
PROC: 3E0F7GC Introduction of Other Therapeutic Substance into Respiratory Tract, Via Natural or Artificial Opening (ICD-10-PCS; principal; 2024-03-18)
DX: R06.02 Shortness of breath (principal)
CPT/HCPCS: 36415; 71045-TC-FY; 80053; 84484; 85025; 93005; 93010; 94640; 99285-25

== ENCOUNTER 2024-04-01 03:46 | Emergency (ER) | payer OTHER ==
[2024-04-01] MEDS: SODIUM CHLORIDE 0.9% 500 ML INFUS.BAG IV ONE (04:28)
[2024-04-01] MEDS ORDERED: ONDANSETRON 4 MG/2 ML VIAL ONE (04:30)
[2024-04-01] MEDS: ONDANSETRON 4 MG/2 ML VIAL IVPUSH ONE (04:36)
[2024-04-01] MEDS: LORazepam 2 MG/ML SDV VIAL IVPUSH ONE ×2 (04:36→04:45)
[2024-04-01 04:47] LABS: BASO % 0.4 % (0-2.0); HEMOGLOBIN 12.8 GM/dL (11.7-16.9); LYMPH % 19.6 % (8-40); MCH 29.6 pg (25.7-33.7); MCHC 33.5 g/dl (32.0-35.9); MEAN CELL VOLUME 88.3 fl (80-96); MEAN PLT VOLUME 7.6 fl (7.5-11.1); MONO % 7.4 % (3.8-10.2); NEUT % 71.6 % (42.8-82.8); PLATELET COUNT 214 10^3/uL (134-434); RBC 4.31 M/mm3 (4.00-5.60); WHITE BLOOD COUNT 8.4 K/mm3 (4.0-10.0)
[2024-04-01 04:51] VITALS: BP 159/79; PULSE 87; RESP 19; TEMP 97.7; BMI 34.0
[2024-04-01 05:36] LABS: POTASSIUM 3.7 mmol/L (3.5-5.1)
[2024-04-01 05:39] LABS: ALBUMIN 3.2 g/dl (3.4-5.0); BLOOD UREA NITROGEN 16.6 mg/dL (7-18); CALCIUM 8.9 mg/dL (8.5-10.1)
[2024-04-01 05:42] LABS: CREATININE 0.9 mg/dL (0.55-1.3)
[2024-04-01 05:43] LABS: TOT PROT 5.9 g/dl (6.4-8.2)
[2024-04-01 06:06] LABS: BILIRUBIN,TOTAL 0.3 mg/dL (0.2-1)
== END 2024-04-01 05:04 | disposition left against medical advice (07) ==
LOC: JER 03:46
PROC: 3E033GC Introduction of Other Therapeutic Substance into Peripheral Vein, Percutaneous Approach (ICD-10-PCS; principal; 2024-04-01)
PROC: 3E033GC Introduction of Other Therapeutic Substance into Peripheral Vein, Percutaneous Approach (ICD-10-PCS; 2024-04-01)
DX: R56.9 Unspecified convulsions (principal)
CPT/HCPCS: 36415; 71045-TC-FY; 80053; 82962; 83735; 84484; 85025; 96374; 96375; 99284-25

== ENCOUNTER 2024-04-02 19:16 | Emergency (ER) | payer OTHER ==
[2024-04-02 19:30] VITALS: TEMP 99; BMI 34.0
[2024-04-02] MEDS ORDERED: ALBUTEROL SO4 2.5/IPRATROPIUM 0.5 INH SOL 3 ML VIAL.NEB. NEB ONE ×3 (20:19→21:00)
[2024-04-02] MEDS: ALBUTEROL SO4 2.5/IPRATROPIUM 0.5 INH SOL 3 ML VIAL.NEB. NEB SCH (20:45)
[2024-04-02 20:53] LABS: VENOUS BASE EXCESS -0.1 mmol/L (-2-2); VENOUS O2 SATURATION 81.9 % (70-80); VENOUS PCO2 44.6 mmHg (38-52); VENOUS PH 7.374 (7.310-7.410)
[2024-04-02] MEDS ORDERED: DEXAMETHASONE SOD PHOSPHATE 10 MG/1 ML VIAL ONE (20:54)
[2024-04-02 20:58] LABS: BASO % 0.5 % (0-2.0); EOS % 0.8 % (0-4.5); HEMATOCRIT 38.5 % (35.4-49); HEMOGLOBIN 13.1 GM/dL (11.7-16.9); LYMPH % 15.2 % (8-40); MCHC 34.1 g/dl (32.0-35.9); MEAN CELL VOLUME 87.9 fl (80-96); MEAN PLT VOLUME 7.6 fl (7.5-11.1); MONO % 8.7 % (3.8-10.2); NEUT % 74.8 % (42.8-82.8); PLATELET COUNT 218 10^3/uL (134-434); RBC 4.38 M/mm3 (4.00-5.60); RDW 16.6 % (11.9-15.9); WHITE BLOOD COUNT 10.2 K/mm3 (4.0-10.0)
[2024-04-02] MEDS: DEXAMETHASONE SOD PHOSPHATE 10 MG/1 ML VIAL IVPUSH ONE (21:02)
[2024-04-02 21:08] LABS: POTASSIUM 3.4 mmol/L (3.5-5.1)
[2024-04-02 21:10] LABS: CALCIUM 8.5 mg/dL (8.5-10.1)
[2024-04-02 21:11] LABS: ALBUMIN 3.2 g/dl (3.4-5.0)
[2024-04-02 21:14] LABS: CREATININE 1.2 mg/dL (0.55-1.3)
[2024-04-02 21:15] LABS: BILIRUBIN,TOTAL 0.3 mg/dL (0.2-1)
[2024-04-02 21:16] LABS: TOT PROT 6.1 g/dl (6.4-8.2)
[2024-04-02] MEDS ORDERED: POTASSIUM CHLORIDE TABS 20 MEQ TABLET.ER (FP) PO ONE (21:33)
[2024-04-02] MEDS: POTASSIUM CHLORIDE TABS 20 MEQ TABLET.ER (FP) PO ONE (21:36)
[2024-04-02 22:51] VITALS: BP 128/75
[2024-04-02 22:52] VITALS: PULSE 93; RESP 16
== END 2024-04-02 22:57 | disposition home or self-care (01) ==
LOC: JER 19:16
PROC: 3E033GC Introduction of Other Therapeutic Substance into Peripheral Vein, Percutaneous Approach (ICD-10-PCS; principal; 2024-04-02)
PROC: 3E0F7GC Introduction of Other Therapeutic Substance into Respiratory Tract, Via Natural or Artificial Opening (ICD-10-PCS; 2024-04-02)
DX: J44.1 Chronic obstructive pulmonary disease with (acute) exacerbation (principal); R06.02 Shortness of breath; R07.89 Other chest pain; Z20.822 Contact with and (suspected) exposure to COVID-19
CPT/HCPCS: 0241U-QW; 36415; 71045-TC-FY; 80053; 82803; 83735; 83880; 84484; 85025; 93005; 93010; 94640; 96374; 99285-25; J1100

== ENCOUNTER 2024-04-12 14:56 | Emergency (ER) | payer OTHER ==
[2024-04-12 15:06] VITALS: TEMP 98; BMI 34.0
[2024-04-12 17:21] LABS: BASO % 0.7 % (0-2.0); EOS % 1.9 % (0-4.5); HEMATOCRIT 39.6 % (35.4-49); HEMOGLOBIN 13.1 GM/dL (11.7-16.9); LYMPH % 27.5 % (8-40); MCH 29.2 pg (25.7-33.7); MCHC 33.2 g/dl (32.0-35.9); MEAN CELL VOLUME 88.1 fl (80-96); MEAN PLT VOLUME 7.7 fl (7.5-11.1); MONO % 9.2 % (3.8-10.2); NEUT % 60.7 % (42.8-82.8); PLATELET COUNT 239 10^3/uL (134-434); RBC 4.49 M/mm3 (4.00-5.60); RDW 16.4 % (11.9-15.9); WHITE BLOOD COUNT 6.8 K/mm3 (4.0-10.0)
[2024-04-12 17:27] LABS: INR 0.99 (0.83-1.09); PROTHROMBIN TIME (PATIENT) 11.4 SEC (9.7-13.0)
[2024-04-12 17:30] LABS: ACTIVATED PTT 36.9 SECONDS (25.2-36.5)
[2024-04-12] MEDS ORDERED: methylPREDNISolone NA SUCC 125 MG/2 ML VIAL ONE (17:44)
[2024-04-12] MEDS ORDERED: ALBUTEROL SO4 2.5/IPRATROPIUM 0.5 INH SOL 3 ML VIAL.NEB. NEB ONE (17:44)
[2024-04-12 17:45] LABS: CALCIUM 9.3 mg/dL (8.5-10.1)
[2024-04-12 17:46] LABS: ALBUMIN 3.3 g/dl (3.4-5.0)
[2024-04-12 17:50] LABS: BILIRUBIN,TOTAL 0.2 mg/dL (0.2-1); TOT PROT 6.4 g/dl (6.4-8.2)
[2024-04-12] MEDS: ALBUTEROL SO4 2.5/IPRATROPIUM 0.5 INH SOL 3 ML VIAL.NEB. NEB SCH (17:54)
[2024-04-12] MEDS: methylPREDNISolone NA SUCC 125 MG/2 ML VIAL IVPB ONE (17:54)
[2024-04-12 18:56] VITALS: BP 128/73; RESP 18
[2024-04-12 19:19] VITALS: PULSE 76
== END 2024-04-12 19:00 | disposition home or self-care (01) ==
LOC: JER 14:56
PROC: 3E033NZ Introduction of Analgesics, Hypnotics, Sedatives into Peripheral Vein, Percutaneous Approach (ICD-10-PCS; principal; 2024-04-12)
PROC: 3E0F7GC Introduction of Other Therapeutic Substance into Respiratory Tract, Via Natural or Artificial Opening (ICD-10-PCS; 2024-04-12)
DX: J44.9 Chronic obstructive pulmonary disease, unspecified (principal); R06.02 Shortness of breath; Z20.822 Contact with and (suspected) exposure to COVID-19
CPT/HCPCS: 0241U-QW; 36415; 71045-TC-FY; 80053; 84484; 85025; 85610; 85730; 93005; 93010; 94640; 96374; 99285-25

== ENCOUNTER 2024-04-14 04:15 | Emergency (ER) | payer OTHER ==
[2024-04-14 04:28] VITALS: BP 114/80; PULSE 92; RESP 18; TEMP 98.5; BMI 32.5
== END 2024-04-14 05:30 | disposition home or self-care (01) ==
LOC: JER 04:15
DX: R06.02 Shortness of breath (principal)
CPT/HCPCS: 99283-25

== ENCOUNTER 2024-04-18 22:08 | Emergency (ER) | payer OTHER ==
[2024-04-18 22:14] VITALS: RESP 18; BMI 34.0
[2024-04-18 23:46] LABS: BASO % 0.5 % (0-2.0); EOS % 2.1 % (0-4.5); HEMATOCRIT 38.6 % (35.4-49); HEMOGLOBIN 12.8 GM/dL (11.7-16.9); LYMPH % 28.7 % (8-40); MCH 29.6 pg (25.7-33.7); MCHC 33.1 g/dl (32.0-35.9); MEAN CELL VOLUME 89.3 fl (80-96); MEAN PLT VOLUME 7.6 fl (7.5-11.1); NEUT % 60.7 % (42.8-82.8); PLATELET COUNT 273 10^3/uL (134-434); RBC 4.32 M/mm3 (4.00-5.60); RDW 16.6 % (11.9-15.9); WHITE BLOOD COUNT 8.7 K/mm3 (4.0-10.0)
[2024-04-19 00:05] LABS: POTASSIUM 4.2 mmol/L (3.5-5.1)
[2024-04-19 00:07] LABS: CALCIUM 9.1 mg/dL (8.5-10.1)
[2024-04-19 00:08] LABS: ALBUMIN 3.2 g/dl (3.4-5.0); BLOOD UREA NITROGEN 18.8 mg/dL (7-18)
[2024-04-19 00:08] LABS: MAGNESIUM 2.1 mg/dL (1.8-2.4)
[2024-04-19 00:11] LABS: CREATININE 1.1 mg/dL (0.55-1.3)
[2024-04-19 00:12] LABS: BILIRUBIN,TOTAL 0.2 mg/dL (0.2-1)
[2024-04-19 01:28] VITALS: BP 138/78; PULSE 76; TEMP 98.4
== END 2024-04-19 01:29 | disposition home or self-care (01) ==
LOC: JER 22:08
DX: R06.02 Shortness of breath (principal); R00.2 Palpitations; F11.10 Opioid abuse, uncomplicated; R07.89 Other chest pain; J44.9 Chronic obstructive pulmonary disease, unspecified; F17.210 Nicotine dependence, cigarettes, uncomplicated
CPT/HCPCS: 36415; 71046-TC-FY; 80053; 83735; 84439; 84443; 84484; 85025; 93005; 93010; 99285-25

== ENCOUNTER 2024-04-20 19:09 | Emergency (ER) | payer OTHER ==
[2024-04-20 19:16] VITALS: BP 141/71; PULSE 87; RESP 18; TEMP 98.2; BMI 33.6
[2024-04-20] MEDS ORDERED: predniSONE 20 MG TABLET (UD) ONE (19:57)
[2024-04-20] MEDS ORDERED: ALBUTEROL SO4 2.5/IPRATROPIUM 0.5 INH SOL 3 ML VIAL.NEB. NEB ONE (19:58)
[2024-04-20] MEDS: predniSONE 20 MG TABLET (UD) PO ONE (20:07)
[2024-04-20] MEDS: ALBUTEROL SO4 2.5/IPRATROPIUM 0.5 INH SOL 3 ML VIAL.NEB. NEB SCH (20:07)
== END 2024-04-20 20:53 | disposition home or self-care (01) ==
LOC: JER 19:09
PROC: 3E0F7GC Introduction of Other Therapeutic Substance into Respiratory Tract, Via Natural or Artificial Opening (ICD-10-PCS; principal; 2024-04-20)
DX: R06.02 Shortness of breath (principal); J44.1 Chronic obstructive pulmonary disease with (acute) exacerbation
CPT/HCPCS: 99283-25

== ENCOUNTER 2024-04-21 06:09 | Emergency (ER) | payer OTHER ==
[2024-04-21 06:16] VITALS: BP 162/79; PULSE 115; RESP 20; TEMP 99; BMI 33.7
[2024-04-21] MEDS ORDERED: ALBUTEROL SO4 2.5/IPRATROPIUM 0.5 INH SOL 3 ML VIAL.NEB. NEB ONE (06:36)
[2024-04-21] MEDS: ALBUTEROL SO4 2.5/IPRATROPIUM 0.5 INH SOL 3 ML VIAL.NEB. NEB SCH (06:38)
[2024-04-21] MEDS ORDERED: predniSONE 20 MG TABLET (UD) ONE (08:42)
[2024-04-21] MEDS: predniSONE 20 MG TABLET (UD) PO ONE (08:43)
== END 2024-04-21 08:47 | disposition home or self-care (01) ==
LOC: JER 06:09
PROC: 3E0F7GC Introduction of Other Therapeutic Substance into Respiratory Tract, Via Natural or Artificial Opening (ICD-10-PCS; principal; 2024-04-21)
DX: R06.02 Shortness of breath (principal)
CPT/HCPCS: 94640; 99283-25

== ENCOUNTER 2024-04-22 22:50 | Emergency (ER) | payer OTHER ==
[2024-04-22 23:01] VITALS: BMI 31.7
[2024-04-22] MEDS ORDERED: ALBUTEROL SO4 2.5/IPRATROPIUM 0.5 INH SOL 3 ML VIAL.NEB. NEB ONE (23:45)
[2024-04-22] MEDS: ALBUTEROL SO4 2.5/IPRATROPIUM 0.5 INH SOL 3 ML VIAL.NEB. NEB SCH (23:52)
[2024-04-22] MEDS ORDERED: NALOXONE (NYS OPIOID OVERDOSE PROGRAM) 4 MG/0.1 ML SPRAY NS ONE (23:57)
[2024-04-23] MEDS ORDERED: methylPREDNISolone NA SUCC 125 MG/2 ML VIAL ONE (00:10)
[2024-04-23] MEDS: methylPREDNISolone NA SUCC 125 MG/2 ML VIAL IVPUSH ONE (00:27)
[2024-04-23 00:39] LABS: BASO % 0.4 % (0-2.0); EOS % 0.1 % (0-4.5); HEMOGLOBIN 12.9 GM/dL (11.7-16.9); LYMPH % 9.8 % (8-40); MCH 29.4 pg (25.7-33.7); MEAN CELL VOLUME 89.3 fl (80-96); MEAN PLT VOLUME 8.2 fl (7.5-11.1); NEUT % 85.7 % (42.8-82.8); PLATELET COUNT 265 10^3/uL (134-434); RBC 4.37 M/mm3 (4.00-5.60); RDW 16.5 % (11.9-15.9); VENOUS BASE EXCESS 5.7 mmol/L (-2-2); VENOUS O2 SATURATION 68.8 % (70-80); VENOUS PCO2 64.7 mmHg (38-52); VENOUS PH 7.334 (7.310-7.410); WHITE BLOOD COUNT 10.2 K/mm3 (4.0-10.0)
[2024-04-23 01:06] LABS: POTASSIUM 4.8 mmol/L (3.5-5.1)
[2024-04-23 01:08] LABS: CALCIUM 9.2 mg/dL (8.5-10.1)
[2024-04-23 01:09] LABS: BLOOD UREA NITROGEN 19.8 mg/dL (7-18)
[2024-04-23 01:13] LABS: ALBUMIN 3.2 g/dl (3.4-5.0); BILIRUBIN,TOTAL 0.2 mg/dL (0.2-1)
[2024-04-23 01:15] LABS: TOT PROT 6.2 g/dl (6.4-8.2)
[2024-04-23 01:16] LABS: CREATININE 0.9 mg/dL (0.55-1.3)
[2024-04-23 01:19] VITALS: BP 127/77; PULSE 79; RESP 18; TEMP 97
[2024-04-23 01:49] LABS: N-TERMINAL BNP 147.9 pg/ml (5-125)
== END 2024-04-23 03:35 | disposition home or self-care (01) ==
LOC: JER 22:50
PROC: 3E033GC Introduction of Other Therapeutic Substance into Peripheral Vein, Percutaneous Approach (ICD-10-PCS; principal; 2024-04-22)
PROC: 3E0F7GC Introduction of Other Therapeutic Substance into Respiratory Tract, Via Natural or Artificial Opening (ICD-10-PCS; 2024-04-22)
DX: R06.02 Shortness of breath (principal); J44.1 Chronic obstructive pulmonary disease with (acute) exacerbation
CPT/HCPCS: 36415; 71046-TC-FY; 80053; 82803; 83880; 84484; 85025; 90471; 93005; 93010; 94640; 96374; 99285-25

== ENCOUNTER 2024-04-24 08:24 | Emergency (ER) | payer OTHER ==
[2024-04-24 08:30] VITALS: BP 156/68; TEMP 97.7; BMI 34.0
[2024-04-24 08:57] LABS: VENOUS BASE EXCESS 2.2 mmol/L (-2-2); VENOUS PCO2 57.4 mmHg (38-52); VENOUS PH 7.33 (7.310-7.410)
[2024-04-24] MEDS ORDERED: NALOXONE HCL 0.4 MG/ML VIAL ONE (09:01)
[2024-04-24] MEDS ORDERED: methylPREDNISolone NA SUCC 125 MG/2 ML VIAL ONE (09:01)
[2024-04-24] MEDS ORDERED: ALBUTEROL SO4 2.5/IPRATROPIUM 0.5 INH SOL 3 ML VIAL.NEB. NEB ONE (09:01)
[2024-04-24 09:10] VITALS: PULSE 65; RESP 10
[2024-04-24 09:11] LABS: INR 0.87 (0.83-1.09)
[2024-04-24 09:13] LABS: ACTIVATED PTT 26.5 SECONDS (25.2-36.5)
[2024-04-24 09:15] LABS: BASO % 0.3 % (0-2.0); EOS % 0.3 % (0-4.5); HEMATOCRIT 40.5 % (35.4-49); HEMOGLOBIN 13.2 GM/dL (11.7-16.9); LYMPH % 14.9 % (8-40); MCH 29.7 pg (25.7-33.7); MCHC 32.5 g/dl (32.0-35.9); MEAN CELL VOLUME 91.1 fl (80-96); MEAN PLT VOLUME 8.6 fl (7.5-11.1); MONO % 2.4 % (3.8-10.2); NEUT % 82.1 % (42.8-82.8); PLATELET COUNT 256 10^3/uL (134-434); RBC 4.44 M/mm3 (4.00-5.60); RDW 16.6 % (11.9-15.9); WHITE BLOOD COUNT 13.9 K/mm3 (4.0-10.0)
[2024-04-24] MEDS: methylPREDNISolone NA SUCC 125 MG/2 ML VIAL IVPUSH ONE (09:15)
[2024-04-24] MEDS: ALBUTEROL SO4 2.5/IPRATROPIUM 0.5 INH SOL 3 ML VIAL.NEB. NEB SCH (09:15)
[2024-04-24 09:21] LABS: POTASSIUM 3.7 mmol/L (3.5-5.1)
[2024-04-24] MEDS: NALOXONE HCL 0.4 MG/ML VIAL IVPUSH ONE ×3 (09:22)
[2024-04-24 09:23] LABS: ALBUMIN 3.4 g/dl (3.4-5.0); BLOOD UREA NITROGEN 21.3 mg/dL (7-18); CALCIUM 9.1 mg/dL (8.5-10.1)
[2024-04-24 09:27] LABS: CREATININE 0.9 mg/dL (0.55-1.3)
[2024-04-24 09:28] LABS: BILIRUBIN,TOTAL 0.2 mg/dL (0.2-1); TOT PROT 6.3 g/dl (6.4-8.2)
[2024-04-24 09:31] LABS: N-TERMINAL BNP 224.9 pg/ml (5-125)
[2024-04-24] MEDS ORDERED: AZITHROMYCIN IVPB 500 MG/250 ML BAG IVPB ONE (10:56)
[2024-04-24] MEDS: AZITHROMYCIN IVPB 500 MG in DEXTROSE 5%-WATER - 250 ML IVPB ONE (11:05)
== END 2024-04-24 14:46 | disposition home or self-care (01) ==
LOC: JER 08:24
PROC: 3E03329 Introduction of Other Anti-infective into Peripheral Vein, Percutaneous Approach (ICD-10-PCS; principal; 2024-04-24)
PROC: 3E033GC Introduction of Other Therapeutic Substance into Peripheral Vein, Percutaneous Approach (ICD-10-PCS; 2024-04-24)
PROC: 3E033GC Introduction of Other Therapeutic Substance into Peripheral Vein, Percutaneous Approach (ICD-10-PCS; 2024-04-24)
PROC: 3E0F7GC Introduction of Other Therapeutic Substance into Respiratory Tract, Via Natural or Artificial Opening (ICD-10-PCS; 2024-04-24)
DX: R06.02 Shortness of breath (principal); J44.1 Chronic obstructive pulmonary disease with (acute) exacerbation; F17.210 Nicotine dependence, cigarettes, uncomplicated; Z20.822 Contact with and (suspected) exposure to COVID-19
CPT/HCPCS: 0241U-QW; 36415; 71045-TC-FY; 80053; 82803; 83735; 83880; 85025; 85610; 85730; 86850; 86900; 86901; 93005; 93010; 94640; 96365; 96375; 99285-25

== ENCOUNTER 2024-07-04 20:59 | Emergency (ER) | payer OTHER ==
[2024-07-04 21:05] VITALS: RESP 24; TEMP 97.7; BMI 34.0
[2024-07-04] MEDS: predniSONE 20 MG TABLET (UD) PO ONE (22:49)
[2024-07-04] MEDS ORDERED: methylPREDNISolone NA SUCC 125 MG/2 ML VIAL ONE (22:50)
[2024-07-04] MEDS ORDERED: ALBUTEROL SO4 2.5/IPRATROPIUM 0.5 INH SOL 3 ML VIAL.NEB. NEB ONE (22:50)
[2024-07-04] MEDS: methylPREDNISolone NA SUCC 125 MG/2 ML VIAL IVPB ONE (23:11)
[2024-07-04] MEDS: ALBUTEROL SO4 2.5/IPRATROPIUM 0.5 INH SOL 3 ML VIAL.NEB. NEB SCH (23:11)
[2024-07-04 23:13] LABS: BASO % 0.4 % (0-2.0); EOS % 4.9 % (0-4.5); HEMATOCRIT 42.2 % (35.4-49); LYMPH % 25.1 % (8-40); MCHC 33.1 g/dl (32.0-35.9); MEAN CELL VOLUME 87.5 fl (80-96); MEAN PLT VOLUME 8.6 fl (7.5-11.1); NEUT % 63.6 % (42.8-82.8); PLATELET COUNT 217 10^3/uL (134-434); RBC 4.82 M/mm3 (4.00-5.60); RDW 14.9 % (11.9-15.9); WHITE BLOOD COUNT 7.4 K/mm3 (4.0-10.0)
[2024-07-04 23:21] LABS: INR 1.06 (0.83-1.09); PROTHROMBIN TIME (PATIENT) 12.2 SEC (9.7-13.0)
[2024-07-04 23:23] LABS: ACTIVATED PTT 36.8 SECONDS (25.2-36.5)
[2024-07-04 23:33] LABS: POTASSIUM 3.8 mmol/L (3.5-5.1)
[2024-07-04 23:35] LABS: CALCIUM 9.4 mg/dL (8.5-10.1)
[2024-07-04 23:36] LABS: BLOOD UREA NITROGEN 20.8 mg/dL (7-18)
[2024-07-04 23:37] LABS: ALBUMIN 3.2 g/dl (3.4-5.0)
[2024-07-04 23:38] LABS: MAGNESIUM 2.1 mg/dL (1.8-2.4)
[2024-07-04 23:39] LABS: CREATININE 1.1 mg/dL (0.55-1.3)
[2024-07-04 23:40] LABS: BILIRUBIN,TOTAL 0.2 mg/dL (0.2-1); TOT PROT 6.4 g/dl (6.4-8.2)
[2024-07-05] MEDS ORDERED: ALBUTEROL SO4 2.5/IPRATROPIUM 0.5 INH SOL 3 ML VIAL.NEB. NEB ONE (00:56)
[2024-07-05 01:31] VITALS: BP 131/67; PULSE 70
== END 2024-07-05 03:52 | disposition home or self-care (01) ==
LOC: JER 20:59
PROC: 3E033GC Introduction of Other Therapeutic Substance into Peripheral Vein, Percutaneous Approach (ICD-10-PCS; principal; 2024-07-04)
DX: J44.1 Chronic obstructive pulmonary disease with (acute) exacerbation (principal); R06.02 Shortness of breath; R42 Dizziness and giddiness; R07.89 Other chest pain; F17.210 Nicotine dependence, cigarettes, uncomplicated; F11.90 Opioid use, unspecified, uncomplicated; Z20.822 Contact with and (suspected) exposure to COVID-19
CPT/HCPCS: 0241U-QW; 36415; 71045-TC-FY; 80053; 83735; 84484; 85025; 85610; 85730; 93005; 93010; 96374; 99285-25

== ENCOUNTER 2024-07-14 12:06 | Emergency (ER) | payer OTHER ==
[2024-07-14 13:29] VITALS: BP 146/74; PULSE 72; RESP 18; TEMP 98; BMI 32.5
[2024-07-14] MEDS ORDERED: ACETAMINOPHEN 500 MG TABLET (FP) ONE (14:51)
[2024-07-14] MEDS ORDERED: AMOX TR/POT CLAV 875MG/125MG TABLETS (FP) ONE (14:51)
[2024-07-14] MEDS: AMOX TR/POT CLAV 875MG/125MG TABLETS (FP) PO ONE (14:53)
[2024-07-14] MEDS: ACETAMINOPHEN 500 MG TABLET (FP) PO ONE (14:53)
== END 2024-07-14 15:34 | disposition home or self-care (01) ==
LOC: JER 12:06 → JERFT 12:06
DX: S61.209A Unspecified open wound of unspecified finger without damage to nail, initial encounter (principal); X58.XXXA Exposure to other specified factors, initial encounter
CPT/HCPCS: 73130-TC-RT-FY; 99283-25

== ENCOUNTER 2024-08-01 18:26 | Emergency (ER) | payer OTHER ==
[2024-08-01 18:41] VITALS: BP 115/67; PULSE 78; RESP 20; TEMP 97.7; BMI 33.2
[2024-08-01] MEDS ORDERED: ALBUTEROL SO4 2.5/IPRATROPIUM 0.5 INH SOL 3 ML VIAL.NEB. NEB ONE ×2 (18:51→19:43)
[2024-08-01] MEDS: ALBUTEROL SO4 2.5/IPRATROPIUM 0.5 INH SOL 3 ML VIAL.NEB. NEB ONE ×2 (18:57→19:50)
[2024-08-01] MEDS ORDERED: predniSONE 20 MG TABLET (UD) ONE (20:53)
[2024-08-01] MEDS ORDERED: ALBUTEROL SO4 HFA INHALER IH ONE (20:53)
[2024-08-01] MEDS: predniSONE 20 MG TABLET (UD) PO ONE (20:55)
== END 2024-08-01 20:58 | disposition home or self-care (01) ==
LOC: JER 18:26
PROC: 3E0F7GC Introduction of Other Therapeutic Substance into Respiratory Tract, Via Natural or Artificial Opening (ICD-10-PCS; principal; 2024-08-01)
PROC: 3E0F7GC Introduction of Other Therapeutic Substance into Respiratory Tract, Via Natural or Artificial Opening (ICD-10-PCS; 2024-08-01)
DX: J44.1 Chronic obstructive pulmonary disease with (acute) exacerbation (principal); R06.02 Shortness of breath; Z20.822 Contact with and (suspected) exposure to COVID-19
CPT/HCPCS: 0241U-QW; 71046-TC-FY; 94640; 99284-25

== ENCOUNTER 2024-09-01 09:41 | Emergency (ER) | payer OTHER ==
[2024-09-01 09:53] VITALS: BP 112/95; PULSE 89; RESP 18; TEMP 98.1; BMI 33.2
== END 2024-09-01 12:02 | disposition left against medical advice (07) ==
LOC: JER 09:41
DX: M25.551 Pain in right hip (principal)
CPT/HCPCS: 73502-TC-RT-FY; 99283-25

== ENCOUNTER 2024-09-05 17:23 | Emergency (ER) | payer OTHER ==
[2024-09-05 17:34] VITALS: TEMP 97.9; BMI 33.2
[2024-09-05] MEDS ORDERED: ALBUTEROL SO4 2.5/IPRATROPIUM 0.5 INH SOL 3 ML VIAL.NEB. NEB ONE (18:09)
[2024-09-05] MEDS ORDERED: FAMOTIDINE 20 MG TABLET ONE (18:09)
[2024-09-05] MEDS ORDERED: predniSONE 20 MG TABLET (UD) ONE (18:11)
[2024-09-05] MEDS: FAMOTIDINE 20 MG TABLET PO ONE (18:13)
[2024-09-05] MEDS: predniSONE 20 MG TABLET (UD) PO ONE (18:13)
[2024-09-05] MEDS: ALBUTEROL SO4 2.5/IPRATROPIUM 0.5 INH SOL 3 ML VIAL.NEB. NEB SCH (18:15)
[2024-09-05 19:37] VITALS: BP 125/79; PULSE 71; RESP 18
== END 2024-09-05 19:36 | disposition home or self-care (01) ==
LOC: JER 17:23
PROC: 3E0F7GC Introduction of Other Therapeutic Substance into Respiratory Tract, Via Natural or Artificial Opening (ICD-10-PCS; principal; 2024-09-05)
DX: J44.1 Chronic obstructive pulmonary disease with (acute) exacerbation (principal); R07.89 Other chest pain; R06.2 Wheezing; R06.02 Shortness of breath
CPT/HCPCS: 93005; 93010; 94640; 99283-25

== ENCOUNTER 2024-09-17 10:11 | Inpatient (IN) | payer OTHER ==
[2024-09-17 10:16] VITALS: BP 130/55; RESP 18; TEMP 99.1; BMI 33.2
[2024-09-17] MEDS ORDERED: ALBUTEROL SO4 2.5/IPRATROPIUM 0.5 INH SOL 3 ML VIAL.NEB. NEB ONE ×2 (10:30→11:46)
[2024-09-17] MEDS ORDERED: methylPREDNISolone NA SUCC 125 MG/2 ML VIAL ONE (10:44)
[2024-09-17] MEDS: ALBUTEROL SO4 2.5/IPRATROPIUM 0.5 INH SOL 3 ML VIAL.NEB. NEB SCH (10:58)
[2024-09-17 11:12] LABS: BASO % 0.1 % (0-2.0); EOS % 0.7 % (0-4.5); HEMOGLOBIN 13.8 GM/dL (11.7-16.9); LYMPH % 12.2 % (8-40); MCH 27.7 pg (25.7-33.7); MEAN CELL VOLUME 86.5 fl (80-96); MEAN PLT VOLUME 7.7 fl (7.5-11.1); MONO % 4.9 % (3.8-10.2); NEUT % 82.1 % (42.8-82.8); PLATELET COUNT 239 10^3/uL (134-434); RBC 4.98 M/mm3 (4.00-5.60); RDW 15.8 % (11.9-15.9); WHITE BLOOD COUNT 13.6 K/mm3 (4.0-10.0)
[2024-09-17] MEDS: methylPREDNISolone NA SUCC 125 MG/2 ML VIAL IVPUSH ONE (11:19)
[2024-09-17 11:46] LABS: ALBUMIN 2.9 g/dl (3.4-5.0); BLOOD UREA NITROGEN 20.8 mg/dL (7-18); CALCIUM 8.6 mg/dL (8.5-10.1)
[2024-09-17 11:50] LABS: BILIRUBIN,TOTAL 0.7 mg/dL (0.2-1); CREATININE 0.9 mg/dL (0.55-1.3); TOT PROT 5.7 g/dl (6.4-8.2)
[2024-09-17 11:55] LABS: N-TERMINAL BNP 34.8 pg/ml (5-125)
[2024-09-17 11:59] VITALS: PULSE 100
[2024-09-17] MEDS ORDERED: ALBUTEROL SO4 0.083% IH SOL 2.5 MG/3 ML VIAL.NEB. NEB SCH ×2 (12:00→16:00)
[2024-09-17] MEDS ORDERED: AZITHROMYCIN IVPB 500 MG/250 ML BAG IVPB ONE (12:31)
[2024-09-17] MEDS: ALBUTEROL SO4 0.083% IH SOL 2.5 MG/3 ML VIAL.NEB. NEB ONE (12:44)
[2024-09-17] MEDS: AZITHROMYCIN IVPB 500 MG in DEXTROSE 5%-WATER - 250 ML IVPB ONE (12:44)
[2024-09-17] MEDS ORDERED: ACETAMINOPHEN 325 MG TABLET (FP) PO PRN (13:00)
[2024-09-17] MEDS ORDERED: BUPRENORPHINE/NALOXONE 8 MG/2 MG FILM PACKET SL ONE (13:15)
[2024-09-17] MEDS ORDERED: ALBUTEROL SO4 2.5/IPRATROPIUM 0.5 INH SOL 3 ML VIAL.NEB. NEB SCH (14:00)
[2024-09-17] MEDS ORDERED: ALPRAZolam 0.25 MG TABLET PO SCH (14:00)
[2024-09-17] MEDS ORDERED: ATORVASTATIN CA 40 MG TABLET (FP) PO SCH (22:00)
[2024-09-17] MEDS ORDERED: HEPARIN NA (PORCINE) 5,000 UNITS/ML 1ML VIAL SQ SCH (22:00)
[2024-09-17] MEDS ORDERED: DIVALPROEX SODIUM 500 MG TABLET E.C. PO SCH (22:00)
[2024-09-17] MEDS ORDERED: BUDESONIDE/FORMETEROL FUMARATE 80/4.5 mcg INHALER IH SCH (22:00)
[2024-09-18] MEDS ORDERED: BUPRENORPHINE/NALOXONE 8 MG/2 MG FILM PACKET SL SCH (10:00)
[2024-09-18] MEDS ORDERED: ENALAPRIL MALEATE 5 MG TABLET PO SCH (10:00)
[2024-09-18] MEDS ORDERED: ASPIRIN 81 MG CHEWABLE TABLETS PO SCH (10:00)
[2024-09-18] MEDS ORDERED: FLUoxetine HCL 20 MG CAPSULE PO SCH (10:00)
[2024-09-18] MEDS ORDERED: PANTOPRAZOLE 40 MG TABLET PO SCH (10:00)
== END 2024-09-17 13:23 | disposition left against medical advice (07) | DRG 192 ==
LOC: JER 10:11 → JERBED 12:32
PROVIDERS: ADMIT Family Medicine; ATTEND Family Medicine
DX: J43.9 Emphysema, unspecified (principal); I10 Essential (primary) hypertension; E78.5 Hyperlipidemia, unspecified; I25.10 Atherosclerotic heart disease of native coronary artery without angina pectoris; F31.9 Bipolar disorder, unspecified; R91.1 Solitary pulmonary nodule
CPT/HCPCS: 0241U-QW; 36415; 71045-TC-FY; 71275-TC; 80053; 83735; 83880; 84484; 85025; 93005; 93010; 99285-25; Q9967

== ENCOUNTER 2024-09-17 16:33 | Emergency (ER) | payer OTHER ==
[2024-09-17 16:42] VITALS: BP 155/66; PULSE 110; RESP 16; TEMP 98.2; BMI 33.2
== END 2024-09-17 18:00 | disposition left against medical advice (07) ==
LOC: JER 16:33
DX: Z53.21 Procedure and treatment not carried out due to patient leaving prior to being seen by health care provider (principal)
CPT/HCPCS: 93005; 93010; 99281-25

== ENCOUNTER 2024-09-19 12:53 | Emergency (ER) | payer OTHER ==
[2024-09-19 13:27] VITALS: BP 115/61; PULSE 105; RESP 22; TEMP 97.9; BMI 33.2
[2024-09-19] MEDS ORDERED: ASPIRIN 81 MG CHEWABLE TABLETS PO ONE (13:35)
[2024-09-19] MEDS ORDERED: ALBUTEROL SO4 2.5/IPRATROPIUM 0.5 INH SOL 3 ML VIAL.NEB. NEB ONE (14:08)
[2024-09-19] MEDS ORDERED: AMPICILLIN NA/SULBACTAM NA 3 GM/100 ML BAG IVPB ONE (14:08)
[2024-09-19] MEDS: AMPICILLIN NA/SULBACTAM NA 3 GM in SODIUM CHLORIDE 100 ML IVPB ONE (14:15)
[2024-09-19] MEDS: ALBUTEROL SO4 2.5/IPRATROPIUM 0.5 INH SOL 3 ML VIAL.NEB. NEB ONE (14:15)
[2024-09-19 14:30] LABS: HEMATOCRIT 41.5 % (35.4-49); HEMOGLOBIN 13.9 GM/dL (11.7-16.9); MCH 28.6 pg (25.7-33.7); MCHC 33.5 g/dl (32.0-35.9); MEAN CELL VOLUME 85.3 fl (80-96); MEAN PLT VOLUME 7.8 fl (7.5-11.1); PLATELET COUNT 217 10^3/uL (134-434); RBC 4.87 M/mm3 (4.00-5.60); RDW 16.2 % (11.9-15.9); VENOUS BASE EXCESS 2.1 mmol/L (-2-2); VENOUS O2 SATURATION 32.8 % (70-80); VENOUS PCO2 57.6 mmHg (38-52); VENOUS PH 7.327 (7.310-7.410); WHITE BLOOD COUNT 14.3 K/mm3 (4.0-10.0)
[2024-09-19 14:40] LABS: INR 0.99 (0.83-1.09); PROTHROMBIN TIME (PATIENT) 10.8 SEC (9.7-13.0)
[2024-09-19 14:50] LABS: POTASSIUM 4.4 mmol/L (3.5-5.1)
[2024-09-19 14:55] LABS: BLOOD UREA NITROGEN 25.5 mg/dL (7-18); CALCIUM 8.8 mg/dL (8.5-10.1)
[2024-09-19 15:00] LABS: BILIRUBIN,TOTAL 0.5 mg/dL (0.2-1); TOT PROT 6.1 g/dl (6.4-8.2)
[2024-09-19 15:53] LABS: HIV INTERPRETATION NEGATIVE (NEGATIVE)
== END 2024-09-19 15:28 | disposition left against medical advice (07) ==
LOC: JER 12:53
PROC: 3E03329 Introduction of Other Anti-infective into Peripheral Vein, Percutaneous Approach (ICD-10-PCS; principal; 2024-09-19)
PROC: 3E0F7GC Introduction of Other Therapeutic Substance into Respiratory Tract, Via Natural or Artificial Opening (ICD-10-PCS; 2024-09-19)
DX: L02.211 Cutaneous abscess of abdominal wall (principal); J44.9 Chronic obstructive pulmonary disease, unspecified; R06.02 Shortness of breath; R10.32 Left lower quadrant pain
CPT/HCPCS: 36415; 71046-TC-FY; 80053; 82550; 82803; 83735; 84484; 85025; 85610; 85730; 86803; 87389; 93005; 93010; 94640; 96365; 99285-25

== ENCOUNTER 2024-09-20 18:58 | Observation (INO) | payer OTHER ==
[2024-09-20 19:08] VITALS: BMI 33.2
[2024-09-20] MEDS ORDERED: ALBUTEROL SO4 2.5/IPRATROPIUM 0.5 INH SOL 3 ML VIAL.NEB. NEB ONE (19:34)
[2024-09-20] MEDS: ALBUTEROL SO4 2.5/IPRATROPIUM 0.5 INH SOL 3 ML VIAL.NEB. NEB SCH (19:40)
[2024-09-20 20:46] LABS: VENOUS O2 SATURATION 27.3 % (70-80); VENOUS PCO2 62.7 mmHg (38-52); VENOUS PH 7.359 (7.310-7.410)
[2024-09-20 20:49] LABS: HEMATOCRIT 40.7 % (35.4-49); MCH 27.2 pg (25.7-33.7); MCHC 31.8 g/dl (32.0-35.9); MEAN CELL VOLUME 85.7 fl (80-96); MEAN PLT VOLUME 7.9 fl (7.5-11.1); PLATELET COUNT 207 10^3/uL (134-434); RBC 4.76 M/mm3 (4.00-5.60); RDW 15.9 % (11.9-15.9); WHITE BLOOD COUNT 14.4 K/mm3 (4.0-10.0)
[2024-09-20 21:05] LABS: INR 0.94 (0.83-1.09); PROTHROMBIN TIME (PATIENT) 10.3 SEC (9.7-13.0)
[2024-09-20 21:11] LABS: POTASSIUM 4.9 mmol/L (3.5-5.1)
[2024-09-20 21:13] LABS: CALCIUM 8.7 mg/dL (8.5-10.1)
[2024-09-20 21:14] LABS: ALBUMIN 2.8 g/dl (3.4-5.0); BLOOD UREA NITROGEN 18.7 mg/dL (7-18)
[2024-09-20 21:17] LABS: CREATININE 0.9 mg/dL (0.55-1.3)
[2024-09-20 21:19] LABS: BILIRUBIN,TOTAL 0.4 mg/dL (0.2-1); TOT PROT 5.9 g/dl (6.4-8.2)
[2024-09-20 21:30] LABS: ANISOCYTOSIS 3+; MACROCYTOSIS 0
[2024-09-20] MEDS ORDERED: ACETAMINOPHEN 325 MG TABLET (FP) PO PRN (22:11)
[2024-09-20] MEDS ORDERED: DOCUSATE SODIUM 100 MG CAPSULE (FP) PO PRN (22:11)
[2024-09-20] MEDS ORDERED: ALBUTEROL SO4 2.5/IPRATROPIUM 0.5 INH SOL 3 ML VIAL.NEB. NEB PRN (22:15)
[2024-09-20] MEDS ORDERED: BENZONATATE 200 MG CAPSULE PO PRN (23:27)
[2024-09-20] MEDS: guaiFENesin 600 MG TABLET.ER (FP) PO SCH (23:40)
[2024-09-21] MEDS: risperiDONE 0.5 MG TABLET PO SCH (02:31)
[2024-09-21] MEDS: clonazePAM 0.5 MG TABLET PO PRN (02:44)
[2024-09-21 03:33] VITALS: BP 144/67; PULSE 95; RESP 18; TEMP 98.4
[2024-09-21] MEDS ORDERED: FLUoxetine HCL 20 MG CAPSULE PO SCH (06:00)
[2024-09-21] MEDS: ALBUTEROL SO4 2.5/IPRATROPIUM 0.5 INH SOL 3 ML VIAL.NEB. NEB SCH (07:45)
[2024-09-21] MEDS ORDERED: PANTOPRAZOLE 40 MG TABLET PO SCH (10:00)
[2024-09-21] MEDS ORDERED: predniSONE 20 MG TABLET (UD) PO ONE (10:00)
[2024-09-21] MEDS ORDERED: ASPIRIN COATED 81 MG TABLET.EC PO SCH (10:00)
[2024-09-21] MEDS ORDERED: TICAGRELOR 90 MG TABLET PO SCH (10:00)
[2024-09-21] MEDS ORDERED: ENALAPRIL MALEATE 10 MG TABLET PO SCH (10:00)
[2024-09-21] MEDS ORDERED: ATORVASTATIN CA 80 MG TABLET (FP) PO SCH (22:00)
== END 2024-09-21 08:09 | disposition left against medical advice (07) ==
LOC: JER 18:58 → JERBED 19:25 → J6S 09-21 00:41
PROVIDERS: ADMIT Internal Medicine; ATTEND Internal Medicine
PROC: 0H97X0Z Drainage of Abdomen Skin with Drainage Device, External Approach (ICD-10-PCS; principal; 2024-09-20)
DX: J44.1 Chronic obstructive pulmonary disease with (acute) exacerbation (principal); L02.211 Cutaneous abscess of abdominal wall; I11.9 Hypertensive heart disease without heart failure; Z85.038 Personal history of other malignant neoplasm of large intestine; E11.9 Type 2 diabetes mellitus without complications; F17.210 Nicotine dependence, cigarettes, uncomplicated; E78.00 Pure hypercholesterolemia, unspecified; Z86.73 Personal history of transient ischemic attack (TIA), and cerebral infarction without residual deficits
CPT/HCPCS: 0241U-QW; 10060; 36415; 76705-TC; 80053; 82803; 83735; 83880; 84484; 85025; 85610; 85730; 99285-25; G0378

== ENCOUNTER 2024-10-10 17:53 | Emergency (ER) | payer OTHER ==
[2024-10-10 18:35] VITALS: TEMP 98.1; BMI 25.8
[2024-10-10 19:03] LABS: VENOUS O2 SATURATION 41.2 % (70-80); VENOUS PCO2 49.4 mmHg (38-52); VENOUS PH 7.386 (7.310-7.410)
[2024-10-10 19:05] LABS: BASOPHILS # 0.05 x10^3/uL (0.01-0.08); EOSINOPHIL % 0.1 % (0.8-7.0); EOSINOPHILS # 0.01 x10^3/uL (0.04-0.54); HEMATOCRIT 40.6 % (40.1-51.0); HEMOGLOBIN 13.5 g/dL (13.7-17.5); MCHC 33.3 g/dl (32.3-36.5); MEAN CELL VOLUME 85.8 fl (79.0-92.2); MEAN PLT VOLUME 9.3 fl (9.4-12.4); MONOCYTE # 0.21 x10^3/uL (0.30-0.82); MONOCYTE % 1.7 % (5.3-12.2); PLATELET COUNT 298 x10^3/uL (163-337); RDW 15.5 % (12.2-16.4)
[2024-10-10 19:25] LABS: POTASSIUM 5.5 mmol/L (3.5-5.1)
[2024-10-10 19:29] LABS: BLOOD UREA NITROGEN 15.1 mg/dL (7-18); CALCIUM 9.3 mg/dL (8.5-10.1); MAGNESIUM 2.5 mg/dL (1.8-2.4)
[2024-10-10 19:33] LABS: BILIRUBIN,TOTAL 0.4 mg/dL (0.2-1); CREATININE 1.2 mg/dL (0.55-1.3)
[2024-10-10] MEDS: AZITHROMYCIN 500 MG TABLET PO ONE (19:37)
[2024-10-10] MEDS: CEFUROXIME AXETIL 500 MG TABLET PO ONE (19:37)
[2024-10-10 19:38] LABS: N-TERMINAL BNP 40.7 pg/ml (5-125)
[2024-10-10] MEDS ORDERED: ALBUTEROL SO4 2.5/IPRATROPIUM 0.5 INH SOL 3 ML VIAL.NEB. NEB ONE (19:38)
[2024-10-10] MEDS ORDERED: methylPREDNISolone NA SUCC 125 MG/2 ML VIAL ONE (19:38)
[2024-10-10] MEDS: ALBUTEROL SO4 2.5/IPRATROPIUM 0.5 INH SOL 3 ML VIAL.NEB. NEB SCH (19:39)
[2024-10-10] MEDS: methylPREDNISolone NA SUCC 125 MG/2 ML VIAL IVPB ONE (19:39)
[2024-10-10 20:21] LABS: HCV DIAGNOSTIC IN-HOUSE W/RFLX NON-REACTIVE (NONREACTIVE); HIV INTERPRETATION NEGATIVE (NEGATIVE)
[2024-10-10] MEDS ORDERED: FUROSEMIDE 40 MG/4 ML INJECTABLE VIAL ONE (20:28)
[2024-10-10] MEDS ORDERED: SODIUM ZIRCONIUM CYCLOSILICATE (LOKELMA) 10 GM PACKET ONE (20:30)
[2024-10-10] MEDS: FUROSEMIDE 40 MG/4 ML INJECTABLE VIAL IVPUSH ONE (20:35)
[2024-10-10] MEDS: SODIUM ZIRCONIUM CYCLOSILICATE (LOKELMA) 5 GM PACKET PO ONE (20:35)
[2024-10-10 20:36] VITALS: BP 109/64; PULSE 90; RESP 17
[2024-10-11] MEDS ORDERED: SODIUM ZIRCONIUM CYCLOSILICATE (LOKELMA) 5 GM PACKET PO ONE (20:15)
== END 2024-10-10 23:30 | disposition home or self-care (01) ==
LOC: JER 17:53
PROC: 3E033GC Introduction of Other Therapeutic Substance into Peripheral Vein, Percutaneous Approach (ICD-10-PCS; principal; 2024-10-10)
PROC: 3E0F7GC Introduction of Other Therapeutic Substance into Respiratory Tract, Via Natural or Artificial Opening (ICD-10-PCS; 2024-10-10)
DX: J44.1 Chronic obstructive pulmonary disease with (acute) exacerbation (principal); F11.20 Opioid dependence, uncomplicated; R06.02 Shortness of breath; R07.89 Other chest pain
CPT/HCPCS: 0241U-QW; 36415; 71045-TC-FY; 80053; 82803; 83735; 83880; 84132; 84484; 85025; 86803; 87389; 93005; 93010; 94640; 96374; 99285-25

== ENCOUNTER 2024-10-12 02:45 | Emergency (ER) | payer OTHER ==
[2024-10-12 02:50] VITALS: BP 140/62; PULSE 79; RESP 18; TEMP 97.9; BMI 33.2
[2024-10-12 04:11] LABS: BASOPHILS # 0.02 x10^3/uL (0.01-0.08); EOSINOPHIL % 0.1 % (0.8-7.0); EOSINOPHILS # 0.01 x10^3/uL (0.04-0.54); HEMATOCRIT 36.8 % (40.1-51.0); HEMOGLOBIN 12.1 g/dL (13.7-17.5); MCHC 32.9 g/dl (32.3-36.5); MEAN CELL VOLUME 85.6 fl (79.0-92.2); MEAN PLT VOLUME 9.1 fl (9.4-12.4); MONOCYTE # 0.62 x10^3/uL (0.30-0.82); MONOCYTE % 4.3 % (5.3-12.2); PLATELET COUNT # 316 x10^3/uL (163-337); RDW 15.7 % (12.2-16.4)
[2024-10-12] MEDS: ACETAMINOPHEN 1000 MG/100 ML BAG IVPB ONE (04:31)
[2024-10-12] MEDS ORDERED: ACETAMINOPHEN INJECTION 100 ML ONE (04:35)
[2024-10-12 04:55] LABS: POTASSIUM 4.4 mmol/L (3.5-5.1)
[2024-10-12 04:58] LABS: BLOOD UREA NITROGEN 26.8 mg/dL (7-18)
[2024-10-12 05:01] LABS: CREATININE 0.9 mg/dL (0.55-1.3)
[2024-10-12 05:02] LABS: BILIRUBIN,TOTAL 0.3 mg/dL (0.2-1)
== END 2024-10-12 05:40 | disposition home or self-care (01) ==
LOC: JER 02:45
PROC: 3E033NZ Introduction of Analgesics, Hypnotics, Sedatives into Peripheral Vein, Percutaneous Approach (ICD-10-PCS; principal; 2024-10-12)
DX: R07.89 Other chest pain (principal); R10.13 Epigastric pain
CPT/HCPCS: 36415; 71046-TC-FY; 80053; 84484; 85025; 93005; 93010; 99285-25; J0131

== ENCOUNTER 2024-10-16 12:31 | Emergency (ER) | payer OTHER ==
[2024-10-16 13:18] VITALS: BP 123/49; RESP 20; TEMP 98.5; BMI 35.2
[2024-10-16] MEDS ORDERED: ALBUTEROL SO4 2.5/IPRATROPIUM 0.5 INH SOL 3 ML VIAL.NEB. NEB ONE (13:55)
[2024-10-16] MEDS ORDERED: DEXAMETHASONE 4 MG TABLET (FP) ONE (13:56)
[2024-10-16 14:12] VITALS: PULSE 74
[2024-10-16] MEDS: DEXAMETHASONE 4 MG TABLET (FP) PO ONE (14:12)
[2024-10-16] MEDS: ALBUTEROL SO4 2.5/IPRATROPIUM 0.5 INH SOL 3 ML VIAL.NEB. NEB SCH (14:12)
[2024-10-16 14:26] LABS: ABSOLUTE IMMATURE GRANULOCYTES 0.09 x10^3/uL (0.0-0.031); BASOPHILS # 0.04 x10^3/uL (0.01-0.08); EOSINOPHIL % 0.9 % (0.8-7.0); EOSINOPHILS # 0.12 x10^3/uL (0.04-0.54); HEMOGLOBIN 12.2 g/dL (13.7-17.5); MCHC 32.1 g/dl (32.3-36.5); MEAN CELL VOLUME 89.8 fl (79.0-92.2); MEAN PLT VOLUME 9.8 fl (9.4-12.4); MONOCYTE # 0.63 x10^3/uL (0.30-0.82); MONOCYTE % 4.8 % (5.3-12.2); PLATELET COUNT 245 x10^3/uL (163-337); RDW 15.8 % (12.2-16.4)
[2024-10-16 14:35] LABS: VENOUS BASE EXCESS 1.7 mmol/L (-2-2); VENOUS O2 SATURATION 47.7 % (70-80); VENOUS PCO2 56.9 mmHg (38-52); VENOUS PH 7.324 (7.310-7.410)
[2024-10-16 14:37] LABS: INR 1.03 (0.83-1.09); PROTHROMBIN TIME (PATIENT) 11.3 SEC (9.7-13.0)
[2024-10-16 14:39] LABS: ACTIVATED PTT 29.6 SECONDS (25.2-36.5)
[2024-10-16 15:03] LABS: POTASSIUM 3.8 mmol/L (3.5-5.1)
[2024-10-16 15:05] LABS: CALCIUM 8.8 mg/dL (8.5-10.1)
[2024-10-16 15:06] LABS: BLOOD UREA NITROGEN 16.5 mg/dL (7-18); MAGNESIUM 2.3 mg/dL (1.8-2.4)
[2024-10-16 15:09] LABS: CREATININE 0.9 mg/dL (0.55-1.3)
[2024-10-16 15:10] LABS: BILIRUBIN,TOTAL 0.4 mg/dL (0.2-1); TOT PROT 5.7 g/dl (6.4-8.2)
[2024-10-16] MEDS ORDERED: AZITHROMYCIN 250 MG TABLET ONE (16:04)
[2024-10-16] MEDS: AZITHROMYCIN 250 MG TABLET PO ONE (16:14)
[2024-10-16 17:29] LABS: HCV DIAGNOSTIC IN-HOUSE W/RFLX NON-REACTIVE (NONREACTIVE)
[2024-10-16 17:30] LABS: HIV INTERPRETATION NEGATIVE (NEGATIVE)
== END 2024-10-16 16:20 | disposition home or self-care (01) ==
LOC: JER 12:31
PROC: 3E0F7GC Introduction of Other Therapeutic Substance into Respiratory Tract, Via Natural or Artificial Opening (ICD-10-PCS; principal; 2024-10-16)
DX: J44.1 Chronic obstructive pulmonary disease with (acute) exacerbation (principal); R06.02 Shortness of breath; R05.9 Cough, unspecified; R60.0 Localized edema
CPT/HCPCS: 0241U-QW; 36415; 71045-TC-FY; 80053; 82803; 83735; 83880; 84484; 85025; 85610; 85730; 86803; 86850; 86900; 86901; 87389; 93005; 93010; 94640; 99285-25

== ENCOUNTER → 2024-10-22 | Emergency (ER) | payer OTHER ==
[~2024-10-22] MED LIST changes: +ALBUTEROL SO4 2.5/IPRATROPIUM 0.5 INH SOL 3 ML VIAL.NEB. NEB ONE; -BETAMET ACET/BETAMET NA PH 30 MG/5 ML VIAL IJ ONE; -BUPIVACAINE HCL/PF 0.25% (2.5MG/ML) 10 ML VIAL IJ ONE; -IOHEXOL 180 MG/1 ML ML IJ ONE; -LIDOCAINE HCL 1%, 10 MG/ML (20ML VIAL) INF ONE; +methylPREDNISolone NA SUCC 125 MG/2 ML VIAL ONE
[2024-10-22 08:20] VITALS: BP 124/67; PULSE 94; RESP 18; TEMP 98.2; BMI 33.2
[2024-10-22 09:30] LABS: ABSOLUTE IMMATURE GRANULOCYTES 0.13 x10^3/uL (0.0-0.031); BASOPHILS # 0.02 x10^3/uL (0.01-0.08); EOSINOPHIL % 0.5 % (0.8-7.0); EOSINOPHILS # 0.09 x10^3/uL (0.04-0.54); HEMOGLOBIN 11.3 g/dL (13.7-17.5); MCHC 32.3 g/dl (32.3-36.5); MEAN CELL VOLUME 88.4 fl (79.0-92.2); MEAN PLT VOLUME 9.7 fl (9.4-12.4); MONOCYTE % 4.7 % (5.3-12.2); PLATELET COUNT 237 x10^3/uL (163-337); RDW 16.2 % (12.2-16.4); VENOUS BASE EXCESS 4.1 mmol/L (-2-2); VENOUS O2 SATURATION 44.3 % (70-80); VENOUS PCO2 57.3 mmHg (38-52); VENOUS PH 7.352 (7.310-7.410)
[2024-10-22] MEDS: ALBUTEROL SO4 2.5/IPRATROPIUM 0.5 INH SOL 3 ML VIAL.NEB. NEB SCH (09:38)
[2024-10-22] MEDS: methylPREDNISolone NA SUCC 125 MG/2 ML VIAL IVPB ONE (09:38)
[2024-10-22 09:40] LABS: ACTIVATED PTT 27.4 SECONDS (25.2-36.5)
[2024-10-22 09:51] LABS: POTASSIUM 4.1 mmol/L (3.5-5.1)
[2024-10-22 09:53] LABS: CALCIUM 8.9 mg/dL (8.5-10.1)
[2024-10-22 09:54] LABS: ALBUMIN 2.9 g/dl (3.4-5.0); BLOOD UREA NITROGEN 19.2 mg/dL (7-18); MAGNESIUM 2.1 mg/dL (1.8-2.4)
[2024-10-22 09:57] LABS: PHOSPHOROUS 3.7 mg/dL (2.5-4.9)
[2024-10-22 09:58] LABS: BILIRUBIN,TOTAL 0.4 mg/dL (0.2-1); TOT PROT 5.8 g/dl (6.4-8.2)
[2024-10-22 10:12] LABS: ERYTHROCYTE SEDIMENTATION RATE 36 mm/hr (0-20)
== END | disposition left against medical advice (07) ==
LOC: JER 08:05
PROC: 3E033GC Introduction of Other Therapeutic Substance into Peripheral Vein, Percutaneous Approach (ICD-10-PCS; principal; 2024-10-22)
DX: J44.1 Chronic obstructive pulmonary disease with (acute) exacerbation (principal); L08.9 Local infection of the skin and subcutaneous tissue, unspecified; R06.02 Shortness of breath; M79.644 Pain in right finger(s)
CPT/HCPCS: 0241U-QW; 36415; 71045-TC-FY; 73201-TC-RT; 80053; 82803; 83735; 84100; 84484; 85025; 85610; 85651; 85730; 86140; 93005; 93010; 96374; 99285-25